=== PATIENT | female | born 1985 | race Caucasian/White ===

== ENCOUNTER → 2023-01-30 | Outpatient (OUT) | payer OTHER, SELFPAY ==
[2023-01-30 13:27] LABS: Basophils Absolute Auto 0.1 10^3/uL (0.0-0.1); Basophils Percent Auto 0.7 % (0.2-2.0); Eosinophils Absolute Auto 0.4 10^3/uL (0.0-0.7); Eosinophils Percent Auto 4.3 % (0.9-7.0); Hemoglobin 15.4 g/dL (12.0-16.0); Immature Granulocytes Abs Auto 0.05 10^3/uL (0.00-0.03); Immature Granulocytes Pct Auto 0.5 % (0.0-0.5); Lymphocytes Absolute Auto 2.3 10^3/uL (1.2-3.8); Mean Corpuscular HGB Conc 31.4 g/dL (29.9-35.2); Mean Corpuscular Hemoglobin 31.4 pg (26.7-34.0); Mean Platelet Volume 9.8 fL (9.5-13.5); Monocytes Absolute Auto 0.7 10^3/uL (0.3-0.8); Monocytes Percent Auto 6.8 % (1.7-12.0); Neutrophils Absolute Auto 6.2 10^3/uL (1.4-6.5); Neutrophils Percent Auto 63.7 % (43.0-75.0); Platelet Count 308 10^3/uL (150-450); Red Cell Distribution Width 14.2 % (11.0-15.0); White Blood Count 9.7 10^3/uL (4.0-11.0)
[2023-01-30 14:19] LABS: Alanine Aminotransferase 27 U/L (14-59); Albumin Globulin Ratio 0.8; Albumin Level 3.3 g/dL (3.4-5.0); Alkaline Phosphatase 106 U/L (46-116); Anion Gap 10.8; Aspartate Amino Transferase 18 U/L (15-37); BUN Creatinine Ratio 8.2; Bilirubin Total 0.3 mg/dL (0.2-1.0); Calcium 9.5 mg/dL (8.5-10.1); Carbon Dioxide 27.4 mmol/L (21.0-32.0); Chloride 107 mmol/L (98-107); Chol HDL Ratio 6.1; Cholesterol 208 mg/dL (<=200); Estimated GFR (African America >60 (>=60); Estimated GFR (Non-African Ame >60 (>=60); Free T3 2.22 pg/mL (2.18-3.98); Globulin 4.3 g/dL; Glucose 92 mg/dL (74-106); HDL Cholesterol 34 mg/dL (40-60); Potassium 4.2 mmol/L (3.5-5.1); Sodium 141 mmol/L (136-145); Thyroid Stimulating Hormone 0.626 uIU/mL (0.358-3.740); Total Protein 7.6 g/dL (6.4-8.2); Triglycerides 210 mg/dL (<=150)
[2023-01-30 14:21] LABS: Estimated Average Glucose 111 mg/dL; Glycohemoglobin A1C 5.5 % (4.5-6.2)
[2023-01-31 11:09] LABS: Insulin 40.3 uIU/mL (2.6-24.9)
== END ==
LOC: LAB 12:14
PROVIDERS: PCP Family Medicine; Visit Provider Family Medicine
DX: D64.9 Anemia, unspecified (principal); R73.09 Other abnormal glucose; E55.9 Vitamin D deficiency, unspecified; L65.9 Nonscarring hair loss, unspecified; G43.909 Migraine, unspecified, not intractable, without status migrainosus; R53.83 Other fatigue
CPT/HCPCS: 36415; 80053; 80061; 82306; 82607; 82746; 83036; 83525; 83540; 83690; 84436; 84443; 84481; 85025

== ENCOUNTER 2023-02-07 14:09 | Outpatient (OUT) | payer OTHER, SELFPAY ==
[2023-02-08 06:09] LABS: HCV Antibody Non Reactive (Non Reactive); HIV Ab/p24 Ag Screen Non Reactive (Non Reactive); Hep B Core Ab, IgM Negative (Negative)
== END 2023-02-07 14:10 ==
PROVIDERS: PCP Family Medicine; Visit Provider Physician Assistant
DX: Z20.2 Contact with and (suspected) exposure to infections with a predominantly sexual mode of transmission (principal)
CPT/HCPCS: 36415; 86705; 86803; 87389

== ENCOUNTER 2023-02-14 06:00 | Outpatient (OUT) | payer OTHER, SELFPAY ==
[2023-02-14 15:46] VITALS: BMI 45.5
== END 2023-02-14 06:01 ==
LOC: MN 03-27 10:43
PROVIDERS: PCP Family Medicine; Visit Provider Family Medicine
DX: R73.03 Prediabetes (principal)
CPT/HCPCS: 97802; S9470

== ENCOUNTER 2023-05-19 00:59 | Emergency (ER) | payer OTHER, SELFPAY ==
[2023-05-19 01:05] VITALS: BP 138/90; PULSE 74; RESP 16; TEMP 36.6; O2SAT 100; BMI 42.5
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
== END 2023-05-19 01:51 | disposition home or self-care (01) ==
PROVIDERS: Emergency Provider Emergency Medicine; PCP Family Medicine
DX: S00.33XA Contusion of nose, initial encounter (principal); S09.8XXA Other specified injuries of head, initial encounter; Y04.2XXA Assault by strike against or bumped into by another person, initial encounter; Z79.84 Long term (current) use of oral hypoglycemic drugs; Z79.899 Other long term (current) drug therapy; F17.210 Nicotine dependence, cigarettes, uncomplicated
CPT/HCPCS: 99282

== ENCOUNTER 2023-09-07 21:13 | Outpatient (REF) | payer OTHER, SELFPAY ==
[2023-09-12 17:07] LABS: Age Gdln ACOG Testing Note (.); HPV Aptima Negative (Negative); IGP, Aptima HPV, rfx 16/18,45 Note (.)
== END 2023-09-07 21:14 | disposition home or self-care (01) ==
LOC: LAB 21:13
PROVIDERS: PCP Family Medicine; Visit Provider Obstetrics & Gynecology
DX: Z01.419 Encounter for gynecological examination (general) (routine) without abnormal findings (principal)
CPT/HCPCS: G0145

== ENCOUNTER 2024-09-10 19:41 | Outpatient (REF) | payer OTHER, SELFPAY ==
--- OUTSIDE RECORDS SUMMARY | 2024-09-10 19:57 | XMS_ITS | CCD ---
Author Organization [facility] Care Team Providers Care Analysis Reporting Developer Name Role Phone OSMICKYWO, EMMIE O Unavailable Unavailable OSINOWO, EMMIE O Unavailable Unavailable RAZ BURRIS Unavailable Unavailable HOY, NUPUR M Unavailable Unavailable JHONATAN PAYANER M Unavailable Unavailable HOY, NUPUR M Unavailable Unavailable HOY, NUPUR M Unavailable Unavailable HOY, NUPUR M Unavailable Unavailable SCHUYLER, CHRISTOPHER M Unavailable Unavailable HOY, NUPUR M Unavailable Unavailable MAGALLANESMARGE WATTS T Unavailable Unavailable HOY, NUPUR M Unavailable Unavailable HOY, NUPUR M Unavailable Unavailable NENO LEWIS Unavailable Unavailable HOY, NUPUR M Unavailable Unavailable LILLIAM DREW Unavailable Unavailable HOY, NUPUR M Unavailable Unavailable HOY, NUPUR M Unavailable Unavailable ANY HOLDER Unavailable Unavailab le HOY, NUPUR M Unavailable Unavailable SUE VALDIVIA Unavailable Unavailable HOY, NUPUR M Unavailable Unavailable HOY, NUPUR M Unavailable Unavailable DEBORAH SOLANO Unavailable Unavailable INDURTI, CONSTANTINO V Unavailable Unavailable INDURTI, CONSTANTINO V Unavailable Unavailable HOY, NUPUR M Unavailable Unavailable AHMED, IRFAN Unavailable Unavailable AHMED, IRFAN Unavailable Unavailable HOY, NUPUR M Unavailable Unavailable NATASHA COIBAN Unavailable Unavailable FABIANO ZIMMERMAN Unavailable Unavailable HOY, NUPUR M Unavailable Unavailable Nupur Mcmahan Primary Care Provider Gabriella Mcmahan Primary Care Provider [phone] MD Nupur Mcmahan Primary Care Provider MD Kaz Valderrama Attending Provider [phone] MERCEDES Tai Emergency Provider [phone] Nupur Mcmahan Primary Care Physician MD Nupur Mcmahan Primary Care Provider [phone] DO Oscar Narayan Emergency Provider MD Nupur Mcmahan Primary Care Provider [phone] DO Oscar Narayan Emergency Provider Maksim [facility] Mary Mena Emergency Provider MD Nupur Mcmahan Primary Care Provider [phone] DO Paolo Beck Emergency Provider Branden Fenton Attending Provider NATHALIAY ., DR ESPITIA Admitting Unavailable HOY ., DR ESPITIA Attending Unavailable HOY ., DR ESPITIA Consulting Unavailable HOY ., DR ESPITIA Primary Care Unavailable ZIEBER, DR ROMINA Ramos Consulting Unavailable HOY ., DR ESPITIA Primary Care Unavailable EBRAHEIM, DR NUNEZ Attending Unavailable EBRAHEIM, DR NUNEZ Admitting Unavailable ZIEBER, DR ROMINA Ramos Consulting Unavailable EBRAHEIM, DR NUNEZ Consulting Unavailable HOY ., DR ESPITIA Primary Care Unavailable CLARA, GABRIEL Attending Unavailable CLARA, GABRIEL Admitting Unavailable HOY ., DR ESPITIA Admitting Unavailable HOY ., DR ESPITIA Attending Unavailable HOY ., DR ESPITIA Consulting Unavailable HOY ., DR ESPITIA Primary Care Unavailable STOUTLAND, DR ROGER [place] Consulting Unavailable HOY ., DR ESPITIA Primary Care Unavailable YUKO, DR JIMMY Amaro Attending Unavailable YUKO, DR JIMMY Amaro Consulting Unavailable YUKO, DR JIMMY Amaro Admitting Unavailable HOY ., DR ESPITIA Primary Care Unavailable MARKER ., DR BOURNE Attending Unavailable MARKER ., DR BOURNE Consulting Unavailable MARKER ., DR BOURNE Admbobbi Unavailable RENÉ HERRON Consulting Unavailable HOY ., DR ESPITIA Primary Care Unavailable HOY ., DR ESPITIA Admitting Unavailable HOY ., DR ESPITIA Attending Unavailable HOY ., DR ESPITIA Consulting Unavailable ZIEBER, DR ROMINA Ramos Consulting Unavailable YUKO, DR JIMMY Amaro Attending Unavailable YUKO, DR JIMMY Amaro Consulting Unavailable YUKO, DR JIMMY Amaro Admitting Unavailable HOY ., DR ESPITIA Primary Care Unavailable Dyana Barraza Unavailable Zeenat Vance Unavailable MD Nupur Mcmahan Primary Care Provider MD Dyana Barraza Attending Provider MERCEDES Bone Emergency Provider SHORTY [place] Emergency Provider DO Ilana Beckrick Emergency Provider MD Nupur Mcmahan Primary Care Provider MD Dyana Barraza Attending Provider MD Dyana Barraza Referring Provider [phone] MD Libertad Kumari Attending Provider MD Rm Valdes Emergency Provider DO Juan Adis Emergency Provider Libertad Kumari Unavailable MD Nupur Mcmahan Primary Care Provider MERCEDES Bone Emergency Provider [phone] SHORTY [place] Emergency Provider DO Paolo Beck Emergency Provider MD Dyana Barraza Attending Provider MD Dyana Barraza Referring Provider MD Libertad Kumari Attending Provider MD Rm Valdes Emergency Provider DO Adis Martinez Emergency Provider MD Emmie Cannon Jr Emergency Provider MD Beatrice Shafer Attending Provider [phone] PCP, No Primary Care Provider MD Nupur Banerjee Primary Care Provider [phone] MD Dyana Barraza Attending Provider [phone] MD Any Truong Emergency Provider MD Nupur Mcmahan Primary Care Provider [phone] MD Shahbaz Cornelius Attending Provider Beatrice Shafer Attending Unavailab le PCP, No Primary Care Unavailable JEAN CARLOS FERRIS Attending Unavailable MD Nupur Mcmahan Primary Care Provider MD Shahbaz Cornelius Attending Provider MD Dyana Barraza Attending Provider DO Anthony Tohmas Emergency Provider Unavai lable [place], [facility] Mary E Emergency Provider [phone] ELATTAR, OSAMA Attending Unavailable ELATTAR, OSAMA Attending Unavailable YUKO, JIMMY A Attending Unavailable YUKO, JIMMY A Attending Unavailable ELATTAR, OSAMA Referring Unavailable YUKO, JIMMY A Referring Unavailable ELATTAR, OSAMA Referring Unavailable YUKO, JIMMY A Referring Unavailable YUKO, JIMMY A Referring Unavailable YUKO, JIMMY A Attending Unavailable ELATTAR, OSAMA Attending Unavailable YUKO, JIMMY A Attending Unavailable MD Nupur Mcmahan Primary Care Provider MD Nupur Mcmahan Primary Care Provider DO Anthony Thomas Emergency Provider [facility]avai lable [facility] MD Shahbaz Cornelius Attending Provider Nupur Mcmahan MD Primary Care Provider MD Nupur Mcmahan Primary Care Provider MD Shahbaz Cornelius Attending Provider MD Nupur Mcmahan Primary Care Provider MD Shahbaz Cornelius Attending Provider [phone] [place] MD Nupur Mcmahan Primary Care Provider MD Shahbaz Cornelius Attending Provider [phone] MERCEDES Bone Emergency Provider Jimmy STOCK Attending Unavailable Jimmy STOCK Attending Unavailable [place], Mary E Admitting Unavailable [place], Mary E Attending Unavailable Hoy, Nupur M Primary Care Unavailable Any Truong Admitting Unavailable Any Truong Attending Unavailable Hoy, Nupur M Primary Care Unavailable Dyana Barraza Attending Unavailable Hoy, Nupur M Primary Care Unavailable Dyana Barraza Admitting Unavailable Dyana Barraza Attending Unavailable Hoy, Nupur M Primary Care Unavailable MadiTamir nietoald L Admitting Unavailable [place], Mary E Admitting Unavailable [place], Mary E Attending Unavailable Hoy, Nupur M Primary Care Unavailable Shahbaz Cornelius Attending Unavailab le Hoy, Nupur M Primary Care Unavailable Shahbaz Cornelius Admitting Unavailab le Hoy, Nupur M Primary Care Unavailable Dante Bone Admitting Unavailable Dante Bone Attending Unavailable Anthony Thomas Admitting Unavailable Anthony Thomas Attending Unavailable Hoy, Nupur M Primary Care Unavailable BEATRICE CABRERA Referring Unavailab le HOY, NUPUR M Primary Care Unavailable DEBORAHBEATRICE DASILVA Referring Unavailab le HOY, NUPUR M Primary Care Unavailable HOY, NUPUR M Primary Care Unavailable HOY, NUPUR M Primary Care Unavailable BEATRICE CABRERA Referring Unavailab le DEBORAHBEATRICE DASILVA Referring Unavailab le HOY, NUPUR M Primary Care Unavailable HOY, NUPUR M Primary Care Unavailable SELF Referring Unavailable BEATRICE CABRERA Attending Unavailab le HOY, NUPUR M Primary Care Unavailable FABIANO PAIGE Referring Unavailable HOY, NUPUR M Primary Care Unavailable HOY, NUPUR M Primary Care Unavailable BEATRICE CABRERA Attending Unavailab le DEBORAHBEATRICE DASILVA Referring Unavailab le HOY, NUPUR M Primary Care Unavailable HOY, NUPUR M Primary Care Unavailable BEATRICE CABRERA Referring Unavailab le DEBORAHBEATRICE DASILVA Attending Unavailab le HOY, NUPUR M Primary Care Unavailable HOY, NUPUR M Referring Unavailable BEATRICE CABRERA Referring Unavailab le DEBORAHBEATRICE DASILVA Attending Unavailab le HOY, NUPUR M Primary Care Unavailable FABIANO PAIGE Attending Unavailable NUPUR MCMAHAN Primary Care Unavailable SELF Referring Unavailable DEBORAHBEATRICE W Referring Unavailab NUPUR Marshall M Primary Care Unavailable DEBORAHBEATRICE W Attending Unavailab NUPUR Marshall M Primary Care Unavailable SELF Referring Unavailable NUPUR MCMAHAN M Primary Care Unavailable SELF Referring Unavailable BEATRICE CABRERA W Attending Unavailab BEATRICE Murphy W Admitting Unavailab le DEBORAHBEATRICE W Referring Unavailab le NUPUR MCMAHAN M Primary Care Unavailable JHONATAN CABRERAER W Referring Unavailab le DEBORAHBEATRICE W Attending Unavailab NUPUR Marshall Primary Care Unavailable NUPUR MCMAHAN M Primary Care Unavailable Nupur Mcmahan MD Primary Care Provider [phone] Unavailable Unavailable Unavailable Allergies Allergy Classification Reported Allergen(s) Allergy Type Date of Onset Reaction(s) Facility Acetaminophen (1 source) Acetaminophen Drug Allergy 1 Unknown Reaction [facility] Latex (1 source) Latex Substance Allergy 1 Rash [facility] Opioid Agonists (1 source) HYDROmorphone Drug Allergy 1 Anaphylaxis [facility] Pollen (1 source) Pollen Substance Allergy 1 Sneezing [facility] (20 sources) Acetaminophen; Translations: [Acetaminophen] Drug Allergy 0 Ammonia measurement (procedure), Other: See Comments, Shortness of breath, Other, Unknown [facility] (20 sources) Adhesive agent; Translations: [ADHESIVE] Propensity to adverse reactions 0 [facility] (20 sources) HYDROmorphone; Translations: [Hydromorphone] Drug Allergy 7 Hypoxia (disorder), Bradycardia (disorder), Hypotensive episode (disorder), Other: See Comments, Anaphylaxis, Dizziness, Hives, Other, Palpitations, Rash, Shortness of breath [facility] (20 sources) Latex; Translations: [latex] Allergy to substance 0 Weal (disorder), [facility] (20 sources) Pollen; Translations: [pollen extracts] Propensity to adverse reactions 0 Sneezing [facility] (6 sources) Adhesive bandage; Translations: [Adhesive Bandage] Drug allergy Weal (disorder) [facility] (8 sources) Acetaminophen; Translations: [Tylenol] Drug Allergy Unknown [facility] (3 sources) Desonide Drug Allergy 3 Hives [facility] (3 sources) HYDROmorphone; Translations: [Dilaudid] Drug Allergy 4 [facility] (1 source) naratriptan Drug Allergy [facility] (3 sources) diludid; Translations: [diludid] Allergy to substance 3 Low heart rate, low O2, low blood pressure [facility] (1 source) Adhesive Tape Drug allergy (disorder) 3 [facility] (1 source) ADHESIVE TAPE-SILICONES; Translations: [ADHESIVE TAPE-SILICONES] Propensity to adverse reactions to drug (disorder) 7 [facility] (1 source) FLUOROURACIL-ADHE SIVE BANDAGE; Translations: [FLUOROURACIL-ADH ESIVE BANDAGE] Propensity to adverse reactions to drug (disorder) 3 [facility] (20 sources) Adhesive Tape; Translations: [ADHESIVE TAPE (ROSINS)] Allergy to substance 7 Rash [facility] (3 sources) Wound Dressing Adhesive Drug Allergy 7 Hives, Rash [facility] Medications Current Medications Medication Drug Class(es) Dates Sig (Normalized) Sig (Original) aspirin 325 mg oral tablet (19 sources) Platelet Aggregation Inhibitor, Nonsteroidal Anti-inflammatory Drug Start: 05-13-2024 End: 06-24-2024 take 1 tablet by mouth once daily aspirin 325 mg tablet Take 1 tablet by mouth once daily. 42 tablet 05/13/2024 Active atomoxetine 80 mg oral capsule (5 sources) Norepinephrine Reuptake Inhibitor Start: 11-05-2021 take 1 capsule by mouth once daily in the morning Strattera 80 mg oral capsule 80 mg = 1 cap(s), Oral, qAM Start Date: 11/05/21 Status: Ordered bethanechol chloride 50 mg oral tablet (20 sources) Cholinergic Muscarinic Agonist Start: 09-07-2022 End: 05-10-2024 take 1 tablet by mouth once daily Urecholine 50 mg oral tablet 50 mg = 1 tab(s), Oral, Daily, Refills(s) 0 Start Date: 05/20/24 Status: Ordered Start: 03-29-2022 take 1 tablet by hortencia once daily Urecholine 25 mg Tab 25 mg = 1 tab(s), Oral, Daily, # 90 tab(s), Refills(s) 3, [facility]acy: [facility] #[id number], 180, cm, 03/29/22 9:49:00 EDT, Height/Length Dosing, 148.8, kg, 03/29/22 9:49:00 EDT, Weight Dosing Start Date: 03/29/22 Status: Ordered Start: 06-22-2021 take 1 tablet by hortencia once daily Urecholine 25 mg Tab 25 mg = 1 tab(s), Oral, Daily, # 30 tab(s), Refills(s) 3, [facility]: [id number] [facility], 180, cm, 06/22/21 9:06:00 EDT, Height/Length Dosing, 145.7, kg, 06/22/21 9:06:00 EDT, Weight Dosing Start Date: 06/22/21 Status: Ordered take 1 tablet by hortencia three times daily 1 hour(s) after mealtime Bethanechol Chloride 25 MG 1 tablet 1 hour before or 2 hours after meals Orally Three times a day Active cyproheptadine hydrochloride 4 mg oral tablet (20 sources) Start: 03-01-2019 take 1 tablet by mouth twice daily cyproheptadine (PERIACTIN) 4 mg tablet Take 4 mg by mouth twice daily. 01/29/2020 Active Diclofenac (20 sources) Nonsteroidal Anti-inflammatory Drug Start: 08-14-2023 diclofenac sodium (Voltaren) Active PO August 14, 2023 12:00am Start: 08-14-2023 diclofenac sod ium (Voltaren) Active TOP August 14, 2023 12:00am Start: 11-05-2021 diclofenac Top 1% gel 2 gm, Topical, TID, Refill(s) 0 Start Date: 11/05/21 Status: Ordered take 1 tablet by hortencia in the morning diclofenac (Voltaren) 25 MG EC tablet Take 25 mg by mouth in the morning and 25 mg before bedtime. Do not crush, chew, or split. . Active take 1 tablet by hortencia th every twelve hours as needed diclofenac, EC, (VOLTAREN) 75 mg EC tablet Take 75 mg by mouth two times a day as needed. Active 0.5 ml dulaglutide 1.5 mg/ml auto-injector (3 sources) GLP-1 Receptor Agonist Start: 12-01-2023 Dulaglutide (Trulicity) 0.75 mg/0.5 mL pen injector Active 0.75 MG SUBCUT every week December 01, 2023 12:00am fenofibrate 145 mg oral tablet (3 sources) Peroxisome Proliferator Receptor alpha Agonist Start: 09-07-2022 fenofibrate 145 mg Tab Refills(s) 0 Start Date: 09/07/22 Status: Ordered 24 hr guanFACINE 4 mg extended release oral tablet (20 sources) Central alpha-2 Adrenergic Agonist Start: 10-24-2022 End: 09-10-2024 take 1 tablet by mouth every twenty-four hours in the morning guanFACINE (Intuniv) 4 mg 24 hr tablet Take 4 mg by mouth in the morning. 10/24/2022 09/10/2024 Discontinued (Other) Start: 05-27-2022 take 1 tablet by hortencia th once daily Guanfacine (Intuniv Er) 4 mg Tablet Extended Release 24 Hr Active 4 MG PO Daily May 27, 2022 12:00am hydrOXYzine hydrochloride 10 mg oral tablet (20 sources) Antihistamine Start: 04-17-2020 take 1-2 tablets by mouth three times daily hydrOXYzine HCl (ATARAX) 10 mg tablet take 1 to 2 tablets by mouth three times a day if needed 04/17/2020 Active Start: 09-04-2017 End: 03-18-2018 take 50 mg by mouth every six hours Hydroxyzine Pamoate Discontinued 50 MG PO Q6H September 04, 2017 1:00am March 18, 2018 2:56pm ketorolac tromethamine 10 mg oral tablet (1 source) Nonsteroidal Anti-inflammatory Drug, Cyclooxygenase Inhibitor Start: 05-13-2024 End: 05-20-2024 take 1 tablet by mouth every six hours as needed keTORolac (TORADOL) 10 mg tablet Take 1 tablet by mouth every 6 hours as needed for pain for up to 7 days. 28 tablet 05/13/2024 05/20/2024 Active Liraglutide (Victoza 2-Kingsley) 0.6 mg/0.1 mL (18 mg/3 mL) pen injector (2 sources) Start: 08-14-2023 Liraglutide (Victoza 2-Kingsley) 0.6 mg/0.1 mL (18 mg/3 mL) pen injector Active 0.6 MG SUBCUT Daily August 14, 2023 12:00am naproxen 500 mg oral tablet (20 sources) Nonsteroidal Anti-inflammatory Drug Start: 08-14-2023 naproxen Active PO August 14, 2023 12:00am Start: 06-13-2017 End: 03-18-2018 take 500 mg by mouth three times daily Naproxen Discontinued 500 MG PO Three times daily June 13, 2017 12:00am March 18, 2018 2:56pm Start: 01-23-2017 End: 10-28-2024 take 1 tablet by mouth twice daily at mealtime naproxen (NAPROSYN) 500 mg tablet Take 1 tablet by mouth two times a day with meals. 60 tablet 2 07/30/2024 10/28/2024 Active take 2 tablets by [facility] every twenty-four hours Naproxen 500 MG 2 tablets Orally daily Active ondansetron 4 mg oral tablet (20 sources) Serotonin-3 Receptor Antagonist Start: 09-23-2023 take 4 mg by mouth every eight hours Ondansetron Hcl Active 4 MG PO Q8H 15 September 23, 2023 1:00am Start: 01-19-2021 End: 06-22-2021 take 4 mg by mouth every eight hours Ondansetron Discontinued 4 MG PO Q8H April 20, 2021 12:00am June 22, 2021 2:02am Start: 05-22-2020 End: 04-20-2021 Ondansetron Discontinued 4 M G PO 2-3 TIMES PER DAY May 22, 2020 12:00am April 20, 2021 12:26pm Start: 09-29-2019 End: 05-22-2020 take 4 mg by mouth every eight hours Ondansetron Discontinued 4 MG PO Q8H September 29, 2019 1:00am May 22, 2020 3:56pm Start: 10-28-2018 End: 12-30-2018 Ondansetron Discontinued 4 M G PO every 6 to 8 hours October 28, 2018 1:00am December 30, 2018 12:04pm Start: 06-13-2017 End: 03-18-2018 take 4 mg by mouth four times daily Ondansetron Discontinued 4 MG PO Four times daily June 13, 2017 12:00am March 18, 2018 2:56pm oxyCODONE hydrochloride 5 mg oral tablet (4 sources) Opioid Agonist Start: 05-15-2024 End: 05-22-2024 take 1 tablet by mouth every six hours as needed for pain oxyCODONE IR (ROXICODONE) 5 mg immediate release tablet Indications: Pain , Displaced fracture of fifth metatarsal bone, left foot, initial encounter for closed fracture Take 1 tablet by mouth every 6 hours as needed for pain for up to 7 days. 28 tablet 05/15/2024 05/22/2024 Active promethazine hydrochloride 25 mg oral tablet (6 sources) Phenothiazine Start: 11-05-2021 End: 05-20-2024 take 1 tablet by mouth every six hours as needed promethazine (PHENERGAN) 25 mg tablet Take 1 tablet by mouth every 6 hours as needed for nausea/vomiting for up to 7 days. 28 tablet 05/13/2024 05/20/2024 Active ziprasidone 20 mg oral capsule (3 sources) Atypical Antipsychotic Start: 09-07-2022 ziprasidone 20 mg Cap Refills(s) 0 Start Date: 09/07/22 Status: Ordered Completed/Discontinued Medications Medication Drug Class(es) Dates Sig (Normalized) Sig (Original) acetaminophen 325 mg / oxyCODONE hydrochloride 5 mg oral tablet (1 source) Opioid Agonist Start: 05-13-2024 End: 05-15-2024 take 1 tablet by mouth every eight hours as needed for pain oxyCODONE-acetamin ophen (PERCOCET) 5-325 mg tablet Indications: Post-op pain Take 1 tablet by mouth every 8 hours as needed for pain for up to 7 days. 21 tablet 05/13/2024 05/15/2024 Discontinued (Side Effects) ARIPiprazole 300 mg injection (20 sources) Atypical Antipsychotic Start: 09-15-2020 End: 01-19-2021 inject 300 mg by intramuscular injection every month Aripiprazole (Amyfkd Maintena) 300 mg suspension,extende d rel recon Discontinued 300 MG IM every month September 15, 2020 1:00am January 19, 2021 6:17pm ascorbic acid 100 mg oral tablet (10 sources) Vitamin C End: 04-30-2024 take 1 tablet by mouth once daily Ascorbic Acid (VITAMIN C) 100 mg tablet Take 100 mg by mouth once daily. 04/30/2024 Discontinued (Course of therapy completed) brexpiprazole 1 mg oral tablet (20 sources) Atypical Antipsychotic Start: 07-13-2018 End: 08-18-2018 take 1 tablet by mouth once daily Brexpiprazole (Rexulti) 1 mg Tablet Discontinued 3 MG PO Daily July 13, 2018 1:00am August 18, 2018 3:00am Start: 03-25-2018 End: 07-13-2018 take 1 tablet by mouth once daily Brexpiprazole (Rexulti) 2 mg tablet Discontinued 3 MG PO Daily June 19, 2018 11:59pm July 13, 2018 11:21am busPIRone hydrochloride 10 mg oral tablet (20 sources) Start: 09-04-2017 End: 03-18-2018 take 10 mg by mouth three times daily Buspirone Discontinued 10 MG PO Three times daily September 04, 2017 1:00am March 18, 2018 2:56pm Calcium Carbonate / vitamin D3 (10 sources) End: 04-30-2024 CALCIUM CARBONATE/VITAMIN D3 (CALCIUM 600 + D,3, ORAL) Take by mouth. 04/30/2024 Discontinued (Course of therapy completed) CALCIUM CARBONAT E/VITAMIN D3 (CALCIUM 600 + D,3, ORAL) Take by mouth. 0 Active cephalexin 500 mg oral capsule (20 sources) Cephalosporin Antibacterial Start: 06-16-2023 End: 07-02-2023 take 500 mg by mouth twice daily Cephalexin Discontinued 500 MG PO Twice daily 10 03June 16, 2023 12:00am July 02, 2023 1:47am Start: 01-19-2021 End: 04-20-2021 take 500 mg by mouth twice daily Cephalexin Discontinued 500 MG PO Twice daily 10 03January 19, 2021 12:00am April 20, 2021 12:26pm chlorproMAZINE hydrochloride 50 mg oral tablet (20 sources) Phenothiazine Start: 09-04-2017 End: 03-18-2018 take 50 mg by mouth once daily at bedtime Chlorpromazine Discontinued 50 MG PO Daily at bedtime September 04, 2017 1:00am March 18, 2018 2:56pm cholecalciferol 1.25 mg oral capsule (10 sources) Vitamin D Start: 10-23-2012 End: 04-30-2024 take 1 capsule by mouth every week cholecalciferol, Vitamin D3, 50,000 unit cap capsule Take 1 capsule by mouth once each week. 4 capsule 3 10/23/2012 04/30/2024 Discontinued (Course of therapy completed) citalopram 20 mg oral tablet (10 sources) Serotonin Reuptake Inhibitor End: 04-30-2024 take 1 tablet by mouth once daily citalopram (CELEXA) 20 mg tablet Take 20 mg by mouth once daily. 04/30/2024 Discontinued (Course of therapy completed) clindamycin 150 mg oral capsule (20 sources) Lincosamide Antibacterial Start: 07-18-2021 End: 05-27-2022 take 450 mg by mouth every eight hours Clindamycin Hcl Discontinued 450 MG PO Q8H 63 July 18, 2021 1:00am May 27, 2022 7:29am cyclobenzaprine hydrochloride 10 mg oral tablet (20 sources) Muscle Relaxant Start: 04-20-2021 End: 06-22-2021 take 10 mg by mouth three times daily Cyclobenzaprine Discontinued 10 MG PO Three times daily April 20, 2021 12:00am June 22, 2021 2:02am Start: 09-06-2018 End: 01-01-2019 take 10 mg by mouth three times daily Cyclobenzaprine Discontinued 10 MG PO Three times daily September 06, 2018 1:00am January 01, 2019 8:27am diazePAM 5 mg oral tablet (20 sources) Benzodiazepine Start: 04-07-2021 End: 04-20-2021 take 1 tablet by mouth once daily Diazepam (Valium) 5 mg tablet Discontinued 5 MG PO Daily 3 April 07, 2021 12:00am April 20, 2021 12:26pm ergocalciferol 1.25 mg oral capsule (20 sources) Provitamin D2 Compound Start: 02-12-2019 End: 04-20-2021 take 55478 [IU] by mouth every week Ergocalciferol (Vitamin D2) Discontinued 23020 UNIT PO every week February 12, 2019 12:00am April 20, 2021 12:26pm Takes on Mondays ibuprofen 800 mg oral tablet (20 sources) Nonsteroidal Anti-inflammatory Drug Start: 09-29-2019 End: 05-22-2020 take 800 mg by mouth three times daily Ibuprofen Discontinued 800 MG PO Three times daily September 29, 2019 1:00am May 22, 2020 3:56pm lactulose 667 mg/ml oral solution (20 sources) Osmotic Laxative Start: 07-13-2018 End: 08-18-2018 take 20 g by mouth at bedtime Lactulose Discontinued 20 GM PO Bedtime 420 July 13, 2018 1:00am August 18, 2018 3:01am 24 hr levomilnacipran 20 mg extended release oral capsule (20 sources) Serotonin and Norepinephrine Reuptake Inhibitor Start: 06-19-2018 End: 07-13-2018 take 1 capsule by mouth once daily Levomilnacipran (Fetzima) 20 mg capsule,extended release 24 hr Discontinued 80 MG PO Daily June 19, 2018 11:59pm July 13, 2018 11:22am Start: 03-25-2018 End: 06-19-2018 take 1 capsule by mouth once daily Levomilnacipran (Fetzima) 20 mg Capsule,Extended Release 24 Hr Discontinued 60 MG PO Daily March 25, 2018 12:00am June 19, 2018 11:59pm Start: 09-04-2017 End: 03-18-2018 take 1 capsule by mouth once daily Levomilnacipran (Fetzima) 120 mg Capsule,Extended Release 24hr Discontinued 120 MG PO Daily September 04, 2017 1:00am March 18, 2018 2:56pm Start: 07-10-2017 End: 03-18-2018 take 2 capsules by mouth once daily Levomilnacipran (Fetzima) 40 mg Capsule,Extended Release 24hr Discontinued 80 MG PO Daily July 10, 2017 1:00am March 18, 2018 2:56pm Start: 06-14-2017 End: 07-10-2017 take 1 capsule by mouth once daily Levomilnacipran (Fetzima) 40 mg Capsule,Extended Release 24 Hr Discontinued 40 MG PO Daily June 14, 2017 12:00am July 10, 2017 12:22pm lidocaine 0.05 mg/mg medicated patch (20 sources) Antiarrhythmic, Amide Local Anesthetic Start: 07-09-2018 End: 01-01-2019 apply 1 dose topically once daily Lidocaine Discontinued 1 PATCH TOPICAL Daily July 09, 2018 1:00am January 01, 2019 8:27am Apply one patch to back daily. 3 ml liraglutide 6 mg/ml pen injector (16 sources) GLP-1 Receptor Agonist Start: 09-22-2023 End: 09-10-2024 Liraglutide (Victoza 3-Kingsley) 0.6 mg/0.1 mL (18 mg/3 mL) pen injector Discontinued 1.8 MG SUBCUT Q24H October 20, 2023 9:42am December 01, 2023 9:07am Start: 07-10-2023 inject 1.8 mg by sub cutaneous injection once daily Victoza 18 MG/3ML 1.8 mg Subcutaneous daily for 30 days Jun, Active Start: 07-10-2023 inject 0.6 mg by sub cutaneous injection once daily, then inject 0.6 mg by subcutaneous injection every week, then inject 1.8 mg by subcutaneous injection once daily Victoza 18 MG/3ML Take 0.6 mg daily and if no side effects go up by 0.6 mg weekly up to a total of 1.8 mg Subcutaneous daily for 30 days Jun, Active lisinopril 10 mg oral tablet (10 sources) Angiotensin Converting Enzyme Inhibitor End: 04-30-2024 take 1 tablet by mouth once daily lisinopril 10 mg tablet Take 10 mg by mouth once daily. 04/30/2024 Discontinued (Course of therapy completed) lithium carbonate 300 mg oral tablet (20 sources) Start: 09-04-2017 End: 03-18-2018 take 300 mg by mouth three times daily [place] Carbonate Discontinued 300 MG PO Three times daily September 04, 2017 1:00am March 18, 2018 2:56pm lurasidone hydrochloride 40 mg oral tablet (20 sources) Atypical Antipsychotic Start: 01-01-2019 End: 02-12-2019 take 1 tablet by mouth once at mealtime Lurasidone (Latuda) 40 mg Tablet Discontinued 40 MG PO 3x/Day with meals 42 January 01, 2019 12:00am February 12, 2019 8:27pm melatonin 5 mg oral tablet (20 sources) Start: 02-12-2019 End: 04-20-2021 take 5 mg by mouth once daily at bedtime Melatonin Discontinued 5 MG PO Daily at bedtime February 12, 2019 12:00am April 20, 2021 12:26pm 24 hr metFORMIN hydrochloride 500 mg extended release oral tablet (20 sources) Biguanide Start: 08-14-2023 take 500 mg by mouth once daily Metformin Active 500 MG PO Daily August 14, 2023 12:00am Start: 02-07-2023 End: 12-01-2023 take 500 mg by mouth once daily at bedtime Metformin Discontinued 500 MG PO Daily at bedtime October 20, 2023 9:42am December 01, 2023 9:09am End: 09-10-2024 take 1 tablet by mouth at mealtime, then take 1 tablet by mouth every twenty-four hours metFORMIN, OSM, (Fortamet) 500 MG 24 hr tablet Take 500 mg by mouth in the evening. Take with meals Do not crush, chew, or split. 09/10/2024 Discontinued (Other) metoprolol tartrate 25 mg oral tablet (20 sources) beta-Adrenergic Fariba Start: 09-04-2017 End: 03-18-2018 take 25 mg by mouth twice daily Metoprolol Tartrate Discontinued 25 MG PO Twice daily 60 September 04, 2017 1:00am March 18, 2018 2:56pm nicotine 2 mg chewing gum (20 sources) Cholinergic Nicotinic Agonist Start: 03-25-2018 End: 06-19-2018 Nicotine (Polacrilex) (Nicorelief) 2 mg Gum Discontinued 2 MG BUCCAL Every 2 hours March 25, 2018 12:00am June 19, 2018 11:59pm Norethindrone (Contraceptive) (20 sources) Start: 07-04-2017 End: 07-05-2017 take 1 tablet by mouth once daily Norethindrone (Contraceptive) Discontinued 1 TAB PO Daily July 04, 2017 9:31pm July 05, 2017 6:35pm Start: 07-04-2017 End: 07-05-2017 take 1 tablet by mouth once daily Norethindrone (Contraceptive) Discontinued 1 TAB PO Daily July 04, 2017 8:31pm July 05, 2017 5:35pm Start: 07-04-2017 End: 07-05-2017 take 1 tablet by mouth once daily Norethindrone (Contraceptive) Discontinued 1 TAB PO Daily July 04, 2017 12:00am July 05, 2017 5:35pm Start: 07-04-2017 End: 07-05-2017 take 1 tablet by mouth once daily Norethindrone (Contraceptive) Discontinued 1 TAB PO Daily July 04, 2017 1:00am July 05, 2017 6:35pm OLANZapine 10 mg oral tablet (20 sources) Atypical Antipsychotic Start: 08-31-2017 End: 09-04-2017 take 2.5 mg by mouth once daily Olanzapine Discontinued 2.5 MG PO Daily August 31, 2017 1:00am September 04, 2017 9:58am Start: 08-31-2017 End: 09-04-2017 take 10 mg by mouth at bedtime Olanzapine Discontinued 10 MG PO Bedtime August 31, 2017 1:00am September 04, 2017 9:58am Start: 07-10-2017 End: 08-31-2017 take 2.5 mg by mouth twice daily Olanzapine Discontinued 2.5 MG PO Twice daily July 10, 2017 1:00am August 31, 2017 1:53pm PNV WITH CA,NO.71/IRON/FA ( VITAMIN 1+1 ORAL) (10 sources) End: 04-30-2024 PNV WITH CA,NO.71/IRON/FA ( VITAMIN 1+1 ORAL) Take by mouth. 04/30/2024 Discontinued (Course of therapy completed) PNV WITH CA,NO.7 1/IRON/FA ( VITAMIN 1+1 ORAL) Take by mouth. 0 Active QUEtiapine 100 mg oral tablet (20 sources) Atypical Antipsychotic Start: 07-13-2018 End: 10-28-2018 take 1 tablet by mouth once daily at bedtime Quetiapine (Seroquel) 100 mg tablet Discontinued 100 MG PO Daily at bedtime August 18, 2018 3:01am October 28, 2018 11:10am topiramate 50 mg oral tablet (20 sources) Start: 06-22-2021 End: 05-27-2022 take 50 mg by mouth once daily Topiramate Discontinued 50 MG PO Daily June 22, 2021 12:00am May 27, 2022 7:29am 24 hr divalproex sodium 500 mg extended release oral tablet (20 sources) Mood Stabilizer, Anti-epileptic Agent Start: 01-01-2019 End: 02-12-2019 take 1500 mg by mouth once daily at bedtime Divalproex Discontinued 1500 MG PO Daily at bedtime 42 January 01, 2019 12:00am February 12, 2019 8:27pm Start: 07-13-2018 End: 10-28-2018 take 1500 mg by mouth once daily Divalproex Discontinued 1500 MG PO Daily July 13, 2018 1:00am October 28, 2018 11:09am Vitamin Q85-Cfqdkmy B1 5.5-1 2.5 mg-mcg/5 mL Liqd (10 sources) End: 04-30-2024 Vitamin C60-Nhbsizn B1 5.5-1 2.5 mg-mcg/5 mL Liqd Take by mouth. 04/30/2024 Discontinued (Course of therapy completed) Vitamin K48-Woik min B1 5.5-12.5 mg-mcg/5 mL Liqd Take by mouth. 0 Active Problems Active Problems Problem Classification Problem Date Documented Date Episodic/Chronic Abdominal pain (20 sources) Unspecified abdominal pain; Translations: [Abdominal pain] Onset: 06-06-2017 09-29-2019 Episodic Allergic reactions (15 sources) Urticaria; Translations: [Urticaria, unspecified] 04-21-2023 Episodic Anxiety disorders (20 sources) Panic disorder; Translations: [Panic disorder [episodic paroxysmal anxiety]] Onset: 11-20-2013 09-19-2017 Chronic Attention-deficit, conduct, and disruptive behavior disorders (5 sources) Attention deficit hyperactivity disorder, predominantly inattentive type 11-05-2021 Chronic Cardiac dysrhythmias (20 sources) Paroxysmal supraventricular tachycardia; Translations: [Paroxysmal supraventricular tachycardia (HCC)] Onset: 06-16-2023 11-05-2021 Chronic Cardiac dysrhythmias (20 sources) Palpitations; Translations: [Tachycardia] Onset: 06-03-2018 09-19-2017 Episodic Chronic obstructive pulmonary disease and bronchiectasis (1 source) Bronchitis, not specified as acute or chronic; Translations: [Bronchitis, not specified as acute or chronic] Onset: 03-15-2018 Episodic Coma; stupor; and brain damage (6 sources) Excessive daytime sleepiness - normal night sleep; Translations: [Somnolence] Episodic Conditions associated with dizziness or vertigo (20 sources) Dizziness; Translations: [Dizziness and giddiness] 09-19-2017 Episodic Diabetes mellitus with complications (4 sources) Disorder due to type 2 diabetes mellitus; Translations: [Type 2 diabetes mellitus with unspecified complications] Chronic Diabetes mellitus without complication (20 sources) Diabetes mellitus; Translations: [Type 2 diabetes mellitus] Onset: 11-20-2013 11-05-2021 Chronic Diabetes mellitus without complication (2 sources) Prediabetes Episodic Digestive congenital anomalies (3 sources) 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; Translations: [Congenital tracheo-esophageal fistula without atresia] Onset: 11-20-2013 01-30-2023 Chronic Disorders of lipid metabolism (20 sources) Mixed hyperlipidemia; Translations: [Mixed hyperlipidemia] Onset: 04-30-2024 Chronic Disorders of teeth and jaw (20 sources) Dental abscess; Translations: [Periapical abscess without sinus] 07-18-2021 Episodic Esophageal disorders (20 sources) Lower esophageal ring; Translations: [Gastroesophageal reflux disease] Onset: 10-23-2012 11-05-2021 Chronic Essential hypertension (20 sources) Hypertensive disorder; Translations: [Essential (primary) hypertension] Onset: 10-23-2012 11-05-2021 Chronic Fracture of lower limb (20 sources) Displaced fracture of fifth metatarsal bone, left foot, subsequent encounter for fracture with nonunion; Translations: [Closed fracture of foot] Onset: 10-09-2023 Episodic Genitourinary symptoms and ill-defined conditions (20 sources) Acute retention of urine ; Translations: [Other retention of urine] Onset: 03-28-2022 04-05-2021 Episodic Headache, including migraine (12 sources) Headache; Translations: [Headache] Onset: 03-15-2018 06-16-2023 Episodic Headache; including migraine (20 sources) Migraine; Translations: [Migraine, unspecified, not intractable, without status migrainosus] Onset: 11-20-2013 04-20-2021 Chronic Headache; including migraine (1 source) Headache; including migraine; Translations: [Headache, unspecified] Onset: 09-24-2023 Impulse control disorders (1 source) Homicidal ideations; Translations: [Homicidal ideations] Onset: 05-07-2018 Episodic Joint disorders and dislocations; trauma-related (9 sources) Unspecified internal derangement of left knee; Translations: [Chondromalacia of left patella] Onset: 05-31-2022 Chronic Mood disorders (20 sources) Bipolar disorder, unspecified; Translations: [Bipolar II disorder] Onset: 09-07-2017 12-30-2018 Chronic Mood disorders (1 source) Mood disorders; Translations: [DEPRESSION UNSPECIFIED] Onset: 2022 Nausea and vomiting (20 sources) Nausea with vomiting, unspecified; Translations: [Nausea and vomiting] Onset: 06-06-2017 05-22-2020 Episodic Nonspecific chest pain (20 sources) Chest pain; Translations: [Atypical chest pain] 05-09-2021 Episodic Nutritional deficiencies (20 sources) Vitamin D deficiency; Translations: [Vitamin D deficiency, unspecified] Onset: 10-23-2012 10-23-2012 Chronic Open wounds of extremities (20 sources) Laceration without foreign body of left thumb without damage to nail, initial encounter; Translations: [Laceration of left thumb] 01-01-2020 Episodic Osteoarthritis (20 sources) Arthritis; Translations: [Osteoarthritis of knee] 04-16-2021 Chronic Other aftercare (1 source) Encounter for other orthopedic aftercare; Translations: [Encounter for other orthopedic aftercare] Onset: 06-04-2024 Episodic Other connective tissue disease (2 sources) Pain in left foot; Translations: [Pain in left foot] 01-11-2024 Episodic Other diseases of bladder and urethra (20 sources) Spasm of bladder; Translations: [Other specified disorders of bladder] 04-07-2021 Chronic Other diseases of bladder and urethra (3 sources) Neurogenic dysfunction of the urinary bladder; Translations: [Neuromuscular dysfunction of bladder, unspecified] Onset: 09-07-2022 Chronic Other diseases of bladder and urethra (3 sources) Paralysis of bladder 09-07-2022 Chronic Other endocrine disorders (6 sources) Polycystic ovaries; Translations: [Polycystic ovarian syndrome] Chronic Other endocrine disorders (4 sources) Polycystic ovarian syndrome Chronic Other injuries and conditions due to external causes (20 sources) Laceration - injury; Translations: [Laceration] 09-16-2020 Episodic Other injuries and conditions due to external causes (2 sources) Ingestion of foreign material; Translations: [Drug ingestion] Episodic Other lower respiratory disease (6 sources) Snoring; Translations: [Snoring] Episodic Other nervous system disorders (20 sources) Postoperative pain ; Translations: [Other acute postprocedural pain] 04-03-2020 Episodic Other nutritional; endocrine; and metabolic disorders (20 sources) Obesity; Translations: [Obesity, unspecified] Onset: 11-20-2013 12-30-2018 Chronic Other nutritional; endocrine; and metabolic disorders (20 sources) Body mass index 30+ - obesity; Translations: [Obesity, unspecified] 09-19-2017 Chronic Other nutritional; endocrine; and metabolic disorders (20 sources) Body mass index 40+ - severely obese; Translations: [Body mass index (BMI) 40.0-44.9, adult] Onset: 05-13-2024 11-09-2021 Chronic Other nutritional; endocrine; and metabolic disorders (11 sources) Hyperammonemia; Translations: [Disorder of urea cycle metabolism, unspecified] 11-05-2021 Chronic Other nutritional; endocrine; and metabolic disorders (1 source) Morbid (severe) obesity due to excess calories; Translations: [MORBID SEVERE OBES D/T EXCESS DONNY] Onset: 2022 Chronic Other nutritional; endocrine; and metabolic disorders (1 source) Body mass index (BMI) 45.0-49.9, adult; Translations: [BODY MASS INDEX BMI 45.0-49.9 ADULT] Onset: 2022 Chronic Other nutritional; endocrine; and metabolic disorders (20 sources) Metabolic syndrome X; Translations: [Metabolic syndrome] Onset: 10-23-2012 10-23-2012 Chronic Other nutritional; endocrine; and metabolic disorders (4 sources) Metabolic syndrome Chronic Other nutritional; endocrine; and metabolic disorders (1 source) Obesity, unspecified Chronic Other nutritional; endocrine; and metabolic disorders (8 sources) Body mass index (BMI) 40.0-44.9, adult; Translations: [Body Mass Index 40.0-44.9, adult] Chronic Other nutritional; endocrine; and metabolic disorders (20 sources) Morbid obesity; Translations: [Morbid (severe) obesity due to excess calories] Onset: 10-23-2012 10-23-2012 Chronic Other nutritional; endocrine; and metabolic disorders (6 sources) Abnormal weight gain; Translations: [Abnormal weight gain] Episodic Other nutritional; endocrine; and metabolic disorders (1 source) Abnormal weight gain Episodic Other skin disorders (1 source) Epidermoid cyst; Translations: [Epidermal cyst] Onset: 11-30-2021 Episodic Other skin disorders (5 sources) Epidermoid cyst of skin 11-09-2021 Episodic Other skin disorders (16 sources) Eruption; Translations: [Rash and other nonspecific skin eruption] 04-14-2023 Episodic Other upper respiratory infections (20 sources) Viral upper respiratory tract infection; Translations: [Acute upper respiratory infection, unspecified] 11-10-2019 Episodic Ovarian cyst (20 sources) Ruptured cyst of ovary; Translations: [Unspecified ovarian cyst, unspecified side] 09-29-2019 Episodic Personality disorders (20 sources) Borderline personality disorder; Translations: [Borderline personality disorder] Onset: 04-30-2024 12-30-2018 Chronic Poisoning by other medications and drugs (20 sources) Adverse reaction to drug; Translations: [Ingestion of foreign material] 12-29-2018 Episodic Residual codes; unclassified (20 sources) Tobacco user; Translations: [Nicotine dependence, unspecified, uncomplicated] 12-30-2018 Chronic Residual codes; unclassified (3 sources) Obstructive sleep apnea syndrome; Translations: [Obstructive sleep apnea (adult) (pediatric)] Chronic Residual codes; unclassified (5 sources) Obstructive sleep apnea (adult) (pediatric); Translations: [Obstructive sleep apnea (adult)(pediatric)] Chronic Residual codes; unclassified (20 sources) Obstructive sleep apnea of adult; Translations: [Obstructive sleep apnea (adult) (pediatric)] Onset: 04-30-2024 10-20-2023 Chronic Residual codes; unclassified (20 sources) Finding related to sleep; Translations: [Sleep apnea, unspecified] Onset: 10-23-2012 10-23-2012 Chronic Residual codes; unclassified (20 sources) Harmful pattern of use of nicotine; Translations: [Tobacco use] 07-09-2018 Episodic Residual codes; unclassified (5 sources) Insomnia 11-05-2021 Episodic Residual codes; unclassified (1 source) Pain; Translations: [Pain, unspecified] 03-28-2024 Episodic Residual codes; unclassified (2 sources) Postoperative state; Translations: [Other specified postprocedural states] 07-11-2024 Episodic Residual codes; unclassified (1 source) Other specified postprocedural states; Translations: [Post-operative state] Onset: 07-11-2024 Episodic Residual codes; unclassified (2 sources) Harmful pattern of use of nicotine; Translations: [Nicotine abuse] Substance-related disorders (20 sources) Smoker; Translations: [Nicotine dependence, cigarettes, uncomplicated] Onset: 2022 04-14-2021 Chronic Comment on above: Added secondary to d ocumentation in Social History. Suicide and intentional self-inflicted injury (20 sources) Suicidal ideations; Translations: [Suicidal behavior] Onset: 11-14-2017 12-30-2018 Episodic Suicide and intentional self-inflicted injury (1 source) Poisoning by unspecified drugs, medicaments and biological substances, intentional self-harm, initial encounter; Translations: [Poisoning by unspecified drugs, medicaments and biological substances, intentional self-harm, initial encounter] Onset: 07-31-2017 Superficial injury; contusion (20 sources) Contusion of hand; Translations: [Contusion of right hand, initial encounter] Onset: 06-02-2022 07-12-2022 Episodic Thyroid disorders (8 sources) Hyperthyroidism; Translations: [Thyrotoxicosis] Onset: 11-20-2013 11-05-2021 Chronic Unclassified (5 sources) Tobacco use; Translations: [Tobacco use] Onset: 03-15-2018 Episodic Unclassified (1 source) Bipolar disorder, unspecified / F31.9(ICD-10) Onset: 11-14-2017 Unclassified (1 source) Other specified depressive episodes; Translations: [Other specified depressive episodes] Onset: 06-11-2017 Unclassified (1 source) Suicide attempt, initial encounter; Translations: [Suicide attempt, initial encounter] Onset: 07-31-2017 Unclassified (1 source) Suicidal / [id number]() Onset: 08-31-2017 Unclassified (5 sources) Asymptomatic microscopic hematuria 06-22-2021 Unclassified (4 sources) Other tear of lateral meniscus, current injury, right knee, initial encounter 08-14-2023 Unclassified (1 source) Deficient knowledge of therapeutic regimen; Translations: [Deficient knowledge of cast home care] 06-04-2024 Unclassified (1 source) Prediabetes; Translations: [Prediabetes] Onset: 08-22-2023 Urinary tract infections (20 sources) Acute cystitis without hematuria; Translations: [Urinary tract infectious disease] Onset: 05-07-2018 01-19-2021 Episodic Past or Other Problems Problem Classification Problem Date Documented Da te Episodic/Chronic Administrative/social admission (20 sources) Patient encounter status; Translations: [Dietary counseling and surveillance] Onset: 10-23-2012 10-23-2012 Episodic Immunizations and screening for infectious disease (1 source) Encounter for screening for respiratory tuberculosis; Translations: [Encounter for screening for respiratory tuberculosis] Onset: 02-09-2018 Episodic Joint disorders and dislocations; trauma-related (9 sources) Other tear of lateral meniscus, current injury, right knee, initial encounter; Translations: [Other tear of lateral meniscus, current injury, right knee, subsequent encounter] Onset: 01-20-2022 Episodic Nonmalignant breast conditions (5 sources) Unspecified lump in the right breast, lower outer quadrant; Translations: [Unspecified lump in the right breast, unspecified quadrant] Onset: 2022 Episodic Other aftercare (1 source) 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; Translations: [OTH SHELTER CURRENT DRUG THERAPY] Onset: 2022 Episodic Other aftercare (4 sources) Encounter for therapeutic drug level monitoring; Translations: [Encounter for therapeutic drug level monitoring] Onset: 08-22-2023 Episodic Other connective tissue disease (5 sources) Pain in left foot; Translations: [PAIN IN LEFT FOOT] Onset: 06-28-2022 Episodic Other female genital disorders (3 sources) History of gynecological disorder; Translations: [Personal history of other diseases of the female genital tract] Onset: 09-07-2023 09-07-2023 Episodic Other gastrointestinal disorders (3 sources) Dysphagia; Translations: [Dysphagia, unspecified] Onset: 11-20-2013 01-30-2023 Episodic Other nervous system disorders (1 source) Other acute postprocedural pain; Translations: [Post-op pain] Onset: 05-13-2024 Episodic Other non-traumatic joint disorders (20 sources) Ankle instability; Translations: [Other instability, unspecified ankle] Onset: 11-26-2009 11-26-2009 Episodic Other non-traumatic joint disorders (5 sources) Pain in right knee; Translations: [Right knee pain] Onset: 03-27-2024 03-27-2024 Episodic Other non-traumatic joint disorders (1 source) Pain in left knee; Translations: [Acute pain of left knee] Onset: 03-29-2024 Episodic Residual codes; unclassified (1 source) Acquired absence of other specified parts of digestive tract; Translations: [ACQ ABSENCE OTH PART DIGESTV TRACT] Onset: 2022 Episodic Residual codes; unclassified (1 source) Acquired absence of both cervix and uterus; Translations: [ACQUIRED ABSENCE BOTH CERVIX AND UTERUS] Onset: 2022 Episodic Skin and subcutaneous tissue infections (1 source) Cellulitis of right upper limb; Translations: [Cellulitis of right upper limb] Onset: 11-03-2017 Episodic Sprains and strains (20 sources) Sprain of lateral collateral ligament of knee; Translations: [Sprain of lateral collateral ligament of right knee, initial encounter] Onset: 11-09-2009 09-13-2020 Episodic Unclassified (1 source) Suicidal; Translations: [Suicidal] Onset: 08-31-2017 Results Test Name Value Interpretation Reference Range Facility [facility] 08-07-2024 CNOV Office Visit (LOORRM ) -- BRITTNEY VERNON ([id number]) 1985 F Date Time Provider Department 08/07/24 3:30 PM BEATRICE CABRERA LOORR During your visit today, we recorded the following information about you: Beatrice Cabrera [facility] 08/07/2024 4:06 PM Signed PRIMARY SERVICE: [facility] SUBJECTIVE: Patient is seen today for a scheduled postop visit 12 weeks status post ORIF of her left foot fifth metatarsal tuberosity fracture without complaints of numbness along the incision and some discomfort with adducting the foot. Medical: PAST MEDICAL HISTORY PAST MEDICAL HISTORY Diagnosis Date Anxiety Migraine Psychiatric disorder bi-polar ALLERGIES: ALLERGIES ALLERGIES Allergen Reactions Latex Hives Acetaminophen Other: See Comments Increases liver enzymes Adhesive Tape (Leona* Rash Dilaudid [H[employer]romorp* Other: See Comments SPO2 drops MEDICATIONS: CURRENT MEDICATIONS Current Outpatient Medications Medication Sig oxyCODONE IR (ROXICODONE) 5 mg immediate release tablet Take 1 tablet by mouth every 6 hours as needed for pain for up to 7 days. aspirin 325 mg tablet Take 1 tablet by mouth once daily. diclofenac, EC, (VOLTAREN) 75 mg EC tablet Take 75 mg by mouth two times a day as needed. cyproheptadine (PERIACTIN) 4 mg tablet Take 4 mg by mouth twice daily. naproxen (NAPROSYN) 500 mg tablet Take 500 mg by mouth twice daily as needed. hydrOXYzine HCl (ATARAX) 10 mg tablet take 1 to 2 tablets by mouth three times a day if needed No current facility-administered medications for this visit. Surgical: PAST SURGICAL HISTORY PAST SURGICAL HISTORY Procedure Laterality Date CHOLECYSTECTOMY HX HYSTERECTOMY HX ORTHOPEDIC SURGERY HX hammertoe repair ORTHOPEDICS SURGERY HX lt ankle x3 OTHER SURGICAL HISTORY (PLEASE SPECIFY) HX c-sec TONSILLECTOMY HX PHYSICAL EXAM: The patient is alert and oriented x 3 and in no apparent acute distress. Patient presents in the cast ambulating nonweightbearing left foot with a clean dry intact BK fiberglass cast and dressings using a knee rollator. Upon removal: NEUROVASCULAR: There is minimal edema and erythema over the surgical site. Patient thinks reduced sensation of the distribution of the sural nerve and intermediate dorsal continuous nerve DERMATOLOGIC: The incision is well.. ORTHO/MUSCULOSKELETAL: As above Radiographs: 3 views of of the left foot reveal satisfactory alignment healing with intact fixation ASSESSMENT: Satisfactory postop progress left foot status post 12 weeks appropriate discharge TREATMENT TODAY: Scheduled postop visit left foot Discussed results of clinical and radiographic examination with the patient in detail along treatment options. I will see the patient back as needed. Patient chose to discontinue the longer Aircast CAM Walker boot and wear her regular shoe at this time. SIGNATURE: Beatrice Cabrera DPM Medical intake sheet from August 07, 2024 , was updated by patient, reviewed, and was made part of the patient's chart. 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 - aspirin 325 mg tablet Take 1 tablet by mouth once daily. - diclofenac, EC, (VOLTAREN) 75 mg EC tablet Take 75 mg by mouth two times a day as needed. - cyproheptadine (PERIACTIN) 4 mg tablet Take 4 mg by mouth twice daily. - naproxen (NAPROSYN) 500 mg tablet Take 500 mg by mouth twice daily as needed. - hydrOXYzine HCl (ATARAX) 10 mg tablet take 1 to 2 tablets by mouth three times a day if needed Problem List As Of Date 08/07/2024 Noted Resolved Sprain of Ankle [S93.409A] 11/09/2009 Ankle Instability [M25.373] 11/26/2009 Sleep disorder breathing [G47.30] 10/23/2012 Hypertension [I10] 10/23/2012 GERD (gastroesophageal reflux disease) [K21.9] 10/23/2012 Dysmetabolic syndrome X [E88.810] 10/23/2012 Vitamin d deficiency [E55.9] 10/23/2012 Obesity, morbid [E66.01] 10/23/2012 Dietary surveillance and counseling [Z71.3] 10/23/2012 Type 2 diabetes mellitus without complication (*11/20/2013 Par (more content not included)... 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 Interval progression of osseous bridging across the fracture line, which remains visible. Hardware is intact. Overlying soft tissue swelling is similar to prior. No new fracture or other significant interval change. IMPRESSION: Healing fifth metatarsal fracture status post ORIF. Electrical Solderer: PSCB Transcribe Date/Time: Aug 08 2024 7:57P Dictated by : YURI WELLS MD This examination was interpreted and the report reviewed and electronically signed by: YURI WELLS MD on Aug 08 2024 7:58PM EST [id number] [facility] CNOVon 07-11-2024 CNOV Office Visit (LOORRM ) -- BRITTNEY VERNON ([id number]) 1985 F Date Time Provider Department 07/11/24 8:45 AM BEATRICE CABRERA During your visit today, we recorded the following information about you: Beatrice Cabrera DPM 07/11/2024 9:16 AM Signed PRIMARY SERVICE: [facility] SUBJECTIVE: Patient is seen today for a scheduled postop visit 8 weeks status post ORIF of her left foot fifth metatarsal tuberosity fracture without complaints. Medical: PAST MEDICAL HISTORY PAST MEDICAL HISTORY Diagnosis Date Anxiety Migraine Psychiatric disorder bi-polar ALLERGIES: ALLERGIES ALLERGIES Allergen Reactions Latex Hives Acetaminophen Other: See Comments Increases liver enzymes Adhesive Tape (Leona* Rash Dilaudid [[employer]* Other: See Comments SPO2 drops MEDICATIONS: CURRENT MEDICATIONS Current Outpatient Medications Medication Sig oxyCODONE IR (ROXICODONE) 5 mg immediate release tablet Take 1 tablet by mouth every 6 hours as needed for pain for up to 7 days. aspirin 325 mg tablet Take 1 tablet by mouth once daily. diclofenac, EC, (VOLTAREN) 75 mg EC tablet Take 75 mg by mouth two times a day as needed. cyproheptadine (PERIACTIN) 4 mg tablet Take 4 mg by mouth twice daily. naproxen (NAPROSYN) 500 mg tablet Take 500 mg by mouth twice daily as needed. hydrOXYzine HCl (ATARAX) 10 mg tablet take 1 to 2 tablets by mouth three times a day if needed No current facility-administered medications for this visit. Surgical: PAST SURGICAL HISTORY PAST SURGICAL HISTORY Procedure Laterality Date CHOLECYSTECTOMY HX HYSTERECTOMY HX ORTHOPEDIC SURGERY HX hammertoe repair ORTHOPEDICS SURGERY HX lt ankle x3 OTHER SURGICAL HISTORY (PLEASE SPECIFY) HX c-sec TONSILLECTOMY HX PHYSICAL EXAM: The patient is alert and oriented x 3 and in no apparent acute distress. Patient presents in the cast ambulating nonweightbearing left foot with a clean dry intact BK fiberglass cast and dressings using a knee rollator. Upon removal: NEUROVASCULAR: There is minimal edema and erythema over the surgical site DERMATOLOGIC: The incision is well. ORTHO/MUSCULOSKELETAL: As above Radiographs: 3 views of of the left foot reveal satisfactory alignment healing with intact fixation ASSESSMENT: Satisfactory postop progress left foot status post 8 weeks appropriate to continue as is TREATMENT TODAY: Scheduled postop visit left foot Discussed results of clinical and radiographic examination with the patient in detail upon removal of the BK fiberglass cast and dressings. I will see the patient back in 3 weeks for reevaluation and tammy-ray. May begin progressive partial weightbearing program in the longer Aircast CAM Walker boot such as 25% for the first 3 to 4 days, 50% for the next 3 to 4 days days until full weightbearing within 2 weeks. She may then full ambulation for week . She may begin showering as of today. 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 - diclofenac, EC, (VOLTAREN) 75 mg EC tablet Take 75 mg by mouth two times a day as needed. - cyproheptadine (PERIACTIN) 4 mg tablet Take 4 mg by mouth twice daily. - naproxen (NAPROSYN) 500 mg tablet Take 500 mg by mouth twice daily as needed. - hydrOXYzine HCl (ATARAX) 10 mg tablet take 1 to 2 tablets by mouth three times a day if needed Problem List As Of Date 07/11/2024 Noted Resolved Sprain of Ankle [S93.409A] 11/09/2009 Ankle Instability [M25.373] 11/26/2009 Sleep disorder breathing [G47.30] 10/23/2012 Hypertension [I10] 10/23/2012 GERD (gastroesophageal reflux disease) [K21.9] 10/23/2012 Dysmetabolic syndrome X [E88.810] 10/23/2012 Vitamin d deficiency [E55.9] 10/23/2012 Obesity, morbid [E66.01] 10/23/2012 Dietary surveillance and counseling [Z71.3] 10/23/2012 Type 2 diabetes mellitus without complication (*11/20/2013 Paroxysmal supraventricular tachycardia (HCC) [*06/16/2023 Obstructive sleep apnea syndrome in adult [G47.*04/30/2024 Mixed hyperlipidemia [E78.2] 04/30/2024 Bipolar disorder (HCC) [F31.9] 04/30/2024 Borderline personality disorder (HCC) [F60.3] (more content not included)... [facility] CNOV Office Visit (LOORRM ) -- BRITTNEY VERNON ([id number]) 1985 F Date Time Provider Department 07/11/24 8:00 AM CAST TECH BREANNA ZAYAS During your visit today, we recorded the following information about you: Дмитрий Kaba, Chriss Tech 07/11/2024 9:11 AM Signed Patient in today for scheduled appointment. Cast removed. Left leg cleansed with Cavilon. Examined by Dr. Cabrera. Fitted patient with a medium Tall Foam Walker for the left leg. Instructions on application, adjustments and care given. Will f/u as scheduled/prn. 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 - diclofenac, EC, (VOLTAREN) 75 mg EC tablet Take 75 mg by mouth two times a day as needed. - cyproheptadine (PERIACTIN) 4 mg tablet Take 4 mg by mouth twice daily. - naproxen (NAPROSYN) 500 mg tablet Take 500 mg by mouth twice daily as needed. - hydrOXYzine HCl (ATARAX) 10 mg tablet take 1 to 2 tablets by mouth three times a day if needed Problem List As Of Date 07/11/2024 Noted Resolved Sprain of Ankle [S93.409A] 11/09/2009 Ankle Instability [M25.373] 11/26/2009 Sleep disorder breathing [G47.30] 10/23/2012 Hypertension [I10] 10/23/2012 GERD (gastroesophageal reflux disease) [K21.9] 10/23/2012 Dysmetabolic syndrome X [E88.810] 10/23/2012 Vitamin d deficiency [E55.9] 10/23/2012 Obesity, morbid [E66.01] 10/23/2012 Dietary surveillance and counseling [Z71.3] 10/23/2012 Type 2 diabetes mellitus without complication (*11/20/2013 Paroxysmal supraventricular tachycardia (HCC) [*06/16/2023 Obstructive sleep apnea syndrome in adult [G47.*04/30/2024 Mixed hyperlipidemia [E78.2] 04/30/2024 Bipolar disorder (HCC) [F31.9] 04/30/2024 Borderline personality disorder (HCC) [F60.3] 04/30/2024 Smoker [F17.200] 04/30/2024 Obesity, Class III, BMI >= 40 [E66.01] 05/13/2024 Encounter Status:Closed by ДМИТРИЙ KABA on 07/11/24 [facility] XR FOOT 3V AP/LAT/OBL LTon 1 09-10-2023 XR FOOT 3V AP/LAT/OBL LT * * *Final Report* * * DATE OF EXAM: Jul 11 2024 9:11AM LZX 5336 - XR FOOT 3V AP/LAT/OBL LT / PROCEDURE REASON: Post-operative state * * * * Physician Interpretation * * * * HISTORY: Post-operative state . LEFT FOOT POST OP TECHNIQUE: XR FOOT 3V AP/LAT/OBL LT COMPARISON: 06/26/2024 RESULT: Continued healing of fifth metatarsal base fracture fixed with plate and screws. Hardware in normal position without evidence of failure or loosening. Lucency at the fracture line is slightly less discrete. No other changes. No other significant abnormality. IMPRESSION: Healing fracture. Electrical Solderer: YUNG Transcribe Date/Time: Jul 11 2024 11:39A Dictated by : ROBERTO BRADSHAW MD This examination was interpreted and the report reviewed and electronically signed by: ROBERTO BRADSHAW MD on Jul 11 2024 12:15PM EST [id number] [facility] XR Foot - left AP and Latera l and obliqueon 07-11-2024 IMPRESSION: Healing fracture. Electrical Solderer: YUNG Transcribe Date/Time: Jul 11 2024 11:39A Dictated by : ROBERTO BRADSHAW MD This examination was interpreted and the report reviewed and electronically signed by: ROBERTO BRADSHAW MD on Jul 11 2024 12:15PM [facility] DIVISION OF RADIOLOGY * * *Final Report* * * DATE OF EXAM: Jul 11 2024 9:11AM LZX 5336 - XR FOOT 3V AP/LAT/OBL LT / PROCEDURE REASON: Post-operative state * * * * Physician Interpretation * * * * HISTORY: Post-operative state . LEFT FOOT POST OP TECHNIQUE: XR FOOT 3V AP/LAT/OBL LT COMPARISON: 06/26/2024 RESULT: Continued healing of fifth metatarsal base fracture fixed with plate and screws. Hardware in normal position without evidence of failure or loosening. Lucency at the fracture line is slightly less discrete. No other changes. No other significant abnormality. DIVISION OF RADIOLOGY Provider, Fifi Stone - 07/11/2024 * * *Final Report* * * DATE OF EXAM: Jul 11 2024 9:11AM LZX 5336 - XR FOOT 3V AP/LAT/OBL LT / PROCEDURE REASON: Post-operative state * * * * Physician Interpretation * * * * HISTORY: Post-operative state . LEFT FOOT POST OP TECHNIQUE: XR FOOT 3V AP/LAT/OBL LT COMPARISON: 06/26/2024 RESULT: Continued healing of fifth metatarsal base fracture fixed with plate and screws. Hardware in normal position without evidence of failure or loosening. Lucency at the fracture line is slightly less discrete. No other changes. No other significant abnormality. IMPRESSION IMPRESSION: Healing fracture. Electrical Solderer: YUNG Transcribe Date/Time: Jul 11 2024 11:39A Dictated by : ROBERTO BRADSHAW MD This examination was interpreted and the report reviewed and electronically signed by: ROBERTO BRADSHAW MD on Jul 11 2024 12:15PM EST [facility] Radiology Study observation (narrative) [facility] XR Foot - left AP and Latera l and obliqueOrdered By: [facility] Provider on 07-11-2024 [facility] CNOVon 06-26-2024 CNOV Office Visit (LOORRM ) -- BRITTNEY VERNON ([id number]) 1985 F Date Time Provider Department 06/26/24 8:30 AM CAST TECH BREANAN CHANA During your visit today, we recorded the following information about you: Дмитрий Kaba Cast Tech 06/26/2024 9:21 AM Signed Patient in today for scheduled appointment. Cast removed. Left leg cleansed with Cavilon. Examined by Dr. Cabrera. Applied A Short Leg Nonweightbearing Cast to the left leg. Instructions on cast care given. Will f/u as scheduled/prn. 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 - diclofenac, EC, (VOLTAREN) 75 mg EC tablet Take 75 mg by mouth two times a day as needed. - cyproheptadine (PERIACTIN) 4 mg tablet Take 4 mg by mouth twice daily. - naproxen (NAPROSYN) 500 mg tablet Take 500 mg by mouth twice daily as needed. - hydrOXYzine HCl (ATARAX) 10 mg tablet take 1 to 2 tablets by mouth three times a day if needed Problem List As Of Date 06/26/2024 Noted Resolved Sprain of Ankle [S93.409A] 11/09/2009 Ankle Instability [M25.373] 11/26/2009 Sleep disorder breathing [G47.30] 10/23/2012 Hypertension [I10] 10/23/2012 GERD (gastroesophageal reflux disease) [K21.9] 10/23/2012 Dysmetabolic syndrome X [E88.810] 10/23/2012 Vitamin d deficiency [E55.9] 10/23/2012 Obesity, morbid [E66.01] 10/23/2012 Dietary surveillance and counseling [Z71.3] 10/23/2012 Type 2 diabetes mellitus without complication (*11/20/2013 Paroxysmal supraventricular tachycardia (HCC) [*06/16/2023 Obstructive sleep apnea syndrome in adult [G47.*04/30/2024 Mixed hyperlipidemia [E78.2] 04/30/2024 Bipolar disorder (HCC) [F31.9] 04/30/2024 Borderline personality disorder (HCC) [F60.3] 04/30/2024 Smoker [F17.200] 04/30/2024 Obesity, Class III, BMI >= 40 [E66.01] 05/13/2024 Encounter Status:Closed by ДМИТРИЙ KABA on 06/26/24 [facility] CNOV Office Visit (LOORRM ) -- BRITTNEY VERNON ([id number]) 1985 F Date Time Provider Department 06/26/24 8:15 AM BEATRICE CABRERA LOORRGabriella During your visit today, we recorded the following information about you: Beatrice Cabrera, DPGabriella 06/26/2024 9:10 AM Signed PRIMARY SERVICE: [facility] SUBJECTIVE: Patient is seen today for a scheduled postop visit 6 weeks status post ORIF of her left foot fifth metatarsal tuberosity fracture without complaints. She does not want another cast and would like to return to work Medical: PAST MEDICAL HISTORY PAST MEDICAL HISTORY Diagnosis Date Anxiety Migraine Psychiatric disorder bi-polar ALLERGIES: ALLERGIES ALLERGIES Allergen Reactions Latex Hives Acetaminophen Other: See Comments Increases liver enzymes Adhesive Tape (Leona* Rash Dilaudid [[employer]* Other: See Comments SPO2 drops MEDICATIONS: CURRENT MEDICATIONS Current Outpatient Medications Medication Sig oxyCODONE IR (ROXICODONE) 5 mg immediate release tablet Take 1 tablet by mouth every 6 hours as needed for pain for up to 7 days. aspirin 325 mg tablet Take 1 tablet by mouth once daily. diclofenac, EC, (VOLTAREN) 75 mg EC tablet Take 75 mg by mouth two times a day as needed. cyproheptadine (PERIACTIN) 4 mg tablet Take 4 mg by mouth twice daily. naproxen (NAPROSYN) 500 mg tablet Take 500 mg by mouth twice daily as needed. hydrOXYzine HCl (ATARAX) 10 mg tablet take 1 to 2 tablets by mouth three times a day if needed No current facility-administered medications for this visit. Surgical: PAST SURGICAL HISTORY PAST SURGICAL HISTORY Procedure Laterality Date CHOLECYSTECTOMY HX HYSTERECTOMY HX ORTHOPEDIC SURGERY HX hammertoe repair ORTHOPEDICS SURGERY HX lt ankle x3 OTHER SURGICAL HISTORY (PLEASE SPECIFY) HX c-sec TONSILLECTOMY HX PHYSICAL EXAM: The patient is alert and oriented x 3 and in no apparent acute distress. Patient presents in the cast ambulating nonweightbearing left foot with a clean dry intact BK fiberglass cast and dressings using a knee rollator. Upon removal: NEUROVASCULAR: There is minimal edema and erythema over the surgical site DERMATOLOGIC: The incision is well. ORTHO/MUSCULOSKELETAL: As above Radiographs: 3 views of of the left foot reveal satisfactory alignment healing with intact fixation ASSESSMENT: Satisfactory postop progress left foot status post 6 weeks appropriate to continue as is TREATMENT TODAY: Second postop visit left foot Discussed results of clinical and radiographic examination with the patient in detail upon removal of the BK fiberglass cast and dressings. Painted incision with Betadine reapplied a bulky dry sterile dressing 4 x 4's Kerlix followed by well-padded BK fiberglass nonweightbearing cast on left lower extremity in neutral position. I will see the patient back in 2 weeks for reevaluation and tammy-ray. Continue strict nonweightbearing until further advised. 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 - diclofenac, EC, (VOLTAREN) 75 mg EC tablet Take 75 mg by mouth two times a day as needed. - cyproheptadine (PERIACTIN) 4 mg tablet Take 4 mg by mouth twice daily. - naproxen (NAPROSYN) 500 mg tablet Take 500 mg by mouth twice daily as needed. - hydrOXYzine HCl (ATARAX) 10 mg tablet take 1 to 2 tablets by mouth three times a day if needed Problem List As Of Date 06/26/2024 Noted Resolved Sprain of Ankle [S93.409A] 11/09/2009 Ankle Instability [M25.373] 11/26/2009 Sleep disorder breathing [G47.30] 10/23/2012 Hypertension [I10] 10/23/2012 GERD (gastroesophageal reflux disease) [K21.9] 10/23/2012 Dysmetabolic syndrome X [E88.810] 10/23/2012 Vitamin d deficiency [E55.9] 10/23/2012 Obesity, morbid [E66.01] 10/23/2012 Dietary surveillance and counseling [Z71.3] 10/23/2012 Type 2 di (more content not included)... 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 Hardware is intact. Minimal interval progression of osseous bridging along the fracture line compared to 06/05/2024. Healing has more definitively progressed compared to more remote prior exams. Fracture lucency remains visible. No other significant interval change. IMPRESSION: Healing fifth metatarsal base fracture status post open reduction internal fixation with intact hardware. Electrical Solderer: YUNG Transcribe Date/Time: Jun 26 2024 9:09A Dictated by : YURI WELLS MD This examination was interpreted and the report reviewed and electronically signed by: YURI WELLS MD on Jun 26 2024 9:11AM EST [id number] [facility] XR Foot - left AP and Latera l and obliqueon 06-26-2024 Radiology Study observation (narrative) [facility] IMPRESSION: Healing fifth metatarsal base fracture status post open reduction internal fixation with intact hardware. 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 Hardware is intact. Minimal interval progression of osseous bridging along the fracture line compared to 06/05/2024. Healing has more definitively progressed compared to more remote prior exams. Fracture lucency remains visible. No other significant interval change. DIVISION OF RADIOLOGY Provider, 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 Hardware is intact. Minimal interval progression of osseous bridging along the fracture line compared to 06/05/2024. Healing has more definitively progressed compared to more remote prior exams. Fracture lucency remains visible. No other significant interval change. IMPRESSION IMPRESSION: Healing fifth metatarsal base fracture status post open reduction internal fixation with intact hardware. Electrical Solderer: YUNG Transcribe Date/Time: Jun 26 2024 9:09A Dictated by : YURI WELLS MD This examination was interpreted and the report reviewed and electronically signed by: YURI WELLS MD on Jun 26 2024 9:11AM [facility] XR Foot - left AP and Latera l and obliqueOrdered By: Ccf Provider on 06-26-2024 [facility] CNOVon 06-05-2024 CNOV Office Visit (LOORRM ) -- BRITTNEY VERNON ([id number]) 1985 F Date Time Provider Department 06/05/24 9:45 AM BEATRICE CABRERA During your visit today, we recorded the following information about you: Beatrice Cabrera DPM 06/05/2024 10:22 AM Signed PRIMARY SERVICE: [facility] Podiatry SUBJECTIVE: Patient is seen today for a scheduled postop visit 3 weeks status post ORIF of her left foot fifth metatarsal tuberosity fracture without complaints. Medical: PAST MEDICAL HISTORY PAST MEDICAL HISTORY Diagnosis Date Anxiety Migraine Psychiatric disorder bi-polar ALLERGIES: ALLERGIES ALLERGIES Allergen Reactions Latex Hives Acetaminophen Other: See Comments Increases liver enzymes Adhesive Tape (Leona* Rash Dilaudid [Hydromorp* Other: See Comments SPO2 drops MEDICATIONS: CURRENT MEDICATIONS Current Outpatient Medications Medication Sig oxyCODONE IR (ROXICODONE) 5 mg immediate release tablet Take 1 tablet by mouth every 6 hours as needed for pain for up to 7 days. aspirin 325 mg tablet Take 1 tablet by mouth once daily. diclofenac, EC, (VOLTAREN) 75 mg EC tablet Take 75 mg by mouth two times a day as needed. cyproheptadine (PERIACTIN) 4 mg tablet Take 4 mg by mouth twice daily. naproxen (NAPROSYN) 500 mg tablet Take 500 mg by mouth twice daily as needed. hydrOXYzine HCl (ATARAX) 10 mg tablet take 1 to 2 tablets by mouth three times a day if needed No current facility-administered medications for this visit. Surgical: PAST SURGICAL HISTORY PAST SURGICAL HISTORY Procedure Laterality Date CHOLECYSTECTOMY HX HYSTERECTOMY HX ORTHOPEDIC SURGERY HX hammertoe repair ORTHOPEDICS SURGERY HX lt ankle x3 OTHER SURGICAL HISTORY (PLEASE SPECIFY) HX c-sec TONSILLECTOMY HX PHYSICAL EXAM: The patient is alert and oriented x 3 and in no apparent acute distress. Patient presents in the cast ambulating nonweightbearing left foot with a clean dry intact BK fiberglass cast and dressings. Upon removal: NEUROVASCULAR: There is slight edema and erythema over the surgical site DERMATOLOGIC: The incision is well coapted with intact sutures with no appreciable signs of active drainage bleeding purulence or cellulitis ORTHO/MUSCULOSKELETAL: As above Radiographs: 3 views of of the left foot reveal satisfactory alignment healing with intact fixation ASSESSMENT: Satisfactory postop progress left foot status post 9 days appropriate to continue as is TREATMENT TODAY: Second postop visit left foot Discussed results of clinical and radiographic examination with the patient in detail upon removal of the BK fiberglass cast and dressings. Painted incision with Betadine reapplied a bulky dry sterile dressing 4 x 4's Kerlix followed by well-padded BK fiberglass nonweightbearing cast on left lower extremity in neutral position. I will see the patient back in 3 weeks for reevaluation and tammy-ray. 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 - diclofenac, EC, (VOLTAREN) 75 mg EC tablet Take 75 mg by mouth two times a day as needed. - cyproheptadine (PERIACTIN) 4 mg tablet Take 4 mg by mouth twice daily. - naproxen (NAPROSYN) 500 mg tablet Take 500 mg by mouth twice daily as needed. - hydrOXYzine HCl (ATARAX) 10 mg tablet take 1 to 2 tablets by mouth three times a day if needed Problem List As Of Date 06/05/2024 Noted Resolved Sprain of Ankle [S93.409A] 11/09/2009 Ankle Instability [M25.373] 11/26/2009 Sleep disorder breathing [G47.30] 10/23/2012 Hypertension [I10] 10/23/2012 GERD (gastroesophageal reflux disease) [K21.9] 10/23/2012 Dysmetabolic syndrome X [E88.810] 10/23/2012 Vitamin d deficiency [E55.9] 10/23/2012 Obesity, morbid [E66.01] 10/23/2012 Dietary surveillance and counseling [Z71.3] 10/23/2012 Type 2 diabetes mellitus without complication (*11/20/2013 Paroxysmal supraventricular tachycardia (HCC) [*06/16/2023 Obstructive sleep apnea syndrome in adult [G47.*04/30/2024 Mixed hyperlipidemia [E78.2] 04/30/2024 Bipolar disorder (HCC) [F31.9] 04/30/2024 Carlota (more content not included)... [facility] (LOORRM ) -- BRITTNEY VERNON ([id number]) 1985 F Date Time Provider Department 06/05/24 9:00 AM CAST TECH BREANNA TOBIASGabriella During your visit today, we recorded the following information about you: Дмитрий Kaba Cast Tech 06/05/2024 10:30 AM Signed Patient in today for scheduled appointment. Patient state her cast got saturated yesterday and when she went to [facility] ER they refused to remove. Cast removed. Left leg cleansed with sea-clens. Examined by Dr. Cabrera. Applied A Short Leg Nonweightbearing Cast to the left leg. Instructions on cast care given. Will f/u as scheduled/prn. 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 - diclofenac, EC, (VOLTAREN) 75 mg EC tablet Take 75 mg by mouth two times a day as needed. - cyproheptadine (PERIACTIN) 4 mg tablet Take 4 mg by mouth twice daily. - naproxen (NAPROSYN) 500 mg tablet Take 500 mg by mouth twice daily as needed. - hydrOXYzine HCl (ATARAX) 10 mg tablet take 1 to 2 tablets by mouth three times a day if needed Problem List As Of Date 06/05/2024 Noted Resolved Sprain of Ankle [S93.409A] 11/09/2009 Ankle Instability [M25.373] 11/26/2009 Sleep disorder breathing [G47.30] 10/23/2012 Hypertension [I10] 10/23/2012 GERD (gastroesophageal reflux disease) [K21.9] 10/23/2012 Dysmetabolic syndrome X [E88.810] 10/23/2012 Vitamin d deficiency [E55.9] 10/23/2012 Obesity, morbid [E66.01] 10/23/2012 Dietary surveillance and counseling [Z71.3] 10/23/2012 Type 2 diabetes mellitus without complication (*11/20/2013 Paroxysmal supraventricular tachycardia (HCC) [*06/16/2023 Obstructive sleep apnea syndrome in adult [G47.*04/30/2024 Mixed hyperlipidemia [E78.2] 04/30/2024 Bipolar disorder (HCC) [F31.9] 04/30/2024 Borderline personality disorder (HCC) [F60.3] 04/30/2024 Smoker [F17.200] 04/30/2024 Obesity, Class III, BMI >= 40 [E66.01] 05/13/2024 Encounter Status:Closed by ДМИТРИЙ KABA on 06/05/24 [facility] XR FOOT 3V AP/LAT/OBL LTon 1 XR FOOT 3V AP/LAT/OBL LT * * *Final Report* * * DATE OF EXAM: Jun 05 2024 10:07AM LZX 5336 - XR FOOT 3V AP/LAT/OBL LT / PROCEDURE REASON: 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 FINDINGS: Healing fifth metatarsal base fracture with intact hardware. Bony alignment is unchanged. No new acute bony abnormality is identified. IMPRESSION: Healing fifth metatarsal base fracture with intact hardware. Electrical Solderer: YUNG Transcribe Date/Time: Jun 05 2024 10:20A Dictated by : LUKE AZAR MD This examination was interpreted and the report reviewed and electronically signed by: LUKE AZAR MD on Jun 05 2024 10:20AM EST [id number] [facility] XR Foot - left AP and Latera l and obliqueon 06-05-2024 IMPRESSION: Healing fifth metatarsal base fracture with intact hardware. 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 FINDINGS: Healing fifth metatarsal base fracture with intact hardware. Bony alignment is unchanged. No new acute bony abnormality is identified. 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 FINDINGS: Healing fifth metatarsal base fracture with intact hardware. Bony alignment is unchanged. No new acute bony abnormality is identified. IMPRESSION IMPRESSION: Healing fifth metatarsal base fracture with intact hardware. Electrical Solderer: PSCB Transcribe Date/Time: Jun 05 2024 10:20A Dictated by : LUKE AZAR MD This examination was interpreted and the report reviewed and electronically signed by: LUKE AZAR MD on Jun 05 2024 10:20AM EST [facility] Radiology Study observation (narrative) [facility] XR Foot - left AP and Latera l and obliqueOrdered By: Ccf Provider on 06-05-2024 [facility] ECG 12 lead ECGon 06-04-2024 ECG 12 lead ECG [place] [address] Electrocardiograph Report Signed Patient: rBittney Vernon MR#: [id number] 1 : 1985 Acct:[id number] Age/Sex: 38 / F ADM Date: 06/04/24 Loc: ER Room: Type: [facility] ER Attending Dr: Ordering Provider: Dante Bone APRN Date of Service: 06/04/2404/20/1454 ECG/ECG 12 lead ECG: Recheck/Abnormal Lab/Rx Copies to: Test Reason : Blood Pressure : */* mmHG Vent. Rate : 116 BPM Atrial Rate : 116 BPM P-R Int : 160 ms QRS Dur : 76 ms QT Int : 302 ms P-R-T Axes : 28 36 -23 degrees QTcB Int : 419 ms Sinus tachycardia q waves inferiorly Confirmed by Anthony Thomas DO ([id number]) on 06/04/2024 5:36:40 PM Referred By: Electronically Signed By: Anthony Thomas DO Transcribed By: MUS Signed By Anthony Thomas DO [id number] [facility] CNOVon 05-22-2024 CNOV Office Visit (LOORRM ) -- BRITTNEY VERNON ([id number]) 1985 F Date Time Provider Department 05/22/24 10:30 AM CAST TECH BREANNA ZAYAS During your visit today, we recorded the following information about you: Дмитрий Kaba Cast Tech 05/22/2024 10:59 AM Signed Patient in today for scheduled appointment. Splint removed. Examined by Dr. Cabrera. Applied A Short Leg Nonweightbearing Cast to the left leg. Instructions on cast care given. Will f/u as scheduled/prn. 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 - aspirin 325 mg tablet Take 1 tablet by mouth once daily. - diclofenac, EC, (VOLTAREN) 75 mg EC tablet Take 75 mg by mouth two times a day as needed. - cyproheptadine (PERIACTIN) 4 mg tablet Take 4 mg by mouth twice daily. - naproxen (NAPROSYN) 500 mg tablet Take 500 mg by mouth twice daily as needed. - hydrOXYzine HCl (ATARAX) 10 mg tablet take 1 to 2 tablets by mouth three times a day if needed Problem List As Of Date 05/22/2024 Noted Resolved Sprain of Ankle [S93.409A] 11/09/2009 Ankle Instability [M25.373] 11/26/2009 Sleep disorder breathing [G47.30] 10/23/2012 Hypertension [I10] 10/23/2012 GERD (gastroesophageal reflux disease) [K21.9] 10/23/2012 Dysmetabolic syndrome X [E88.810] 10/23/2012 Vitamin d deficiency [E55.9] 10/23/2012 Obesity, morbid [E66.01] 10/23/2012 Dietary surveillance and counseling [Z71.3] 10/23/2012 Type 2 diabetes mellitus without complication (*11/20/2013 Paroxysmal supraventricular tachycardia (HCC) [*06/16/2023 Obstructive sleep apnea syndrome in adult [G47.*04/30/2024 Mixed hyperlipidemia [E78.2] 04/30/2024 Bipolar disorder (HCC) [F31.9] 04/30/2024 Borderline personality disorder (HCC) [F60.3] 04/30/2024 Smoker [F17.200] 04/30/2024 Obesity, Class III, BMI >= 40 [E66.01] 05/13/2024 Encounter Status:Closed by ДМИТРИЙ KABA on 05/22/24 [facility] CNOV Office Visit (LOORRM ) -- BRITTNEY VERNON ([id number]) 1985 F Date Time Provider Department 05/22/24 10:15 AM BEATRICE CABRERAORRGabriella During your visit today, we recorded the following information about you: Beatrice Cabrera DPM 05/22/2024 10:44 AM Signed PRIMARY SERVICE: [facility] Podiat[facility] SUBJECTIVE: Patient seen today for for scheduled postop visit 9 days status post ORIF of her left foot fifth metatarsal tuberosity fracture without complaints. Medical: PAST MEDICAL HISTORY Diagnosis Date Anxiety Migraine Psychiatric disorder bi-polar ALLERGIES: ALLERGIES Allergen Reactions Latex Hives Acetaminophen Other: See Comments Increases liver enzymes Adhesive Tape (Leona* Rash Dilaudid [Hydromorp* Other: See Comments SPO2 drops MEDICATIONS: Current Outpatient Medications Medication Sig oxyCODONE IR (ROXICODONE) 5 mg immediate release tablet Take 1 tablet by mouth every 6 hours as needed for pain for up to 7 days. aspirin 325 mg tablet Take 1 tablet by mouth once daily. diclofenac, EC, (VOLTAREN) 75 mg EC tablet Take 75 mg by mouth two times a day as needed. cyproheptadine (PERIACTIN) 4 mg tablet Take 4 mg by mouth twice daily. naproxen (NAPROSYN) 500 mg tablet Take 500 mg by mouth twice daily as needed. hydrOXYzine HCl (ATARAX) 10 mg tablet take 1 to 2 tablets by mouth three times a day if needed No current facility-administered medications for this visit. Surgical: PAST SURGICAL HISTORY Procedure Laterality Date CHOLECYSTECTOMY HX HYSTERECTOMY HX ORTHOPEDIC SURGERY HX hammertoe repair ORTHOPEDICS SURGERY HX lt ankle x3 OTHER SURGICAL HISTORY (PLEASE SPECIFY) HX c-sec TONSILLECTOMY HX PHYSICAL EXAM: The patient is alert and oriented x 3 and in no apparent acute distress. Patient presents in the cast ambulating nonweightbearing left foot with a clean dry intact posterior splint and dressings. Upon removal: NEUROVASCULAR: There is slight edema and erythema over the surgical site DERMATOLOGIC: The incision is well coapted with intact sutures with no appreciable signs of active drainage bleeding purulence or cellulitis ORTHO/MUSCULOSKELETAL: As above ASSESSMENT: Satisfactory postop progress left foot status post 9 days appropriate to continue as is TREATMENT TODAY: First postop visit left foot Discussed results of clinical examination with the patient in detail upon removal of the posterior splint and dressings. Painted incision with Betadine reapplied a bulky dry sterile dressing 4 x 4's Kerlix followed by well-padded BK fiberglass nonweightbearing cast on left lower extremity in neutral position. I will see the patient back in 2 weeks for reevaluation and tammy-ray. 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 - aspirin 325 mg tablet Take 1 tablet by mouth once daily. - diclofenac, EC, (VOLTAREN) 75 mg EC tablet Take 75 mg by mouth two times a day as needed. - cyproheptadine (PERIACTIN) 4 mg tablet Take 4 mg by mouth twice daily. - naproxen (NAPROSYN) 500 mg tablet Take 500 mg by mouth twice daily as needed. - hydrOXYzine HCl (ATARAX) 10 mg tablet take 1 to 2 tablets by mouth three times a day if needed Problem List As Of Date 05/22/2024 Noted Resolved Sprain of Ankle [S93.409A] 11/09/2009 Ankle Instability [M25.373] 11/26/2009 Sleep disorder breathing [G47.30] 10/23/2012 Hypertension [I10] 10/23/2012 GERD (gastroesophageal reflux disease) [K21.9] 10/23/2012 Dysmetabolic syndrome X [E88.810] 10/23/2012 Vitamin d deficiency [E55.9] 10/23/2012 Obesity, morbid [E66.01] 10/23/2012 Dietary surveillance and counseling [Z71.3] 10/23/2012 Type 2 diabetes mellitus without complication (*11/20/2013 Paroxysmal supraventricular tachycardia (HCC) [*06/16/2023 Obstructive sleep apnea syndrome in adult [G47.*04/30/2024 Mixed hyperlipidemia [E78.2] 04/30/2024 Bipolar disorder (HCC) [F31.9] 04/30/2024 Borderline personality disorder (HCC) [F60.3] 04/30/2024 Smoker [F17.200] (more content not included)... 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 No perihardware lucency. Ghost track from between the 2 most distal screws. Fracture margin still identified. Fourth and fifth digit PIP resection arthroplasties. Joint spaces are maintained. IMPRESSION: Interval ORIF of fifth metatarsal base fracture without complication. Electrical Solderer: PSCB Transcribe Date/Time: May 22 2024 1:30P Dictated by : DALE ROSE, DO This examination was interpreted and the report reviewed and electronically signed by: NELSON WAGNER MD on May 22 2024 5:30PM EST [id number] [facility] XR Foot - left AP and Latera l and obliqueon 05-22-2024 IMPRESSION: Interval ORIF of fifth metatarsal base fracture without complication. 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 No perihardware lucency. Ghost track from between the 2 most distal screws. Fracture margin still identified. Fourth and fifth digit PIP resection arthroplasties. Joint spaces are maintained. DIVISION OF RADIOLOGY Provider, 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 No perihardware lucency. Ghost track from between the 2 most distal screws. Fracture margin still identified. Fourth and fifth digit PIP resection arthroplasties. Joint spaces are maintained. IMPRESSION IMPRESSION: Interval ORIF of fifth metatarsal base fracture without complication. Electrical Solderer: YUNG Transcribe Date/Time: May 22 2024 1:30P Dictated by : DALE ROSE DO This examination was interpreted and the report reviewed and electronically signed by: NELSON WAGNER MD on May 22 2024 5:30PM EST [facility] Radiology Study observation (narrative) [facility] XR Foot - left AP and Latera l and obliqueOrdered By: Ccf Provider on 05-22-2024 [facility] Ambulatory Visit Summaryon 0 05-20-2024 Ambulatory Visit Summary Ambulatory Visit Summary BRITTNEY VERNON :1985 Visit Date:05/20/2024 Ambulatory Visit Instructions Your Diagnosis Hypotonic neurogenic bladder Recurrent UTI Your Care Team Attending Physician - Jimmy STOCK MD Primary Care Physician - Nupur Mcmahan MD This Is Your Medications List bethanechol (Urecholine 50 mg oral tablet) Contact prescribing physician if questions or concerns atomoxetine (Strattera 80 mg oral capsule) cyproheptadine (cyproheptadine 4 mg Tab) fenofibrate (fenofibrate 145 mg Tab) naproxen (naproxen 500 mg Tab) promethazine (promethazine 25 mg Tab) ziprasidone (ziprasidone 20 mg Cap) Procedures Performed Excision of cyst (11/17/2021), left ankle arthroscopy with extensive debridement (12/11/2009), screws removed in left ankle (11/2008), left ankle ORIF (2008), Abdominal hysterectomy, Bilateral salpingectomy, c section, Cholecystectomy, Colonoscopy, Hammer toe operation, tonsillectomy, Tubal ligation. Discharge Vitals Heart Rate (Peripheral) 91 Blood Pressure 158/111 Height 71 in Height 180 cm Weight 305.8 lb Weight 139 kg BMI 42.9 What to do next Scheduled Follow-Up Appointments Monday 10:15 AM EDT With: Jimmy STOCK MD [facility] [address] [place] [address]- You Need to Schedule the Following Appointments Follow Up with Jimmy STOCK MD, URL When: Where: [address] [place] [id number]- Medications What How Much When Instructions Unchanged bethanechol (Urecholine 50 mg oral tablet) 1 Tablets By Mouth Every day Unchanged atomoxetine (Strattera 80 mg oral capsule) 1 Capsules By Mouth Once a day (in the morning) Contact prescribing physician if questions or concerns Unchanged cyproheptadine (cyproheptadine 4 mg Tab) By Mouth 2 times a day Contact prescribing physician if questions or concerns Unchanged fenofibrate (fenofibrate 145 mg Tab) Contact prescribing physician if questions or concerns Unchanged naproxen (naproxen 500 mg Tab) By Mouth 2 times a day Contact prescribing physician if questions or concerns Unchanged promethazine (promethazine 25 mg Tab) 1 Tablets By Mouth Every 6 hours as needed for as needed for nausea/vomiting Contact prescribing physician if questions or concerns Unchanged ziprasidone (ziprasidone 20 mg Cap) Contact prescribing physician if questions or concerns Allergies Adhesive Bandage (Hives) Dilaudid (Hypoxia, Bradycardia, Hypotensive episode) HYDROmorphone (Unknown, Hypotensive episode, Bradycardia, Hypoxia, Anaphylaxis) Latex (Hives) Tylenol (Ammonia level) Problems Ongoing - Any problem that you are currently receiving treatment for. ADD (attention deficit disorder) Anxiety Arthritis Asymptomatic microscopic hematuria Bipolar disorder BMI 45.0-49.9, adult Depression Diabetes Epidermal cyst HTN (hypertension) Hyperammonemia Hyperthyroidism Hypotonic neurogenic bladder Incomplete bladder emptying Insomnia Migraines Nocturia Panic attacks Paroxysmal supraventricular tachycardia Recurrent UTI Schatzki's ring Smoker Urinary frequency Urinary retention Urinary urgency Patient Survey You may receive a survey via text or e-mail asking about your office visit. Please share your experience with us by completing your survey. We appreciate your feedback and thank you for choosing us for your care. Education Materials Neurogenic Bladder Neurogenic bladder is a bladder control disorder. It is usually caused by problems with the nerves that control the bladder. The brain sends signals through the spinal cord to the muscles in the bladder that start and stop urine flow. With neurogenic bladder, the nerves and muscles do not work together the way they should. This condition may make the bladder overactive, meaning you have trouble holding urine. In other cases, it may make the bladder underactive. This means that you have trouble passing urine. What are the causes? This condition may be caused by nerve damage or a condition that disrupts the signals from your brain to your bladder. Many things can cause these nerve problems, including: ? A disease that affects the nervous system, such as: ? Alzheimer's disease. ? Cerebral palsy. ? Multiple sclerosis. ? Diabetes. ? Parkinson's disease. ? Damage to your brain or spinal cord. This can come from: ? Trauma. ? Tumors. ? Infection. ? Surgery. ? Alcohol abuse. ? Stroke. ? A congenital disability that affects the spinal cord. What increases the risk? You are more likely to develop this condition if you have nerve damage or a nerve disorder. What are the signs or symptoms? Signs and symptoms of this condition include: ? Leaking or gushing urine (incontinence). ? A sudden, stron (more content not included)... Normal [facility] Urology Office/Clinic Noteon 05-20-2024 Urology Office/Clinic Note Urology Office/Clinic Note Chief Complaint 1 year follow up HPI Staff 1 yr f/u. Previous Dx: hypotonic neurogenic bladder, recurrent UTI. Cysto/UD 05/06/21. *Urecholine 50 mg qd. Pt needs refill. PVR today-28ml Urinary Symptoms Blood in Urine: No Frequency of Urination: No Nocturia: Occasionally Urgency of Urination: Mild Urinary Incontinence: Only when she coughs Weak Urinary Stream: No History of Present Illness Tests reviewed: reviewed UA I have reviewed the previous health record information and history for this patient from Dr. Stock. I have reviewed and verified the staff HPI to be accurate for this encounter. Review of Systems PHQ Score Initial Depression Screen Score: 0 SCORE ROS - Provider Constitutional: denies weight loss, denies hot flashes. Eyes: denies eye problems. Gastrointestinal: denies nausea, denies vomiting. Cardiovascular: denies chest pain or angina. Integumentary: no dryness Musculoskeletal: denies musculoskeletal symptoms. ENMT: denies otolaryngeal symptoms. Respiratory: no shortness of breath. Heme/Lymph: denies easy bleeding tendency, denies easy bruising tendency. Psychiatric: no confusion, no anxiety. Genitourinary: See HPI. Physical Exam Vitals & Measurements HR: 91(Peripheral) BP: 158/111 HT: 71 in HT: 180 cm WT: 139 kg WT: 305.8 lb BMI: 42.9 General Appearance: alert, no distress, well nourished, well developed female. Assessment/Plan Pt accompanied by an adult male today. 1. Hypotonic neurogenic bladder (N31.9: Neuromuscular dysfunction of bladder, unspecified) Taking Urecholine to 50 mg qd. Refill sent to [facility]. Doing well with this med, cont wo dosage changes. Follow up 1 yr no labs or sooner if needed. Pt understands and agrees with plan. 2. Recurrent UTI (N39.0: Urinary tract infection, site not specified) UA today negative for blood and infection. PVR 28 cc (0). Maybe 1 or 2 UTIs since prior OV. Educated pt on herbal supplements for UTI prevention including daily cranberry, probiotic, and d-mannose supplements. -Start supplements for UTI prevention above. Overall the patient's only had 1 urinary tract infection in the past year. She needs a refill on the Urecholine. No dosage changes indicated. This is sent to the pharmacy. We did give her the nonmedicinal preventative options and she will try them. Call for [facility] prior to next visit Follow-up With When Contact Information KIAN RODRIGUEZ, Jimmy Hannah, URL [address] [place] [id number]- Additional Instructions: 1 yr no labs Patient Education Neurogenic Bladder I, Lilia Paris, personally scribed for Dr. Stock on 05/20/2024 11:13:12. . Documentation recorded by the scribe, Lilia Paris, accurately reflects the services(s) I performed and decisions made by me. Authenticated by Dr. Stock on 05/20/2024 11:16:17. Portions of this record may have been created with voice recognition artificial intelligence software, specifically [employer] and or [employer]. Substitutions may have occurred due to the inherent limitations of voice recognition and artificial intelligence software. Problem List/Past Medical History Ongoing ADD (attention deficit disorder) Anxiety Arthritis Asymptomatic microscopic hematuria Bipolar disorder BMI 45.0-49.9, adult Depression Diabetes Epidermal cyst HTN (hypertension) Hyperammonemia Hyperthyroidism Hypotonic neurogenic bladder Incomplete bladder emptying Insomnia Migraines Nocturia Panic attacks Paroxysmal supraventricular tachycardia Recurrent UTI Schatzki's ring Smoker Urinary frequency Urinary retention Urinary urgency Historical No qualifying data Procedure/Surgical History Excision of cyst (11/17/2021), left ankle arthroscopy with extensive debridement (12/11/2009), screws removed in left ankle (11/2008), left ankle ORIF (2008), Abdominal hysterectomy, Bilateral salpingectomy, c section, Cholecystectomy, Colonoscopy, Hammer toe operation, tonsillectomy, Tubal ligation. Medications cyproheptadine 4 mg Tab, Oral, BID fenofibrate 145 mg Tab, Not taking naproxen 500 mg Tab, Oral, BID, Not taking promethazine 25 mg Tab, 25 mg= 1 tab(s), Oral, q6hr, PRN Strattera 80 mg oral capsule, 80 mg= 1 cap(s), Oral, qAM Urecholine 50 mg oral tablet, 50 mg= 1 tab(s), Oral, Daily ziprasidone 20 mg Cap, Not taking Allergies Adhesive Bandage (Hives) Dilaudid (Hypoxia, Bradycardia, Hypotensive episode) HYDROmorphone (Unknown, Hypotensive episode, Bradycardia, Hypoxia, Anaphylaxis) Latex (Hives) Tylenol (Ammonia level) Social History Alcohol - Denies Alcohol Use, 11/09/2021 Substance Abuse - Denies Substance Abuse, 11/09/2021 Tobacco 10 or more cigarettes (1/2 pack or more)/day in last 30 days, Smoker, current status unknown Tobacco Use:. Never Smoke (more content not included)... Normal [facility] Comment on above: Result Comment: Elec tronically Signed By: Jimmy STOCK MD\.br\Date and Time Signed: 05/20/24 11:17 EDT\.br\Electronically Co-Signed By: Lilia Paris\.br\Date and Time Co-Signed: 05/20/24 11:14 EDT [facility] (CHANA) -- BRITTNEY VERNON ([id number]) 1985 F Date Time Provider Department 05/14/24 BEATRICE CABRERA During your visit today, we recorded the following information about you: Beatrice Cabrera DPM 05/15/2024 11:48 AM Signed Called patient's dad Emmie at [phone] to check on postop progress. Received voicemail. Left message that I called. Advised to call if any questions or problems between now and her first scheduled postop visit on May 22, 2024. ZIYAD Dunn Megan, RN 05/14/2024 3:48 PM Signed Patient calling in to office. Verified by name and . Patient had left foot surgery yesterday with Dr. Cabrera. She states that her pain is severe today, even after taking pain medication. Rates pain 10/10. Speaking in clear, complete, and controlled sentences. States remaining non weight bearing with use of walker and bedside commode. She denies fever or current chills. Admits to chills last night, but resolved. Icing and elevating as advised. States pain medication does cause her to feel nauseated - taking antiemetic as prescribed. Asking for further recommendations regarding pain medication - as current plan is not helping pain. Discussed red flag symptoms to monitor for and when to call back to office or seek emergent care. Andreina Marlow 05/15/2024 11:55 AM Addendum Patient is calling stating she sent two [employer] messages this morning at 8:58 and 9:20 am. She is having a lot of pain and the medications that were prescribed are not helping and also causing stomach issues. Katarina Hay CT 05/15/2024 12:48 PM Signed Spoke with patient and advised that Dr. Cabrera would call in a different medication. Allergies As of Date: 05/14/2024 Noted Allergy Reaction LATEX 12/11/2009 4 - Hives ACETAMINOPHEN 04/28/2020 14 - Other: See Comments Comments: Increases liver enzymes ADHESIVE TAPE (ROSINS) 02/28/2007 2 - Rash DILAUDID (HYDROMORPHONE) 04/28/2020 14 - Other: See Comments Comments: SPO2 drops Date Reviewed: 05/13/2024 Reviewed by: Janet Crenshaw, RN - Fully Assessed Reason for Visit: Patient Update [1234] Surgical Followup [104] Prescriptions as of 05/15/2024 - oxyCODONE IR (ROXICODONE) 5 mg immediate release tablet Take 1 tablet by mouth every 6 hours as needed for pain for up to 7 days. - keTORolac (TORADOL) 10 mg tablet Take 1 tablet by mouth every 6 hours as needed for pain for up to 7 days. - promethazine (PHENERGAN) 25 mg tablet Take 1 tablet by mouth every 6 hours as needed for nausea/vomiting for up to 7 days. - aspirin 325 mg tablet Take 1 tablet by mouth once daily. - diclofenac, EC, (VOLTAREN) 75 mg EC tablet Take 75 mg by mouth two times a day as needed. - cyproheptadine (PERIACTIN) 4 mg tablet Take 4 mg by mouth twice daily. - naproxen (NAPROSYN) 500 mg tablet Take 500 mg by mouth twice daily as needed. - hydrOXYzine HCl (ATARAX) 10 mg tablet take 1 to 2 tablets by mouth three times a day if needed Problem List As Of Date 05/14/2024 Noted Resolved Sprain of Ankle [S93.409A] 11/09/2009 Ankle Instability [M25.373] 11/26/2009 Sleep disorder breathing [G47.30] 10/23/2012 Hypertension [I10] 10/23/2012 GERD (gastroesophageal reflux disease) [K21.9] 10/23/2012 Dysmetabolic syndrome X [E88.810] 10/23/2012 Vitamin d deficiency [E55.9] 10/23/2012 Obesity, morbid [E66.01] 10/23/2012 Dietary surveillance and counseling [Z71.3] 10/23/2012 Type 2 diabetes mellitus without complication (*11/20/2013 Paroxysmal supraventricular tachycardia (HCC) [*06/16/2023 Obstructive sleep apnea syndrome in adult [G47.*04/30/2024 Mixed hyperlipidemia [E78.2] 04/30/2024 Bipolar disorder (HCC) [F31.9] 04/30/2024 Borderline personality disorder (HCC) [F60.3] 04/30/2024 Smoker [F17.200] 04/30/2024 Obesity, Class III, BMI >= 40 [E66.01] 05/13/2024 Encounter Status:Closed by BEATRICE CABRERA on 05/15/24 [facility] ANES POSTPROC EVALon 024 ANES POSTPROC EVAL HNO ID: [id number] Author: YVAN FONSECA II, DO Service: Anesthesiology Author Type: Anesthesiologist Type: Anesthesia Postprocedure Evaluation Filed: 05/13/2024 14:35 Note Text: POST ANESTHESIA EVALUATION NOTE : 1985 Procedure Summary Date: 05/13/24 Room / Location: [address] Anesthesia Start: 1014 Anesthesia Stop: 1230 Procedure: ORIF METATARSAL (Left: Foot) Diagnosis: 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 Post Anesthesia Patient Status Patient Evaluation: PACU. PACU/ICU Patient Condition: stable. Neurological Status: aware and responsive. Pulmonary Status: breathing comfortably on room air Airway Control: returned to baseline unsupported. Cardiovascular Status: stable. Pain Management: clinically adequate Postoperative Hydration: acceptable. Intraoperative Events: no significant anesthesia events Post Operative Nausea/Vomiting Status: no significant post operative nausea or vomiting Recommendation: continue current plan of care. Anesthesia Observations No Documentation SIGNATURE: Yvan Fonseca II, DO PATIENT NAME: Brittney eVrnon DATE: May 13, 2024 TIME: 2:35 PM CSN: [id number] [facility] ANES PRE-OPon 05-13-2024 ANES PRE-OP HNO ID: [id number] Author: YVAN FONSECA II, DO Service: Anesthesiology Author Type: Anesthesiologist Type: Anesthesia Preprocedure Evaluation Filed: 05/13/2024 09:40 Note Text: ANESTHESIOLOGY DAY OF SURGERY NOTE : 1985 Procedure Information Date/Time: 05/13/24939 Procedure: ORIF METATARSAL (Left: Foot) Location: [place] [address] / [facility] Surgeons: Beatrice Cabrera DPM Estimated body mass index is 42.74 kg/m? as calculated from the following: Height as of 04/30/24: 180.3 cm (5' 11 ). Weight as of 04/30/24: 139 kg (306 lb 7 oz). Most recent hematocrit and potassium results: Hematocrit 43.3 07/18/2012 Potassium 3.6 07/18/2012 Relevant Problems ANESTHESIA (+) Obstructive sleep apnea syndrome in adult CARDIO (+) Hypertension (+) Paroxysmal supraventricular tachycardia (HCC) ENDO (+) Type 2 diabetes mellitus without complication (HCC) GI (+) GERD (gastroesophageal reflux disease) PULMONARY (+) Obstructive sleep apnea syndrome in adult I - PHYSICAL EVALUATION AIRWAY Patient intubated: No. Tracheostomy tube not present Mallampati: III. TM distance: >3 FB. Neck ROM: limited extension. Mouth opening: adequate. Short neck: yes. Thick neck: yes DENTAL Dental findings: missing tooth/teeth. Additional exam findings: yes. CARDIOVASCULAR Rhythm: regular Rate: normal PULMONARY Breath sounds clear to auscultation. II - ANESTHESIA PLAN ASA Score: 3 Anesthetic Plan: general Airway type: ETT The patient is a current smoker. NPO Status: adequate Beta Fariba Monitoring Plan Monitoring plan: standard ASA. Post Procedure Analgesic Plan Postoperative analgesic plan: parenteral or oral opioids. Informed Consent Anesthetic risks, benefits, alternatives, personnel and consent discussed: yes. Patient / Responsible Libertarian agrees to proceed: yes Patient / Surrogate agrees to blood products: Yes Vitals Value Taken Time BP 135/68 05/13/24 0847 Pulse 78 05/13/24 0847 Resp 16 05/13/24 0847 Temp 36 ?C (96.8 ?F) 05/13/24 0847 SpO2 99 % 05/13/24 0847 Facility-Administered Medications as of 05/13/2024 Medication Dose Route Frequency lidocaine (PF) 10 mg/mL (1 %) 1-2 mg injection (XYLOCAINE) 0.1-0.2 mL INTRADERMAL PRN lactated ringers iv infusion 5-30 mL/hr INTRAVENOUS CONTINUOUS NaCl 0.9% iv flush bag 20 mL INTRAVENOUS PRN ceFAZolin 2 g in dextrose (iso-osmotic) 50 mL (ANCEF,KEFZOL) 2 g INTRAVENOUS Pre-Op Once Outpatient Medications as of 05/13/2024 Medication Sig cyproheptadine (PERIACTIN) 4 mg tablet Take 4 mg by mouth twice daily. naproxen (NAPROSYN) 500 mg tablet Take 500 mg by mouth twice daily as needed. hydrOXYzine HCl (ATARAX) 10 mg tablet take 1 to 2 tablets by mouth three times a day if needed I have interviewed and examined the patient. I have reviewed the medical record and/or the pre-anesthesia evaluation, pertinent labs, and test results. This contains updated information obtained within 48 hours of Surgery/Procedure. SIGNATURE: Yvan Fonseca II, DO PATIENT NAME: Brittney Vernon DATE: May 13, 2024 TIME: 9:38 AM CSN: [id number] [facility] BRIEF OP NOTon 05-13-2024 BRIEF OP NOT HNO ID: [id number] Author: BEATRICE CABRERA DPM Service: Podiatry Author Type: Physician Type: Brief Op Note Filed: 05/13/2024 12:16 Note Text: BRIEF OPERATIVE / PROCEDURE NOTE LOG ID: [id number] SURGERY/PROCEDURE DATE: 05/13/2024 INCISION/PROCEDURE START TIME: 10:39 AM INCISION CLOSE/PROCEDURE END TIME: SURGEON(S)/PROCEDURALIST(S ) AND WINDOWS SERVER ARCHITECT(S): Surgeons and Role: * Beatrice Cabrera DPM - Primary * Adis Wallis DPM - Resident - Assisting No Additional Staff SURGERY/PROCEDURE(S): Repair of painful 5th metatarsal tuberosity fracture non-union left foot ANESTHESIA: General with local 10 CC of 2% Lidocaine plain FINDINGS: Consistent with pre-op clinical and radiographic findings. ESTIMATED BLOOD LOSS: 10 mls SPECIMENS: None COMPLICATIONS: None IMPLANTS: Implant Name Type Inv. Item Serial No. Die Maker Apprentice Lot No. LRB No. 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 BRITTNEY VERNON : 1985 AGE: 38. SEX: F PATIENT TYPE: OP HOSP SVC: OR LOCATION: [place] [address] ATTENDING PHYSICIAN: Beatrice Cabrera DPM CSN NUMBER: [id number] DATE OF SURGERY/PROCEDURE: 05/13/2024 INCISION/PROCEDURE START TIME: 10:39. INCISION CLOSE/PROCEDURE END TIME: 12:15. The procedure was performed in conjunction with the resident who was present in the operating room today under my direct supervision from skin to skin. 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 SURGEON: Beatrice Cabrera DPM WINDOWS SERVER ARCHITECT: Adis Wallis DPM. SURGERY/PROCEDURE: Repair of 5th metatarsal tuberosity fracture nonunion, left foot, CPT 94084. ANESTHESIA: General with LMA with local field block consisting of 10 mL of 2% lidocaine plain. LOCATION: [facility] HEMOSTASIS: Left midcalf tourniquet at 250 mmHg. ESTIMATED BLOOD LOSS: 10 mL. PROPHYLAXIS: 3 g of Ancef IV piggyback preop. COMPLICATIONS: None. CONDITION: Satisfactory. DRAINS: None. SPECIMENS: None. FINDINGS: Consistent with preop clinical and radiographic examinations. CLOSURE: Primary. MATERIALS: One Betzaida hook plate and multiple 2.4 mm locking screws, Betzaida Augment bone graft, 3-0 Vicryl and 4-0 Monocryl sutures. INDICATIONS FOR OPERATION: The patient was last seen in our office on January 12, 2024, with a chief complaint of left foot 5th metatarsal base tuberosity fracture that has not yet healed for a year and a half. She had constant pain and a bump over there. She fell out of a bath tub and injured her left foot on May 27, 2022. She has been frustrated that she has continued pain in the foot with no definitive treatment options. The patient ultimately declined further conservative measures and requested definitive surgical intervention at this time. DESCRIPTION OF PROCEDURE: The patient was brought to the preoperative holding area where an IV line was started by the nursing staff. 3 g of Ancef were infused IV piggyback for prophylaxis. The patient was transported to the operating room and placed on the operating table in a supine position. After general anesthesia with LMA was achieved, a local field block was performed at the base of the fifth metatarsal of the left foot utilizing approximately 10 mL of 2% lidocaine plain. A well-padded pneumatic midcalf tourniquet was applied on the left lower extremity, but not yet inflated. The patient's left foot and lower leg were then prepped with Hibiclens and draped in the usual sterile manner. The patient's left foot and lower leg were elevated and exsanguinated and the left midcalf tourniquet was inflated to 250 mmHg for hemostasis. Attention was directed to the plantar lateral aspect of the 5th metatarsal, where the bony landmarks were marked out for the planned approximately 5 cm longitudinal linear incision over the center of the 5th metatarsal base region. Utilizing a 15 blade, we incised the skin over the 5th metatarsal base centered over the fracture site and carried down to the subcutaneous tissue level. Dissection then proceeded through the subcutaneous tissues down to level of the 5th metatarsal periosteum and peroneus brevis tendon with care to preserve or retract neurovascular bundles. All crossing superficial venous structures encountered were clamped and electrocauterized to preserve hemostasis. We incised the 5th metatarsal periosteum to expose the nonunion site, which was readily reproducible within the operating room. The peroneus brevis tendon was visualized, which was retracted and intact. We found the 5th metatarsal nonunion site and then used the sagittal saw to reciprocal plane the site. We then curetted it out of any fibrous tissue to get a nice [id number] contact. After irrigation, we fenestrated both sides of the nonunion site with a 0.054 K-wire. We then used the [place] Augment bone injectable gel within the fracture site and then placed a hook plate within the fracture site. The plate was positioned and the hooks were then tunneled into the fracture site proximally. We then used BB tack to anchor it distally and checked the overall position and was found to be satisfactory. We used bone reduction forceps at the nonunion site until we had nice overall [id number] contact. We then placed in the distal locking screws and then the proximal locking screws and they held nicely. We had 3 points of fixation proximally and distally. The fracture was fully reduced. We used additional augment around the nonu (more content not included)... [facility] HISTORY PHYSICALon HISTORY PHYSICAL HNO ID: [id number] Author: HAZEL BILLINGSLEY APRN.POSITIVE PRINTER OPERATOR Service: ? Author Type: Nurse Practitioner Type: H&P Filed: 04/30/2024 13:48 Note Text: HISTORY AND PHYSICAL EXAMINATION SERVICE DATE: 04/30/2024 SERVICE TIME: 1:03 PM PRIMARY CARE PHYSICIAN: Nupur Mcmahan MD REASON FOR VISIT: Brittney Vernon is a 38 year old female who is scheduled for Left - ORIF METATARSAL at the request of Dr. Beatrice Cabrera for consultation. My final recommendation will be communicated back to the requesting physician by way of shared medical record or letter. Assessment Smoker Assessment: Current 1/2 ppd smoker Obstructive sleep apnea syndrome in adult Assessment: NON Compliant with CPAP Paroxysmal supraventricular tachycardia (HCC) Assessment: Untreated, states that the medications bottomed out her BP States she is occasionally dizzy Hypertension Assessment: Followed by PCP Last 5 Encounter BP Readings: Date: BP: 04/30/2024 138/84 04/28/2020 155/103 01/24/2013 110/70 10/23/2012 125/84 07/18/2012 125/74 GERD (gastroesophageal reflux disease) Assessment: Well controlled with PPI Bipolar disorder (HCC) Assessment: Not currently medicated Obesity, morbid Assessment: Body mass index is 42.74 kg/m?. Alvarado Activity Status Index: METS: Walk indoors, such as around the house (1.75 METs) Do light work around the house, such as dusting or washing dishes (2.70 METs) Take care of self; that is eating, dressing, bathing, using the toilet (2.75 METs) Climb a flight of stairs or walk up a hill (5.50 METs) DASI Score: 12.7 Patient denies any chest pain or undue shortness of breath with the above physical activity. Clinical Frailty Scale: 3. Well, with treated comorbid disease STOP-Bang Score: BMI greater than 35 kg/m2 Denies snoring loudly Denies feeling tired, fatigued, or sleepy during the daytime Has not been observed to stop breathing or choking/gasping during sleep Denies having high blood pressure Patient 50 years old or younger Does not have a large neck Non-male patient STOP-Bang Score: 1 ANESTHESIA FINDINGS: Intubation History: No history of difficult intubation Significant Anesthesia Considerations: none Airway History: No history of difficult airway I - PHYSICAL EVALUATION AIRWAY Patient intubated: No. Tracheostomy tube not present Mallampati: III. TM distance: >3 FB. Neck ROM: limited extension. Mouth opening: adequate. Short neck: no. Thick neck: yes Scott present: no Lip Bite Test: II Microretrognathia/Micronag thia/Recessed Chin: No DENTAL Dental findings: poor dentition. II - ANESTHESIA PLAN Beta Fariba Monitoring Plan Post Procedure Analgesic Plan Prepared for surgery: This patient is optimally prepared for surgery. CONSULTS: Anesthesia Consult airway exam Airway evaluated per Dr. 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 The patient states the pain is interfering with daily activities and sleep. Conservative measures have been ineffective. Patient has opted to proceed with above reccommended surgery and is here today for preanesthesia consultation. PAST MEDICAL HISTORY No date: Anxiety No date: Migraine No date: Psychiatric disorder Comment: bi-polar PAST SURGICAL HISTORY No date: CHOLECYSTECTOMY HX No date: HYSTERECTOMY HX No date: ORTHOPEDIC SURGERY HX Comment: hammertoe repair No date: ORTHOPEDICS SURGERY HX Comment: lt ankle x3 No date: OTHER SURGICAL HISTORY (PLEASE SPECIFY) HX Comment: c-sec No date: TONSILLECTOMY HX History reviewed. No pertinent family history. SOCIAL HISTORY: Social History Tobacco Use Smoking status: Every Day Current packs/day: 0.50 Average packs/day: 0.5 packs/day for 22.7 years (11.3 ttl pk-yrs) Types: Cigarettes Start date: 2001 Smokeless tobacco: Never Vaping Use Vaping status: Never Used Substance Use Topics Alcohol use: Not Currently Drug use: Never Prior to Admission medications as of 04/30/24 1317 Medication Sig Last Dose Taking diclofenac, EC, (VOLTAREN) 75 mg EC tablet Take 75 mg by mouth two times a day as needed. Yes cyproheptadine (PERIACTIN) 4 mg tablet Take 4 mg by mouth twice daily. Yes naproxen (NAPROSYN) 500 mg tablet Take 500 mg by mouth twice daily as needed. Yes hydrOXYzine HCl (ATARAX) 10 mg tablet take 1 to 2 tablets by mouth three times a day if needed Yes No medication comments found. ALLERGIES Allergen Reactions Latex Hives Acetaminophen Other: See Comments Increase (more content not included)... [facility] CNOVon 03-29-2024 CNOV Office Visit (ORAV[facility] ) -- BRITTNEY VERNON ([id number]) 1985 F Date Time Provider Department 03/29/24 8:10 AM FABIANO PAIGE During your visit today, we recorded the following information about you: Weight Height 137.4 kg 1.803 m Fabiano Paige DO 03/29/2024 8:56 AM Signed [facility] Office Visit Documentation Note [facility] Sports Medicine Orthopaedic and Rheumatologic [place] HISTORY OF PRESENT ILLNESS (HPI) CHIEF COMPLAINT / REASON FOR VISIT SERVICE DATE: March 29, 2024 PCP: MD Brittney Crews Valko is a 38 year old female who presents today for a new evaluation of following complaint: Patient presents with: Left Knee - New Right Knee - New HISTORY OF PRESENT ILLNESS (HPI) PAIN EVALUATION 03/28/2024 1745 03/29/2024 0759 03/29/2024 0801 Pain Level: 10 6 9 10/10 at worst 10/10 at worst Pain Location: Knee-Left Knee-Right Knee-Left anterior and lateral Description: Sharp;Shooting;Sore;Stabbi ng/Not Incision;Stiffness;Tendern ess;Tightness Sharp Sharp Duration Amount of Time: -- 4 2 Duration Units: Months Years Years Frequency: Continuous Continuous Continuous Intervention/Comfort measure: Medication;Massage -- -- surgery 08/01/2020, CSI and gel without releif CSI and gel without relief with the presenting complaint of New of the Left Knee and New of the Right Knee Brief overview: This is a 38-year-old female who is currently not working due to increased pain. Activity level-low Pain tolerance-she has to take both ibuprofen or naproxen and Voltaren for pain relief. She understands the risks but she has been taking anyhow. She has global knee pain with left being worse than the right. She has had physical therapy, viscosupplementation, cortisone injection and nothing is made it worse. Aggravating Factors Does anything make it worse?: walking all activities Brittney reports a current pain level of 9 (10/10 at worst) (Knee-Left). She describes the pain as Sharp. The pain is Continuous, and has lasted for 2 Years. Interventions tried include (CSI and gel without relief). Most recent knee imaging was completed on 03/29/2024 (XR KNEE GENERAL 4V AP BOTH/PA BOTH/LAT/MERC BILATERAL) . Attached is imaging for the order. PREVIOUS TREATMENTS: Treatments so far have included medication (Naproxen, Narcotic medication, and Volateren). REVIEW OF SYSTEMS ROS: Neurologic: Any numbness or tingling? No Endocrine: Any diagnosis of diabetes? No ALLERGIES ALLERGIES Allergen Reactions Latex Hives Acetaminophen Other: See Comments Increases liver enzymes Dilaudid [Hydromorp* Other: See Comments SPO2 drops PAST MEDICAL HISTORY PAST MEDICAL HISTORY No date: Anxiety No date: Migraine No date: Psychiatric disorder Comment: bi-polar PHYSICAL EXAMINATION Body Habitus: well nourished, no acute distress, and endomorphic Psych: normal Sensation: sensation to light touch is grossly normal bilaterally Skin: Color, texture, turgor normal. No rashes or lesions Swelling: no swelling noted Gait: Normal, the patient did not have trouble getting onto the exam table. ORTHO EXAM: Ortho Exam Patient has difficult time getting onto my examination table today. She stands with normal stance. She has moderate bilateral patellofemoral crepitance. No medial joint line pain on either knee. Hip range of motion in seated position is stable IMAGING/LABORATORY IMAGING: Final results and radiologist's interpretation, available in the [facility] health record. Images were reviewed with the patient/family members in the office today. My personal interpretation of the performed imaging is chronic degenerative changes. Last XR Knee - Impression Only XR KNEE GENERAL 4V AP BOTH/PA BOTH/LAT/MERC BILATERAL Exam End: 03/29/2024 7:38 AM (Final result) Impression: IMPRESSION: Minimal left knee degenerative change. Moderate right medial compartment osteoarthritis. ... ASSESSMENT / PLAN CLINICAL IMPRESSION / ASSESSMENT: CLINICAL IMPRESSION / ASSESSMENT: (M17.0) Primary osteoarthritis of both knees (primary encounter diagnosis) (M25.561, M25.562, G89.29) Chronic pain of both knees RECOMMENDATION / PLAN: Summary this is a 38-year-old female whose had chronic knee pain refractory to her surgery on the right knee for removing my cartilage . I have no history of this from another institution. She is here today for third opinion. I advised for her to consider MRIs of both knees and then understanding the following 1. She has been refractory to treatment for any intra-articular injection 2. She has tried physical therapy, but I suspect a continued attempt at weight loss and strength would be the #1 2 and 3 most important things to do 3. We can contemplate an ejections, but they have failed her to this point. Follow up: Encouraged her to follow-up with one of my surgical part (more content not included)... [facility] XR KNEE 4V AP/PA/LAT/MERCH B ILon 03-29-2024 XR KNEE 4V AP/PA/LAT/MERCH DAVID * * *Final Report* * * DATE OF EXAM: Mar 29 2024 7:38AM AFR [id number] - XR KNEE 4V AP/PA/LAT/MERCH DAVID / PROCEDURE REASON: Acute pain of left knee * * * * Physician Interpretation * * * * EXAMINATION: XR KNEE 4V AP/PA/LAT/MERCH DAVID HISTORY: BILATERAL KNEE PAIN HISTORY OF FALL Acute pain of left knee . TECHNIQUE: XR KNEE 4V AP/PA/LAT/MERCH DAVID Laterality: BILATERAL Number of different views (projections): 4 EACH M: XB_1 COMPARISON: 04/28/2020 RESULT: Moderate narrowing in the right medial compartment with mild genu varus deformity. Mild degenerative changes elsewhere in the right knee. No right knee joint effusion. Left knee joint spaces are maintained. There are tiny marginal osteophytes. No left knee joint effusion. No acute fracture or dislocation. There are no bony erosions. IMPRESSION: Minimal left knee degenerative change. Moderate right medial compartment osteoarthritis. Electrical Solderer: YUNG Transcribe Date/Time: Mar 29 2024 8:00A Dictated by : ANY ANNE MD This examination was interpreted and the report reviewed and electronically signed by: ANY ANNE MD on Mar 29 2024 8:00AM EST [id number] [facility] XR Knee - bilateral 4 Viewso n 03-29-2024 IMPRESSION: Minimal left knee degenerative change. Moderate right medial compartment osteoarthritis. Electrical Solderer: YUNG Transcribe Date/Time: Mar 29 2024 8:00A Dictated by : ANY ANNE MD This examination was interpreted and the report reviewed and electronically signed by: ANY ANNE MD on Mar 29 2024 8:00AM EST DIVISION OF RADIOLOGY * * *Final Report* * * DATE OF EXAM: Mar 29 2024 7:38AM AFR [id number] - XR KNEE 4V AP/PA/LAT/MERCH DAVID / PROCEDURE REASON: Acute pain of left knee * * * * Physician Interpretation * * * * EXAMINATION: XR KNEE 4V AP/PA/LAT/MERCH DAVID HISTORY: BILATERAL KNEE PAIN HISTORY OF FALL Acute pain of left knee . TECHNIQUE: XR KNEE 4V AP/PA/LAT/MERCH DAVID Laterality: BILATERAL Number of different views (projections): 4 EACH M: XB_1 COMPARISON: 04/28/2020 RESULT: Moderate narrowing in the right medial compartment with mild genu varus deformity. Mild degenerative changes elsewhere in the right knee. No right knee joint effusion. Left knee joint spaces are maintained. There are tiny marginal osteophytes. No left knee joint effusion. No acute fracture or dislocation. There are no bony erosions. DIVISION OF RADIOLOGY Provider, Fifi Stone - 03/29/2024 * * *Final Report* * * DATE OF EXAM: Mar 29 2024 7:38AM AFR [id number] - XR KNEE 4V AP/PA/LAT/MERCH DAVID / PROCEDURE REASON: Acute pain of left knee * * * * Physician Interpretation * * * * EXAMINATION: XR KNEE 4V AP/PA/LAT/MERCH DAVID HISTORY: BILATERAL KNEE PAIN HISTORY OF FALL Acute pain of left knee . TECHNIQUE: XR KNEE 4V AP/PA/LAT/MERCH DAVID Laterality: BILATERAL Number of different views (projections): 4 EACH M: XB_1 COMPARISON: 04/28/2020 RESULT: Moderate narrowing in the right medial compartment with mild genu varus deformity. Mild degenerative changes elsewhere in the right knee. No right knee joint effusion. Left knee joint spaces are maintained. There are tiny marginal osteophytes. No left knee joint effusion. No acute fracture or dislocation. There are no bony erosions. IMPRESSION IMPRESSION: Minimal left knee degenerative change. Moderate right medial compartment osteoarthritis. Electrical Solderer: PSCB Transcribe Date/Time: Mar 29 2024 8:00A Dictated by : ANY ANNE MD This examination was interpreted and the report reviewed and electronically signed by: ANY ANNE MD on Mar 29 2024 8:00AM EST [facility] Radiology Study observation (narrative) [facility] XR Knee - bilateral 4 ViewsO rdered By: [facility] Provider on 03-29-2024 [facility] XR knee RT 4V*on 03-27-2024 XR knee RT 4V* [facility] [address] [place] [address] [place] [address] XRay Report Signed Patient: Brittney Vernon MR#: [id number] 1 : 1985 Acct:[id number] Age/Sex: 38 / F ADM Date: 03/27/24 Loc: ER Room: Type: [facility] ER Attending Dr: Copies to: SHADY Anderson Ordering Provider: SHADY Anderson Date of Service: 03/27/24 XR/XR knee RT 4V*: Extremity Injury, Lower 4 views RIGHT knee plain film COMPARISON: None HISTORY: Anterior and lateral RIGHT knee pain ACUTE FINDINGS: No acute findings DEGENERATIVE CHANGE: Marginal spurring. Mild joint space narrowing. SOFT TISSUE FINDINGS: Unremarkable JOINT EFFUSION: None POSTOP CHANGES: None BONE MINERALIZATION: Adequate XR/XR knee RT 4V* IMPRESSION: Degenerative change. No joint effusion. Impression dictated by: Tommy Pastor M.D.03/27/2024 5:31 PM Dictation Location: [place] [address] Transcribed By: [facility] 03/27/241730 Dictated By: Tommy Pastor DO 03/27/241729 Signed By: 03/27/241730 [facility] 02-19-2024 [facility] Telephone ([facility]) -- BRITTNEY VERNON ([id number]) 1985 F Date Time Provider Department 02/19/24 BEATRICE CABRERA During your visit today, we recorded the following information about you: Dennis Cruz 02/19/2024 2:19 PM Signed VOID- completed in ERROR Allergies As of Date: 02/19/2024 Noted Allergy Reaction LATEX 12/11/2009 4 - Hives ACETAMINOPHEN 04/28/2020 14 - Other: See Comments Comments: Increases liver enzymes DILAUDID (HYDROMORPHONE) 04/28/2020 14 - Other: See Comments Comments: SPO2 drops Date Reviewed: 01/12/2024 Reviewed by: Natali Pyle OCCA - Fully Assessed Reason for Visit: [place] Paperwork [[id number]] Prescriptions as of 02/19/2024 - cyproheptadine (PERIACTIN) 4 mg tablet Take 4 mg by mouth twice daily. - naproxen (NAPROSYN) 500 mg tablet Take 500 mg by mouth twice daily as needed. - hydrOXYzine HCl (ATARAX) 10 mg tablet take 1 to 2 tablets by mouth three times a day if needed - PNV WITH CA,NO.71/IRON/FA ( VITAMIN 1+1 ORAL) Take by mouth. - CALCIUM CARBONATE/VITAMIN D3 (CALCIUM 600 + D,3, ORAL) Take by mouth. - Ascorbic Acid (VITAMIN C) 100 mg tablet Take 100 mg by mouth once daily. - Vitamin W79-Lnczfff B1 5.5-12.5 mg-mcg/5 mL Liqd Take by mouth. - citalopram (CELEXA) 20 mg tablet Take 20 mg by mouth once daily. - cholecalciferol, Vitamin D3, 50,000 unit cap capsule Take 1 capsule by mouth once each week. - lisinopril 10 mg tablet Take 10 mg by mouth once daily. Problem List As Of Date 02/19/2024 Noted Resolved Sprain of Ankle [S93.409A] 11/09/2009 Ankle Instability [M25.373] 11/26/2009 Sleep disorder breathing [G47.30] 10/23/2012 Hypertension [I10] 10/23/2012 GERD (gastroesophageal reflux disease) [K21.9] 10/23/2012 Dysmetabolic syndrome X [E88.810] 10/23/2012 Vitamin d deficiency [E55.9] 10/23/2012 Obesity, morbid [E66.01] 10/23/2012 Dietary surveillance and counseling [Z71.3] 10/23/2012 Encounter Status:Closed by DENNIS CRUZ on 02/19/24 [facility] 02-08-2024 [facility] Telephone ([facility]) -- BRITTNEY VERNON ([id number]) 1985 F Date Time Provider Department 02/08/24 BEATRICE CABRERAGabriella During your visit today, we recorded the following information about you: Zeenat Menendez 02/08/2024 12:[address] Cabrera / Katarina, A call from Kelin was wrongly placed in my voicemail, so I am passing it along to you. This patient is scheduled for surgery with you on 05/13/24. Please call Gillian with [employer] at [phone]. She is trying to not only get this surgery authorized, but all of this patient's podiatry care. She has received two C-9 forms, one for the surgery and another for a bone growth stimulator, and she is trying to make sure that nothing gets denied, but needs to speak with you to ask a few questions in order for that not to happen. Katarina Hay, CT 02/09/2024 2:04 PM Signed Spoke with Gillian from [employer] regarding the claims and codes. Advised that since Dr. Cabrera is not in the office until Monday there isn't much I can do. She is suggesting that we take back the request for surgery and request bone stim first which she believes would be denied due to surgery request. Or the other way around. Will get back to her on February 12. Katarina Hay, CT 02/14/2024 2:16 PM Signed Spoke again with Gillian on 02/13/24 going to void bone stim for now. Allergies As of Date: 02/08/2024 Noted Allergy Reaction LATEX 12/11/2009 4 - Hives ACETAMINOPHEN 04/28/2020 14 - Other: See Comments Comments: Increases liver enzymes DILAUDID (HYDROMORPHONE) 04/28/2020 14 - Other: See Comments Comments: SPO2 drops Date Reviewed: 01/12/2024 Reviewed by: Natali Pyle OCCA - Fully Assessed Reason for Visit: Surgical Followup [104] Prescriptions as of 02/14/2024 - cyproheptadine (PERIACTIN) 4 mg tablet Take 4 mg by mouth twice daily. - naproxen (NAPROSYN) 500 mg tablet Take 500 mg by mouth twice daily as needed. - hydrOXYzine HCl (ATARAX) 10 mg tablet take 1 to 2 tablets by mouth three times a day if needed - PNV WITH CA,NO.71/IRON/FA ( VITAMIN 1+1 ORAL) Take by mouth. - CALCIUM CARBONATE/VITAMIN D3 (CALCIUM 600 + D,3, ORAL) Take by mouth. - Ascorbic Acid (VITAMIN C) 100 mg tablet Take 100 mg by mouth once daily. - Vitamin T71-Utmmtfo B1 5.5-12.5 mg-mcg/5 mL Liqd Take by mouth. - citalopram (CELEXA) 20 mg tablet Take 20 mg by mouth once daily. - cholecalciferol, Vitamin D3, 50,000 unit cap capsule Take 1 capsule by mouth once each week. - lisinopril 10 mg tablet Take 10 mg by mouth once daily. Problem List As Of Date 02/08/2024 Noted Resolved Sprain of Ankle [S93.409A] 11/09/2009 Ankle Instability [M25.373] 11/26/2009 Sleep disorder breathing [G47.30] 10/23/2012 Hypertension [I10] 10/23/2012 GERD (gastroesophageal reflux disease) [K21.9] 10/23/2012 Dysmetabolic syndrome X [E88.810] 10/23/2012 Vitamin d deficiency [E55.9] 10/23/2012 Obesity, morbid [E66.01] 10/23/2012 Dietary surveillance and counseling [Z71.3] 10/23/2012 Encounter Status:Closed by ZEENAT MENENDEZ on 02/08/24 [facility] 01-17-2024 [facility] Telephone ([facility]) -- BRITTNEY VERNON ([id number]) 1985 F Date Time Provider Department 01/17/24 BEATRICE CABRERA During your visit today, we recorded the following information about you: Zeenat Menendez 01/17/2024 2:25 PM Signed Left voice message asking patient to call back to schedule surgery for her left foot with Dr. Cabrera. I provided my direct number in surgery scheduling [phone]. Zeenat Menendez 01/18/2024 3:50 PM Signed Spoke to patient who notified me tthat surgery for her left foot is through [employer]. She elected to schedule in April, so is set for 05/13/24 pending [facility] authorization. I will send an email to [facility] Dept with this surgery date and ask that they assist Dr. Cabrera in obtaining authorization. Allergies As of Date: 01/17/2024 Noted Allergy Reaction LATEX 12/11/2009 4 - Hives ACETAMINOPHEN 04/28/2020 14 - Other: See Comments Comments: Increases liver enzymes DILAUDID (HYDROMORPHONE) 04/28/2020 14 - Other: See Comments Comments: SPO2 drops Date Reviewed: 01/12/2024 Reviewed by: Natali Pyle OCCA - Fully Assessed Reason for Visit: Surgical Followup [104] Prescriptions as of 01/18/2024 - cyproheptadine (PERIACTIN) 4 mg tablet Take 4 mg by mouth twice daily. - naproxen (NAPROSYN) 500 mg tablet Take 500 mg by mouth twice daily as needed. - hydrOXYzine HCl (ATARAX) 10 mg tablet take 1 to 2 tablets by mouth three times a day if needed - PNV WITH CA,NO.71/IRON/FA ( VITAMIN 1+1 ORAL) Take by mouth. - CALCIUM CARBONATE/VITAMIN D3 (CALCIUM 600 + D,3, ORAL) Take by mouth. - Ascorbic Acid (VITAMIN C) 100 mg tablet Take 100 mg by mouth once daily. - Vitamin A81-Aehbcvc B1 5.5-12.5 mg-mcg/5 mL Liqd Take by mouth. - citalopram (CELEXA) 20 mg tablet Take 20 mg by mouth once daily. - cholecalciferol, Vitamin D3, 50,000 unit cap capsule Take 1 capsule by mouth once each week. - lisinopril 10 mg tablet Take 10 mg by mouth once daily. Problem List As Of Date 01/17/2024 Noted Resolved Sprain of Ankle [S93.409A] 11/09/2009 Ankle Instability [M25.373] 11/26/2009 Sleep disorder breathing [G47.30] 10/23/2012 Hypertension [I10] 10/23/2012 GERD (gastroesophageal reflux disease) [K21.9] 10/23/2012 Dysmetabolic syndrome X [E88.810] 10/23/2012 Vitamin d deficiency [E55.9] 10/23/2012 Obesity, morbid [E66.01] 10/23/2012 Dietary surveillance and counseling [Z71.3] 10/23/2012 Encounter Status:Closed by ZEENAT MENENDEZ on 01/17/24 [facility] XR Foot - left AP and Latera l and obliqueon 01-17-2024 IMPRESSION: Redemonstrated fifth metatarsal base fracture with unchanged alignment. Electrical Solderer: PSCB Transcribe Date/Time: Jan 17 2024 10:41A Dictated by : LUKE HAN MD This examination was interpreted and the report reviewed and electronically signed by: LUKE HAN MD on Jan 17 2024 10:47AM [facility] DIVISION OF RADIOLOGY * * *Final Report* * * DATE OF EXAM: Jan 12 2024 2:12PM SVX [id number] - XR FOOT 3V AP/LAT/OBL LT / PROCEDURE REASON: Pain in left foot * * * * Physician Interpretation * * * * EXAMINATION / TECHNIQUE: XR FOOT 3V AP/LAT/OBL LT HISTORY: left foot pain, fracture follow up Pain in left foot COMPARISON: 10/12/2022 RESULT: Fifth metatarsal base fracture again seen with unchanged alignment and interval bony resorption along the fracture margins. No definite bony bridging identified. No new acute osseous abnormality. Nonspecific widening of the fourth and fifth toe PIP joints, possibly postoperative in etiology. Joint spaces are otherwise maintained. No osseous erosions. Dorsal calcaneal enthesophytes. DIVISION OF RADIOLOGY Provider, [facility] - 01/17/2024 * * *Final Report* * * DATE OF EXAM: Jan 12 2024 2:12PM SVX [id number] - XR FOOT 3V AP/LAT/OBL LT / PROCEDURE REASON: Pain in left foot * * * * Physician Interpretation * * * * EXAMINATION / TECHNIQUE: XR FOOT 3V AP/LAT/OBL LT HISTORY: left foot pain, fracture follow up Pain in left foot COMPARISON: 10/12/2022 RESULT: Fifth metatarsal base fracture again seen with unchanged alignment and interval bony resorption along the fracture margins. No definite bony bridging identified. No new acute osseous abnormality. Nonspecific widening of the fourth and fifth toe PIP joints, possibly postoperative in etiology. Joint spaces are otherwise maintained. No osseous erosions. Dorsal calcaneal enthesophytes. IMPRESSION IMPRESSION: Redemonstrated fifth metatarsal base fracture with unchanged alignment. Electrical Solderer: YUNG Transcribe Date/Time: Jan 17 2024 10:41A Dictated by : LUKE HAN MD This examination was interpreted and the report reviewed and electronically signed by: LUKE HAN MD on Jan 17 2024 10:47AM EST [facility] XR Foot - left AP and Latera l and obliqueOrdered By: Ccf Provider on 01-17-2024 [facility] CNOVon 01-12-2024 CNOV Office Visit (SHEF ) -- VELMANJUBRITTNEY L ([id number]) 1985 F Date Time Provider Department 01/12/24 2:15 PM [facility] During your visit today, we recorded the following information about you: Beatrice Cabrera DPM 01/12/2024 3:03 PM Signed [facility] Department of Orthopedics [facility] Orthopedic Surgery Name: Brittney Vernon Date of Service: January 12, 2024 CC/HPI: This 38 year old very pleasant female patient presents to the clinic today with a chief complaint of a left foot metatarsal base fracture tuberosity type that has not healed for a year and a half. She has constant pain and a bump over there. She had right knee surgery and fell in the bathtub and injured her left foot on May 27, 2022. She is seen today since she is frustrated since she is able to walk without pain since the fracture occurred and she has seen other doctors but nothing definitive was really ever done. She is seen today to discuss the problem and treatment options along with her plan of care. She states she has pain with every step over fifth metatarsal base region of her left foot. PAST MEDICAL HISTORY Diagnosis Date Anxiety Migraine Psychiatric disorder bi-polar Current Outpatient Medications Medication Sig cyproheptadine (PERIACTIN) 4 mg tablet Take 4 mg by mouth twice daily. naproxen (NAPROSYN) 500 mg tablet Take 500 mg by mouth twice daily as needed. hydrOXYzine HCl (ATARAX) 10 mg tablet take 1 to 2 tablets by mouth three times a day if needed PNV WITH CA,NO.71/IRON/FA ( VITAMIN 1+1 ORAL) Take by mouth. CALCIUM CARBONATE/VITAMIN D3 (CALCIUM 600 + D,3, ORAL) Take by mouth. Ascorbic Acid (VITAMIN C) 100 mg tablet Take 100 mg by mouth once daily. Vitamin D74-Zhjsxzz B1 5.5-12.5 mg-mcg/5 mL Liqd Take by mouth. citalopram (CELEXA) 20 mg tablet Take 20 mg by mouth once daily. cholecalciferol, Vitamin D3, 50,000 unit cap capsule Take 1 capsule by mouth once each week. lisinopril 10 mg tablet Take 10 mg by mouth once daily. No current facility-administered medications for this visit. ALLERGIES Allergen Reactions Latex Hives Acetaminophen Other: See Comments Increases liver enzymes Dilaudid [Hydromorp* Other: See Comments SPO2 drops PAST SURGICAL HISTORY Procedure Laterality Date CHOLECYSTECTOMY HX HYSTERECTOMY HX ORTHOPEDIC SURGERY HX hammertoe repair ORTHOPEDICS SURGERY HX lt ankle x3 OTHER SURGICAL HISTORY (PLEASE SPECIFY) HX c-sec TONSILLECTOMY HX No family history on file. Social History Tobacco Use Smoking status: Every Day Packs/day: .5 Types: Cigarettes Smokeless tobacco: Never Vaping Use Vaping Use: Never used Substance Use Topics Alcohol use: Not Currently Drug use: Never Physical Exam: Patient approximate 5 foot 11 and 297 pounds The patient is alert and oriented x 3 in no apparent acute distress. Vascular: Pedal pulses are palpable DP and PT left. CFT is less than 3 seconds digits 1-5 left. Skin temperature is warm to cool from anterior knees to toes left. Minimal varicosities left. Normal pedal hair growth left. There is no edema or erythema over the fifth metatarsal base region of the left foot this time Neuro: Light touch is intact to all quadrants of foot and ankle with no apparent sensory deficits left. Derm: Unremarkable as related chief complaint left Ortho: Muscle strength is +5/5 for all pedal groups left. Ankle joint, subtalar joint, 1st MPJ and lesser MPJ ROM's are full and without pain or crepitus left. 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 Radiographs 3 views left foot Discussed results of clinical and radiographic examination with the patient in detail along with treatment options. Recommend nonunion repair. Would have to break apart the fracture and the nonunion curette the devitalized tissue and utilize a hook plate with possible bone grafting along with an KAILEY bone growth stimulator. Advised can perform at the [facility] under general anesthesia in a lateral position. Nonweightbearing for indeterminate amount of time pending clinical radiographic findings along with an KAILEY bone growth stimulator. I will contact Lulú regarding thi. The patient wished to proceed. We will complete scheduling. All questions were answered. No (more content not included)... Normal [facility] XR FOOT 3V AP/LAT/OBL LTon 0 01-12-2024 XR FOOT 3V AP/LAT/OBL LT * * *Final Report* * * DATE OF EXAM: Jan 12 2024 2:12PM SVX [id number] - XR FOOT 3V AP/LAT/OBL LT / PROCEDURE REASON: Pain in left foot * * * * Physician Interpretation * * * * EXAMINATION / TECHNIQUE: XR FOOT 3V AP/LAT/OBL LT HISTORY: left foot pain, fracture follow up Pain in left foot COMPARISON: 10/12/2022 RESULT: Fifth metatarsal base fracture again seen with unchanged alignment and interval bony resorption along the fracture margins. No definite bony bridging identified. No new acute osseous abnormality. Nonspecific widening of the fourth and fifth toe PIP joints, possibly postoperative in etiology. Joint spaces are otherwise maintained. No osseous erosions. Dorsal calcaneal enthesophytes. IMPRESSION: Redemonstrated fifth metatarsal base fracture with unchanged alignment. Electrical Solderer: YUNG Transcribe Date/Time: Jan 17 2024 10:41A Dictated by : LUKE HAN MD This examination was interpreted and the report reviewed and electronically signed by: LUKE HAN MD on Jan 17 2024 10:47AM EST [id number] Normal [facility]gson XR Foot - left AP and Latera l and obliqueon 01-12-2024 Radiology Study observation (narrative) [facility] HbA1c HPLC (Bld) [Mass fract ion]on 12-01-2023 HbA1c (Bld) [Mass fraction] 5.3 % [facility] 36on 10-18-2023 36 Patient called offic e to let us know that she is not seeing Dr. Ro anymore. She is going to [facility] instead and informed her Hl7 Developer. She just wanted to let us know [facility] 36 LVM with patient phylicia t the C-9 was approved and she could call and schedule [facility] Follow-Upon 10-09-2023 Follow-Up [id number] Brittney Vernon 1985 F Date Provider Department Center 10/09/2023 Farzana-RICHA COLLIER MP ORTHO MPORTHO Family History Problem Relation Age of Onset Broken bones Father Cancer Father Osteoporosis Paternal Grandmother Rheumatologic disease Paternal Grandmother Diabetes Sister Family Status - Relation Status Age at Mother Alive Father Alive Paternal Grandmother Sister Level of Service:60804 [facility] OFFICE/OUTPATIENT ESTABLISHED LOW MDM 20 MIN (GC) Reason for Visit and Comments: Follow-up [806514] - [facility] Vitamin B12 ser/plasOrdered By: Dyana Barraza on 08-22-2023 Cobalamin (Vitamin B12) [Mass/Vol] 700 pg/mL Normal 180-914 [facility] Comment on above: Order Comment: Reaso n for Exam Prediabetes;Medication monitoring encounter Result Comment: PERF ORMED BY: [address] [place] [address] PATHOLOGIST ROCK ROOM WORKER ELMER KEATING M.D. Performed By: #### B 12 #### [address] [place] [address] [facility] KNEESTBIon 08-18-2023 KNEESI [facility] Orthopedics/[facility] ent Care [address] [place] [id number] XRay Report Signed Patient Name: Brittney Vernon Medical [address] rd #: [id number] Date of : 1985 Account #:[id number] Age/Sex: 37 / F Location: [facility] Attending physician: Beatrice Shafer MD Ordering Provider: Beatrice Shafer MD Date of Service: 08/14/23 Procedure(s): XR knee BI 1-2V; XR knee standing BI Standing x-rays were obtained today of both knees. No lytic or blastic lesions are identified. Left knee x-rays look relatively benign. Right side demonstrates varus posture and narrowing of the medial side articular cartilage space. This is not [id number]-[id number]. Small para-articular osteophytes are noted on the medial aspect of the knee joint. Dictated By: Beatrice Shafer MD Signed By: 08/29/23 1044 DD/ 1249 TD/TT: 08/25/23 0944 Electrical Solderer: Exam/Order Verified? Y Exam Explained to Patient/Family? Y Was Patient Shielded? N Is Patient ? N Consent Form Completed? Hx Last Menstrual Period: HYSTERECTOMY Does Patient have a Diabetic Device? Diabetic Device Type: Was the Diabetic Device Removed? If NO: was Removal Consent form completed? Patient was informed of radiation exposure prior to scan? Y Verified by Technologist:[id number] Comment: [id number] cc: Beatrice Shafer MD PCP,No Normal [facility] A.QUINNVISon 08-14-2023 A.SOLEDAD [facility] [address] [place] [id number] Office Visit Report Signed Patient Name: Brittney Vernon 7 Date of : 1985 Age/Sex: 37 / F Date of Service: Location: [facility] Orthopedics Attending physician: Beatrice Shafer MD HPI [facility] 2nd Op, Bilat knee pain DOI 04/28/20 HPI Details Brittney Vernon is a 37 year old F who is here today as a second opinion regarding bilateral knee pain. She relates that the pain in both knees is attributable to a work-related injury sustained 04/28/2020. She also has a left foot injury that is related as well and my understanding is a foot injury may get discussed at another time. She has been treated elsewhere. She is here today at the recommendation of her licensed psychologist director to gather a second opinion. Right knee pain began first but she is clear today that the left knee is more painful than right. Patient herself is very articulate and able to provide the history as it relates to her knee pain. I also had an opportunity to review other documents and operative report and review imaging studies that she provided today via disc. 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 She relates that she was working in a correction near [place]. On her day of injury she was transferring the patient out of her recliner. There was some unsteadiness associated with this transfer. Neither she or her client fell but she adjusted her posterior during this maneuver and she said her knee went 1 way and her body went another. She was then evaluated at a facility in [place] which she says is one of the [facility] and satellite facilities. She was temporarily put off work and placed in knee immobilizer. She was then evaluated at a hospital in [facility] which is close to her home. MRI was pursued. She was diagnosed with a torn lateral meniscus. She was then referred to [facility] for further evaluation and treatment. She was evaluated by Dr. Jett. She underwent arthroscopy of the right knee on 07/31/2020. Preoperative diagnosis was lateral meniscal tear. The menisci were noted to be intact at the time of the arthroscopy. 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 Synovial debridement and chondroplasty of the lateral tibial plateau and medial femoral condyle was accomplished. She relates that she returned to work roughly 3 weeks following her arthroscopy. Her knee treated her reasonably well for a couple of months. She then developed increased symptoms. She was referre d for a course of physical therapy. She had a corticosteroid injection in October 2021. That injection did not yield any relief. She has tried naproxen and oral Voltaren as well as Voltaren gel. She has found that the oral Voltaren gives her the best relief. She has been evaluated with further imaging studies. She states that the right knee continues to be painful and have persistent popping sensation. She denies any new injury to the right knee. Left knee pain began in April 2022. She identifies May 27, 2022 as a date of injury. She was getting ready for work and her right knee gave out on her when she was in her shower. She fell and hurt her left knee and left foot. She was diagnosed with lateral collateral ligament injury on the left knee as well as left knee chondromalacia and contusion and bone marrow edema. She has had no surgery on the left knee. She has participated in physical therapy. She has had 2 different injections into the left knee. My understanding is 1 injection was a standard corticosteroid injection and the second was Zilretta. Neither injection gave her any substantial benefit. She had very brief relief after each injection. Left knee continues to be more painful than the right. Climbing stairs is particularly symptomatic. She has a clicking sensation in any amount of prolonged standing and walking also puts her. She also shares that she was diagnosed with a metatarsal fracture at the time that she slipped in her tub in April 2022. That has been evaluated and treated elsewhere. She shares that that is not healing but we did not focus on her foot injury today. She did present wearing normal shoes. My understanding is that her left foot and left knee injuries were linked to her original work- related right injury as a flow-through injury under [facility]. Past medical history is reviewed. She is obese. Her weight today is approximately 303 pounds. She is in the process of pursuing medically directed weight loss. She takes metformin and Victoza. Thus far she has been able to lose approximately 33 pounds. She states that when she last saw her treating physicians at [facility] additional physical therapy was suggested as they did not know what else to do . Exam Ortho Exam Narrative Exam Narrative: Her gait is observed w (more content not included)... Normal [facility] Activated partial thrombopla stin time (aPTT) in platelet poor plasma by coagulation aOrdered By: Emmie Cannon on 07-02-2023 aPTT Coag (PPP) [Time] 31.6 s 25.1-36.5 [facility] Comment on above: A hematocrit value g reater than 55% may lead to inaccurate results in coagulation testing. Patients having hematocrit values >55% require a special collection tube for coagulation studies. Please contact the laboratory at [phone] for redraw instructions. Basophils Auto (Bld) [#/Vol] Ordered By: Emmie Cannon on 07-02-2023 Basophils (Bld) [#/Vol] 0.2 10*3/uL 0.0-0.2 [facility] Basophils/100 WBC Auto (Bld) Ordered By: Emmie Cannon on 07-02-2023 Basophils/100 WBC (Bld) 1.5 % . [facility] Calcium [Mass/volume] in Ser um or PlasmaOrdered By: Emmie Cannon on 07-02-2023 Calcium [Mass/Vol] 9.2 mg/dL 8.6-10.3 [facility] Carbon dioxide, total [Moles /volume] in Serum or PlasmaOrdered By: Emmie Cannon on 07-02-2023 CO2 [Moles/Vol] 26.9 mmol/L 21.0-31.0 [facility] Chloride [Moles/volume] in S low or PlasmaOrdered By: Emmie Cannon on 07-02-2023 Chloride [Moles/Vol] 106 mmol/L 98-107 [facility] Creatine kinase [Enzymatic a ctivity/volume] in Serum or PlasmaOrdered By: Emmie Cannon on 07-02-2023 CK [Catalytic activity/Vol] 36 U/L 30-223 [facility] Creatinine [Mass/volume] in Serum or PlasmaOrdered By: Emmie Cannon on 07-02-2023 Creatinine [Mass/Vol] 0.84 mg/dL 0.60-1.20 [facility] Eosinophils Auto (Bld) [#/Vo l]Ordered By: Emmie Cannon on 07-02-2023 Eosinophils (Bld) [#/Vol] 0.2 10*3/uL 0.0-0.45 [facility] Eosinophils/100 WBC Auto (Bl d)Ordered By: Emmie Cannon on 07-02-2023 Eosinophils/100 WBC (Bld) 1.4 % . [facility] Erythrocyte distribution wid th Auto (RBC) [Ratio]Ordered By: Emmie Cannon on 07-02-2023 Erythrocyte distribution width (RBC) [Ratio] 15.0 % 11.9-15.3 [facility] Glucose [Mass/volume] in Ser um or PlasmaOrdered By: Emmie Cannon on 07-02-2023 Glucose [Mass/Vol] 84 mg/dL 70-100 [facility] Comment on above: ADA recommended refe rence rangeRandom Glucose Reference Range is dependent on time and content of last meal. Glucose of more than 200 mg/dL in a nonstressed, ambulatory subject supports the diagnosis of Diabetes Mellitus. Hematocrit Auto (Bld) [Volum e fraction]Ordered By: Emmie Cannon on 07-02-2023 Hematocrit (Bld) [Volume fraction] 44.9 % 34.0-46.4 [facility] Hemoglobin [Mass/volume] in BloodOrdered By: Emmie Cannon on 07-02-2023 Hemoglobin (Bld) [Mass/Vol] 14.8 g/dL 11.8-15.4 [facility] INR in Platelet poor plasma by Coagulation assayOrdered By: Emmie Cannon on 07-02-2023 INR Coag (PPP) [Relative time] 0.9 {INR} [facility] Comment on above: INR Therapeutic Rang e A) Pre- and Peroperative OAT started two weeks before surgery. NOT HIP SURGERY: 1.5 - 2.5 HIP SURGERY: 2 - 3B) Primary and secondary prevention of venous THROMBOSIS: 2 - 3C) Active venous thrombosis, pulmonary embolismand prevention of recurrent venous thrombosis: 2 - 3D) Prevention of arterial thromboembolismincluding patients with mechanical heart valves: 3 - 4.5 Leukocytes [#/volume] correc nick for nucleated erythrocytes in Blood by Automated counOrdered By: Emmie Cannon on 07-02-2023 WBC corrected for nucl RBC Auto (Bld) [#/Vol] 15.9 10*3/uL 3.8-11.6 [facility] Lymphocytes Auto (Bld) [#/Vo l]Ordered By: Emmie Cannon on 07-02-2023 Lymphocytes (Bld) [#/Vol] 3.7 10*3/uL 1.00-4.8 [facility] Lymphocytes/100 WBC Auto (Bl d)Ordered By: Emmie Cannon on 07-02-2023 Lymphocytes/100 WBC (Bld) 23.0 % . [facility] MCH Auto (RBC) [Entitic mass ]Ordered By: Emmie Cannon on 07-02-2023 MCH (RBC) [Entitic mass] 32.2 pg 24.7-34.3 [facility] MCHC Auto (RBC) [Mass/Vol]Or dered By: Emmie Cannon on 07-02-2023 MCHC (RBC) [Mass/Vol] 33.0 g/dL 32.0-35.0 [facility] MCV Auto (RBC) [Entitic vol] Ordered By: Emmie Cannon on 07-02-2023 MCV (RBC) [Entitic vol] 97.5 fL 80-100 [facility] Monocyte distribution width [Entitic volume] in Blood by AutomatedOrdered By: Emmie Cannon on 07-02-2023 Monocyte distribution width Auto (Bld) [Entitic vol] 23.33 % 0.00-20.00 [facility] Comment on above: For adults in ED, MD W > 20.0 may be associated with a higher risk of sepsis during the first 12 hrs of hospital admission Monocytes Auto (Bld) [#/Vol] Ordered By: Emmie Cannon on 07-02-2023 Monocytes (Bld) [#/Vol] 0.9 10*3/uL 0.0-0.8 [facility] Monocytes/100 WBC Auto (Bld) Ordered By: Emmie Cannon on 07-02-2023 Monocytes/100 WBC (Bld) 5.4 % . [facility] Natriuretic peptide B [Mass/ Vol]Ordered By: Emmie Cannon on 07-02-2023 Natriuretic peptide B (Bld) [Mass/Vol] 12.0 pg/mL 5-100 [facility] Neutrophils Auto (Bld) [#/Vo l]Ordered By: Emmie Cannon on 07-02-2023 Neutrophils (Bld) [#/Vol] 10.9 10*3/uL 1.8-7.7 [facility] Neutrophils/100 WBC Auto (Bl d)Ordered By: Emmie Cannon on 07-02-2023 Neutrophils/100 WBC (Bld) 68.7 % . [facility] No Panel InformationOrdered By: Emmie Cannon on 07-02-2023 Estimated GFR (CKD-EPI) > 60.0 mL/Min [facility] Creatinine Clearance (Chem 140.29 [facility] Nucleated erythrocytes [Pres ence] in Blood by Automated countOrdered By: Emmie Canonn on 07-02-2023 Nucleated RBC Auto Ql (Bld) 0.0 /100{WBC} 0-0.5 [facility] Platelet mean volume Auto (B ld) [Entitic vol]Ordered By: Emmie Cannon on 07-02-2023 Platelet mean volume (Bld) [Entitic vol] 7.4 fL 6.3-10.7 [facility] Platelets Auto (Bld) [#/Vol] Ordered By: Emmie Cannon on 07-02-2023 Platelets (Bld) [#/Vol] 336 10*3/uL 150-450 [facility] Potassium [Moles/volume] in Serum or PlasmaOrdered By: Emmie Cannon on 07-02-2023 Potassium [Moles/Vol] 4.2 mmol/L 3.5-5.1 [facility] Prothrombin time (PT)Ordered By: Emmie Cannon on 07-02-2023 PT Coag (PPP) [Time] 10.5 s 9.0-12.9 [facility] Comment on above: A hematocrit value g reater than 55% may lead to inaccurate results in coagulation testing. Patients having hematocrit values >55% require a special collection tube for coagulation studies. Please contact the laboratory at [phone] for redraw instructions. RBC Auto (Bld) [#/Vol]Ordere d By: Emmie Cannon on 07-02-2023 RBC (Bld) [#/Vol] 4.61 10*6/uL 3.60-5.00 [facility] Serum or plasma anion gap de terminationOrdered By: Emmie Cannon on 07-02-2023 Anion gap [Moles/Vol] 8.3 mmol/L 6.0-15.0 [facility] Sodium [Moles/volume] in Ser um or PlasmaOrdered By: Emmie Cannon on 07-02-2023 Sodium [Moles/Vol] 137 mmol/L 136-145 [facility] Troponin I.cardiac [Mass/vol ume] in Serum or Plasma by Detection limit <= 0.01 ng/Ordered By: Emmie Cannon on 07-02-2023 Troponin I.cardiac DL <= 0.01 ng/mL [Mass/Vol] 3.1 pg/mL 0.0-15.0 [facility] Urea nitrogen [Mass/volume] in Serum or PlasmaOrdered By: Emmie Cannon on 07-02-2023 Urea nitrogen [Mass/Vol] 13 mg/dL 7 [facility] WBC Auto (Bld) [#/Vol]Ordere d By: Emmie Cannon on 07-02-2023 WBC (Bld) [#/Vol] 15.9 10*3/uL 3.8-11.6 [facility] Office Visiton 06-23-2023 Follow-up visit [id number] Brittney Vernon L 1985 F Date Provider Department Center 06/23/2023 499-JIMMY HUNTLEY MP ORTHO MPORTHO Family History Problem Relation Age of Onset Broken bones Father Cancer Father Osteoporosis Paternal Grandmother Rheumatologic disease Paternal Grandmother Diabetes Sister Family Status - Relation Status Age at Mother Alive Father Alive Paternal Grandmother Sister Level of Service:06320 [place] OFFICE/OUTPATIENT ESTABLISHED LOW MDM 20-29 MIN Reason for Visit and Comments: Pain [136] Normal [facility] Follow-Upon 06-19-2023 Follow-Up [id number] Brittney Vernon L 1985 Date Provider Department Center 06/19/2023 264-RICHA COLLIER MP ORTHO MPORTHO Family History Problem Relation Age of Onset Broken bones Father Cancer Father Osteoporosis Paternal Grandmother Rheumatologic disease Paternal Grandmother Diabetes Sister Family Status - Relation Status Age at Mother Alive Father Alive Paternal Grandmother Sister Level of Service:65825 [place] OFFICE/OUTPATIENT ESTABLISHED LOW MDM 20-29 MIN Reason for Visit and Comments: Follow-up [845411] - CT results Normal [facility] Activated partial thrombopla stin time (aPTT) in platelet poor plasma by coagulation aOrdered By: Adis Martinez on 06-16-2023 aPTT Coag (PPP) [Time] 32.1 s 25.1-36.5 [facility] Comment on above: A hematocrit value g reater than 55% may lead to inaccurate results in coagulation testing. Patients having hematocrit values >55% require a special collection tube for coagulation studies. Please contact the laboratory at [phone] for redraw instructions. Automated erythrocytes count in urine sediment (number/area)Ordered By: Adis Martinez on 06-16-2023 RBC Auto (Urine sed) [#/Area] 0-1 [HPF] 0-4 [facility] Automated leukocytes count i n urine sediment (number/area)Ordered By: Adis Martienz on 06-16-2023 WBC Auto (Urine sed) [#/Area] 10-19 [HPF] 0-4 [facility] Automated urine hyaline cast s count (number/volume)Ordered By: Adis Martinez on 06-16-2023 Hyaline casts Auto (U) [#/Vol] None seen [LPF] 0-1 [facility] Automated urine sediment donny cium oxalate crystal count by microscopy (number/high powOrdered By: Adis Martinez on 06-16-2023 Calcium oxalate crystals LM.HPF (Urine sed) [#/Area] 2+ [HPF] [facility] Basophils Auto (Bld) [#/Vol] Ordered By: Adis Martinez on 06-16-2023 Basophils (Bld) [#/Vol] 0.1 10*3/uL 0.0-0.2 [facility] Basophils/100 WBC Auto (Bld) Ordered By: Adis Martinez on 06-16-2023 Basophils/100 WBC (Bld) 1.1 % . [facility] Bilirubin Test strip Ql (U)O rdered By: Adis Martinez on 06-16-2023 Bilirubin Ql (U) 2+ Negative [facility] Calcium [Mass/volume] in Ser um or PlasmaOrdered By: Adis Martinez on 06-16-2023 Calcium [Mass/Vol] 9.6 mg/dL 8.6-10.3 [facility] Carbon dioxide, total [Moles /volume] in Serum or PlasmaOrdered By: Adis Martinez on 06-16-2023 CO2 [Moles/Vol] 27.0 mmol/L 21.0-31.0 [facility] Casts typing in urine sedime nt by light microscopyOrdered By: Adis Martinez on 06-16-2023 Casts LM Nom (Urine sed) None seen [LPF] None Seen [facility] Chloride [Moles/volume] in S low or PlasmaOrdered By: Adis Martinez on 06-16-2023 Chloride [Moles/Vol] 108 mmol/L 98-107 [facility] Color Auto (U)Ordered By: Anjum Martinez on 06-16-2023 Color (U) Dark yellow Yellow [facility] Creatine kinase [Enzymatic a ctivity/volume] in Serum or PlasmaOrdered By: Adis Martinez on 06-16-2023 CK [Catalytic activity/Vol] 53 U/L 30-223 [facility] Creatinine [Mass/volume] in Serum or PlasmaOrdered By: Adis Martinez on 06-16-2023 Creatinine [Mass/Vol] 0.91 mg/dL 0.60-1.20 [facility] Eosinophils Auto (Bld) [#/Vo l]Ordered By: Adis Martinez on 06-16-2023 Eosinophils (Bld) [#/Vol] 0.3 10*3/uL 0.0-0.45 [facility] Eosinophils/100 WBC Auto (Bl d)Ordered By: dAis Martinez on 06-16-2023 Eosinophils/100 WBC (Bld) 2.7 % . [facility] Erythrocyte distribution wid th Auto (RBC) [Ratio]Ordered By: Adis Martinez on 06-16-2023 Erythrocyte distribution width (RBC) [Ratio] 15.1 % 11.9-15.3 [facility] Glucose [Mass/volume] in Ser um or PlasmaOrdered By: Adis Martinez on 06-16-2023 Glucose [Mass/Vol] 96 mg/dL 70-100 [facility] Comment on above: ADA recommended refe rence rangeRandom Glucose Reference Range is dependent on time and content of last meal. Glucose of more than 200 mg/dL in a nonstressed, ambulatory subject supports the diagnosis of Diabetes Mellitus. HCG ( test) IA.rapi d Ql (U)Ordered By: Adis Martinez on 06-16-2023 HCG ( test) Ql (U) Negative [facility] Hematocrit Auto (Bld) [Volum e fraction]Ordered By: Adis Martinez on 06-16-2023 Hematocrit (Bld) [Volume fraction] 46.9 % 34.0-46.4 [facility] Hemoglobin [Mass/volume] in BloodOrdered By: Adis Martinez on 06-16-2023 Hemoglobin (Bld) [Mass/Vol] 15.8 g/dL 11.8-15.4 [facility] INR in Platelet poor plasma by Coagulation assayOrdered By: Adis Martinez on 06-16-2023 INR Coag (PPP) [Relative time] 0.9 {INR} [facility] Comment on above: INR Therapeutic Rang e A) Pre- and Peroperative OAT started two weeks before surgery. NOT HIP SURGERY: 1.5 - 2.5 HIP SURGERY: 2 - 3B) Primary and secondary prevention of venous THROMBOSIS: 2 - 3C) Active venous thrombosis, pulmonary embolismand prevention of recurrent venous thrombosis: 2 - 3D) Prevention of arterial thromboembolismincluding patients with mechanical heart valves: 3 - 4.5 Ketones Auto test strip (U) [Mass/Vol]Ordered By: Adis Martinez on 06-16-2023 Ketones (U) [Mass/Vol] 1+ Negative [facility] Leukocytes [#/volume] correc nick for nucleated erythrocytes in Blood by Automated counOrdered By: Adis Martinez on 06-16-2023 WBC corrected for nucl RBC Auto (Bld) [#/Vol] 12.0 10*3/uL 3.8-11.6 [facility] Lymphocytes Auto (Bld) [#/Vo l]Ordered By: Adis Martinez on 06-16-2023 Lymphocytes (Bld) [#/Vol] 3.0 10*3/uL 1.00-4.8 [facility] Lymphocytes/100 WBC Auto (Bl d)Ordered By: Adis Martinez on 06-16-2023 Lymphocytes/100 WBC (Bld) 25.1 % . [facility] MCH Auto (RBC) [Entitic mass ]Ordered By: Adis Martinez on 06-16-2023 MCH (RBC) [Entitic mass] 32.6 pg 24.7-34.3 [facility] MCHC Auto (RBC) [Mass/Vol]Or dered By: Adis Martinez on 06-16-2023 MCHC (RBC) [Mass/Vol] 33.7 g/dL 32.0-35.0 [facility] MCV Auto (RBC) [Entitic vol] Ordered By: Adis Martinez on 06-16-2023 MCV (RBC) [Entitic vol] 96.9 fL 80-100 [facility] Monocyte distribution width [Entitic volume] in Blood by AutomatedOrdered By: Adis Martinez on 06-16-2023 Monocyte distribution width Auto (Bld) [Entitic vol] 19.31 % 0.00-20.00 [facility] Monocytes Auto (Bld) [#/Vol] Ordered By: Adis Martinez on 06-16-2023 Monocytes (Bld) [#/Vol] 1.0 10*3/uL 0.0-0.8 [facility] Monocytes/100 WBC Auto (Bld) Ordered By: Adis Martinez on 06-16-2023 Monocytes/100 WBC (Bld) 8.7 % . [facility] Natriuretic peptide B [Mass/ Vol]Ordered By: Adis Martinez on 06-16-2023 Natriuretic peptide B (Bld) [Mass/Vol] 13.0 pg/mL 5-100 [facility] Neutrophils Auto (Bld) [#/Vo l]Ordered By: Adis Martinez on 06-16-2023 Neutrophils (Bld) [#/Vol] 7.5 10*3/uL 1.8-7.7 [facility] Neutrophils/100 WBC Auto (Bl d)Ordered By: Adis Martinez on 06-16-2023 Neutrophils/100 WBC (Bld) 62.4 % . [facility] Nitrite Test strip Ql (U)Ord ered By: Adis Martinez on 06-16-2023 Nitrite Ql (U) Positive Negative [facility] No Panel InformationOrdered By: Adis Martinez on 06-16-2023 Estimated GFR (CKD-EPI) > 60.0 mL/Min [facility] Creatinine Clearance (Chem 128.14 [facility] Nucleated erythrocytes [Pres ence] in Blood by Automated countOrdered By: Adis Martinez on 06-16-2023 Nucleated RBC Auto Ql (Bld) 0.2 /100{WBC} 0-0.5 [facility] Platelet mean volume Auto (B ld) [Entitic vol]Ordered By: Adis Martinez on 06-16-2023 Platelet mean volume (Bld) [Entitic vol] 8.0 fL 6.3-10.7 [facility] Platelets Auto (Bld) [#/Vol] Ordered By: Adis Martinez on 06-16-2023 Platelets (Bld) [#/Vol] 263 10*3/uL 150-450 [facility] Potassium [Moles/volume] in Serum or PlasmaOrdered By: Adis Martinez on 06-16-2023 Potassium [Moles/Vol] 3.6 mmol/L 3.5-5.1 [facility] Protein Auto test strip (U) [Mass/Vol]Ordered By: Adis Martinez on 06-16-2023 Protein (U) [Mass/Vol] 30 mg/dL Negative [facility] Prothrombin time (PT)Ordered By: Adis Martinez on 06-16-2023 PT Coag (PPP) [Time] 11.3 s 9.0-12.9 [facility] Comment on above: A hematocrit value g reater than 55% may lead to inaccurate results in coagulation testing. Patients having hematocrit values >55% require a special collection tube for coagulation studies. Please contact the laboratory at [phone] for redraw instructions. RBC Auto (Bld) [#/Vol]Ordere d By: Adis Martinez on 06-16-2023 RBC (Bld) [#/Vol] 4.84 10*6/uL 3.60-5.00 [facility] Serum or plasma anion gap de terminationOrdered By: Adis Martinez on 06-16-2023 Anion gap [Moles/Vol] 10.6 mmol/L 6.0-15.0 [facility] Sodium [Moles/volume] in Ser um or PlasmaOrdered By: Adis Martinez on 06-16-2023 Sodium [Moles/Vol] 142 mmol/L 136-145 [facility] Specific gravity Auto test s trip (U) [Rel density]Ordered By: Adis Martinez on 06-16-2023 Specific gravity (U) [Rel density] 1.028 1.001-1.03 0 [facility] Squamous epithelial cells de tection in urine sediment by light microscopyOrdered By: Adis Martinez on 06-16-2023 Epithelial cells.squamous LM Ql (Urine sed) 10-19 [HPF] 0-2 [facility] Troponin I.cardiac [Mass/vol ume] in Serum or Plasma by Detection limit <= 0.01 ng/Ordered By: Adis Martinez on 06-16-2023 Troponin I.cardiac DL <= 0.01 ng/mL [Mass/Vol] 3.0 pg/mL 0.0-15.0 [facility] Urea nitrogen [Mass/volume] in Serum or PlasmaOrdered By: Adis Martinez on 06-16-2023 Urea nitrogen [Mass/Vol] 15 mg/dL 7-25 [facility] Urine bacteria detection by automated methodOrdered By: Adis Martinez on 06-16-2023 Bacteria Auto Ql (U) 1+ None Seen [facility] Urine clarity by refractomet ry automatedOrdered By: Adis Martinez on 06-16-2023 Clarity Refractometry automated (U) Turbid Clear [facility] Urine culture routineOrdered By: Adis Martinez on 06-16-2023 Bacteria identified Cx Nom (U) Klebsiella pneumoniae [facility] Bacteria identified Cx Nom (U) Klebsiella pneumoniae [facility] Urine glucose measurement by automated test strip (mass/volume)Ordered By: Adis Martinez on 06-16-2023 Glucose Auto test strip (U) [Mass/Vol] Normal mg/dL Normal [facility] Urine hemoglobin detection b y automated test stripOrdered By: Adis Martinez on 06-16-2023 Hemoglobin Auto test strip Ql (U) Trace Negative [facility] Urine leukocyte esterase det ection by automated test stripOrdered By: Adis Martinez on 06-16-2023 Leukocyte esterase Auto test strip Ql (U) 2+ Negative [facility] Urine sediment crystal ident ification by light microscopyOrdered By: Adis Martinez on 06-16-2023 Crystals LM Nom (Urine sed) None seen [HPF] [facility] Urobilinogen Auto test strip (U) [Mass/Vol]Ordered By: Adis Martinez on 06-16-2023 Urobilinogen (U) [Mass/Vol] Normal mg/dL Normal [facility] WBC Auto (Bld) [#/Vol]Ordere d By: Adis Martinez on 06-16-2023 WBC (Bld) [#/Vol] 12.0 10*3/uL 3.8-11.6 [facility] pH Auto test strip (U)Ordere d By: Adis Martinez on 06-16-2023 pH (U) 5.5 [pH] 5.0-9.0 [facility] CT FOOT LEFT WO IV CONTRASTo n 05-24-2023 CT FOOT LEFT WO IV CONTRAST CT FOOT LEFT WO IV CONTRAST 05/24/2023 4:54 PM CLINICAL INDICATIONS: Pain. Fracture. Delayed healing. Tobacco use TECHNIQUE: Multidetector CT axial slices were obtained without IV contrast. Multiplanar reformats, MIP, volume rendered 3-D images were generated on a separate workstation and reviewed to further define anatomy and possible pathology. All CT scans at this facility use dose modulation, iterative reconstruction, and/or weight based dosing when appropriate to reduce radiation dose to as low as reasonably achievable COMPARISON: 03/30/2023 FINDINGS: Fracture involving the proximal fifth metatarsal is appreciated. There is no bridging callus noted. There are fracture lines appear to be corticated both involving the smaller proximal fragment in the larger distal fragment. This suggests nonunion. Continued follow-up with orthopedics is advised. Sequela of remote trauma involving the capsule and ligament is complex of the talonavicular joint is noted dorsally. Degenerative changes along the tibial plafond and in the tibiotalar articulation are noted. No new tibial fracture is seen. Lucency from prior hardware removal in the distal tibia and fibula is appreciated. Insertion of the Achilles is intact. Small enthesophyte is noted. Subtalar joint appears maintained and normal. Incidental bone island is appreciated in the navicular. 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 Normal [facility] 29on 04-10-2023 29 Addended by: NANY MORILLO on: 04/17/2023 02:13 PM Modules accepted: Orders Normal [facility] 29 Addended by: DYANA HICKEY on: 04/10/2023 02:44 PM Modules accepted: Orders Normal [facility] Follow-Upon 04-10-2023 Follow-Up [id number] Brittney Vernon 1985 F Date Provider Department Center 04/10/2023 Farzana-RICHA COLLIER MP ORTHO MPORTHO Family History Problem Relation Age of Onset Broken bones Father Cancer Father Osteoporosis Paternal Grandmother Rheumatologic disease Paternal Grandmother Diabetes Sister Family Status - Relation Status Age at Mother Alive Father Alive Paternal Grandmother Sister Level of Service:25144 [facility] OFFICE/OUTPATIENT ESTABLISHED LOW MDM 20-29 MIN (GC) Reason for Visit and Comments: Pain [136] New Patient [632] Normal [facility] Follow-Up [id number] Brittney Vernon 1985 Date Provider Department Center 04/10/2023 JIMMY ALONZO MP ORTHO MPORTHO Family History Problem Relation Age of Onset Broken bones Father Cancer Father Osteoporosis Paternal Grandmother Rheumatologic disease Paternal Grandmother Diabetes Sister Family Status - Relation Status Age at Mother Alive Father Alive Paternal Grandmother Sister Level of Service:56578 [place] OFFICE/OUTPT VISIT,PROCEDURE ONLY Reason for Visit and Comments: Pain [136] - Zillretta Normal [facility] Erroneous Encounteron 2022 Erroneous Encounter [id number] Brittney Vernon 1985 Provider Department Center 03/30/2023 JIMMY ALONZO MP MPORTHO Family History Problem Relation Age of Onset Broken bones Father Cancer Father Osteoporosis Paternal Grandmother Rheumatologic disease Paternal Grandmother Diabetes Sister Family Status - Relation Status Age at Mother Alive Father Alive Paternal Grandmother Sister Level of Service:71365 [place] OFFICE/OUTPT VISIT,PROCEDURE ONLY Reason for Visit and Comments: Pain [136] Error (VOID this visit) [77] Normal [facility] Office Visiton 01-03-2023 Follow-up visit [id number] Brittney Vernon 1985 Date Provider Department Center 01/03/2023 JIMMY ALONZO MP ORTHO MPORTHO Family History Family history unknown: Yes Family Status - Relation Status Age at Mother Alive Father Alive Level of Service:09227 [place] OFFICE/OUTPATIENT ESTABLISHED LOW MDM 20-29 MIN Reason for Visit and Comments: Pain [136] - MRI results Pain [136] - MRI results Normal [facility] MR KNEE LEFT WO CONTRASTon 0 11-14-2022 MR KNEE LEFT WO CONTRAST MRI LEFT KNEE WITHOUT CONTRAST COMPARISON: MRI left knee 05/31/2022, left knee radiographs 06/02/2022 HISTORY: Contusion of left knee and lower leg, initial encounter. Fall, left knee pain and popping . TECHNIQUE: Multisequence, multiplanar MRI of the left knee performed without contrast. FINDINGS: Cruciate and collateral ligaments, the extensor, and the popliteus, are intact. Mild heterogeneous signal of the proximal fibular collateral ligament without a discrete tear. Heterogeneous consistent with tendinosis of the distal semimembranosus tendon without a discrete tear. No discrete medial or lateral meniscal tear identified. Mild heterogeneous signal of the posterior horn of the medial meniscus. Small joint effusion. 3 mm loose body in the medial gutter. No Paniagua's cyst. Patellofemoral osteoarthritis with articular cartilage thinning and irregularity inferiorly eccentric toward the medial aspect of the patella with subchondral cystic change of the patella. There is articular cortical thinning irregularity of the anterior aspect of the medial femoral condyle at the junction of the condyle and femoral trochlea. No discrete articular cartilage defect or thinning of the lateral compartment hyaline cartilage. Normal patellofemoral alignment. Medial and lateral patellofemoral ligaments are intact. No fracture or bone marrow edema. IMPRESSION: 1. Patellofemoral and medial compartment osteoarthritis as described. 2. Small joint effusion. Small loose body in the medial gutter. 3. Heterogeneous signal without a discrete tear of the proximal fibular collateral ligament, compatible with prior injury. The ligaments of the knee are intact. 4. No discrete meniscal tear identified. Electronically signed: Mj Valenzuela. Normal [facility] Office Visiton 11-14-2022 Follow-up visit [id number] Brittney Vernon 1985 F Date Provider Department Center 11/14/2022 JIMMY ALONZO MP ORTHO MPORTHO Family History Family history unknown: Yes Family Status - Relation Status Age at Mother Alive Father Alive Level of Service:88131 [place] OFFICE/OUTPATIENT ESTABLISHED LOW MDM 20-29 MIN Reason for Visit and Comments: Pain [136] Pain [136] Normal [facility] VITAMIN D 25 OHon 10-21-2022 VIT D 25-OH 27.2 ng/mL Normal [facility] Comment on above: Performed By: #### V ITAD #### [facility] [address] [place] [address] Dr. Kacey Osei VIT D RANGES SEE BELOW Normal [facility] Comment on above: Result Comment: <20 ng/mL Vit D deficient 20 - <30 ng/mL Vit D insufficient 30 - 100 ng/mL Vit D sufficient >100 ng/mL Potential Toxicity Performed By: #### V ITAD #### [facility] [address] [address] [address] Kacey Osei MG MAMM DIAGNOSTIC 3D DAVID CA Don 09-23-2022 MG MAMM DIAGNOSTIC 3D DAVID CAD Patient: BRITTNEY VERNON Exam Date: 09/23/2022 : 1985 Gender:F Ordering : DR NUPUR MCMAHAN . Admission #: [id number] Family : Order #: [id number] CLICK HERE TO VIEW EXAM RADIOLOGY REPORT PROCEDURE: MAMMOGRAM DIAGNOSTIC 3D BILATERAL CAD, 09/23/2022, 08:05 ULTRASOUND BREAST RIGHT LIMITED, 09/23/2022, 08:44 COMPARISON: MG MAMM DAVID DIAG W CAD, 09/20/2019. US BREAST DAVID LIMITED, 09/20/2019. INDICATIONS: Lump in right breast Calculator Name NCI Breast Cancer Risk Assessment Tool 5 Year Breast Cancer Risk Not Reported. Lifetime Breast Cancer Risk Not Reported. Personal Breast Cancer No Personal Ovarian Cancer No Treatments None Family Cancers None LOCATION: [facility] BREAST COMPOSITION: Scattered areas fibroglandular density. FINDINGS: DIAGNOSTIC CATEGORY 2--BENIGN FINDING: RIGHT BREAST: Partially circumscribed 2.0 cm mass within lower-outer quadrant. Ultrasound evaluation demonstrates a smoothly marginated hypoechoic slightly heterogeneous mass at the 6 o'clock position, 4.7 cm from the nipple, 1.7 x 1.4 x 0.7 cm. 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 LEFT BREAST: No significant suspicious finding. Scattered benign-appearing lymph nodes are present. No significant change has occurred. RECOMMENDATIONS: CLINICAL EVALUATION. PLEASE NOTE: A NORMAL MAMMOGRAM DOES NOT EXCLUDE THE POSSIBILITY OF BREAST CANCER. A CLINICALLY SUSPICIOUS PALPABLE LUMP SHOULD BE BIOPSIED. Dictated by: Romina Lowe M.D. on 09/23/2022 at 09:01 Approved by: Romina Lowe M.D. on 09/23/2022 at 09:03 Normal [facility] US BREAST RIGHT LIMITEDon US BREAST RIGHT LIMITED Patient: BRITTNEY VERNON Exam Date: 09/23/2022 : 1985 Gender:F Ordering : DR NUPUR MCMAHAN . Admission #: [id number] Family : Order #: [id number] CLICK HERE TO VIEW EXAM RADIOLOGY REPORT PROCEDURE: MAMMOGRAM DIAGNOSTIC 3D BILATERAL CAD, 09/23/2022, 08:05 ULTRASOUND BREAST RIGHT LIMITED, 09/23/2022, 08:44 COMPARISON: MG MAMM DAVID DIAG W CAD, 09/20/2019. US BREAST DAVID LIMITED, 09/20/2019. INDICATIONS: Lump in right breast Calculator Name NCI Breast Cancer Risk Assessment Tool 5 Year Breast Cancer Risk Not Reported. Lifetime Breast Cancer Risk Not Reported. Personal Breast Cancer No Personal Ovarian Cancer No Treatments None Family Cancers None LOCATION: [facility] BREAST COMPOSITION: Scattered areas fibroglandular density. FINDINGS: DIAGNOSTIC CATEGORY 2--BENIGN FINDING: RIGHT BREAST: Partially circumscribed 2.0 cm mass within lower-outer quadrant. Ultrasound evaluation demonstrates a smoothly marginated hypoechoic slightly heterogeneous mass at the 6 o'clock position, 4.7 cm from the nipple, 1.7 x 1.4 x 0.7 cm. 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 LEFT BREAST: No significant suspicious finding. Scattered benign-appearing lymph nodes are present. No significant change has occurred. RECOMMENDATIONS: CLINICAL EVALUATION. PLEASE NOTE: A NORMAL MAMMOGRAM DOES NOT EXCLUDE THE POSSIBILITY OF BREAST CANCER. A CLINICALLY SUSPICIOUS PALPABLE LUMP SHOULD BE BIOPSIED. Dictated by: Romina Lowe M.D. on 09/23/2022 at 09:01 Approved by: Romina Lowe M.D. on 09/23/2022 at 09:03 Normal [facility] CBC AUTO DIFFon 09-07-2022 BASO # 0.1 103/ul Normal 0.0-0.1 [facility] Comment on above: Performed By: #### C BC #### [facility] [address] [address] [address] Kacey Osei Basophils/100 WBC (Bld) 0.7 % Normal 0.2-2.0 [facility] Comment on above: Performed By: #### C BC #### [facility] [address] [place] [address] Dr. Kacey Osei EO # 0.6 103/ul Normal 0.0-0.7 [facility] Comment on above: Performed By: #### C BC #### [facility] [address] [place] [address] Dr. Kacey Osei Eosinophils/100 WBC (Bld) 5.0 % Normal 0.9-7.0 [facility] Comment on above: Performed By: #### C BC #### [facility] [address] [place] [address] Dr. Kacey Osei Erythrocyte distribution width (RBC) [Ratio] 14.7 % Normal 11.0-15.0 [facility] Comment on above: Performed By: #### C BC #### [facility] [address] [place] [address] Dr. Kacey Osei Hematocrit (Bld) [Volume fraction] 45.1 % Normal 36.0-48.0 [facility] Comment on above: Performed By: #### C BC #### [facility] [address] [place] [address] Dr. Kacey Osei Hemoglobin (Bld) [Mass/Vol] 14.7 g/dL Normal 12.0-16.0 [facility] Comment on above: Performed By: #### C BC #### [facility] [address] [place] [address] Dr. Kacey Osei IG # 0.09 10e3/ul Critically high 0.00-0.03 [facility] Comment on above: Performed By: #### C BC #### [facility] [address] [place] [address] Dr. Kacye Osei IG % 0.7 % Critically high 0.0-0.5 [facility] Comment on above: Performed By: #### C BC #### [facility] [address] [place] [address] Dr. Kacey Osei LYMPH # 2.5 103/ul Normal 1.2-3.8 [facility] Comment on above: Performed By: #### C BC #### [facility] [address] [place] [address] Dr. Kacey Osei Lymphocytes/100 WBC (Bld) 20.3 % Critically low 20.5-60.0 [facility] Comment on above: Performed By: #### C BC #### [facility] [address] [place] [address] Dr. Kacey Osei MANUAL DIFF REQ NO Normal [facility] Comment on above: Performed By: #### C BC #### [facility] [address] [place] [address] Dr. Kacey Osei MCH (RBC) [Entitic mass] 31.5 pg Normal 26.7-34.0 [facility] Comment on above: Performed By: #### C BC #### [facility] [address] [place] [address] Dr. Kacey Osei MCHC (RBC) [Mass/Vol] 32.6 g/dL Normal 29.9-35.2 [facility] Comment on above: Performed By: #### C BC #### [facility] [address] [place] [address] Dr. Kacey Osei MCV (RBC) [Entitic vol] 96.8 fL Normal 81.0-99.0 [facility] Comment on above: Performed By: #### C BC #### [facility] [address] [place] [address] Dr. Kacey Osei MONO # 0.9 103/ul Critically high 0.3-0.8 [facility] Comment on above: Performed By: #### C BC #### [facility] [address] [place] [address] Dr. Kacey Osei Monocytes/100 WBC (Bld) 7.1 % Normal 1.7-12.0 [facility] Comment on above: Performed By: #### C BC #### [facility] Laboratory [address] [place] [address] Dr. Kacey Osei NEUT # 8.2 103/ul Critically high 1.4-6.5 [facility] Comment on above: Performed By: #### C BC #### [facility] [address] [place], [place] [id number] Dr. Kacey Osei Neutrophils/100 WBC (Bld) 66.2 % Normal 43.0-75.0 [facility] Comment on above: Performed By: #### C BC #### [facility] [address] [place] [address] Dr. Kacey Osei Platelet mean volume (Bld) [Entitic vol] 9.0 fL Critically low 9.5-13.5 [facility] Comment on above: Performed By: #### C BC #### [facility] [address] [place] [address] Dr. Kacey Osei PLT 333 103/ul Normal 150-450 [facility] Comment on above: Performed By: #### C BC #### [facility] [address] [place] [address] Dr. Kacey Osei RBC 4.66 106/ul Normal 4.20-5.40 [facility] Comment on above: Performed By: #### C BC #### [facility] [address] [place] [address] Dr. Kacey Osei WBC 12.4 103/ul Critically high 4.0-11.0 [facility] Comment on above: Performed By: #### C BC #### [facility] [address] [place] [address] ABD/PELV W CONon 09-07-[address] ABD/PELV W CON EXAM: CT SCAN OF THE ABDOMEN AND PELVIS WITH IV CONTRAST DATE OF EXAM: 09/06/2022 10:27 PM EST HISTORY: 36-year-old female with abdominal pain, nausea vomiting and lower abdominal pain. COMPARISON: 11/28/2020. TECHNIQUE: CT examination of the abdomen and pelvis was performed following the intravenous administration of IV contrast. CT dose lowering techniques were used, to include: automated exposure control, adjustment for patient size, and/or use of iterative reconstruction. Contrast: For the amount and type of contrast, please see notes. FINDINGS: Lines and Tubes: None Lower Chest: Right breast mass measures 23 mm incompletely imaged Free Air: None. Liver: Minimal fatty infiltration Gallbladder: Removed Common Bile Duct: Normal Pancreas: Normal Spleen: Normal Adrenal Glands: Right: Normal Left: Normal Kidneys: Right Kidney: Normal. Right Ureter: Normal. Left Kidney: Normal. Left Ureter: Normal. GI Tract: Stomach: Normal Small Bowel: Normal Appendix: Normal on axial image 108 Large Bowel: Normal Mesentery/Peritoneum: Normal Vasculature: Aorta: Normal. IVC: Normal. Cathy Vein: Normal. Retroperitoneum: Normal Abdominal/Pelvic Wall: Normal Bladder: Decompressed Reproductive: Normal Musculoskeletal: Normal Free Fluid: None. IMPRESSION: 1. Right breast mass incompletely imaged. Outpatient mammogram with ultrasound is recommended for further evaluation. 2. Normal appendix. 3. Minimal hepatic steatosis. Please correlate with patient's LFTs. 4. Cholecystectomy. Electronically authenticated by: RENÉ HERRON Date: 2022-09-07 00:09 Normal [facility] ER URINE PROFILEon 3 Bilirubin Ql (U) SMALL Abnormal NEGATIVE [facility] Comment on above: Performed By: #### V ITAD #### [facility] [address] [place] [address] Dr. Kacey Osei Clarity (U) CLEAR Normal CLEAR [facility] Comment on above: Performed By: #### V ITAD #### [facility] [address] [address] [address] Kacey Osei Color (U) DK. YELLOW Normal YELLOW [facility] Comment on above: Performed By: #### V ITAD #### [facility] [address] [place] [address] Dr. Kacey Osei ERULORENA A micrscopic examina tion will be performed if indicated. Normal [facility] Comment on above: Performed By: #### V ITAD #### [facility] [address] [address] [address] Kacey Osei Glucose Ql (U) Negative Normal NEGATIVE [facility] Comment on above: Performed By: #### V ITAD #### [facility] [address] [address] [address] Kacey Osei Hemoglobin Ql (U) Negative Normal NEGATIVE [facility] Comment on above: Performed By: #### V ITAD #### [facility] [address] [address] [address] Kacey Osei Ketones Ql (U) TRACE Abnormal NEGATIVE [facility] Comment on above: Performed By: #### V ITAD #### [facility] [address] [place] [address] Dr. Kacey Osei LEUKOCYTES Negative Normal NEGATIVE [facility] Comment on above: Performed By: #### V ITAD #### [facility] [address] [place] [address] Dr. Kacey Osei Nitrite Ql (U) Negative Normal NEGATIVE [facility] Comment on above: Performed By: #### V ITAD #### [facility] [address] [place] [address] Dr. Kacey Osei pH (U) 5.0 [pH] Normal 5-9 [facility] Comment on above: Performed By: #### V ITAD #### [facility] [address] [place] [address] Dr. Kacey Osei SPEC GRAVITY >=1.030 Abnormal 1.005-<=1. 025 [facility] Comment on above: Performed By: #### V ITAD #### [facility] [address] [place] [address] Dr. Kacey Osei UA PROTEIN Negative Normal NEGATIVE/ TRACE [facility] Comment on above: Performed By: #### V ITAD #### [facility] [address] [place] [address] Dr. Kacey Osei UR MICRO IND NOT INDICATED Normal [facility] Comment on above: Performed By: #### V ITAD #### [facility] [address] [place] [address] Dr. Kacey Osei Urobilinogen Qn (U) 1.0 {Anil'U}/dL Normal 0.2 - 1. 0 [facility] Comment on above: Performed By: #### V ITAD #### [facility] [address] [place] [address] Dr. Kacey Osei LACTATE/LACTIC ACIDon 2022 Lactate [Moles/Vol] 0.8 mmol/L Normal 0.4-1.9 [facility] Comment on above: Performed By: #### L ACT #### [facility] [address] [address] [address] Kacey Osei LIPASEon 09-07-2022 Lipase [Catalytic activity/Vol] 98.0 U/L Normal 73.0-393.0 [facility] Comment on above: Performed By: #### V ITAD #### [facility] [address] [place] [address] Dr. Kacey Osei PROF 14(COMP METB)on 023 Albumin [Mass/Vol] 3.5 g/dL Normal 3.4-5.0 [facility] Comment on above: Performed By: #### V ITAD #### [facility] [address] [place] [address] Dr. Kacey Osei Albumin/Globulin [Mass ratio] 0.9 {ratio} Normal [facility] Comment on above: Performed By: #### V ITAD #### [facility] [address] [place] [address] Dr. Kacey Osei ALP [Catalytic activity/Vol] 90 U/L Normal 46-116 [facility] Comment on above: Performed By: #### V ITAD #### [facility] [address] [place] [address] Dr. Kacey Osei ALT [Catalytic activity/Vol] 27 U/L Normal 14-59 [facility] Comment on above: Performed By: #### V ITAD #### [facility] [address] [place] [address] Dr. Kacey Osei Anion gap [Moles/Vol] 10.2 mmol/L Normal [facility] Comment on above: Performed By: #### V ITAD #### [facility] [address] [place] [address] Dr. Kacey Osei AST [Catalytic activity/Vol] 13 U/L Critically low 15-37 [facility] Comment on above: Performed By: #### V ITAD #### [facility] [address] [place] [address] Dr. Kacey Osei Bilirubin [Mass/Vol] 0.3 mg/dL Normal 0.2-1.0 [facility] Comment on above: Performed By: #### V ITAD #### [facility] [address] [address] [address] Kacey Osei Calcium [Mass/Vol] 9.1 mg/dL Normal 8.5-10.1 [facility] Comment on above: Performed By: #### V ITAD #### [facility] [address] [address] [address] Kacey Osei Chloride [Moles/Vol] 104 mmol/L Normal 98-107 [facility] Comment on above: Performed By: #### V ITAD #### [facility] [address] [address] [address] Kacey Osei CO2 [Moles/Vol] 28.1 mmol/L Normal 21.0-32.0 [facility] Comment on above: Performed By: #### V ITAD #### [facility] [address] [place] [address] Dr. Kacey Osei Creatinine [Mass/Vol] 1.15 mg/dL Critically high 0.55-1.02 [facility] Comment on above: Performed By: #### V ITAD #### [facility] [address] [address] [address] Kacey Osei EGFR-AF GRENADIAN >60 Normal >=60 [facility] Comment on above: Performed By: #### V ITAD #### [facility] [address] [place] [address] Dr. Kacey Osei EGFR-NON AF GRENADIAN 53 mL/min/1.73m2 Critically low >=60 [facility] Comment on above: Performed By: #### V ITAD #### [facility] [address] [address] [address] Kacey Osei Globulin (S) [Mass/Vol] 3.9 g/dL Normal [facility] Comment on above: Performed By: #### V ITAD #### [facility] [address] [address] [address] Kacey Osei Glucose [Mass/Vol] 99 mg/dL Normal 74-106 [facility] Comment on above: Performed By: #### V ITAD #### [facility] [address] [address] [address] Kacey Osei Potassium [Moles/Vol] 4.3 mmol/L Normal 3.5-5.1 [facility] Comment on above: Performed By: #### V ITAD #### [facility] [address] [place] [address] Dr. Kacey Osei Protein [Mass/Vol] 7.4 g/dL Normal 6.4-8.2 [facility] Comment on above: Performed By: #### V ITAD #### [facility] [address] [place] [address] Dr. Kacey Osei Sodium [Moles/Vol] 138 mmol/L Normal 136-145 [facility] Comment on above: Performed By: #### V ITAD #### [facility] [address] [place] [address] Dr. Kacey Osei Urea nitrogen [Mass/Vol] 15.0 mg/dL Normal 7.0-18.0 [facility] Comment on above: Performed By: #### V ITAD #### [facility] [address] [place] [address] Dr. Kacey Osei Urea nitrogen/Creatinine [Mass ratio] 13.0 mg/mg Normal [facility] Comment on above: Performed By: #### V ITAD #### [facility] [address] [place] [address] Dr. Kacey Osei VITAMIN D 25 OHon 06-28-2022 VIT D 25-OH 16.7 ng/mL Normal [facility] Comment on above: Performed By: #### V ITAD #### [facility] [address] [place] [address] Dr. Kacey Osei VIT D RANGES SEE BELOW Normal [facility] Comment on above: Result Comment: <20 ng/mL Vit D deficient 20 - <30 ng/mL Vit D insufficient 30 - 100 ng/mL Vit D sufficient >100 ng/mL Potential Toxicity Performed By: #### V ITAD #### [facility] [address] [place] [address] Dr. Kacey Osei MRI KNEE LT WO CONon 022 MRI KNEE LT WO CON EXAMINATION: MRI KNE E LT WO CON HISTORY: Derangement of knee COMPARISON: No relevant comparison available. TECHNIQUE: A complete multi-planar MRI was performed. FINDINGS: MEDIAL COMPARTMENT MEDIAL MENISCUS: Increased signal in the posterior horn consistent with myxoid degeneration, but no elizabeth tear. CARTILAGE: No visible defect. BONES: No marrow pathology, fracture, or significant arthropathy. MCL AND MEDIAL CAPSULE: Normal medial collateral ligament and medial capsule. LATERAL COMPARTMENT LATERAL MENISCUS: No visible tear or significant degeneration. CARTILAGE: No visible defect. BONES: 2.0 x 0.8 x 2.8 cm area of bone edema identified in the lateral aspect of the lateral femoral condyle sagittal image 4 coronal image 50 LCL/POSTEROLAT COMPLEX: Grade I sprain of the lateral collateral ligament. ANTERIOR COMPARTMENT PATELLA: No marrow pathology, fracture, or significant arthropathy. 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 EFFUSION: Moderate joint effusion. ACL: Normal appearing ligament. PCL: Normal appearing ligament. MENISCOFEMORAL: Normal meniscofemoral ligaments. OTHER: Negative. 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 FINDINGS: MEDIAL COMPARTMENT MEDIAL MENISCUS: No visible tear or significant degeneration. CARTILAGE: No visible defect. BONES: Small periarticular degenerative osteophytes along the outer margin of femoral condyle. MCL AND MEDIAL CAPSULE: Normal medial collateral ligament and medial capsule. LATERAL COMPARTMENT LATERAL MENISCUS: Small radial tear involving body of the meniscus. CARTILAGE: No visible defect. BONES: Subchondral cysts within tibial plateau posterior to the intercondylar spines near the posterior cruciate ligament attachment, unchanged. Small degenerative osteophytes along the outer articular margin of femoral condyle. LCL/POSTEROLAT COMPLEX: Normal lateral collateral ligament, fascicles, lateral capsule and ligaments. ANTERIOR COMPARTMENT PATELLA: No marrow pathology, fracture, or significant arthropathy. CARTILAGE: No visible defect. TENDONS: Normal. EFFUSION: None. No synovitis or loose bodies. ACL: Normal appearing ligament. PCL: Normal appearing ligament. MENISCOFEMORAL: Normal meniscofemoral ligaments. OTHER: Negative. IMPRESSION: 1. Small radial tear involving body lateral meniscus. 2. Mild degenerative changes consisting of periarticular osteophytes and small subchondral cysts within posterior tibial plateau. Electronically authenticated by: ROMINA LOWE Date: 2022-01-20 09:22 Normal [facility] COVID-19 SOFIAOrdered By: Matthew Valderrama on 09-16-2021 SARS-CoV+SARS-CoV-2 (COVID-19) Ag IA.rapid Ql (Resp) Negative Negative [facility] Comment on above: This is a duplicate Toña SARS Antigen (TANESHA) result to be used for statistical tracking purpose only. No Panel InformationOrdered By: Kaz Valderrama on 09-16-2021 SARS Antigen (LFIA) [facility] KNEE RIGHT 3 [facility] 1 KNEE RIGHT 3 [facility] Department of Radiology [address] [place] [id number] Patient Name: BRITTNEY VERNON : 1985 Sex: F Age: Race: White Pt. Location: Patient Status: D Ordered Date: 06/10/2021 1:40:00 PM Completed Date: 06/10/2021 01:48 PM Requesting Provider: JIMMY HUNTLEY Attending Provider: Report Copy To: Signs & Symptoms: S83.281A Oth tear of lat mensc, current injury, right knee, init I10 History: [place] Comments: Views (X-RAY, KNEE): AP, Lateral, [place] , Weight Bearing?: Y Exam: KNEE RIGHT 3 [facility] KNEE RIGHT 3 VWS 06/10/2021 1:48 PM CLINICAL INDICATIONS: S83.281A Oth tear of lat mensc, current injury, right knee, init I10 TECHNOLOGIST COMMENTS: ortho gollow up pain rt knee under knee cap history of surgery last year QUESTION FOR THE RADIOLOGIST: Views (X-RAY, KNEE): AP, Lateral, [place] , Weight Bearing?: Y PROTOCOL: AP,Lateral and Tangential views were obtained. COMPARISON: None FINDINGS: No acute fractures or dislocations. Mild narrowing of medial compartment. There is small amount of vacuum phenomenon within the lateral meniscus. Mild lateral subluxation of the tibia on the femur. Small ossified formation of the lateral articular surface and the superior articular surface of the patella. Trace knee effusion. IMPRESSION: * There is narrowing of the medial compartment and lateral subluxation of the tibia on the femur. * Trace knee joint effusion. Approved by:Marilee Sanders 10:22 AM. I, Luke Schuler,have reviewed the image(s) and agree with the findings in this report. Electronically signed: Luke Schuler. Transcribed by: [email or web address], User Resident: MARILEE ROSSI Electronically Signed by: LUKE SCHULER @ 06/11/2021 12:16 PM I personally read this/these film(s) with this resident Normal [facility] Comment on above: Order Comment: Views (X-RAY, KNEE): AP, Lateral, [place] , Weight Bearing?: Y Albumin [Mass/volume] in Ser um or Plasmaon 01-19-2021 Albumin [Mass/Vol] 3.1 g/dL 3.2-5.5 [facility] Automated erythrocytes count in urine sediment (number/area)on 01-19-2021 RBC Auto (Urine sed) [#/Area] 1-2 [HPF] [facility] Automated leukocytes count i n urine sediment (number/area)on 01-19-2021 WBC Auto (Urine sed) [#/Area] 20-49 [HPF] [facility] Automated urine hyaline cast s count (number/volume)on 01-19-2021 Hyaline casts Auto (U) [#/Vol] 0-1 [LPF] [facility] Basophils Auto (Bld) [#/Vol] on 01-19-2021 Basophils (Bld) [#/Vol] 0.1 10*3/uL 0.0-0.2 [facility] Basophils/100 WBC Auto (Bld) on 01-19-2021 Basophils/100 WBC (Bld) 1.0 % [facility] Bilirubin Test strip Ql (U)o n 01-19-2021 Bilirubin Ql (U) Negative Negative [facility] Blood hemoglobin measurement (mass/volume)on 01-19-2021 Hemoglobin (Bld) [Mass/Vol] 13.7 g/dL 11.8-15.4 [facility] Blood leukocytes automated c ount (number/volume)on 01-19-2021 WBC (Bld) [#/Vol] 8.9 10*3/uL 4.5-11.0 [facility] Casts typing in urine sedime nt by light microscopyon 01-19-2021 Casts LM Nom (Urine sed) None seen [LPF] None Seen [facility] Color Auto (U)on 01-19-2021 Color (U) Yellow Yellow [facility] Creatinine and Glomerular fi ltration rate.predicted panel (S/P/Bld)on 01-19-2021 Creatinine [Mass/Vol] 0.90 mg/dL 0.44-1.03 [facility] Eosinophils Auto (Bld) [#/Vo l]on 01-19-2021 Eosinophils (Bld) [#/Vol] 0.5 10*3/uL 0.0-0.45 [facility] Eosinophils/100 WBC Auto (Bl d)on 01-19-2021 Eosinophils/100 WBC (Bld) 5.1 % [facility] Erythrocyte distribution wid th Auto (RBC) [Ratio]on 01-19-2021 Erythrocyte distribution width (RBC) [Ratio] 14.6 % 11.9-15.3 [facility] Estimated glomerular filtrat ion rate (GFR) non- Americanon 01-19-2021 GFR/1.73 sq M.predicted among non-blacks MDRD (S/P/Bld) [Vol rate/Area] > 60 mL/Min [facility] Globulin Calc (S) [Mass/Vol] on 01-19-2021 Globulin (S) [Mass/Vol] 3.1 g/dL [facility] Hematocrit Auto (Bld) [Volum e fraction]on 01-19-2021 Hematocrit (Bld) [Volume fraction] 41.2 % 34.0-46.4 [facility] Ketones Auto test strip (U) [Mass/Vol]on 01-19-2021 Ketones (U) [Mass/Vol] Negative Negative Fi [facility] - Hematology and Cell countson 01-19-2021 Nucleated RBC/100 WBC (Bld) [Ratio] 0.2 % 0-0.5 [facility] Lymphocytes Auto (Bld) [#/Vo l]on 01-19-2021 Lymphocytes (Bld) [#/Vol] 2.4 10*3/uL 1.00-4.8 [facility] Lymphocytes/100 WBC Auto (Bl d)on 01-19-2021 Lymphocytes/100 WBC (Bld) 27.4 % [facility] MCH Auto (RBC) [Entitic mass ]on 01-19-2021 MCH (RBC) [Entitic mass] 31.3 pg 24.7-34.3 [facility] MCHC Auto (RBC) [Mass/Vol]on 01-19-2021 MCHC (RBC) [Mass/Vol] 33.3 g/dL 32.0-35.0 [facility] MCV Auto (RBC) [Entitic vol] on 01-19-2021 MCV (RBC) [Entitic vol] 93.8 fL 80-100 [facility] Monocytes Auto (Bld) [#/Vol] on 01-19-2021 Monocytes (Bld) [#/Vol] 0.7 10*3/uL 0.0-0.8 [facility] Monocytes/100 WBC Auto (Bld) on 01-19-2021 Monocytes/100 WBC (Bld) 7.8 % [facility] Neutrophils Auto (Bld) [#/Vo l]on 01-19-2021 Neutrophils (Bld) [#/Vol] 5.2 10*3/uL 1.8-7.7 [facility] Neutrophils/100 WBC Auto (Bl d)on 01-19-2021 Neutrophils/100 WBC (Bld) 58.7 % [facility] Nitrite Test strip Ql (U)on 01-19-2021 Nitrite Ql (U) Negative Negative [facility] No Panel Informationon 01-19 Estimated GFR () > 60 mL/Min [facility] Comment on above: GFR estimated refere nce range: According to KDOQI guidelines, <60 ml/min/1.73m2 is sufficient to diagnose a patient with chronic kidney disease. Pharmacy Creatinine Clearance (Chem 138.92 [facility] Platelet mean volume Auto (B ld) [Entitic vol]on 01-19-2021 Platelet mean volume (Bld) [Entitic vol] 7.5 fL 6.3-10.7 [facility] Platelets Auto (Bld) [#/Vol] on 01-19-2021 Platelets (Bld) [#/Vol] 252 10*3/uL 150-450 [facility] Protein Auto test strip (U) [Mass/Vol]on 01-19-2021 Protein (U) [Mass/Vol] Negative [facility] Protein [Mass/volume] in Ser um or Plasmaon 01-19-2021 Protein [Mass/Vol] 6.2 g/dL 6.1-7.9 [facility] RBC Auto (Bld) [#/Vol]on RBC (Bld) [#/Vol] 4.39 10*6/uL 3.60-5.00 [facility] Serum or plasma alanine belcher otransferase measurement without P-5'-P (enzymatic activion 01-19-2021 ALT No additional P-5'-P [Catalytic activity/Vol] 17 U/L 10-60 [facility] Serum or plasma albumin/glob ulin mass ratioon 01-19-2021 Albumin/Globulin [Mass ratio] 1.0 {ratio} [facility] Serum or plasma alkaline gonzalo sphatase measurement (enzymatic activity/volume)on 01-19-2021 ALP [Catalytic activity/Vol] 84 U/L 32-92 [facility] Serum or plasma aspartate am inotransferase measurement (enzymatic activity/volume)on 01-19-2021 AST [Catalytic activity/Vol] 20 U/L 10-42 [facility] Serum or plasma calcium roverto urement (mass/volume)on 01-19-2021 Calcium [Mass/Vol] 8.8 mg/dL 8.2-10.2 [facility] Serum or plasma chloride isac surement (moles/volume)on 01-19-2021 Chloride [Moles/Vol] 109 mmol/L 95-114 [facility] Serum or plasma glucose roverto urement (mass/volume)on 01-19-2021 Glucose [Mass/Vol] 104 mg/dL 70-100 [facility] Comment on above: ADA recommended refe rence rangeRandom Glucose Reference Range is dependent on time and content of last meal. Glucose of more than 200 mg/dL in a nonstressed, ambulatory subject supports the diagnosis of Diabetes Mellitus. Serum or plasma potassium me asurement (moles/volume)on 01-19-2021 Potassium [Moles/Vol] 3.9 mmol/L 3.5-5.1 [facility] Serum or plasma sodium measu rement (moles/volume)on 01-19-2021 Sodium [Moles/Vol] 139 mmol/L 136-146 [facility] Serum or plasma total biliru bin measurement (mass/volume)on 01-19-2021 Bilirubin [Mass/Vol] 0.4 mg/dL 0.3-1.2 [facility] Serum or plasma total carbon dioxide measurement (moles/volume)on 01-19-2021 CO2 [Moles/Vol] 21.0 mmol/L 22.0-30.0 [facility] Serum or plasma urea nitroge n measurement (mass/volume)on 01-19-2021 Urea nitrogen [Mass/Vol] 9 mg/dL 9- [facility] Specific gravity Auto test s trip (U) [Rel density]on 01-19-2021 Specific gravity (U) [Rel density] 1.019 1.001-1.03 0 [facility] Squamous epithelial cells de tection in urine sediment by light microscopyon 01-19-2021 Epithelial cells.squamous LM Ql (Urine sed) 10-19 [HPF] [facility] Urine bacteria detection by automated methodon 01-19-2021 Bacteria Auto Ql (U) 2+ None Seen [facility] Urine clarity by refractomet ry automatedon 01-19-2021 Clarity Refractometry automated (U) Cloudy Clear [facility] Urine glucose measurement by automated test strip (mass/volume)on 01-19-2021 Glucose Auto test strip (U) [Mass/Vol] Normal mg/dL Normal [facility] Urine hemoglobin detection b y automated test stripon 01-19-2021 Hemoglobin Auto test strip Ql (U) Negative Negative [facility] Urine leukocyte esterase det ection by automated test stripon 01-19-2021 Leukocyte esterase Auto test strip Ql (U) 1+ Negative [facility] Urobilinogen Auto test strip (U) [Mass/Vol]on 01-19-2021 Urobilinogen (U) [Mass/Vol] Normal mg/dL Normal [facility] pH Auto test strip (U)on pH (U) 5.5 [pH] 5.0-9.0 [facility] ED NOTEon 04-29-2020 ED NOTE HNO ID: [id number] Author: Oren MelgozaRn) OSCAR Hamilton Service: ? Author Type: Registered Nurse Type: ED Notes Filed: 04/29/2020 12:05 AM Note Text: Discharge understood. Patient has orhto number for appoint. Pain management reviewed. Knee immobilizer put on. Crutches education done. Walked out of ED steadily with crutches. [facility] PROGRESSon 04-29-2020 PROGRESS HNO ID: [id number] Author: Joce (Rt) Glo Service: ? Author Type: Senior Clinical Consultant Type: Progress Notes Filed: 04/28/2020 10:41 PM Note Text: Radiology Service Progress Note PATIENT NAME: Brittney Vernon DATE OF SERVICE: April 28, 2020 TIME: 10:40 PM PATIENT IDENTITY VERIFICATION COMPLETED USING TWO (2) IDENTIFIERS: Name and Date of confirmed by patient verbally and Name and Date of confirmed by identification band. FALL SCREENING: Has the patient had 2 falls in the last year or 1 fall with injury or currently using an Ambulatory Assistive Device (Walker, Cane, Wheelchair, Crutches, etc.)? No PATIENT GENDER DATA: Female. status: : No status: NO. PATIENT RELEVANT IMPLANT DATA REVIEWED: Not Applicable RADIOLOGY DEPARTMENT: General X-ray: Exam(s) Completed: Lower Extremity X-Ray(s): Knee, AP / LAT Right: OBLIQUES PERIPHERAL IV DATA: Not applicable SIGNED BY: Joce Cody RT April 28, 2020 10:40 PM [facility] XR KNEE 4V AP/LAT/OBLS RTon 04-29-2020 XR KNEE 4V AP/LAT/OBLS RT * * *Final Report* * * DATE OF EXAM: Apr 28 2020 10:40PM VHX 5205 - XR KNEE 4V AP/LAT/OBLS RT / PROCEDURE REASON: Joint pain, knee * * * * Physician Interpretation * * * * RIGHT KNEE 4 VIEWS, 04/28/2020 HISTORY: Joint pain, knee COMPARISON: None TECHNIQUE: AP, lateral, and both oblique views were obtained. RESULTS: The bones appear intact and normally aligned. There are no underlying bone lesions. No joint space narrowing is seen. There is mild spur formation at the medial joint compartment. There is no appreciable joint effusion. There are no periarticular calcifications. IMPRESSION: 1. Mild degenerative changes. 2. No acute findings. Electrical Solderer: PSCEdmund Transcribe Date/Time: Apr 28 2020 10:43P Dictated by : KATHI TILLEY MD This examination was interpreted and the report reviewed and electronically signed by: KATHI TILLEY MD on Apr 28 2020 10:45PM EST [id number] [facility] ED NOTEon 04-28-2020 ED NOTE HNO ID: [id number] Author: Hardik (Medic) Matthewmentanjum Service: ? Author Type: Language Interpreter and Senior Clinical Consultant Type: ED Notes Filed: 04/28/2020 9:45 PM Note Text: PT c/o rt knee pain that started this evening after she injured it while moving a pt. [facility] ED PROV NOTEon 04-28-2020 ED PROV NOTE HNO ID: [id number] Author: Tam Garcia (Pa) Service: Emergency Medicine Author Type: Physician Bone Drier Type: ED Provider Notes Filed: 04/29/2020 12:52 AM Note Text: ED Provider Note Patient Name: Brittney Vernon SERVICE DATE: 04/28/20 History Patient presents with: Knee Pain: rt knee, injured at work tonight HPI A 34 yo female with a PMH of migraine, anxiety, and HTN presents to the ED with right knee injury. 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 States this she has been able to ambulate since the injury. States that she is primarily having pain just behind her patella. Describes the pain as sharp. Worse whenever she walks. Rates as an 8/10 severity. Denies any numbness of her leg. She has not had any fevers or chills. She did not hit her head or lose consciousness. Denies any other acute complaints. PAST MEDICAL HISTORY Diagnosis Date - Anxiety - Migraine - Psychiatric disorder bi-polar PAST SURGICAL HISTORY Procedure Laterality Date - CHOLECYSTECTOMY HX - HYSTERECTOMY HX - ORTHOPEDIC SURGERY HX hammertoe repair - ORTHOPEDICS SURGERY HX lt ankle x3 - OTHER SURGICAL HISTORY (PLEASE SPECIFY) HX c-sec - TONSILLECTOMY HX No family history on file. Social History Tobacco Use - Smoking status: Current Every Day Smoker Packs/day: 0.50 Types: Cigarettes - Smokeless tobacco: Never Used Substance and Sexual Activity - Alcohol use: Not Currently - Drug use: Never - Sexual activity: Not on file ALLERGIES Allergen Reactions - Latex Hives - Acetaminophen Other: See Comments Increases liver enzymes - Dilaudid [[employer]* Other: See Comments SPO2 drops Review of Systems Constitutional: Negative for chills and fever. Gastrointestinal: Negative for nausea and vomiting. Musculoskeletal: Positive for arthralgias (Right knee pain.). Neurological: Negative for numbness. All other systems reviewed and are negative. Physical Exam BP 154/102 Pulse 104 Temp (Src) 98.4 (Oral) Resp 16 Ht 5' 11 (1.80m) Wt 297 lb (134.7kg) SpO2 98% BMI 41.44 kg/(m2). O2 Therapy: Room Air Physical Exam Vitals signs and nursing note reviewed. Constitutional: General: She is not in acute distress. Appearance: Normal appearance. She is well-developed. She is not ill-appearing or diaphoretic. Comments: Well-appearing female resting comfortably and in no severe distress. HENT: Head: Normocephalic and atraumatic. Eyes: Pupils: Pupils are equal, round, and reactive to light. Neck: Musculoskeletal: Normal range of motion. Cardiovascular: Rate and Rhythm: Normal rate and regular rhythm. Pulses: Normal pulses. Posterior tibial pulses are 2+ on the right side and 2+ on the left side. Heart sounds: Normal heart sounds. Pulmonary: Effort: Pulmonary effort is normal. No respiratory distress. Breath sounds: Normal breath sounds. No stridor. No wheezing, rhonchi or rales. Abdominal: General: Bowel sounds are normal. Musculoskeletal: Normal range of motion. Comments: TTP appreciated over the right knee primarily over the medial joint line and over the patella. Pain with Iveth's test over medial meniscus. Full flexion/extension of bilateral knees. Patient is able to perform straight leg raise with no difficulty of the right knee and extensor mechanism is intact. No erythema or warmth appreciated over the area. No TTP appreciated over the right ankle with preserved PF/DF. No TTP over R hip with preserved ROM. Skin: General: Skin is warm and dry. Capillary Refill: Capillary refill takes less than 2 seconds. Neurological: General: No focal deficit present. Mental Status: She is alert. Comments: 5/5 hip extension, knee extension/fracture, dorsiflexion, plantarflexion strength bilaterally. Normal gross motor and sensory function to light touch over bilateral lower extremities. Able to wiggle toes with no difficulty. Psychiatric: Mood and Affect: Mood normal. Diagnostic Testing ED Labs Ordered and Reviewed - No data to display XR KNEE INJURY 4V AP/LAT/OBLS RT Final Result IMPRESSION: 1. Mild degenerative changes. 2. No acute findings. Electrical Solderer: PSCB Transcribe Date/Time: Apr 28 2020 10:43P Dictated by : KATHI TILLEY MD This examination was interpreted and the report reviewed and electronically signed by: KATHI TILLEY MD on Apr 28 2020 10:45PM EST Procedures ED Course / Clinical Impression Clinical Impressions as of Apr 29 003 Injury of right knee, initial encounter Acute pain of right knee Medications ibuprofen 600 mg tab(s) (MOTRIN) (600 mg ORAL Given 9/2/20 0000) MDM / Disposition / Plan MDM Brittney L Valko is a 34 yo female with a PMH of migraine, anxiety, and HTN who presented to the ED with R knee pain. She is afebrile, HD stable, and in no severe distress. Given ibuprofen for pain. RLE is NVA intact. Right knee x-ray demonstrated no acute osseous M O'Daisy's but did demonstrate mild degenerative changes. Low suspicion for quadriceps or patellar tendon rupture given normal straight leg raise. Patient did not demonstrate any signs of a septic joint and given clear mechanism of injury I have low suspicion for this etiology at this time. There is concern for possible meniscal or ligamental injury especially given mechanism of injury and positive Iveth's test. Thus, patient is placed in a knee immobilizer and was given crutches. Counseled about supportive care and RICE therapy. Advised follow up with orthopedics in the next 2-3 days and was given strict return precautions as I discussed signs and symptoms that warrant return to the ED. She voiced understanding and was in agreement with the above plan. Answered all patient questions and there were no apparent barriers to communication present. The patient was DISCHARGED: Counseled patient regarding radiology results AND suspected diagnosis AND need for follow-up. Discharged home with verbal and written instructions. They were instructed to return as needed for persistent or worsening symptoms or any new concerns. Condition at time of disposition: stable SIGNATURE: SHORTY Burks (Pa) 04/29/20 0052 [facility] ED Provider Noteon 8 HIM IP Note OR Corrective Therapy Aide Teacher [facility] Cult,Urineon 05-09-2018 Cult,Urine Specimen Description .URINESpecial Requests CATHCulture ESCHERICHIA COLI >319776 CFU/MLReport Status FINAL 05/09/2018SUSCEPTIBILITYOr ganism ESCHERICHIA COLIMethod MICAmikacin NOT REPORTEDAmpicillin >=32 RESISTANTAmpicillin/Sulbac retana NOT REPORTEDAztreonam <=1 SUSCEPTIBLECefazolin <=4 SUSCEPTIBLE Cefazolin sensitivity results can be used to predict the effectiveness of oral cephalosporins (eg. Cephalexin) in uncomplicated Urinary Tract Infections due to E. coli, K. pneumoniae, and P. mirabilis Cefepime NOT REPORTEDCeftriaxone <=1 SUSCEPTIBLECiprofloxacin >=4 RESISTANTErtapenem NOT REPORTEDESBL NEGATIVEGentamicin <=1 SUSCEPTIBLEMeropenem NOT REPORTEDNitrofurantoin <=16 SUSCEPTIBLETigecycline NOT REPORTEDTobramycin <=1 SUSCEPTIBLETrimethoprim/Healy lfa >=320 RESISTANTPiperacillin/Tazo bactam <=4 SUSCEPTIBLE Normal [facility] Comment on above: Performed By: #### P T, LIP, CDP, HCG, CP ####[address] , [place] [id number] Hemoglobin A1Con 05-09-2018 Glucose mass conc 103 mg/dL Normal [facility] Comment on above: Result Comment: The ADA and AACC recommend providing the estimated average glucose result to permit better patient understanding of their HBA1c result. Performed By: #### C DP, TSHX, HCG, LIPR, CP ####[facility] [place] [address] #### FT3, T4 ####[address] [address] Hemoglobin A1c/Hemoglobin.total mass fraction (Bld) 5.2 % Normal 4.0-6.0 [facility] Comment on above: Performed By: #### C DP, TSHX, HCG, LIPR, CP ####[facility] [place] [address] #### FT3, T4 ####[address] [address] Lipid Profileon 05-09-2018 Cholesterol in HDL mass conc 32 mg/dL Low >40 [facility] Comment on above: Result Comment: HDL Guidelines: <40 Undesirable 40-59 Borderline >59 Desirable Performed By: #### C DP, TSHX, HCG, LIPR, CP ####[facility] [place] [address] #### FT3, T4 ####[address] [address] Cholesterol in LDL mass conc 110 mg/dL Normal 0-130 [facility] Comment on above: Result Comment: LDL Guidelines: <100 Desirable 100-129 Near to/above Desirable 130-159 Borderline >159 UndesirableDirect (measured) LDL and calculated LDL are not interchangeable tests. Performed By: #### C DP, TSHX, HCG, LIPR, CP ####[facility] [place] [address] #### FT3, T4 ####[address] [address] Cholesterol mass conc 174 mg/dL Normal <200 [facility] Comment on above: Result Comment: Chol esterol Guidelines: <200 Desirable 200-240 Borderline >240 Undesirable Performed By: #### C DP, TSHX, HCG, LIPR, CP ####[address] [address] #### FT3, T4 ####[address] [address] Cholesterol.total/Chol esterol in HDL mass ratio 5.4 {ratio} High <5 [facility] Comment on above: Performed By: #### C DP, TSHX, HCG, LIPR, CP ####[address] [address] #### FT3, T4 ####[address] [address] Triglyceride mass conc 158 mg/dL High <150 [facility] Comment on above: Result Comment: Trig lyceride Guidelines: <150 Desirable 150- 199 Borderline 200-499 High >499 Very high Based on AHA Guidelines for fasting triglyceride, May 2012. Performed By: #### C DP, TSHX, HCG, LIPR, CP ####[facility] [place] [address] #### FT3, T4 ####[address] [address] Cholesterol in VLDL mass conc NOT REPORTED Normal 09-26 [facility] Comment on above: Performed By: #### C DP, TSHX, HCG, LIPR, CP ####[facility] [place] [address] #### FT3, T4 ####[address] [address] Thyroid Stim. Horm.on 2017 Thyrotropin Qn 0.94 m[IU]/L Normal 0.30-5.00 [facility] Comment on above: Performed By: #### C DP, TSHX, HCG, LIPR, CP ####[facility] [place] [address] #### FT3, T4 ####[address] [address] Thyroxine, Freeon 05-09-2018 Thyroxine, Free 1.02 ng/dL Normal 0.93-1.70 [facility] Comment on above: Performed By: #### F T4, LIPR, TSH ####[facility] [place] [address] #### GLYHGB ####[address] [address] Acetaminophenon 05-08-2018 Acetaminophen mass conc <5 Low 06-26 [facility] Comment on above: Performed By: #### U RC ####[address] [phone] [place] [address] Basic Metabolic Profon 05-08 (cont.) Normal [facility] Comment on above: Result Comment: Aver age GFR for 30-39 years old: 107 mL/min/1.73sq mChronic Kidney Disease: <60 mL/min/1.73sq mKidney failure: <15 mL/min/1.73sq meGFR calculated using average adult body mass. Additional eGFR calculator available at:http://www.[employer]/multiple_crcl_2012.htm Performed By: #### U RC ####[address] [place] [phone] [place] [address] [place] [address] Anion gap 3 molar conc 14 mmol/L Normal 9-17 [facility] Comment on above: Performed By: #### U RC ####[address] [phone] [place] [address] [place] [address] BUN/CRE Ratio 11 Normal 9-20 [facility] Comment on above: Performed By: #### U RC ####[address] [place] [phone] [place] [address] [place] [address] Calcium mass conc 9.0 mg/dL Normal 8.6-10.4 [facility] Comment on above: Performed By: #### U RC ####[address] [place] [phone] [place] [address] [place] [address] Chloride molar conc 105 mmol/L Normal 98-107 [facility] Comment on above: Performed By: #### U RC ####[address] [place] [phone] [place] [address] [place] [address] CO2 molar conc 21 mmol/L Normal 20-31 [facility] Comment on above: Performed By: #### U RC ####[address] [place] [phone] [place] [address] , [place] [address] Creatinine mass conc 0.84 mg/dL Normal 0.50-0.90 [facility] Comment on above: Performed By: #### U RC ####[address] [place] [phone] [place] [address] , [place] [address] GFR, Amer >60 Normal >60 [facility] Comment on above: Performed By: #### U RC ####[address] [place] [phone] [place] [address] , [place] [address] GFR,non Amer >60 Normal >60 [facility] Comment on above: Performed By: #### U RC ####[address] [phone] [place] [address] , [place] [address] Glucose mass conc 96 mg/dL Normal 70-99 [facility] Comment on above: Performed By: #### U RC ####[address] [place] [phone] [place] [address] , [place] [address] Potassium molar conc 4.0 mmol/L Normal 3.7-5.3 [facility] Comment on above: Performed By: #### U RC ####[facility] [address] [place] [phone] [place] [address] , [place] [address] Sodium molar conc 140 mmol/L Normal 135-144 [facility] Comment on above: Performed By: #### U RC ####[address] [phone] [place] [address] [place] [address] Staging: Normal [facility] Comment on above: Result Comment: Stag e 1: Some kidney damage normal GFRStage 2: Mild kidney damage GFR 60-89Stage 3: Moderate kidney damage GFR 30-59Stage 4: Severe kidney damage GFR 15-29Stage 5: Severe kidney damage GFR <15ESRD - chronic treatment by dialysis or transplant Performed By: #### U RC ####[address] [phone] [place] [address] [place] [address] Urea nitrogen mass conc 9 mg/dL Normal 6-20 [facility] Comment on above: Performed By: #### U RC ####[address] [phone] [place] [address] [place] [id number] CBCon 05-08-2018 Erythrocyte distribution width Auto Ratio (RBC) 13.8 % Normal 11.8-14.4 [facility] Comment on above: Performed By: #### U RC ####[address] [phone] [place] [address] [place] [address] Hematocrit Auto Volume Fraction (Bld) 43.4 % Normal 36.3-47.1 [facility] Comment on above: Performed By: #### U RC ####[address] [phone] [place] [address] [place] [address] Hemoglobin mass conc (Bld) 14.1 g/dL Normal 11.9-15.1 [facility] Comment on above: Performed By: #### U RC ####[address] [phone] [place] [address] , [place] [address] MCH Auto Entitic mass (RBC) 32.4 pg Normal 25.2-33.5 [facility] Comment on above: Performed By: #### U RC ####[address] [phone] [place] [address] , [place] [address] MCHC Auto mass conc (RBC) 32.5 g/dL Normal 28.4-34.8 [facility] Comment on above: Performed By: #### U RC ####[address] [phone] [place] [address] [place] [id number] MCV Auto Entitic volume (RBC) 99.8 fL Normal 82.6-102.9 [facility] Comment on above: Performed By: #### U RC ####[address] [phone] [place] [address] , [place] [address] NRBC Automated 0.0 per 100 WBC Normal 0.0 [facility] Comment on above: Performed By: #### U RC ####[address] [phone] [place] [address] , [place] [address] Platelet mean volume Auto Entitic volume (Bld) 9.7 fL Normal 8.1-13.5 [facility] Comment on above: Performed By: #### U RC ####[address] [phone] [place] [address] , [place] [address] Platelets Auto #/vol (Bld) 261 10*3/uL Normal 138-453 [facility] Comment on above: Performed By: #### U RC ####[address] [phone] [place] [address] , [place] [address] RBC Auto #/vol (Bld) 4.35 10*6/uL Normal 3.95-5.11 [facility] Comment on above: Performed By: #### U RC ####[address] [phone] [place] [address] [place] [address] WBC Auto #/vol (Bld) 11.1 10*3/uL Normal 3.5-11.3 [facility] Comment on above: Performed By: #### U RC ####[address] [phone] [place] [address] [place] [id number] Drug Scr, Abuse, Uron 2017 Amphetamine(s),Ur Negative Normal NEG [facility] Comment on above: Performed By: #### U RC ####[address] [phone] [place] [address] [place] [address] Barbiturate(s),Ur Negative Normal NEG [facility] Comment on above: Performed By: #### U RC ####[address] [phone] [place] [address] [place] [address] Base excess Calculated molar conc (Bld) Negative Normal NEG [facility] Comment on above: Performed By: #### U RC ####[address] [phone] [place] [address] , [place] [address] Benzodiazepine(s) Negative Normal NEG [facility] Comment on above: Performed By: #### U RC ####[address] [place] [phone] [place] [address] , [place] [address] Buprenorphrine, Ur Negative Normal NEG [facility] Comment on above: Performed By: #### U RC ####[address] [phone] [place] [address] , [place] [address] Cannabinoid(s),Ur Negative Normal NEG [facility] Comment on above: Performed By: #### U RC ####[address] [phone] [place] [address] , [place] [address] Methadone Ql (U) Negative Normal [facility] Comment on above: Performed By: #### U RC ####[address] [phone] [place] [address] , [place] [address] Methamphetamine, Ur Negative Normal [facility] Comment on above: Performed By: #### U RC ####[address] [phone] [place] [address] , [place] [address] Opiate(s), Ur Negative Normal NEG [facility] Comment on above: Performed By: #### U RC ####[address] [place] [phone] [place] [address] , [place] [address] Oxycodone, Urine Negative Normal [facility] Comment on above: Performed By: #### U RC ####[address] [phone] [place] [address] Phencyclidine, Ur Negative Normal NEG [facility] Comment on above: Performed By: #### U RC ####[facility] [address] [place] [address](419)[facility] [place] [address] Propoxyphene,Urine Negative Normal NEG [facility] Comment on above: Performed By: #### U RC ####[facility] [address] [place] [phone] [place] [address] , [place] [address] Tricyclic antidepressants Screen Ql (U) Negative Normal NEG [facility] Comment on above: Result Comment: Drug screen results are to be used for medical purposes only. All positive results are unconfirmed. Testing for employment or legal uses should be sent to a reference laboratory for confirmation. Performed By: #### U RC ####[facility] [address] [place] [phone] [place] [address] , [place] [address] Interpretive Info NOT REPORTED Normal [facility] Comment on above: Performed By: #### U RC ####[facility] [address] [place] [phone] [place] [address] , [place] [address] MDMA, Urine NOT REPORTED Normal NEG [facility] Comment on above: Performed By: #### U RC ####[facility] [address] [place] [address](419)[facility] [place] [address] Ethanol Alcoholon 05-08-2018 Ethanol mass conc mg/dL Normal <10 [facility] Comment on above: Performed By: #### U RC ####[address] [place] [address](419)[address] [place] [address] [place] [address] Ethanol percent <0.010 Normal [facility] Comment on above: Performed By: #### U RC ####[address] [place] [address](419)[address] [place] [address] [place] [address] HCG, ,Urineon 05-08 HCG.beta subunit ( test) Ql (U) Negative Normal NEG [facility] Comment on above: Result Comment: Spec imens with hCG levels near the threshold of the test (25 mIU/mL) may give a negative or indeterminate result. In such cases, another test should be performed with a new specimen in 48-72 hours. If early is suspected clinically in this setting, correlation with quantitative serum b-hCG level is suggested.3LM has confirmed the use of plasma for this test. This has not been cleared or approved by the U.S. Food and Drug Administration. The FDA has determined that such clearance is not necessary. Performed By: #### U RC ####[address] [phone])[address] [place] [address] [place] [address] Salicylateon 05-08-2018 Salicylate <1 Low 3-10 [facility] Comment on above: Performed By: #### U RC ####[address] [address](419)[facility] [place] [address] UA w/Reflex Cultureon 2017 Acetoacetic Acid,Ur Negative Normal NEG [facility] Comment on above: Performed By: #### U RC ####[address] [phone])[address] [place] [address] [place] [address] Bilirubin, SemiQt,Ur Negative Normal NEG [facility] Comment on above: Performed By: #### U RC ####[address] [phone])[address] [place] [address] [place] [address] Color YELLOW Normal YEL [facility] Comment on above: Performed By: #### U RC ####[address] [address](419)[address] [place] [address] , [place] [address] Glucose,Semi-qnt,Ur Negative Normal NEG [facility] Comment on above: Performed By: #### U RC ####[address] [phone])[address] [place] [address] [place] [address] Hemoglobin, Ur TRACE Abnormal NEG [facility] Comment on above: Performed By: #### U RC ####[address] [address](419)[address] [place] [address] [place] [address] Leuckocyte Esterase Negative Normal [facility] Comment on above: Performed By: #### U RC ####[address] [address](419)[address] [place] [address] , [place] [address] Nitrite,Ur Positive Abnormal [facility] Comment on above: Performed By: #### U RC ####[address] [address](419)[address] [place] [address] [place] [address] PH,Ur 6.0 Normal 5.0-9.0 [facility] Comment on above: Performed By: #### U RC ####[address] [place] [address](419)[facility] [place] [address] Protein, Semi-qnt,Ur Negative Normal NEG [facility] Comment on above: Performed By: #### U RC ####[address] [address](419)[address] [place] [address] , [place] [address] Spec. [place],Ur >1.030 High 1.010-1.02 0 [facility] Comment on above: Performed By: #### U RC ####[address] [phone])[address] [place] [address] [place] [address] Turbidity CLEAR Normal CLEAR [facility] Comment on above: Performed By: #### U RC ####[address] [address](419)[facility] [place] [address] Urobilinogen,Ur Normal Normal NORM [facility] Comment on above: Performed By: #### U RC ####[address] [address](419)[facility]-[address] [place] [address] Comment NOT REPORTED Normal [facility] Comment on above: Performed By: #### U RC ####[address] [phone])[address] [place] [address] , [place] [address] Urinalysis,Microon 8 ----- Normal [facility] Comment on above: Performed By: #### U RC ####[address] [phone])[address] [place] [address] , [place] [address] Bacteria 3+ Abnormal NONE [facility] Comment on above: Performed By: #### U RC ####[address] [address](419)[address] [place] [address] , [place] [address] Epithelial cells 0 TO 2 Normal 0-25 [facility] Comment on above: Performed By: #### U RC ####[address] [address](419)[address] [place] [address] , [place] [address] Mucus Strands TRACE Abnormal NONE [facility] Comment on above: Performed By: #### U RC ####[address] [phone])[address] [place] [address] , [place] [address] RBC Test strip #/vol (U) 0 TO 2 Normal 0-2 [facility] Comment on above: Performed By: #### U RC ####[address] [phone])[address] [place] [address] , [place] [address] Urine WBC's 5 TO 10 Normal 0-5 [facility] Comment on above: Performed By: #### U RC ####[address] [place] [address]([phone] [place] [address] , [place] [address] Amorphous Sediment NOT REPORTED Normal [facility] Comment on above: Performed By: #### U RC ####[address] [address](419)[address] [place] [address] , [place] [address] Casts NOT REPORTED Normal [facility] Comment on above: Performed By: #### U RC ####[facility] [place] [phone] [place] [address] Crystals NOT REPORTED Normal NONE [facility] Comment on above: Performed By: #### U RC ####[facility] [place] [phone] [place] [address] Epithelial, Renal NOT REPORTED Normal 0 [facility] Comment on above: Performed By: #### U RC ####[address] [place] [phone] [place] [address] Other Observations NOT REPORTED Normal NREQ [facility] Comment on above: Performed By: #### U RC ####[address] [place] [phone] [place] [address] Trichomonas NOT REPORTED Normal NONE [facility] Comment on above: Performed By: #### U RC ####[facility] [place] [phone] [place] [address] Yeast NOT REPORTED Normal NONE [facility] Comment on above: Performed By: #### U RC ####[address] [place] [address](419)[facility] [place] [address] ED Provider Noteon 8 HIM IP Note OR Corrective Therapy Aide Teacher Normal [facility] DISCHARGE SUMMARYon 04-05-20 [address] DISCHARGE SUMMARY [address] [address] DISCHARGE SUMMARYPATIENT NAME: BRITTNEY VERNON : 1985[facility] REC NO: [id number] ROOM: 0111ACCOUNT NO: [id number] ADMIT DATE: 04/02/2018PROVIDER: Constantino Lam DISCH DATE:HISTORY OF PRESENTING ILLNESS AND REASON FOR CURRENT ADMISSION: Thepatient is a 32-year-old female feeling depressed and sad, hopeless anduseless having suicidal thoughts, tried to swallow different pills to killherself as she had an argument with her mother. She feels that her motherdid not support her and she feels that she had no place to live and shewanted to . With this, she is admitted to [facility].PAST PSYCHIATRIC HISTORY: History of bipolar disorder.MEDICAL AND SURGICAL HISTORY: She has obesity, history of supraventriculartachycardi a, chronic back pain.ALLERGIES: She is allergic to LATEX and ADHESIVE TAPE.COURSE DURING THE HOSPITAL STAY: After getting admitted, she was startedback on Fetzima 80 mg daily, Rexulti was increased to 3 mg p.o. daily. With this she is stabilized and she is being discharged home.MENTAL STATUS EXAMINATION: At the time of discharge, the patient iscooperative. She has adequate psychomotor activity. She has adequaterapport. Her speech is within normal limits. Her mood subjectively okay,objectively appears to be euthymic. She has appropriate affect. Thoughtprocess within normal limits. Thought contents are within normal limits. She denies any hallucinations or delusions. She denies any suicidal orhomicidal thoughts or plans. She is of average intelligence. She isoriented to time, place and person. Her memory to recent, remote andimmediate events are within normal limits. She has adequate attention andconcentration. Her insight and judgment are fair. Her abstraction isfair.DIAGNOSIS: Bipolar disorder, current episode depressed.TREATMENT AND PLAN: Admit her. Start her on medications. Stabilize her.ESTIMATED LENGTH OF STAY: 10 days.CONSTANTINO BARTLETTID: 04/05/2018 20:40:27 [id number]_TJob#: [id number] Doc#: [id number]: Normal [facility] CBC with Diffon 04-03-2018 Abs. Basophil 0.00 k/uL Normal 0.0-0.2 [facility] Comment on above: Performed By: #### C DP, TSHX, HCG, LIPR, CP ####[address] [address] #### FT3, T4 ####[address] [address] Abs.Neutrophil (Seg) 5.50 k/uL Normal 1.3-9.1 [facility] Comment on above: Performed By: #### C DP, TSHX, HCG, LIPR, CP ####[address] [address] #### FT3, T4 ####[address] [address] Basophils/100 WBC Auto (Bld) 0 % Normal 0-2 [facility] Comment on above: Performed By: #### C DP, TSHX, HCG, LIPR, CP ####[address] [address] #### FT3, T4 ####[address] [address] Eosinophils Auto #/vol (Bld) 0.30 10*3/uL Normal 0.0-0.4 [facility] Comment on above: Performed By: #### C DP, TSHX, HCG, LIPR, CP ####[address] [address] #### FT3, T4 ####[address] [address] Eosinophils/100 WBC Auto (Bld) 4 % Normal 0-4 [facility] Comment on above: Performed By: #### C DP, TSHX, HCG, LIPR, CP ####[address] [place] [address] #### FT3, T4 ####[address] [address] Erythrocyte distribution width Auto Ratio (RBC) 15.0 % High 11.5-14.9 [facility] Comment on above: Performed By: #### C DP, TSHX, HCG, LIPR, CP ####[address] [address] #### FT3, T4 ####[address] [address] Hematocrit Auto Volume Fraction (Bld) 38.5 % Normal 36-46 [facility] Comment on above: Performed By: #### C DP, TSHX, HCG, LIPR, CP ####[address] [address] #### FT3, T4 ####[address] [address] Hemoglobin mass conc (Bld) 13.2 g/dL Normal 12.0-16.0 [facility] Comment on above: Performed By: #### C DP, TSHX, HCG, LIPR, CP ####[address] [address] #### FT3, T4 ####[address] [address] Lymphocytes Auto #/vol (Bld) 2.40 10*3/uL Normal 1.0-4.8 [facility] Comment on above: Performed By: #### C DP, TSHX, HCG, LIPR, CP ####[address] [address] #### FT3, T4 ####[address] [place] [address] Lymphocytes/100 WBC Auto (Bld) 28 % Normal 24-44 [facility] Comment on above: Performed By: #### C DP, TSHX, HCG, LIPR, CP ####[address] [address] #### FT3, T4 ####[address] [address] MCH Auto Entitic mass (RBC) 33.2 pg Normal 26-34 [facility] Comment on above: Performed By: #### C DP, TSHX, HCG, LIPR, CP ####[address] [address] #### FT3, T4 ####[address] [address] MCHC Auto mass conc (RBC) 34.2 g/dL Normal 31-37 [facility] Comment on above: Performed By: #### C DP, TSHX, HCG, LIPR, CP ####[address] [address] #### FT3, T4 ####[address] [address] MCV Auto Entitic volume (RBC) 97.0 fL Normal 80-100 [facility] Comment on above: Performed By: #### C DP, TSHX, HCG, LIPR, CP ####[address] [address] #### FT3, T4 ####[address] [address] Monocytes Auto #/vol (Bld) 0.60 10*3/uL Normal 0.1-1.3 [facility] Comment on above: Performed By: #### C DP, TSHX, HCG, LIPR, CP ####[address] [address] #### FT3, T4 ####[address] [address] Monocytes/100 WBC Auto (Bld) 6 % Normal 1-7 [facility] Comment on above: Performed By: #### C DP, TSHX, HCG, LIPR, CP ####[address] [address] #### FT3, T4 ####[address] [address] Neutrophil (Seg) 62 % Normal 36-66 [facility] Comment on above: Performed By: #### C DP, TSHX, HCG, LIPR, CP ####[address] [address] #### FT3, T4 ####[address] [address] Platelet mean volume Auto Entitic volume (Bld) 8.0 fL Normal 6.0-12.0 [facility] Comment on above: Performed By: #### C DP, TSHX, HCG, LIPR, CP ####[address] [address] #### FT3, T4 ####[address] [address] Platelets Auto #/vol (Bld) 248 10*3/uL Normal 150-450 [facility] Comment on above: Performed By: #### C DP, TSHX, HCG, LIPR, CP ####[address] [address] #### FT3, T4 ####[address] [address] RBC Auto #/vol (Bld) 3.97 10*6/uL Low 4.0-5.2 Me [facility] Comment on above: Performed By: #### C DP, TSHX, HCG, LIPR, CP ####[address] [address] #### FT3, T4 ####[address] [address] WBC Auto #/vol (Bld) 8.8 10*3/uL Normal 3.5-11.0 [facility] Comment on above: Performed By: #### C DP, TSHX, HCG, LIPR, CP ####[address] [address] #### FT3, T4 ####[address] [address] Abs.Imm.Granulocyte NOT REPORTED Normal 0.00-0.30 [facility] Comment on above: Performed By: #### C DP, TSHX, HCG, LIPR, CP ####[address] [address] #### FT3, T4 ####[address] [address] Auto Diff Performed NOT REPORTED Normal [facility] Comment on above: Performed By: #### C DP, TSHX, HCG, LIPR, CP ####[address] [address] #### FT3, T4 ####[address] [address] Immature granulocytes #/vol (Bld) NOT REPORTED Normal 0 [facility] Comment on above: Performed By: #### C DP, TSHX, HCG, LIPR, CP ####[address] [address] #### FT3, T4 ####[address] [address] NRBC Automated NOT REPORTED Normal [facility] Comment on above: Performed By: #### C DP, TSHX, HCG, LIPR, CP ####[address] [address] #### FT3, T4 ####[address] [address] Platelets Auto #/vol (Bld) NOT REPORTED Normal [facility] Comment on above: Performed By: #### C DP, TSHX, HCG, LIPR, CP ####[address] [place] [address] #### FT3, T4 ####[address] [address] RBC morphology finding Nom (Bld) NOT REPORTED Normal [facility] Comment on above: Performed By: #### C DP, TSHX, HCG, LIPR, CP ####[address] [place] [address] #### FT3, T4 ####[address] [address] WBC Morphology NOT REPORTED Normal [facility] Comment on above: Performed By: #### C DP, TSHX, HCG, LIPR, CP ####[address] [place] [address] #### FT3, T4 ####[address] [address] Comp Metabolic Profon 2017 (cont.) Normal [facility] Comment on above: Result Comment: Aver age GFR for 30-39 years old: 107 mL/min/1.73sq mChronic Kidney Disease: <60 mL/min/1.73sq mKidney failure: <15 mL/min/1.73sq meGFR calculated using average adult body mass. Additional eGFR calculator available at:http://www.[employer]/multiple_crcl_2012.htm Performed By: #### C DP, TSHX, HCG, LIPR, CP ####[address] [address] #### FT3, T4 ####[address] [address] Albumin mass conc 3.6 g/dL Normal 3.5-5.[address] [facility] Comment on above: Performed By: #### C DP, TSHX, HCG, LIPR, CP ####[address] [address] #### FT3, T4 ####[address] [address] Alkaline Phos 71 U/L Normal 35-104 [facility] Comment on above: Performed By: #### C DP, TSHX, HCG, LIPR, CP ####[address] [address] #### FT3, T4 ####[address] [address] ALT enzyme act/vol 16 U/L Normal 5-33 [facility] Comment on above: Performed By: #### C DP, TSHX, HCG, LIPR, CP ####[address] [address] #### FT3, T4 ####[address] [address] Anion gap 3 molar conc 12 mmol/L Normal 9-17 [facility] Comment on above: Performed By: #### C DP, TSHX, HCG, LIPR, CP ####[address] [address] #### FT3, T4 ####[address] [address] AST enzyme act/vol 15 U/L Normal <32 [facility] Comment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 0-2 [facility] Comment on above: Performed By: #### L ACTIC ####[address] [place] [address] Urine WBC's 2 TO 5 Normal 0-5 [facility] Comment on above: Performed By: #### L ACTIC ####[address] [place] [address] Casts NOT REPORTED Normal [facility] Comment on above: Performed By: #### L ACTIC ####[address] [place] [address] Crystals NOT REPORTED Normal NONE [facility] Comment on above: Performed By: #### L ACTIC ####[address] [place] [address] Epithelial, Renal NOT REPORTED Normal 0 [facility] Comment on above: Performed By: #### L ACTIC ####[address] [place] [address] Mucus Strands NOT REPORTED Normal NONE [facility] Comment on above: Performed By: #### L ACTIC ####[address] [place] [address] Other Observations NOT REPORTED Normal NREQ [facility] Comment on above: Performed By: #### L ACTIC ####[address] [place] [address] Trichomonas NOT REPORTED Normal NONE [facility] Comment on above: Performed By: #### L ACTIC ####[address] [place] [address] Yeast NOT REPORTED Normal NONE [facility] Comment on above: Performed By: #### L ACTIC ####[address] [place] [address] ED Provider Noteon 8 HIM IP Note OR Corrective Therapy Aide Teacher Normal [facility] Lithiumon 09-07-2017 [place] molar conc 0.7 mmol/L Normal 0.6-1.2 [facility] Comment on above: Performed By: #### L ACTIC ####[address] [place] [address] Date last dose, [id number] Normal [facility] Comment on above: Performed By: #### L ACTIC ####[address] [place] [address] Dose amount, 300 Normal [facility] Comment on above: Performed By: #### L ACTIC ####[address] [place] [address] Time last dose, 2100 Normal [facility] Comment on above: Result Comment: Perf ormed at [address] [place] [address] Performed By: #### L ACTIC ####[address] [place] [address] Acetaminophenon 08-31-2017 Acetaminophen mass conc <10 Low 10-30 [facility] Comment on above: Result Comment: Perf ormed at [address] [place] [address] Performed By: #### P T, LIP, CDP, HCG, CP ####[address] , [facility]83 CBC with Diffon 08-31-2017 Abs. Basophil 0.10 k/uL Normal 0.0-0.2 [facility] Comment on above: Result Comment: Perf ormed at [address] [place] [address] Performed By: #### P T, LIP, CDP, HCG, CP ####[address] [place] [address] Abs.Neutrophil (Seg) 7.80 k/uL High 1.8-7.7 [facility] Comment on above: Performed By: #### P T, LIP, CDP, HCG, CP ####[address] [place] [address] Basophils/100 WBC Auto (Bld) 1 % Normal 0-2 [facility] Comment on above: Performed By: #### P T, LIP, CDP, HCG, CP ####[address] [place] [address] Eosinophils Auto #/vol (Bld) 2.00 10*3/uL High 0.0-0.4 [facility] Comment on above: Performed By: #### P T, LIP, CDP, HCG, CP ####[address] , [place] [address] Eosinophils/100 WBC Auto (Bld) 15 % High 0-8 [facility] Comment on above: Performed By: #### P T, LIP, CDP, HCG, CP ####[address] [place] [address] Erythrocyte distribution width Auto Ratio (RBC) 14.0 % Normal 12.1-15.2 [facility] Comment on above: Performed By: #### P T, LIP, CDP, HCG, CP ####[address] [place] [address] Hematocrit Auto Volume Fraction (Bld) 40.1 % Normal 36-46 [facility] Comment on above: Performed By: #### P T, LIP, CDP, HCG, CP ####[address] [place] [address] Hemoglobin mass conc (Bld) 13.2 g/dL Normal 12.0-16.0 [facility] Comment on above: Performed By: #### P T, LIP, CDP, HCG, CP ####[address] [place] [address] Lymphocytes Auto #/vol (Bld) 3.10 10*3/uL Normal 1.0-4.8 [facility] Comment on above: Performed By: #### P T, LIP, CDP, HCG, CP ####[address] [place] [id number] Lymphocytes/100 WBC Auto (Bld) 23 % Low 24-44 [facility] Comment on above: Performed By: #### P T, LIP, CDP, HCG, CP ####[address] [place] [address] MCH Auto Entitic mass (RBC) 30.9 pg Normal 26-34 [facility] Comment on above: Performed By: #### P T, LIP, CDP, HCG, CP ####[address] , [place] [address] MCHC Auto mass conc (RBC) 32.8 g/dL Normal 31-37 [facility] Comment on above: Performed By: #### P T, LIP, CDP, HCG, CP ####[address] , [place] [address] MCV Auto Entitic volume (RBC) 94.2 fL Normal 80-100 [facility] Comment on above: Performed By: #### P T, LIP, CDP, HCG, CP ####[address] [place] [address] Monocytes Auto #/vol (Bld) 0.70 10*3/uL Normal 0.0-1.0 [facility] Comment on above: Performed By: #### P T, LIP, CDP, HCG, CP ####[address] , [place] [address] Monocytes/100 WBC Auto (Bld) 5 % Normal 0-12 [facility] Comment on above: Performed By: #### P T, LIP, CDP, HCG, CP ####[address] [place] [address] Neutrophil (Seg) 56 % Normal 36-66 [facility] Comment on above: Performed By: #### P T, LIP, CDP, HCG, CP ####[address] [place] [address] Platelet mean volume Auto Entitic volume (Bld) 7.5 fL Normal 6.0-12.0 [facility] Comment on above: Performed By: #### P T, LIP, CDP, HCG, CP ####[address] [place] [address] Platelets Auto #/vol (Bld) 305 10*3/uL Normal 140-450 [facility] Comment on above: Performed By: #### P T, LIP, CDP, HCG, CP ####[address] , [place] [address] RBC Auto #/vol (Bld) 4.26 10*6/uL Normal 4.0-5.2 [facility] Comment on above: Performed By: #### P T, LIP, CDP, HCG, CP ####[address] [place] [address] WBC Auto #/vol (Bld) 13.8 10*3/uL High 3.5-11.0 [facility] Comment on above: Performed By: #### P T, LIP, CDP, HCG, CP ####[address] [place] [address] Abs.Imm.Granulocyte NOT REPORTED Normal 0.00-0.30 [facility] Comment on above: Performed By: #### P T, LIP, CDP, HCG, CP ####[address] [place] [address] Auto Diff Performed NOT REPORTED Normal [facility] Comment on above: Performed By: #### P T, LIP, CDP, HCG, CP ####[address] , [place] [address] Immature granulocytes #/vol (Bld) NOT REPORTED Normal 0 [facility] Comment on above: Performed By: #### P T, LIP, CDP, HCG, CP ####[address] [place] [address] Platelets Auto #/vol (Bld) NOT REPORTED Normal [facility] Comment on above: Performed By: #### P T, LIP, CDP, HCG, CP ####[address] [place] [address] RBC morphology finding Nom (Bld) NOT REPORTED Normal [facility] Comment on above: Performed By: #### P T, LIP, CDP, HCG, CP ####[address] , [facility]83 WBC Morphology NOT REPORTED Normal [facility] Comment on above: Performed By: #### P T, LIP, CDP, HCG, CP ####[address] , [facility]83 Comp Metabolic Profon 2017 (cont.) Normal [facility] Comment on above: Result Comment: Aver age GFR for 30-39 years old: 107 mL/min/1.73sq mChronic Kidney Disease: <60 mL/min/1.73sq mKidney failure: <15 mL/min/1.73sq meGFR calculated using average adult body mass. Additional eGFR calculator available at:http://www.[employer]/multiple_crcl_2012.htm Performed By: #### P T, LIP, CDP, HCG, CP ####[address] , [place] [address] Albumin mass conc 3.4 g/dL Low 3.5-5.2 [facility] Comment on above: Performed By: #### P T, LIP, CDP, HCG, CP ####[address] [place] [address] Albumin/Globulin mass ratio 1.0 {ratio} Normal 1.0-2.5 [facility] Comment on above: Performed By: #### P T, LIP, CDP, HCG, CP ####[address] [place] [id number] Alkaline Phos 119 U/L High 35-104 [facility] Comment on above: Performed By: #### P T, LIP, CDP, HCG, CP ####[address] [place] [address] ALT enzyme act/vol 11 U/L Normal 5-33 [facility] Comment on above: Performed By: #### P T, LIP, CDP, HCG, CP ####[address] [place] [address] Anion gap 3 molar conc 12 mmol/L Normal 9-17 [facility] Comment on above: Performed By: #### P T, LIP, CDP, HCG, CP ####[address] [place] [address] AST enzyme act/vol 12 U/L Normal <32 [facility] Comment on above: Performed By: #### P T, LIP, CDP, HCG, CP ####[address] [place] [address] Bilirubin Ql (U) 0.20 mg/dL Low 0.3-1.2 [facility] Comment on above: Performed By: #### P T, LIP, CDP, HCG, CP ####[address] [place] [address] BUN/CRE Ratio 15 Normal 9-20 [facility] Comment on above: Performed By: #### P T, LIP, CDP, HCG, CP ####[address] [place] [address] Calcium mass conc 8.9 mg/dL Normal 8.6-10.4 [facility] Comment on above: Performed By: #### P T, LIP, CDP, HCG, CP ####[address] [place] [address] Chloride molar conc 104 mmol/L Normal 98-107 [facility] Comment on above: Performed By: #### P T, LIP, CDP, HCG, CP ####[address] [place] [address] CO2 molar conc 25 mmol/L Normal 20-31 [facility] Comment on above: Performed By: #### P T, LIP, CDP, HCG, CP ####[address] , [place] [address] Creatinine mass conc 0.68 mg/dL Normal 0.50-0.90 [facility] Comment on above: Performed By: #### P T, LIP, CDP, HCG, CP ####[address] , [facility]83 GFR, Amer >60 Normal >60 [facility] Comment on above: Performed By: #### P T, LIP, CDP, HCG, CP ####[address] [place] [address] GFR,non Amer >60 Normal >60 [facility] Comment on above: Performed By: #### P T, LIP, CDP, HCG, CP ####[address] [place] [address] Glucose mass conc 127 mg/dL High 70-99 [facility] Comment on above: Performed By: #### P T, LIP, CDP, HCG, CP ####[address] [place] [address] Potassium molar conc 3.9 mmol/L Normal 3.7-5.3 [facility] Comment on above: Performed By: #### P T, LIP, CDP, HCG, CP ####[address] [place] [address] Protein mass conc 6.8 g/dL Normal 6.4-8.3 [facility] Comment on above: Performed By: #### P T, LIP, CDP, HCG, CP ####[address] [place] [address] Sodium molar conc 141 mmol/L Normal 135-144 [facility] Comment on above: Performed By: #### P T, LIP, CDP, HCG, CP ####[address] [place] [address] Staging: Normal [facility] Comment on above: Result Comment: Stag e 1: Some kidney damage normal GFRStage 2: Mild kidney damage GFR 60-89Stage 3: Moderate kidney damage GFR 30-59Stage 4: Severe kidney damage GFR 15-29Stage 5: Severe kidney damage GFR <15ESRD - chronic treatment by dialysis or transplantPerformed at [address] [place] [address] Performed By: #### P T, LIP, CDP, HCG, CP ####[address] , [facility]83 Urea nitrogen mass conc 10 mg/dL Normal 6-20 [facility] Comment on above: Performed By: #### P T, LIP, CDP, HCG, CP ####[address] , [facility]83 Drug Scr, Abuse, Uron 2017 Amphetamine(s),Ur Negative Normal NEG [facility] Comment on above: Performed By: #### P T, LIP, CDP, HCG, CP ####[address] , [facility]83 Barbiturate(s),Ur Negative Normal NEG [facility] Comment on above: Performed By: #### P T, LIP, CDP, HCG, CP ####[address] , [place] [address] Base excess Calculated molar conc (Bld) Negative Normal [facility] Comment on above: Performed By: #### P T, LIP, CDP, HCG, CP ####[address] , [facility]83 Benzodiazepine(s) Negative Normal NEG [facility] Comment on above: Performed By: #### P T, LIP, CDP, HCG, CP ####[address] , [facility]83 Buprenorphrine, Ur Negative Normal NEG [facility] Comment on above: Result Comment: Perf ormed at [address] [place] [address] Performed By: #### P T, LIP, CDP, HCG, CP ####[address] [place] [address] Cannabinoid(s),Ur Negative Normal NEG [facility] Comment on above: Performed By: #### P T, LIP, CDP, HCG, CP ####[address] [place] [address] Methadone Ql (U) Negative Normal NEG [facility] Comment on above: Performed By: #### P T, LIP, CDP, HCG, CP ####[address] [place] [address] Methamphetamine, Ur Negative Normal NEG [facility] Comment on above: Performed By: #### P T, LIP, CDP, HCG, CP ####[address] [place] [address] Opiate(s), Ur Negative Normal [facility] Comment on above: Performed By: #### P T, LIP, CDP, HCG, CP ####[address] [place] [address] Oxycodone, Urine Negative Normal NEG [facility] Comment on above: Performed By: #### P T, LIP, CDP, HCG, CP ####[address] [place] [address] Phencyclidine, Ur Negative Normal [facility] Comment on above: Performed By: #### P T, LIP, CDP, HCG, CP ####[address] [place] [address] Propoxyphene,Urine Negative Normal NEG [facility] Comment on above: Performed By: #### P T, LIP, CDP, HCG, CP ####[address] [place], [place] [id number] Tricyclic antidepressants Screen Ql (U) Negative Normal NEG [facility] Comment on above: Result Comment: Drug screen results are to be used for medical purposes only. All positive results are unconfirmed. Testing for employment or legal uses should be sent to a reference laboratory for confirmation. Performed By: #### P T, LIP, CDP, HCG, CP ####[address] [place] [address] Interpretive Info NOT REPORTED Normal [facility] Comment on above: Performed By: #### P T, LIP, CDP, HCG, CP ####[address] [place] [address] MDMA, Urine NOT REPORTED Normal NEG [facility] Comment on above: Performed By: #### P T, LIP, CDP, HCG, CP ####[address] [place], [place] [id number] ED Noteon 08-31-2017 HIM IP Note OR Corrective Therapy Aide Teacher Normal [facility] HIM IP Note OR Corrective Therapy Aide Teacher Normal [facility] HIM IP Note OR Corrective Therapy Aide Teacher Normal [facility] HIM IP Note OR Corrective Therapy Aide Teacher Normal [facility] HIM IP Note OR Corrective Therapy Aide Teacher Normal [facility] HIM IP Note OR Corrective Therapy Aide Teacher Normal [facility] ED Provider Noteon 8 HIM IP Note OR Corrective Therapy Aide Teacher Normal [facility] Ethanol Alcoholon 08-31-2017 Ethanol mass conc mg/dL Normal <10 [facility] Comment on above: Performed By: #### P T, LIP, CDP, HCG, CP ####[address] [place], [place] [address] Ethanol percent <0.010 Normal [facility] Comment on above: Result Comment: Perf ormed at [address] [place] [id number] [phone] Performed By: #### P T, LIP, CDP, HCG, CP ####[address] [place] [address] HCG Screen, Bloodon 08-31-19 18 HCG Qn Negative Normal NEG [facility] Comment on above: Result Comment: Perf ormed at [address] [place] [address] Performed By: #### P T, LIP, CDP, HCG, CP ####[address] , [facility]83 Progress Noteon 08-31-2017 HIM IP Note OR Corrective Therapy Aide Teacher Normal [facility] HIM IP Note OR Corrective Therapy Aide Teacher Normal [facility] Salicylateon 08-31-2017 Salicylate <1 Low 3-10 [facility] Comment on above: Result Comment: Perf ormed at [address] [place] [address] Performed By: #### P T, LIP, CDP, HCG, CP ####[address] , [place] [address] UA w/Reflex Cultureon 2017 Acetoacetic Acid,Ur Negative Normal NEG [facility] Comment on above: Performed By: #### P T, LIP, CDP, HCG, CP ####[address] [place] [address] Bilirubin, SemiQt,Ur Negative Normal NEG [facility] Comment on above: Performed By: #### P T, LIP, CDP, HCG, CP ####[address] [place] [address] Color YELLOW Normal YEL [facility] Comment on above: Performed By: #### P T, LIP, CDP, HCG, CP ####[address] [place] [address] Glucose,Semi-qnt,Ur Negative Normal NEG [facility] Comment on above: Performed By: #### P T, LIP, CDP, HCG, CP ####[address] [place] [address] Hemoglobin, Ur Negative Normal NEG [facility] Comment on above: Performed By: #### P T, LIP, CDP, HCG, CP ####[address] [place] [address] Leuckocyte Esterase Negative Normal NEG [facility] Comment on above: Result Comment: Perf ormed at [address] [place] [address] Performed By: #### P T, LIP, CDP, HCG, CP ####[address] , [place] [address] Nitrite,Ur Negative Normal NEG [facility] Comment on above: Performed By: #### P T, LIP, CDP, HCG, CP ####[address] , [place] [address] PH,Ur 6.0 Normal 5.0-9.0 [facility] Comment on above: Performed By: #### P T, LIP, CDP, HCG, CP ####[address] , [place] [address] Protein, Semi-qnt,Ur Negative Normal NEG [facility] Comment on above: Performed By: #### P T, LIP, CDP, HCG, CP ####[address] [place] [address] Spec. [place],Ur 1.025 High 1.010-1.02 0 [facility] Comment on above: Performed By: #### P T, LIP, CDP, HCG, CP ####[address] [place] [address] Turbidity CLOUDY Abnormal CLEAR [facility] Comment on above: Performed By: #### P T, LIP, CDP, HCG, CP ####[address] , [facility]83 Urobilinogen,Ur Normal Normal NORM [facility] Comment on above: Performed By: #### P T, LIP, CDP, HCG, CP ####[address] [place] [address] Comment NOT REPORTED Normal [facility] Comment on above: Performed By: #### P T, LIP, CDP, HCG, CP ####[address] [place] [address] Urinalysis,Microon 8 ----- Normal [facility] Comment on above: Performed By: #### P T, LIP, CDP, HCG, CP ####[address] [place] [address] Amorphous Sediment 1+ Abnormal [facility] Comment on above: Result Comment: Perf ormed at [address] [place] [address] Performed By: #### P T, LIP, CDP, HCG, CP ####[address] [place] [address] Bacteria 1+ Abnormal [facility] Comment on above: Performed By: #### P T, LIP, CDP, HCG, CP ####[address] [place] [address] Crystals 5 TO 10 Abnormal [facility] Comment on above: Result Comment: CALC IUM OXALATE Performed By: #### P T, LIP, CDP, HCG, CP ####[address] [place] [address] Epithelial cells 20 TO 50 Normal 0-25 [facility] Comment on above: Performed By: #### P T, LIP, CDP, HCG, CP ####[address] [place] [address] Mucus Strands TRACE Abnormal [facility] Comment on above: Performed By: #### P T, LIP, CDP, HCG, CP ####[address] , [facility]83 RBC Test strip #/vol (U) None Normal 0-2 [facility] Comment on above: Performed By: #### P T, LIP, CDP, HCG, CP ####[address] [place] [address] Urine WBC's 0 TO 2 Normal 0-5 [facility] Comment on above: Performed By: #### P T, LIP, CDP, HCG, CP ####[address] [place] [id number] Casts NOT REPORTED Normal [facility] Comment on above: Performed By: #### P T, LIP, CDP, HCG, CP ####[address] , [facility]83 Epithelial, Renal NOT REPORTED Normal 0 [facility] Comment on above: Performed By: #### P T, LIP, CDP, HCG, CP ####[address] , [facility]83 Other Observations NOT REPORTED Normal NREQ [facility] Comment on above: Performed By: #### P T, LIP, CDP, HCG, CP ####[address] [place] [address] Trichomonas NOT REPORTED Normal NONE [facility] Comment on above: Performed By: #### P T, LIP, CDP, HCG, CP ####[address] , [facility]83 Yeast NOT REPORTED Normal NONE [facility] Comment on above: Performed By: #### P T, LIP, CDP, HCG, CP ####[address] [place] [address] Drug Scr, Abuse, Uron 2016 Amphetamine(s),Ur Negative Normal NEG [facility] Comment on above: Performed By: #### P T, LIP, CDP, HCG, CP ####[address] [place] [address] Barbiturate(s),Ur Negative Normal [facility] Comment on above: Performed By: #### P T, LIP, CDP, HCG, CP ####[address] [place] [address] Base excess Calculated molar conc (Bld) Negative Normal [facility] Comment on above: Performed By: #### P T, LIP, CDP, HCG, CP ####[address] [place] [address] Benzodiazepine(s) Negative [facility] Comment on above: Performed By: #### P T, LIP, CDP, HCG, CP ####[address] [place] [address] Buprenorphrine, Ur Negative Normal [facility] Comment on above: Result Comment: Perf ormed at [address] [place] [address] Performed By: #### P T, LIP, CDP, HCG, CP ####[address] [place] [address] Cannabinoid(s),Ur Negative Normal [facility] Comment on above: Performed By: #### P T, LIP, CDP, HCG, CP ####[address] [place] [address] Methadone Ql (U) Negative [facility] Comment on above: Performed By: #### P T, LIP, CDP, HCG, CP ####[address] [place] [address] Methamphetamine, Ur Negative [facility] Comment on above: Performed By: #### P T, LIP, CDP, HCG, CP ####[address] [place] [address] Opiate(s), Ur Negative Normal [facility] Comment on above: Performed By: #### P T, LIP, CDP, HCG, CP ####[address] [place] [address] Oxycodone, Urine Negative Normal NEG [facility] Comment on above: Performed By: #### P T, LIP, CDP, HCG, CP ####[address] [place] [address] Phencyclidine, Ur Negative Normal NEG [facility] Comment on above: Performed By: #### P T, LIP, CDP, HCG, CP ####[address] [place] [address] Propoxyphene,Urine Negative Normal NEG [facility] Comment on above: Performed By: #### P T, LIP, CDP, HCG, CP ####[address] [place] [id number] Tricyclic antidepressants Screen Ql (U) Negative Normal NEG [facility] Comment on above: Result Comment: Drug screen results are to be used for medical purposes only. All positive results are unconfirmed. Testing for employment or legal uses should be sent to a reference laboratory for confirmation. Performed By: #### P T, LIP, CDP, HCG, CP ####[address] [place] [address] Acetaminophenon 07-31-2017 Acetaminophen mass conc <10 Low 10-30 [facility] Comment on above: Result Comment: Perf ormed at [address] [place] [address] Performed By: #### P T, LIP, CDP, HCG, CP ####[address] , [place] [id number] CBC with Diffon 07-31-2017 Abs. Basophil 0.00 k/uL Normal 0.0-0.2 [facility] Comment on above: Result Comment: Perf ormed at [address] [place] [address] Performed By: #### P T, LIP, CDP, HCG, CP ####[address] , [place] [address] Abs.Neutrophil (Seg) 6.30 k/uL Normal 1.8-7.7 [facility] Comment on above: Performed By: #### P T, LIP, CDP, HCG, CP ####[address] , [place] [address] Basophils/100 WBC Auto (Bld) 0 % Normal 0-2 [facility] Comment on above: Performed By: #### P T, LIP, CDP, HCG, CP ####[address] , [place] [address] Eosinophils Auto #/vol (Bld) 1.10 10*3/uL High 0.0-0.4 [facility] Comment on above: Performed By: #### P T, LIP, CDP, HCG, CP ####[address] , [place] [address] Eosinophils/100 WBC Auto (Bld) 9 % High 1-4 [facility] Comment on above: Performed By: #### P T, LIP, CDP, HCG, CP ####[address] , [place] [address] Erythrocyte distribution width Auto Ratio (RBC) 13.1 % Normal 12.1-15.2 [facility] Comment on above: Performed By: #### P T, LIP, CDP, HCG, CP ####[address] , [place] [address] Hematocrit Auto Volume Fraction (Bld) 46.2 % High 36-46 [facility] Comment on above: Performed By: #### P T, LIP, CDP, HCG, CP ####[address] , [place] [address] Hemoglobin mass conc (Bld) 15.3 g/dL Normal 12.0-16.0 [facility] Comment on above: Performed By: #### P T, LIP, CDP, HCG, CP ####[address] , [place] [address] Lymphocytes Auto #/vol (Bld) 4.20 10*3/uL Normal 1.0-4.8 [facility] Comment on above: Performed By: #### P T, LIP, CDP, HCG, CP ####[address] , [place] [address] Lymphocytes/100 WBC Auto (Bld) 34 % Normal 24-44 [facility] Comment on above: Performed By: #### P T, LIP, CDP, HCG, CP ####[address] , [place] [id number] MCH Auto Entitic mass (RBC) 31.2 pg Normal 26-34 [facility] Comment on above: Performed By: #### P T, LIP, CDP, HCG, CP ####[address] , [place] [address] MCHC Auto mass conc (RBC) 33.0 g/dL Normal 31-37 [facility] Comment on above: Performed By: #### P T, LIP, CDP, HCG, CP ####[address] , [place] [address] MCV Auto Entitic volume (RBC) 94.5 fL Normal 80-100 [facility] Comment on above: Performed By: #### P T, LIP, CDP, HCG, CP ####[address] , [place] [address] Monocytes Auto #/vol (Bld) 0.80 10*3/uL Normal 0.2-0.8 [facility] Comment on above: Performed By: #### P T, LIP, CDP, HCG, CP ####[address] [place] [address] Monocytes/100 WBC Auto (Bld) 6 % Normal 1-7 [facility] Comment on above: Performed By: #### P T, LIP, CDP, HCG, CP ####[address] , [place] [address] Neutrophil (Seg) 51 % Normal 36-66 [facility] Comment on above: Performed By: #### P T, LIP, CDP, HCG, CP ####[address] [place] [address] Platelet mean volume Auto Entitic volume (Bld) 8.3 fL Normal 6.0-12.0 [facility] Comment on above: Performed By: #### P T, LIP, CDP, HCG, CP ####[address] [place] [address] Platelets Auto #/vol (Bld) 357 10*3/uL Normal 140-450 [facility] Comment on above: Performed By: #### P T, LIP, CDP, HCG, CP ####[address] , [place] [address] RBC Auto #/vol (Bld) 4.89 10*6/uL Normal 4.0-5.2 [facility] Comment on above: Performed By: #### P T, LIP, CDP, HCG, CP ####[address] , [place] [address] WBC Auto #/vol (Bld) 12.4 10*3/uL High 3.5-11.0 [facility] Comment on above: Performed By: #### P T, LIP, CDP, HCG, CP ####[address] [place] [address] Abs.Imm.Granulocyte NOT REPORTED Normal 0.00-0.30 [facility] Comment on above: Performed By: #### P T, LIP, CDP, HCG, CP ####[address] [place] [address] Auto Diff Performed NOT REPORTED Normal [facility] Comment on above: Performed By: #### P T, LIP, CDP, HCG, CP ####[address] [place] [address] Immature granulocytes #/vol (Bld) NOT REPORTED Normal 0 [facility] Comment on above: Performed By: #### P T, LIP, CDP, HCG, CP ####[address] [place] [address] Platelets Auto #/vol (Bld) NOT REPORTED Normal [facility] Comment on above: Performed By: #### P T, LIP, CDP, HCG, CP ####[address] [place] [address] RBC morphology finding Nom (Bld) NOT REPORTED Normal [facility] Comment on above: Performed By: #### P T, LIP, CDP, HCG, CP ####[address] [place] [address] WBC Morphology NOT REPORTED Normal [facility] Comment on above: Performed By: #### P T, LIP, CDP, HCG, CP ####[address] [place] [address] Comp Metabolic Profon 2016 Bilirubin Ql (U) <0.10 Low 0.3-1.2 [facility] Comment on above: Performed By: #### P T, LIP, CDP, HCG, CP ####[address] [place] [address] (cont.) Normal [facility] Comment on above: Result Comment: Aver age GFR for 30-39 years old: 107 mL/min/1.73sq mChronic Kidney Disease: <60 mL/min/1.73sq mKidney failure: <15 mL/min/1.73sq meGFR calculated using average adult body mass. Additional eGFR calculator available at:http://www.[employer].Dailysingle/multiple_crcl_2012.htm Performed By: #### P T, LIP, CDP, HCG, CP ####[address] [place] [address] Albumin mass conc 4.0 g/dL Normal 3.5-5.2 [facility] Comment on above: Performed By: #### P T, LIP, CDP, HCG, CP ####[address] [place] [address] Albumin/Globulin mass ratio 1.0 {ratio} Normal 1.0-2.5 [facility] Comment on above: Performed By: #### P T, LIP, CDP, HCG, CP ####[address] [place] [address] Alkaline Phos 121 U/L High 35-104 [facility] Comment on above: Performed By: #### P T, LIP, CDP, HCG, CP ####[address] [place] [address] ALT enzyme act/vol 18 U/L Normal 5-33 [facility] Comment on above: Performed By: #### P T, LIP, CDP, HCG, CP ####[address] [place] [address] Anion gap 3 molar conc 13 mmol/L Normal 9-17 [facility] Comment on above: Performed By: #### P T, LIP, CDP, HCG, CP ####[address] [place] [address] AST enzyme act/vol 18 U/L Normal <32 [facility] Comment on above: Performed By: #### P T, LIP, CDP, HCG, CP ####[address] [place] [address] BUN/CRE Ratio 16 Normal 9-20 [facility] Comment on above: Performed By: #### P T, LIP, CDP, HCG, CP ####[address] , [place] [address] Calcium mass conc 9.2 mg/dL Normal 8.6-10.4 [facility] Comment on above: Performed By: #### P T, LIP, CDP, HCG, CP ####[address] , [facility]83 Chloride molar conc 99 mmol/L Normal 98-107 [facility] Comment on above: Performed By: #### P T, LIP, CDP, HCG, CP ####[address] [place] [address] CO2 molar conc 27 mmol/L Normal 20-31 [facility] Comment on above: Performed By: #### P T, LIP, CDP, HCG, CP ####[address] , [place] [address] Creatinine mass conc 0.80 mg/dL Normal 0.50-0.90 [facility] Comment on above: Performed By: #### P T, LIP, CDP, HCG, CP ####[address] , [place] [address] GFR, Amer >60 Normal >60 [facility] Comment on above: Performed By: #### P T, LIP, CDP, HCG, CP ####[address] , [place] [address] GFR,non Amer >60 Normal >60 [facility] Comment on above: Performed By: #### P T, LIP, CDP, HCG, CP ####[address] [place] [id number] Glucose mass conc 139 mg/dL High 70-99 [facility] Comment on above: Performed By: #### P T, LIP, CDP, HCG, CP ####[address] [place] [id number] Potassium molar conc 3.6 mmol/L Low 3.7-5.3 [facility] Comment on above: Performed By: #### P T, LIP, CDP, HCG, CP ####[address] [place] [address] Protein mass conc 7.9 g/dL Normal 6.4-8.3 [facility] Comment on above: Performed By: #### P T, LIP, CDP, HCG, CP ####[address] [place] [address] Sodium molar conc 139 mmol/L Normal 135-144 [facility] Comment on above: Performed By: #### P T, LIP, CDP, HCG, CP ####[address] [place] [address] Staging: Normal [facility] Comment on above: Result Comment: Stag e 1: Some kidney damage normal GFRStage 2: Mild kidney damage GFR 60-89Stage 3: Moderate kidney damage GFR 30-59Stage 4: Severe kidney damage GFR 15-29Stage 5: Severe kidney damage GFR <15ESRD - chronic treatment by dialysis or transplantPerformed at [address] [place] [address] Performed By: #### P T, LIP, CDP, HCG, CP ####[address] [place] [address] Urea nitrogen mass conc 13 mg/dL Normal 6-20 [facility] Comment on above: Performed By: #### P T, LIP, CDP, HCG, CP ####[address] [place] [address] Drug Scr, Abuse, Uron 2016 Interpretive Info NOT REPORTED Normal [facility] Comment on above: Performed By: #### P T, LIP, CDP, HCG, CP ####[address] [place] [address] MDMA, Urine NOT REPORTED Normal NEG [facility] Comment on above: Performed By: #### P T, LIP, CDP, HCG, CP ####[address] [place] [address] Ethanol Alcoholon 07-31-2017 Ethanol mass conc mg/dL Normal <10 [facility] Comment on above: Performed By: #### P T, LIP, CDP, HCG, CP ####[address] [place] [address] Ethanol percent <0.010 Normal [facility] Comment on above: Result Comment: Perf ormed at [address] [place] [address] Performed By: #### P T, LIP, CDP, HCG, CP ####[address] [place] [address] HCG, ,Urineon 07-31 HCG.beta subunit ( test) Ql (U) Negative Normal NEG [facility] Comment on above: Result Comment: Perf ormed at [address] [place] [address] Performed By: #### P T, LIP, CDP, HCG, CP ####[address] [place] [address] Lipaseon 07-31-2017 Lipase enzyme act/vol 39 U/L Normal 13-60 [facility] Comment on above: Result Comment: Perf ormed at [address] [place] [address] Performed By: #### P T, LIP, CDP, HCG, CP ####[address] [place] [address] Salicylateon 07-31-2017 Salicylate <1 Low 3-10 [facility] Comment on above: Result Comment: Perf ormed at [address] [place] [address] Performed By: #### P T, LIP, CDP, HCG, CP ####[address] [place] [address] Urinalysis, Routineon 2016 Acetaminophen mass conc Negative Normal NEG [facility] Comment on above: Performed By: #### P T, LIP, CDP, HCG, CP ####[address] [place] [address] Bilirubin, SemiQt,Ur Negative Normal [facility] Comment on above: Performed By: #### P T, LIP, CDP, HCG, CP ####[address] [place] [address] Color YELLOW Normal L [facility] Comment on above: Performed By: #### P T, LIP, CDP, HCG, CP ####[address] [place] [address] Glucose,Semi-qnt,Ur Negative Normal [facility] Comment on above: Performed By: #### P T, LIP, CDP, HCG, CP ####[address] [place] [address] Hemoglobin, Ur Negative [facility] Comment on above: Performed By: #### P T, LIP, CDP, HCG, CP ####[address] [place] [address] Leuckocyte Esterase Negative Normal [facility] Comment on above: Result Comment: Perf ormed at [address] [place] [address] Performed By: #### P T, LIP, CDP, HCG, CP ####[address] [place] [address] Nitrite,Ur Negative Normal [facility] Comment on above: Performed By: #### P T, LIP, CDP, HCG, CP ####[address] [place] [address] PH,Ur 6.0 Normal 5.0-9.0 [facility] Comment on above: Performed By: #### P T, LIP, CDP, HCG, CP ####[address] [place] [address] Protein mass conc Negative Normal NEG [facility] Comment on above: Performed By: #### P T, LIP, CDP, HCG, CP ####[address] , [facility]83 Spec. [place],Ur <1.005 Low 1.010-1.02 0 [facility] Comment on above: Performed By: #### P T, LIP, CDP, HCG, CP ####[address] , [place] [address] Turbidity CLEAR Normal CLEAR [facility] Comment on above: Performed By: #### P T, LIP, CDP, HCG, CP ####[address] , [place] [address] Urobilinogen,Ur Normal Normal NORM [facility] Comment on above: Performed By: #### P T, LIP, CDP, HCG, CP ####[address] , [place] [address] Comment NOT REPORTED Normal [facility] Comment on above: Performed By: #### P T, LIP, CDP, HCG, CP ####[address] [place] [address] CBC with Diffon 06-11-2017 Abs. Basophil 0.00 k/uL Normal 0.0-0.2 [facility] Comment on above: Performed By: #### P T, LIP, CDP, HCG, CP ####[address] [place] [address] Abs.Neutrophil (Seg) 11.25 k/uL High 1.8-7.7 [facility] Comment on above: Performed By: #### P T, LIP, CDP, HCG, CP ####[address] , [place] [address] Basophils/100 WBC Auto (Bld) 0 % Normal [facility] Comment on above: Performed By: #### P T, LIP, CDP, HCG, CP ####[address] , [place] [address] Eosinophils Auto #/vol (Bld) 0.30 10*3/uL Normal 0.0-0.4 [facility] Comment on above: Performed By: #### P T, LIP, CDP, HCG, CP ####[address] , [place] [address] Eosinophils/100 WBC Auto (Bld) 2 % Normal [facility] Comment on above: Performed By: #### P T, LIP, CDP, HCG, CP ####[address] , [place] [address] Lymphocytes Auto #/vol (Bld) 3.19 10*3/uL Normal 1.0-4.8 [facility] Comment on above: Performed By: #### P T, LIP, CDP, HCG, CP ####[address] , [place] [address] Lymphocytes/100 WBC Auto (Bld) 21 % Normal [facility] Comment on above: Performed By: #### P T, LIP, CDP, HCG, CP ####[address] , [place] [address] Monocytes Auto #/vol (Bld) 0.46 10*3/uL Normal 0.0-1.0 [facility] Comment on above: Performed By: #### P T, LIP, CDP, HCG, CP ####[address] [place] [address] Monocytes/100 WBC Auto (Bld) 3 % Normal [facility] Comment on above: Performed By: #### P T, LIP, CDP, HCG, CP ####[address] [place] [address] Morphology Interp Grady (Bld) Platelet scan shows Normal Platelets Normal [facility] Comment on above: Result Comment: Perf ormed at [address] [place] [address] Performed By: #### P T, LIP, CDP, HCG, CP ####[address] , [facility]83 Neutrophil (Seg) 74 % Normal [facility] Comment on above: Performed By: #### P T, LIP, CDP, HCG, CP ####[address] [place] [address] Erythrocyte distribution width Auto Ratio (RBC) 14.6 % Normal 12.1-15.2 [facility] Comment on above: Performed By: #### P T, LIP, CDP, HCG, CP ####[address] [place] [address] Hematocrit Auto Volume Fraction (Bld) 43.3 % Normal 36-46 [facility] Comment on above: Performed By: #### P T, LIP, CDP, HCG, CP ####[address] [place] [address] Hemoglobin mass conc (Bld) 14.3 g/dL Normal 12.0-16.0 [facility] Comment on above: Performed By: #### P T, LIP, CDP, HCG, CP ####[address] [place] [address] MCH Auto Entitic mass (RBC) 31.2 pg Normal 26-34 [facility] Comment on above: Performed By: #### P T, LIP, CDP, HCG, CP ####[address] , [facility]83 MCHC Auto mass conc (RBC) 32.9 g/dL Normal 31-37 [facility] Comment on above: Performed By: #### P T, LIP, CDP, HCG, CP ####[address] [place] [address] MCV Auto Entitic volume (RBC) 94.6 fL Normal 80-100 [facility] Comment on above: Performed By: #### P T, LIP, CDP, HCG, CP ####[address] [place] [address] Platelet mean volume Auto Entitic volume (Bld) 7.9 fL Normal 6.0-12.0 [facility] Comment on above: Performed By: #### P T, LIP, CDP, HCG, CP ####[address] [place] [address] Platelets Auto #/vol (Bld) 291 10*3/uL Normal 140-450 [facility] Comment on above: Performed By: #### P T, LIP, CDP, HCG, CP ####[address] , [place] [address] RBC Auto #/vol (Bld) 4.57 10*6/uL Normal 4.0-5.2 [facility] Comment on above: Performed By: #### P T, LIP, CDP, HCG, CP ####[address] [place] [address] WBC Auto #/vol (Bld) 15.2 10*3/uL High 3.5-11.0 [facility] Comment on above: Performed By: #### P T, LIP, CDP, HCG, CP ####[address] [place] [address] Auto Diff Performed NOT REPORTED Normal [facility] Comment on above: Performed By: #### P T, LIP, CDP, HCG, CP ####[address] [place] [address] Platelets Auto #/vol (Bld) NOT REPORTED Normal [facility] Comment on above: Performed By: #### P T, LIP, CDP, HCG, CP ####[address] [place] [id number] RBC morphology finding Nom (Bld) NOT REPORTED Normal [facility] Comment on above: Performed By: #### P T, LIP, CDP, HCG, CP ####[address] [place] [address] WBC Morphology NOT REPORTED Normal [facility] Comment on above: Performed By: #### P T, LIP, CDP, HCG, CP ####[address] [place] [address] Comp Metabolic Profon 2016 (cont.) Normal [facility] Comment on above: Result Comment: Aver age GFR for 30-39 years old: 107 mL/min/1.73sq mChronic Kidney Disease: <60 mL/min/1.73sq mKidney failure: <15 mL/min/1.73sq meGFR calculated using average adult body mass. Additional eGFR calculator available at:http://www.[employer]ingle/multiple_crcl_2012.htm Performed By: #### P T, LIP, CDP, HCG, CP ####[address] [place] [address] Albumin mass conc 4.2 g/dL Normal 3.5-5.2 [facility] Comment on above: Performed By: #### P T, LIP, CDP, HCG, CP ####[address] [place] [address] Albumin/Globulin mass ratio 1.3 {ratio} Normal 1.0-2.5 [facility] Comment on above: Performed By: #### P T, LIP, CDP, HCG, CP ####[address] [place] [address] Alkaline Phos 96 U/L Normal 35-104 [facility] Comment on above: Performed By: #### P T, LIP, CDP, HCG, CP ####[address] [place] [address] ALT enzyme act/vol 11 U/L Normal 5-33 [facility] Comment on above: Performed By: #### P T, LIP, CDP, HCG, CP ####[address] [place] [address] Anion gap 3 molar conc 11 mmol/L Normal 9-17 [facility] Comment on above: Performed By: #### P T, LIP, CDP, HCG, CP ####[address] [place] [address] AST enzyme act/vol 15 U/L Normal <32 [facility] Comment on above: Performed By: #### P T, LIP, CDP, HCG, CP ####[address] [place] [address] Bilirubin Ql (U) 0.29 mg/dL Low 0.3-1.2 [facility] Comment on above: Performed By: #### P T, LIP, CDP, HCG, CP ####[address] [place] [address] BUN/CRE Ratio 16 Normal 9-20 [facility] Comment on above: Performed By: #### P T, LIP, CDP, HCG, CP ####[address] [place] [address] Calcium mass conc 9.5 mg/dL Normal 8.6-10.4 [facility] Comment on above: Performed By: #### P T, LIP, CDP, HCG, CP ####[address] [place] [address] Chloride molar conc 108 mmol/L High 98-107 [facility] Comment on above: Performed By: #### P T, LIP, CDP, HCG, CP ####[address] [place] [address] CO2 molar conc 24 mmol/L Normal 20-31 [facility] Comment on above: Performed By: #### P T, LIP, CDP, HCG, CP ####[address] [place] [address] Creatinine mass conc 0.80 mg/dL Normal 0.50-0.90 [facility] Comment on above: Performed By: #### P T, LIP, CDP, HCG, CP ####[address] [place] [address] GFR, Amer >60 Normal >60 [facility] Comment on above: Performed By: #### P T, LIP, CDP, HCG, CP ####[address] , [place] [address] GFR,non Amer >60 Normal >60 [facility] Comment on above: Performed By: #### P T, LIP, CDP, HCG, CP ####[address] [place] [address] Glucose mass conc 94 mg/dL Normal 70-99 [facility] Comment on above: Performed By: #### P T, LIP, CDP, HCG, CP ####[address] [place] [address] Potassium molar conc 3.8 mmol/L Normal 3.7-5.3 [facility] Comment on above: Performed By: #### P T, LIP, CDP, HCG, CP ####[address] [place] [address] Protein mass conc 7.4 g/dL Normal 6.4-8.3 [facility] Comment on above: Performed By: #### P T, LIP, CDP, HCG, CP ####[address] [place] [address] Sodium molar conc 143 mmol/L Normal 135-144 [facility] Comment on above: Performed By: #### P T, LIP, CDP, HCG, CP ####[address] [place] [address] Staging: Normal [facility] Comment on above: Result Comment: Stag e 1: Some kidney damage normal GFRStage 2: Mild kidney damage GFR 60-89Stage 3: Moderate kidney damage GFR 30-59Stage 4: Severe kidney damage GFR 15-29Stage 5: Severe kidney damage GFR <15ESRD - chronic treatment by dialysis or transplantPerformed at [address] [place] [address] Performed By: #### P T, LIP, CDP, HCG, CP ####[address] [place] [address] Urea nitrogen mass conc 13 mg/dL Normal 6-20 [facility] Comment on above: Performed By: #### P T, LIP, CDP, HCG, CP ####[address] [place] [address] Drug Scr, Abuse, Uron 2016 Amphetamine(s),Ur Negative Normal NEG [facility] Comment on above: Performed By: #### P T, LIP, CDP, HCG, CP ####[address] [place] [address] Barbiturate(s),Ur Negative Normal NEG [facility] Comment on above: Performed By: #### P T, LIP, CDP, HCG, CP ####[address] [place] [address] Base excess Calculated molar conc (Bld) Negative Normal NEG [facility] Comment on above: Performed By: #### P T, LIP, CDP, HCG, CP ####[address] [place] [address] Benzodiazepine(s) Negative Normal NEG [facility] Comment on above: Performed By: #### P T, LIP, CDP, HCG, CP ####[address] [place] [address] Buprenorphrine, Ur Negative Normal NEG [facility] Comment on above: Result Comment: Perf ormed at [address] [place] [address] Performed By: #### P T, LIP, CDP, HCG, CP ####[address] , [facility]83 Cannabinoid(s),Ur Positive Abnormal NEG [facility] Comment on above: Performed By: #### P T, LIP, CDP, HCG, CP ####[address] , [facility]83 Methadone Ql (U) Negative Normal NEG [facility] Comment on above: Performed By: #### P T, LIP, CDP, HCG, CP ####[address] [place] [address] Methamphetamine, Ur Negative Normal [facility] Comment on above: Performed By: #### P T, LIP, CDP, HCG, CP ####[address] [place] [address] Opiate(s), Ur Negative Normal NEG [facility] Comment on above: Performed By: #### P T, LIP, CDP, HCG, CP ####[address] [place] [address] Oxycodone, Urine Negative Normal NEG [facility] Comment on above: Performed By: #### P T, LIP, CDP, HCG, CP ####[address] [place] [address] Phencyclidine, Ur Negative Normal NEG [facility] Comment on above: Performed By: #### P T, LIP, CDP, HCG, CP ####[address] [place] [address] Propoxyphene,Urine Negative Normal NEG [facility] Comment on above: Performed By: #### P T, LIP, CDP, HCG, CP ####[address] [place] [address] Tricyclic antidepressants Screen Ql (U) Negative Normal NEG [facility] Comment on above: Result Comment: Drug screen results are to be used for medical purposes only. All positive results are unconfirmed. Testing for employment or legal uses should be sent to a reference laboratory for confirmation. Performed By: #### P T, LIP, CDP, HCG, CP ####[address] [place] [id number] Interpretive Info NOT REPORTED Normal [facility] Comment on above: Performed By: #### P T, LIP, CDP, HCG, CP ####[address] [place] [id number] MDMA, Urine NOT REPORTED Normal NEG [facility] Comment on above: Performed By: #### P T, LIP, CDP, HCG, CP ####[address] [place] [address] ED Noteon 06-11-2017 HIM IP Note OR Corrective Therapy Aide Teacher Normal [facility] HIM IP Note OR Corrective Therapy Aide Teacher Normal [facility] HIM IP Note OR Corrective Therapy Aide Teacher Normal [facility] HIM IP Note OR Corrective Therapy Aide Teacher Normal [facility] HIM IP Note OR Corrective Therapy Aide Teacher Normal [facility] HIM IP Note OR Corrective Therapy Aide Teacher Normal [facility] HIM IP Note OR Corrective Therapy Aide Teacher Normal [facility] ED Provider Noteon 7 HIM IP Note OR Corrective Therapy Aide Teacher Normal [facility] HCG, ,Urineon 06-11 HCG.beta subunit ( test) Ql (U) Negative Normal NEG [facility] Comment on above: Result Comment: Perf ormed at [address] [place], [place] [id number] [phone] Performed By: #### P T, LIP, CDP, HCG, CP ####[address] [place] [address] Thyroid Stim. Horm.on 2016 Thyrotropin Qn 1.07 m[IU]/L Normal 0.30-5.00 [facility] Comment on above: Result Comment: Perf ormed at [address] [place] [address] Performed By: #### P T, LIP, CDP, HCG, CP ####[address] [place] [address] Tox Scr, Bld, EDon 7 Toxic Tricyclic Sc,Bl Negative Normal NEG [facility] Comment on above: Result Comment: Perf ormed at [address] [id number] [phone] Performed By: #### P T, LIP, CDP, HCG, CP ####[address] [place] [address] Acetaminophen mass conc <10 Low 10-30 [facility] Comment on above: Result Comment: Perf ormed at [address] [place] [address] Performed By: #### P T, LIP, CDP, HCG, CP ####[address] [place] [address] Salicylate <1 Low 3-10 [facility] Comment on above: Result Comment: Perf ormed at [address] [place] [address] Performed By: #### P T, LIP, CDP, HCG, CP ####[address] [place] [address] Ethanol mass conc mg/dL Normal <10 [facility] Comment on above: Result Comment: Perf ormed at [address] [place] [address] Performed By: #### P T, LIP, CDP, HCG, CP ####[address] [place] [address] Ethanol percent <0.010 Normal [facility] Comment on above: Result Comment: Perf ormed at [address] [place] [address] Performed By: #### P T, LIP, CDP, HCG, CP ####[address] [place] [address] Urinalysis, Routineon 2016 Acetaminophen mass conc Negative Normal NEG [facility] Comment on above: Performed By: #### P T, LIP, CDP, HCG, CP ####[address] [place] [address] Bilirubin, SemiQt,Ur Negative Normal NEG [facility] Comment on above: Performed By: #### P T, LIP, CDP, HCG, CP ####[address] [place] [address] Color YELLOW Normal YEL [facility] Comment on above: Performed By: #### P T, LIP, CDP, HCG, CP ####[address] [place] [address] Glucose,Semi-qnt,Ur Negative Normal NEG [facility] Comment on above: Performed By: #### P T, LIP, CDP, HCG, CP ####[address] [place] [address] Hemoglobin, Ur Negative Normal NEG [facility] Comment on above: Performed By: #### P T, LIP, CDP, HCG, CP ####[address] [place] [address] Leuckocyte Esterase Negative Normal [facility] Comment on above: Result Comment: Perf ormed at [address] [place] [address] Performed By: #### P T, LIP, CDP, HCG, CP ####[address] [place] [address] Nitrite,Ur Negative Normal NEG [facility] Comment on above: Performed By: #### P T, LIP, CDP, HCG, CP ####[address] , [place] [address] PH,Ur 6.0 Normal 5.0-9.0 [facility] Comment on above: Performed By: #### P T, LIP, CDP, HCG, CP ####[address] [place] [address] Protein mass conc Negative Normal NEG [facility] Comment on above: Performed By: #### P T, LIP, CDP, HCG, CP ####[address] [place] [address] Spec. [place],Ur 1.025 High 1.010-1.02 0 [facility] Comment on above: Performed By: #### P T, LIP, CDP, HCG, CP ####[address] [place] [address] Turbidity CLEAR Normal CLEAR [facility] Comment on above: Performed By: #### P T, LIP, CDP, HCG, CP ####[address] , [place] [address] Urobilinogen,Ur Normal Normal NORM [facility] Comment on above: Performed By: #### P T, LIP, CDP, HCG, CP ####[address] [place] [address] Comment NOT REPORTED Normal [facility] Comment on above: Performed By: #### P T, LIP, CDP, HCG, CP ####[address] [place] [address] XR CHEST PORTABLEon 10-15-20 17 XR CHEST PORTABLE FINAL REPORTPROCEDUR E: XR CHEST PORTABLETECHNIQUE: A portable AP chest radiograph was obtained at 06/11/2017 17:52 (EST) . CPT [id number]: cough COMPARISON: Chest x-ray dated January 18, 2017FINDINGS: Heart: Normal.Mediastinum/Vessels : Normal.Lungs/Pleural space: Normal.Bony thorax: No acute osseous abnormality.Life support devices: None.IMPRESSION: Impression: No acute cardiopulmonary abnormality. Interpreted by:ELIS Torresigned by:Ronaldo Jalloh MD06/11/17Final result Normal [facility] Cult,Urineon 06-07-2017 Cult,Urine Specimen Description .URINE Performed at [address] [place], [place] [id number] [phone] Special Requests CCU Performed at [address] [place], [place] [id number] [phone] Culture NO SIGNIFICANT GROWTH Performed at [address] [address] Report Status FINAL 06/07/2017 Normal [facility] Comment on above: Performed By: #### U RC ####[address] [phone] [place] [phone] CBC with Diffon 06-06-2017 Abs. Basophil 0.10 k/uL Normal 0.0-0.2 [facility] Comment on above: Result Comment: Perf ormed at [address] [place] [id number] [phone] Performed By: #### P T, LIP, CDP, HCG, CP ####[address] [place], [place] [id number](142 Abs.Neutrophil (Seg) 7.00 k/uL Normal 1.8-7.7 [facility] Comment on above: Performed By: #### P T, LIP, CDP, HCG, CP ####[address] [address] Basophils/100 WBC Auto (Bld) 0 % Normal [facility] Comment on above: Performed By: #### P T, LIP, CDP, HCG, CP ####[address] , [place] [address] Eosinophils Auto #/vol (Bld) 0.60 10*3/uL High 0.0-0.4 [facility] Comment on above: Performed By: #### P T, LIP, CDP, HCG, CP ####[address] , [place] [address] Eosinophils/100 WBC Auto (Bld) 5 % Normal [facility] Comment on above: Performed By: #### P T, LIP, CDP, HCG, CP ####[address] , [place] [address] Erythrocyte distribution width Auto Ratio (RBC) 14.4 % Normal 12.1-15.2 [facility] Comment on above: Performed By: #### P T, LIP, CDP, HCG, CP ####[address] , [place] [address] Hematocrit Auto Volume Fraction (Bld) 39.9 % Normal 36-46 [facility] Comment on above: Performed By: #### P T, LIP, CDP, HCG, CP ####[address] , [place] [address] Hemoglobin mass conc (Bld) 13.2 g/dL Normal 12.0-16.0 [facility] Comment on above: Performed By: #### P T, LIP, CDP, HCG, CP ####[address] [place] [address] Lymphocytes Auto #/vol (Bld) 3.40 10*3/uL Normal 1.0-4.8 [facility] Comment on above: Performed By: #### P T, LIP, CDP, HCG, CP ####[address] , [place] [address] Lymphocytes/100 WBC Auto (Bld) 29 % Normal [facility] Comment on above: Performed By: #### P T, LIP, CDP, HCG, CP ####[address] , [place] [address] MCH Auto Entitic mass (RBC) 31.5 pg Normal 26-34 [facility] Comment on above: Performed By: #### P T, LIP, CDP, HCG, CP ####[address] , [place] [address] MCHC Auto mass conc (RBC) 33.1 g/dL Normal 31-37 [facility] Comment on above: Performed By: #### P T, LIP, CDP, HCG, CP ####[address] , [place] [address] MCV Auto Entitic volume (RBC) 95.4 fL Normal 80-100 [facility] Comment on above: Performed By: #### P T, LIP, CDP, HCG, CP ####[address] , [place] [address] Monocytes Auto #/vol (Bld) 0.70 10*3/uL Normal 0.0-1.0 [facility] Comment on above: Performed By: #### P T, LIP, CDP, HCG, CP ####[address] , [place] [address] Monocytes/100 WBC Auto (Bld) 6 % Normal [facility] Comment on above: Performed By: #### P T, LIP, CDP, HCG, CP ####[address] , [place] [address] Neutrophil (Seg) 60 % Normal [facility] Comment on above: Performed By: #### P T, LIP, CDP, HCG, CP ####[address] [place] [address] Platelet mean volume Auto Entitic volume (Bld) 8.2 fL Normal 6.0-12.0 [facility] Comment on above: Performed By: #### P T, LIP, CDP, HCG, CP ####[address] , [facility]83 Platelets Auto #/vol (Bld) 227 10*3/uL Normal 140-450 [facility] Comment on above: Performed By: #### P T, LIP, CDP, HCG, CP ####[address] , [place] [address] RBC Auto #/vol (Bld) 4.18 10*6/uL Normal 4.0-5.2 [facility] Comment on above: Performed By: #### P T, LIP, CDP, HCG, CP ####[address] , [place] [address] WBC Auto #/vol (Bld) 11.8 10*3/uL High 3.5-11.0 [facility] Comment on above: Performed By: #### P T, LIP, CDP, HCG, CP ####[address] , [place] [address] Auto Diff Performed NOT REPORTED Normal [facility] Comment on above: Performed By: #### P T, LIP, CDP, HCG, CP ####[address] , [place] [address] Platelets Auto #/vol (Bld) NOT REPORTED Normal [facility] Comment on above: Performed By: #### P T, LIP, CDP, HCG, CP ####[address] [place] [address] RBC morphology finding Nom (Bld) NOT REPORTED Normal [facility] Comment on above: Performed By: #### P T, LIP, CDP, HCG, CP ####[address] [place] [address] WBC Morphology NOT REPORTED Normal [facility] Comment on above: Performed By: #### P T, LIP, CDP, HCG, CP ####[address] [place] [address] Comp Metabolic Profon 2016 (cont.) Normal [facility] Comment on above: Result Comment: Aver age GFR for 30-39 years old: 107 mL/min/1.73sq mChronic Kidney Disease: <60 mL/min/1.73sq mKidney failure: <15 mL/min/1.73sq meGFR calculated using average adult body mass. Additional eGFR calculator available at:http://www.[employer]/multiple_crcl_2011.htm Performed By: #### P T, LIP, CDP, HCG, CP ####[address] , [facility]83 Albumin mass conc 3.5 g/dL Normal 3.5-5.2 [facility] Comment on above: Performed By: #### P T, LIP, CDP, HCG, CP ####[address] [place] [address] Albumin/Globulin mass ratio 1.1 {ratio} Normal 1.0-2.5 [facility] Comment on above: Performed By: #### P T, LIP, CDP, HCG, CP ####[address] [place] [id number] Alkaline Phos 90 U/L Normal 35-104 [facility] Comment on above: Performed By: #### P T, LIP, CDP, HCG, CP ####[address] [place] [id number] ALT enzyme act/vol 9 U/L Normal 5-33 [facility] Comment on above: Performed By: #### P T, LIP, CDP, HCG, CP ####[address] [place] [id number] Anion gap 3 molar conc 12 mmol/L Normal 9-17 [facility] Comment on above: Performed By: #### P T, LIP, CDP, HCG, CP ####[address] [place] [address] AST enzyme act/vol 11 U/L Normal <32 [facility] Comment on above: Performed By: #### P T, LIP, CDP, HCG, CP ####[address] , [facility]83 Bilirubin Ql (U) 0.16 mg/dL Low 0.3-1.2 [facility] Comment on above: Performed By: #### P T, LIP, CDP, HCG, CP ####[address] [place] [address] BUN/CRE Ratio 21 High 9-20 [facility] Comment on above: Performed By: #### P T, LIP, CDP, HCG, CP ####[address] [place] [address] Calcium mass conc 8.9 mg/dL Normal 8.6-10.4 [facility] Comment on above: Performed By: #### P T, LIP, CDP, HCG, CP ####[address] [place] [address] Chloride molar conc 104 mmol/L Normal 98-107 [facility] Comment on above: Performed By: #### P T, LIP, CDP, HCG, CP ####[address] [place] [address] CO2 molar conc 24 mmol/L Normal 20-31 [facility] Comment on above: Performed By: #### P T, LIP, CDP, HCG, CP ####[address] [place] [address] Creatinine mass conc 0.87 mg/dL Normal 0.50-0.90 [facility] Comment on above: Performed By: #### P T, LIP, CDP, HCG, CP ####[address] [place] [address] GFR, Amer >60 Normal >60 [facility] Comment on above: Performed By: #### P T, LIP, CDP, HCG, CP ####[address] [place] [address] GFR,non Amer >60 Normal >60 [facility] Comment on above: Performed By: #### P T, LIP, CDP, HCG, CP ####[address] [place] [address] Glucose mass conc 109 mg/dL High 70-99 [facility] Comment on above: Performed By: #### P T, LIP, CDP, HCG, CP ####[address] [place] [address] Potassium molar conc 3.6 mmol/L Low 3.7-5.3 [facility] Comment on above: Performed By: #### P T, LIP, CDP, HCG, CP ####[address] [place] [address] Protein mass conc 6.6 g/dL Normal 6.4-8.3 [facility] Comment on above: Performed By: #### P T, LIP, CDP, HCG, CP ####[address] [place] [address] Sodium molar conc 140 mmol/L Normal 135-144 [facility] Comment on above: Performed By: #### P T, LIP, CDP, HCG, CP ####[address] [place] [address] Staging: Normal [facility] Comment on above: Result Comment: Stag e 1: Some kidney damage normal GFRStage 2: Mild kidney damage GFR 60-89Stage 3: Moderate kidney damage GFR 30-59Stage 4: Severe kidney damage GFR 15-29Stage 5: Severe kidney damage GFR <15ESRD - chronic treatment by dialysis or transplantPerformed at [address] 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 [address] Performed By: #### P T, LIP, CDP, HCG, CP ####[address] [place] [address] Lactic Acidon 06-06-2017 Lactate molar conc 1.1 mmol/L Normal 0.5-2.2 [facility] Comment on above: Result Comment: Perf ormed at [address] [place] [address] Performed By: #### L ACTIC ####[address] [place] [address] Lactic Acid,Whole Bl NOT REPORTED Normal 0.7-2.1 [facility] Comment on above: Performed By: #### L ACTIC ####[address] [place] [address] Lipaseon 06-06-2017 Lipase enzyme act/vol 48 U/L Normal 13-60 [facility] Comment on above: Result Comment: Perf ormed at [address] [place] [address] Performed By: #### P T, LIP, CDP, HCG, CP ####[address] [place] [address] PTon 2017 INR Coag RelTime (PPP) 0.9 {INR} Normal 0.9-1.2 [facility] Comment on above: Result Comment: Perf ormed at [address] [place] [address] Performed By: #### P T, LIP, CDP, HCG, CP ####[address] , [facility]83 Prothrombin time (PT) Coag time (PPP) 9.6 s Low 9.7-12.2 [facility] Comment on above: Performed By: #### P T, LIP, CDP, HCG, CP ####[address] , [facility]83 UA w/Reflex Cultureon 2016 Acetoacetic Acid,Ur TRACE Abnormal NEG [facility] Comment on above: Performed By: #### U AXBALAICAO ####[address] [place] [address] Bilirubin, SemiQt,Ur Negative Normal NEG [facility] Comment on above: Performed By: #### U AX UMICAO ####[address] , [facility]83 Color YELLOW Normal YEL [facility] Comment on above: Performed By: #### U AX UMICAO ####[address] , [facility]83 Glucose,Semi-qnt,Ur Negative Normal NEG [facility] Comment on above: Performed By: #### U AX, UMICAO ####[address] , [facility]83 Hemoglobin, Ur Negative Normal NEG [facility] Comment on above: Performed By: #### U AX, UMICAO ####[address] [place] [address] Leuckocyte Esterase Negative Normal NEG [facility] Comment on above: Result Comment: Perf ormed at [address] [place] [address] Performed By: #### U CECELIA UMICAO ####[address] [place] [address] Nitrite,Ur Negative Normal NEG [facility] Comment on above: Performed By: #### U AX UMICAO ####[address] [place] [address] PH,Ur 6.0 Normal 5.0-9.0 [facility] Comment on above: Performed By: #### U BALA RAIICAO ####[address] [place] [address] Protein, Semi-qnt,Ur Negative Normal NEG [facility] Comment on above: Performed By: #### U CECELIA UMICAO ####[address] [place] [address] Spec. [place],Ur >1.030 High 1.010-1.02 0 [facility] Comment on above: Performed By: #### U AX UMICAO ####[address] [place] [address] Turbidity CLEAR Normal CLEAR [facility] Comment on above: Performed By: #### U AX UMICAO ####[address] [place] [address] Urobilinogen,Ur Normal Normal NORM [facility] Comment on above: Performed By: #### U AX UMICAO ####[address] [place] [address] Comment NOT REPORTED Normal [facility] Comment on above: Performed By: #### U AX, UMICAO ####[address] [place] [address] Urinalysis,Microon 7 ----- Normal [facility] Comment on above: Performed By: #### U AX UMICAO ####[address] [place] [address] Bacteria 3+ Abnormal NONE [facility] Comment on above: Result Comment: Perf ormed at [address] [place] [address] Performed By: #### U APOLINAR RAIO ####[address] [place] [address] Epithelial cells 10 TO 20 Normal 0-25 [facility] Comment on above: Performed By: #### U AX UMICAO ####[address] [place] [address] RBC Test strip #/vol (U) None Normal 0-2 [facility] Comment on above: Performed By: #### U AX UMICAO ####[address] [place] [address] Urine WBC's 0 TO 2 Normal 0-5 [facility] Comment on above: Performed By: #### U AX UMICAO ####[address] [place] [address] Amorphous Sediment NOT REPORTED Normal NONE [facility] Comment on above: Performed By: #### U AX UMICAO ####[address] [place] [address] Casts NOT REPORTED Normal [facility] Comment on above: Performed By: #### U AX UMICAO ####[address] [place] [address] Crystals NOT REPORTED Normal NONE [facility] Comment on above: Performed By: #### U AX, UMICAO ####[address] [place] [address] Epithelial, Renal NOT REPORTED Normal 0 [facility] Comment on above: Performed By: #### U AX, UMICAO ####[address] [place] [address] Mucus Strands NOT REPORTED Normal NONE [facility] Comment on above: Performed By: #### U AX, UMICAO ####[address] [place] [address] Other Observations NOT REPORTED Normal NREQ [facility] Comment on above: Performed By: #### U AX, UMICAO ####[address] [place] [address] Trichomonas NOT REPORTED Normal NONE [facility] Comment on above: Performed By: #### U AX, UMICAO ####[address] [place] [address] Yeast NOT REPORTED Normal NONE [facility] Comment on above: Performed By: #### U AX, UMICAO ####[address] [place] [address] Vital Signs Date Time Vital Sign Value Performing Clinician Facility 09-10-2024 08:42-0500 Body mass index (BMI) [Ratio] 41.28 kg/m2 W[facility] Work Phone: [facility] 09-10-2024 08:42-0500 Body weight 134.26 kg [facility] Work Phone: [facility] 09-10-2024 08:42-0500 Diastolic blood pressure 90 mm[Hg] [facility] Work Phone: [facility] 09-10-2024 08:42-0500 Systolic blood pressure 130 mm[Hg] Jean Carlos Barrington DO Work Phone: [facility] 06-04-2024 15:02-0400 Heart rate 109 /min MD Nupur Mcmahan Work Phone: [facility] 06-04-2024 15:02-0400 SaO2% (BldA) [Mass fraction] 96 % MD Nupur Mcmahan Work Phone: [facility] 06-04-2024 14:35-0400 Body height 180.34 cm MD Nupur Mcmahan Work Phone: [facility] 06-04-2024 14:35-0400 Body temperature 98.5 [degF] MD Nupur Mcmahan Work Phone: [facility] 06-04-2024 14:35-0400 Body weight 135 kg MD Nupur Mcmahan Work Phone: [facility] 06-04-2024 14:35-0400 Diastolic blood pressure 101 mm[Hg] MD Nupur Mcmahan Work Phone: [facility] 06-04-2024 14:35-0400 Respiratory rate 18 /min MD Nupur Mcmahan Work Phone: [facility] 06-04-2024 14:35-0400 Systolic blood pressure 153 mm[Hg] MD Nupur Mcmahan Work Phone: [facility] 05-20-2024 10:51-0400 Diastolic blood pressure 111 mm[Hg] Jimmy STOCK [facility] 05-20-2024 10:51-0400 Mean blood pressure 127 mm[Hg] Jimmy STOCK [facility] 05-20-2024 10:51-0400 Systolic blood pressure 158 mm[Hg] Jimmy STOCK [facility] 05-20-2024 10:45-0400 Blood Pressure Location Jimmy STOCK [facility] 05-20-2024 10:45-0400 Diastolic blood pressure 100 mm[Hg] Jimmy STOCK [facility] 05-20-2024 10:45-0400 Heart rate 91 /min Jimmy STOCK [facility] 05-20-2024 10:45-0400 Systolic blood pressure 166 mm[Hg] Jimmy STOCK [facility] 04-30-2024 13:04-0400 Body height 180.3 cm Pacc 2 Work Phone: [facility] 04-30-2024 13:04-0400 Body mass index (BMI) [Ratio] 42.74 kg/m2 Pacc 2 Work Phone: [facility] 04-30-2024 13:04-0400 Body temperature 98.8 [degF] Pacc 2 Work Phone: [facility] 04-30-2024 13:04-0400 Body weight 139 kg Pacc 2 Work Phone: [facility] Comment on above: actual weight 04-30-2024 13:04-0400 Diastolic blood pressure 84 mm[Hg] Pacc 2 Work Phone: [facility] 04-30-2024 13:04-0400 Heart rate 79 /min Pacc 2 Work Phone: [facility] 04-30-2024 13:04-0400 Respiratory rate 16 /min Pacc 2 Work Phone: [facility] 04-30-2024 13:04-0400 SaO2% (BldA) [Mass fraction] 100 % Pacc 2 Work Phone: [facility] 04-30-2024 13:04-0400 Systolic blood pressure 138 mm[Hg] Pacc 2 Work Phone: [facility] 03-29-2024 08:02-0400 Body height 180.3 cm Fabiano Bazanin DO Work Phone: [facility] 03-29-2024 08:02-0400 Body mass index (BMI) [Ratio] 42.26 kg/m2 Fabiano Genin DO Work Phone: [facility] 03-29-2024 08:02-0400 Body weight 137.44 kg Fabiano Genin DO Work Phone: [facility] 03-27-2024 16:20-0400 Diastolic blood pressure 110 mm[Hg] MD Nupur Mcmahan Work Phone: [facility] 03-27-2024 16:20-0400 Systolic blood pressure 170 mm[Hg] MD Nupur Mcmahan Work Phone: [facility] 03-27-2024 16:16-0400 Body height 180.34 cm MD Nupur Mcmahan Work Phone: [facility] 03-27-2024 16:16-0400 Body temperature 98.7 [degF] MD Nupur Mcmahan Work Phone: [facility] 03-27-2024 16:16-0400 Body weight 139.6 kg MD Nupur Mcmahan Work Phone: [facility] 03-27-2024 16:16-0400 Heart rate 84 /min MD Nupur Mcmahan Work Phone: [facility] 03-27-2024 16:16-0400 Respiratory rate 16 /min MD Nupur Mcmahan Work Phone: [facility] 03-27-2024 16:16-0400 SaO2% (BldA) [Mass fraction] 98 % MD Nupur Mcmahan Work Phone: [facility] 12-01-2023 08:29-0400 Body height 177.8 cm MD Nupur Mcmahan Work Phone: [facility] 12-01-2023 08:29-0400 Body mass index (BMI) [Ratio] 43.5 kg/m2 MD Nupur Mcmahan Work Phone: [facility] 12-01-2023 08:29-0400 Body weight 137.66 kg MD Nupur Mcmahan Work Phone: [facility] 12-01-2023 08:29-0400 Diastolic blood pressure 103 mm[Hg] MD Nupur Mcmahan Work Phone: [facility] 12-01-2023 08:29-0400 Heart rate 94 /min MD Nupur Mcmahan Work Phone: [facility] 12-01-2023 08:29-0400 Respiratory rate 18 /min MD Nupur Mcmahan Work Phone: [facility] 12-01-2023 08:29-0400 SaO2% (BldA) [Mass fraction] 99 % MD Nupur Mcmahan Work Phone: [facility] 12-01-2023 08:29-0400 Systolic blood pressure 135 mm[Hg] MD Nupur Mcmahan Work Phone: [facility] 10-20-2023 08:06-0500 Body height 177.8 cm MD Nupur Mcmahan Work Phone: [facility] 10-20-2023 08:06-0500 Body mass index (BMI) [Ratio] 43 kg/m2 MD Nupur Mcmahan Work Phone: [facility] 10-20-2023 08:06-0500 Body weight 136.07 kg MD Nupur Mcmahan Work Phone: [facility] 10-20-2023 08:06-0500 Diastolic blood pressure 86 mm[Hg] MD Nupur Mcmahan Work Phone: [facility] 10-20-2023 08:06-0500 Heart rate 92 /min MD Nupur Mcmahan Work Phone: [facility] 10-20-2023 08:06-0500 Respiratory rate 18 /min MD Nupur Mcmahan Work Phone: [facility] 10-20-2023 08:06-0500 SaO2% (BldA) [Mass fraction] 97 % MD Nupur Mcmahan Work Phone: [facility] 10-20-2023 08:06-0500 Systolic blood pressure 115 mm[Hg] MD Nupur Mcmahan Work Phone: [facility] 09-24-2023 13:35-0500 Body height 177.8 cm MD Nupur Mcmahan Work Phone: [facility] 09-24-2023 13:35-0500 Body temperature 97.9 [degF] MD Nupur Mcmahan Work Phone: [facility] 09-24-2023 13:35-0500 Body weight 135 kg MD Nupur Mcmahan Work Phone: [facility] 09-24-2023 13:35-0500 Diastolic blood pressure 114 mm[Hg] MD Nupur Mcmahan Work Phone: [facility] 09-24-2023 13:35-0500 Heart rate 118 /min MD Nupur Mcmahan Work Phone: [facility] 09-24-2023 13:35-0500 Respiratory rate 15 /min MD Nupur Mcmahan Work Phone: [facility] 09-24-2023 13:35-0500 SaO2% (BldA) [Mass fraction] 97 % MD Nupur Mcmahan Work Phone: [facility] 09-24-2023 13:35-0500 Systolic blood pressure 185 mm[Hg] MD Nupur Mcmahan Work Phone: [facility] 09-22-2023 23:48-0500 Diastolic blood pressure 77 mm[Hg] MD Nupur Mcmahan Work Phone: [facility] 09-22-2023 23:48-0500 Heart rate 78 /min MD Nupur Mcmahan Work Phone: [facility] 09-22-2023 23:48-0500 Respiratory rate 20 /min MD Nupur Mcmahan Work Phone: [facility] 09-22-2023 23:48-0500 SaO2% (BldA) [Mass fraction] 98 % MD Nupur Mcmahan Work Phone: [facility] 09-22-2023 23:48-0500 Systolic blood pressure 114 mm[Hg] MD Nupur Mcmahan Work Phone: [facility] 09-22-2023 22:17-0500 Body height 177.8 cm MD Nupur Mcmahan Work Phone: [facility] 09-22-2023 22:17-0500 Body temperature 98.4 [degF] MD Nupur Mcmahan Work Phone: [facility] 09-22-2023 22:17-0500 Body weight 136.45 kg MD Nupur Mcmahan Work Phone: [facility] 08-29-2023 07:45-0500 Body height 180.34 cm Dyana Barraza Other [facility] 08-29-2023 07:45-0500 Body mass index (BMI) [Ratio] 42.12 kg/m2 Dyana Barraza Other [facility] [employer] Other 08-29-2023 07:45-0500 Body weight 136.99 kg Dyana Barraza Other [employer] [facility] [employer] Other 08-29-2023 07:45-0500 Body weight 136.98 kg MD Nupur Mcmahan Work Phone: [facility] 08-29-2023 07:45-0500 Diastolic blood pressure 82 mm[Hg] Dyana Barraza Other [facility] 08-29-2023 07:45-0500 Respiratory rate 18 /min Dyana Barraza Other [employer] [facility] [employer] Other 08-29-2023 07:45-0500 SaO2% (BldA) [Mass fraction] 98 % Dyana Barraza Other [facility] [employer] Other 08-29-2023 07:45-0500 Systolic blood pressure 104 mm[Hg] Dyana Barraza Other [facility] 08-21-2023 18:30-0500 Diastolic blood pressure 88 mm[Hg] MD Nupur Mcmahan Work Phone: [facility] 08-21-2023 18:30-0500 Heart rate 88 /min MD Nupur Mcmahan Work Phone: [facility] 08-21-2023 18:30-0500 Respiratory rate 16 /min MD Nupur Mcmahan Work Phone: [facility] 08-21-2023 18:30-0500 SaO2% (BldA) [Mass fraction] 97 % MD Nupur Mcmahan Work Phone: [facility] 08-21-2023 18:30-0500 Systolic blood pressure 132 mm[Hg] MD Nupur Mcmahan Work Phone: [facility] 08-21-2023 17:22-0500 Body height 177.8 cm MD Nupur Mcmahan Work Phone: [facility] 08-21-2023 17:22-0500 Body temperature 98.4 [degF] MD Nupur Mcmahan Work Phone: [facility] 08-21-2023 17:22-0500 Body weight 136.6 kg MD Nupur Mcmahan Work Phone: [facility] 08-14-2023 11:00-0500 Body height 180.34 cm No PCP [facility] 08-14-2023 11:00-0500 Body mass index (BMI) [Ratio] 42.3 kg/m2 No PCP [facility] 08-14-2023 11:00-0500 Body weight 137.43 kg No PCP [facility] 07-10-2023 07:45-0500 Body height 180.34 cm Dyana Barraza Other [employer] Other 07-10-2023 07:45-0500 Body mass index (BMI) [Ratio] 42.26 kg/m2 Dyana Maloneydiff Other [employer] Other 07-10-2023 07:45-0500 Body weight 137.44 kg Dyana Maloneydiff Other [employer] Other 07-10-2023 07:45-0500 Diastolic blood pressure 76 mm[Hg] Dyana Maloneydiff Other [employer] Other 07-10-2023 07:45-0500 Respiratory rate 18 /min Dyana Maloneydiff Other [employer] Other 07-10-2023 07:45-0500 SaO2% (BldA) [Mass fraction] 97 % Dyana Maloneydiff Other [employer] Other 07-10-2023 07:45-0500 Systolic blood pressure 109 mm[Hg] Dyana Maloneydiff Other [employer] Other 07-02-2023 02:02-0500 Diastolic blood pressure 69 mm[Hg] MD Nupur Mcmahan Work Phone: [facility] 07-02-2023 02:02-0500 Heart rate 85 /min MD Nupur Mcmahan Work Phone: [facility] 07-02-2023 02:02-0500 Respiratory rate 16 /min MD Nupur Mcmahan Work Phone: [facility] 07-02-2023 02:02-0500 SaO2% (BldA) [Mass fraction] 95 % MD Nupur Mcmahan Work Phone: [facility] 07-02-2023 02:02-0500 Systolic blood pressure 110 mm[Hg] MD Nupur Mcmahan Work Phone: [facility] 07-02-2023 01:42-0400 Body height 180.34 cm MD Nupur Mcmahan Work Phone: [facility] 07-02-2023 01:42-0400 Body temperature 97 [degF] MD Nupur Mcmahan Work Phone: [facility] 07-02-2023 01:42-0400 Body weight 136.07 kg MD Nupur Mcmahan Work Phone: [facility] 06-19-2023 15:30-0400 Body height 180.34 cm Libertad Kumari Other [employer] Other 06-19-2023 15:30-0400 Body mass index (BMI) [Ratio] 41.56 kg/m2 Libertad Kumari Other [employer] Other 06-19-2023 15:30-0400 Body weight 135.17 kg Libertad Kumari Other [employer] Other 06-19-2023 15:30-0400 Diastolic blood pressure 102 mm[Hg] Libertad Kumari Other [employer] Other 06-19-2023 15:30-0400 SaO2% (BldA) [Mass fraction] 96 % Libertad Kumari Other [employer] Other 06-19-2023 15:30-0400 Systolic blood pressure 152 mm[Hg] Libertad Kumari Other [employer] Other 06-16-2023 19:00-0400 Diastolic blood pressure 88 mm[Hg] MD Nupur Mcmahan Work Phone: [facility] 06-16-2023 19:00-0400 Heart rate 83 /min MD Nupur Mcmahan Work Phone: [facility] 06-16-2023 19:00-0400 Respiratory rate 16 /min MD Nupur Mcmahan Work Phone: [facility] 06-16-2023 19:00-0400 SaO2% (BldA) [Mass fraction] 99 % MD Nupur Mcmahan Work Phone: [facility] 06-16-2023 19:00-0400 Systolic blood pressure 119 mm[Hg] MD Nupur Mcmahan Work Phone: [facility] 06-16-2023 16:10-0400 Body height 177.8 cm MD Nupur Mcmahan Work Phone: [facility] 06-16-2023 16:10-0400 Body temperature 98.7 [degF] MD Nupur Mcmahan Work Phone: [facility] 06-16-2023 16:10-0400 Body weight 137 kg MD Nupur Mcmahan Work Phone: [facility] 06-16-2023 09:51-0400 Body height 180.34 cm MD Nupur Mcmahan Work Phone: [facility] 06-16-2023 09:51-0400 Body temperature 97.7 [degF] MD Nupur Mcmahan Work Phone: [facility] 06-16-2023 09:51-0400 Body weight 136.07 kg MD Nupur Mcmahan Work Phone: [facility] 06-16-2023 09:51-0400 Diastolic blood pressure 95 mm[Hg] MD Nupur Mcmahan Work Phone: [facility] 06-16-2023 09:51-0400 Heart rate 114 /min MD Nupur Mcmahan Work Phone: [facility] 06-16-2023 09:51-0400 Respiratory rate 20 /min MD uNpur Mcmhaan Work Phone: [facility] 06-16-2023 09:51-0400 SaO2% (BldA) [Mass fraction] 98 % MD Nupur Mcmahan Work Phone: [facility] 06-16-2023 09:51-0400 Systolic blood pressure 155 mm[Hg] MD Nupur Mcmahan Work Phone: [facility] 05-29-2023 07:45-0400 Body height 180.34 cm Dyana Barraza Other [employer] Other 05-29-2023 07:45-0400 Body mass index (BMI) [Ratio] 42.2 kg/m2 Dyana Barraza Other [employer] Other 05-29-2023 07:45-0400 Body weight 137.26 kg Dyana Barraza Other [employer] Other 05-29-2023 07:45-0400 Diastolic blood pressure 76 mm[Hg] Dyana Barraza Other [employer] Other 05-29-2023 07:45-0400 Respiratory rate 18 /min Dyana Barraza Other [employer] Other 05-29-2023 07:45-0400 SaO2% (BldA) [Mass fraction] 99 % Dyana Barraza Other [employer] Other 05-29-2023 07:45-0400 Systolic blood pressure 113 mm[Hg] Dyana Barraza Other [employer] Other 05-17-2023 23:19-0400 Body height 180.34 cm MD Nupur Mcmahan Work Phone: [facility] 05-17-2023 23:19-0400 Body temperature 97.5 [degF] MD Nupur Mcmahan Work Phone: [facility] 05-17-2023 23:19-0400 Body weight 138.34 kg MD Nupur Mcmahan Work Phone: [facility] 05-17-2023 23:19-0400 Diastolic blood pressure 82 mm[Hg] MD Nupur Mcmahan Work Phone: [facility] 05-17-2023 23:19-0400 Heart rate 88 /min MD Nupur Mcmahan Work Phone: [facility] 05-17-2023 23:19-0400 Respiratory rate 20 /min MD Nupur Mcmahan Work Phone: [facility] 05-17-2023 23:19-0400 SaO2% (BldA) [Mass fraction] 99 % MD Nupur Mcmahan Work Phone: [facility] 05-17-2023 23:19-0400 Systolic blood pressure 136 mm[Hg] MD Nupur Mcmahan Work Phone: [facility] 05-16-2023 13:33-0400 Blood Pressure Location Jimmy STOCK [facility] 05-16-2023 13:33-0400 Diastolic blood pressure 79 mm[Hg] Jimmyjaqueline STOCK [facility] 05-16-2023 13:33-0400 Heart rate 79 /min Jimmyjaqueline STOCK [facility] 05-16-2023 13:33-0400 Systolic blood pressure 122 mm[Hg] Jimmyjaqueline STOCK [facility] 04-21-2023 21:06-0400 Body height 180.34 cm MD Nupur Mcmahan Work Phone: [facility] 04-21-2023 21:06-0400 Body temperature 98.1 [degF] MD Nupur Mcmahan Work Phone: [facility] 04-21-2023 21:06-0400 Body weight 141.65 kg MD Nupur Mcmahan Work Phone: [facility] 04-21-2023 21:06-0400 Diastolic blood pressure 108 mm[Hg] MD Nupur Mcmahan Work Phone: [facility] 04-21-2023 21:06-0400 Heart rate 91 /min MD Nupur Mcmahan Work Phone: [facility] 04-21-2023 21:06-0400 Respiratory rate 17 /min MD Nupur Mcmahan Work Phone: [facility] 04-21-2023 21:06-0400 SaO2% (BldA) [Mass fraction] 99 % MD Nupur Mcmahan Work Phone: [facility] 04-21-2023 21:06-0400 Systolic blood pressure 151 mm[Hg] MD Nupur Mcmahan Work Phone: [facility] 04-14-2023 10:07-0400 Body height 180.34 cm MD Nupur Mcmahan Work Phone: [facility] 04-14-2023 10:07-0400 Body temperature 97.8 [degF] MD Nupur Mcmahan Work Phone: [facility] 04-14-2023 10:07-0400 Body weight 142.5 kg MD Nupur Mcmahan Work Phone: [facility] 04-14-2023 10:07-0400 Diastolic blood pressure 73 mm[Hg] MD Nupur Mcmahan Work Phone: [facility] 04-14-2023 10:07-0400 Heart rate 90 /min MD Nupur Mcmahan Work Phone: [facility] 04-14-2023 10:07-0400 Respiratory rate 16 /min MD Nupur Mcmahan Work Phone: [facility] 04-14-2023 10:07-0400 SaO2% (BldA) [Mass fraction] 100 % MD Nupur Mcmahan Work Phone: [facility] 04-14-2023 10:07-0400 Systolic blood pressure 137 mm[Hg] MD Nupur Mcmahan Work Phone: [facility] 02-07-2023 08:30-0400 Body height 180.34 cm Dyana Barraza Other [employer] Other 02-07-2023 08:30-0400 Body mass index (BMI) [Ratio] 45.63 kg/m2 Dyana Barraza Other [employer] Other 02-07-2023 08:30-0400 Body weight 148.42 kg Dyana Barraza Other [employer] Other 02-07-2023 08:30-0400 Diastolic blood pressure 74 mm[Hg] Dyana Barraza Other [employer] Other 02-07-2023 08:30-0400 Respiratory rate 18 /min Dyana Barraza Other [employer] Other 02-07-2023 08:30-0400 SaO2% (BldA) [Mass fraction] 97 % Dyana Barraza Other [employer] Other 02-07-2023 08:30-0400 Systolic blood pressure 103 mm[Hg] Dyana Barraza Other [employer] Other 09-06-2022 21:07-0500 Body height 177.8 cm MD Nupur Mcmahan Work Phone: [facility] 09-06-2022 21:07-0500 Body weight 148.25 kg MD Nupur Mcmahan Work Phone: [facility] 09-06-2022 21:06-0500 Body temperature 98.1 [degF] MD Nupur Mcmahan Work Phone: [facility] 09-06-2022 21:06-0500 Diastolic blood pressure 91 mm[Hg] MD Nupur Mcmahan Work Phone: [facility] 09-06-2022 21:06-0500 Heart rate 92 /min MD Nupur Mcmahan Work Phone: [facility] 09-06-2022 21:06-0500 Respiratory rate 18 /min MD Nupur Mcmahan Work Phone: [facility] 09-06-2022 21:06-0500 SaO2% (BldA) [Mass fraction] 99 % MD Nupur cMmahan Work Phone: [facility] 09-06-2022 21:06-0500 Systolic blood pressure 172 mm[Hg] MD Nupur Mcmahan Work Phone: [facility] 07-12-2022 18:31-0500 Heart rate 113 /min MD Nupur Mcmahan Work Phone: [facility] 07-12-2022 18:31-0500 Respiratory rate 18 /min MD Nupur Mcmahan Work Phone: [facility] 07-12-2022 18:31-0500 SaO2% (BldA) [Mass fraction] 96 % MD Nupur Mcmahan Work Phone: [facility] 07-12-2022 17:29-0500 Body height 177.8 cm MD Nupur Mcmahan Work Phone: [facility] 07-12-2022 17:29-0500 Body temperature 98.1 [degF] MD Nupur Mcmahan Work Phone: [facility] 07-12-2022 17:29-0500 Body weight 146.4 kg MD Nupur Mcmahan Work Phone: [facility] 07-12-2022 17:29-0500 Diastolic blood pressure 109 mm[Hg] MD Nupur Mcmahan Work Phone: [facility] 07-12-2022 17:29-0500 Systolic blood pressure 173 mm[Hg] MD Nupur Mcmahan Work Phone: [facility] 05-27-2022 07:25-0400 Body height 177.8 cm MD Nupur Mcmahan Work Phone: [facility] 05-27-2022 07:25-0400 Body temperature 97.7 [degF] MD Nupur Mcmahan Work Phone: [facility] 05-27-2022 07:25-0400 Body weight 149.7 kg MD Nupur Mcmahan Work Phone: [facility] 05-27-2022 07:25-0400 Diastolic blood pressure 86 mm[Hg] MD Nupur Mcmahan Work Phone: [facility] 05-27-2022 07:25-0400 Heart rate 81 /min MD Nupur Mcmahan Work Phone: [facility] 05-27-2022 07:25-0400 Respiratory rate 18 /min MD Nupur Mcmahan Work Phone: [facility] 05-27-2022 07:25-0400 SaO2% (BldA) [Mass fraction] 98 % MD Nupur Mcmahan Work Phone: [facility] 05-27-2022 07:25-0400 Systolic blood pressure 140 mm[Hg] MD Nupur Mcmahan Work Phone: [facility] 03-29-2022 09:28-0400 Blood Pressure Location Jimmy STOCK [facility] 03-29-2022 09:28-0400 Diastolic blood pressure 70 mm[Hg] Jimmy STOCK [facility] 03-29-2022 09:28-0400 Heart rate 100 /min Jimmy STOCK [facility] 03-29-2022 09:28-0400 Respiratory rate 16 /min Jimmy STOCK [facility] 03-29-2022 09:28-0400 Systolic blood pressure 129 mm[Hg] Jimmy STOCK [facility] 11-30-2021 13:28-0400 Body temperature 97.7 [degF] Any NOGUEIRA [facility] 11-19-2021 19:35-0400 Body temperature 97.9 [degF] MD Nupur Mcmahan Work Phone: [facility] 11-19-2021 19:35-0400 Diastolic blood pressure 104 mm[Hg] MD Nupur Mcmahan Work Phone: [facility] 11-19-2021 19:35-0400 Heart rate 113 /min MD Nupur Mcmahan Work Phone: [facility] 11-19-2021 19:35-0400 Respiratory rate 18 /min MD Nupur Mcmahan Work Phone: [facility] 11-19-2021 19:35-0400 SaO2% (BldA) [Mass fraction] 99 % MD Nupur Mcmahan Work Phone: [facility] 11-19-2021 19:35-0400 Systolic blood pressure 150 mm[Hg] MD Nupur Mcmahan Work Phone: [facility] 11-19-2021 19:33-0400 Body height 177.8 cm MD Nupur Mcmahan Work Phone: [facility] 11-19-2021 19:33-0400 Body mass index (BMI) [Ratio] 47.7 kg/m2 Nupur Hoy Work Phone: [facility] 11-19-2021 19:33-0400 Body weight 151 kg MD Nupur Hoy Work Phone: [facility] 01-19-2021 19:54-0400 Diastolic blood pressure 74 mm[Hg] M Nupur Hoy Work Phone: [facility] 01-19-2021 19:54-0400 Heart rate 89 /min M Nupur Hoy Work Phone: [facility] 01-19-2021 19:54-0400 Respiratory rate 18 /min M Nupur Hoy Work Phone: [facility] 01-19-2021 19:54-0400 SaO2% (BldA) [Mass fraction] 97 % M Nupur Hoy Work Phone: [facility] 01-19-2021 19:54-0400 Systolic blood pressure 114 mm[Hg] M Nupur Hoy Work Phone: [facility] 01-19-2021 18:15-0400 Body height 180.34 cm M Nupur Hoy Work Phone: [facility] 01-19-2021 18:15-0400 Body mass index (BMI) [Ratio] 44.9 kg/m2 M Nupur Hoy Work Phone: [facility] 01-19-2021 18:15-0400 Body temperature 98 [degF] M Nupur Hoy Work Phone: [facility] 01-19-2021 18:15-0400 Body weight 145.95 kg M Nupur Hoy Work Phone: [facility] 09-15-2020 23:43-0500 BMI (Body Mass Index) 41.8 kg/m2 Nupur Hoy [facility] 09-15-2020 23:43-0500 Body Temperature 98.2 [degF] Nupur Hoy [facility] 09-15-2020 23:43-0500 Body weight 136 kg Nupur Hoy [facility] 09-15-2020 23:43-0500 BP Diastolic 96 mm[Hg] Nupur Hoy [facility] 09-15-2020 23:43-0500 BP Systolic 139 mm[Hg] Nupur Hoy [facility] 09-15-2020 23:43-0500 Height 180.34 cm Nupur Hoy [facility] 09-15-2020 23:43-0500 Pulse (Heart Rate) 95 /min Nupur Hoy [facility] 09-15-2020 23:43-0500 Pulse Oximetry 100 % Nupur Hoy [facility] 09-15-2020 23:43-0500 Respiratory Rate 16 /min Nupur Hoy [facility] 09-13-2020 18:25-0500 BMI (Body Mass Index) 42 kg/m2 [facility] 09-13-2020 18:25-0500 Body Temperature 97.2 [degF] [facility] 09-13-2020 18:25-0500 Body weight 136.8 kg Nupur Hoy [facility] 09-13-2020 18:25-0500 BP Diastolic 95 mm[Hg] Nupur Hoy [facility] 09-13-2020 18:25-0500 BP Systolic 148 mm[Hg] Nupur Hoy [facility] 09-13-2020 18:25-0500 Height 180.34 cm Nupur Hoy [facility] 09-13-2020 18:25-0500 Pulse (Heart Rate) 120 /min Nupur Hoy [facility] 09-13-2020 18:25-0500 Pulse Oximetry 98 % [facility]up[facility] 09-13-2020 18:25-0500 Respiratory Rate 18 /min [facility] Encounters Encounter Date Encounter Type Care Provider Facility Start: 05-19-2025 ambulatory Jimmy STOCK [facility] Start: 09-10-2024 End: 09-10-2024 Bamboo flowsheet Jean Carlos Barrington DO Work Phone: [facility] Start: 09-10-2024 End: 09-10-2024 [employer] flowsheet Jean Carlos Barrington DO Work Phone: [facility] Start: 09-10-2024 End: 09-10-2024 Patient encounter procedure Jean Carlos Barrington DO Work Phone: [facility] Work Phone: Start: 09-10-2024 End: 09-10-2024 Periodic preventive med est patient 18-39 yrs Jean Carlos Barrington DO Work Phone: [facility] Comment on above: Well woman exam with routine gynecological exam Start: 08-07-2024 End: 08-07-2024 ambulatory Shahbaz Cornelius Facility:[facility] Comment on above: Radiology XR Start: 08-07-2024 End: 08-07-2024 Patient encounter procedure Edita Oswald RT(R) Radiology Comment on above: 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, subsequent encounter (Primary Dx) Start: 07-30-2024 End: 07-30-2024 Patient Msg Beatrice Cabrera DPM Work Phone: Orthopaedics Comment on above: Naprosyn refill Start: 07-11-2024 End: 07-11-2024 Subsequent hospital visit by physician Jeni Bond 1 Work Phone: Radiology Comment on above: Post-operative state [Z98.890] Start: 07-11-2024 End: 07-11-2024 ambulatory Dariusz Hamzah RT(R) Radiology Comment on above: Radiology XR Start: 07-11-2024 End: 07-11-2024 Patient encounter procedure Dariusz Hamzah RT(R) Radiology Comment on above: 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, subsequent encounter (Primary Dx) 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, subsequent encounter (Primary Dx); Delayed union of metatarsal fracture, left Start: 07-10-2024 End: 07-30-2024 Orders Only Beatrice Cabrera DPM Work Phone: Orthopaedics Comment on above: Post-operative state (Primary Dx) Start: 06-26-2024 End: 06-26-2024 Subsequent hospital visit by physician Jeni Bond 1 Work Phone: Radiology Comment on above: 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, subsequent encounter [[id number]] Start: 06-26-2024 End: 06-26-2024 ambulatory Aleah Wilson RT(R) Radiology Comment on above: Radiology XR Start: 06-26-2024 End: 06-26-2024 Patient encounter procedure Aleah Wilson RT(R) Radiology Comment on above: 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, subsequent encounter (Primary Dx) Start: 06-05-2024 End: 06-05-2024 Patient encounter procedure Cast Tech Breanna Work Phone: Orthopaedics Comment on above: 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, subsequent encounter (Primary Dx) Start: 06-05-2024 End: 06-05-2024 ambulatory BEATRICE CABRERA Facility:[facility] Start: 06-05-2024 End: 06-05-2024 Subsequent hospital visit by physician Jeni Bond 1 Work Phone: Radiology Comment on above: 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, subsequent encounter [K94.668K] Start: 06-04-2024 End: 06-04-2024 Emergency department patient visit MD Nupur Mcmahan Work Phone: [facility] Work Phone: Start: 05-29-2024 Registered Recurring MD Fidel Mcmahan Work Phone: [facility] Start: 05-22-2024 End: 05-22-2024 Patient encounter procedure Beatrice Cabrera DPM Work Phone: Orthopaedics Comment on above: 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, subsequent encounter (Primary Dx) Start: 05-22-2024 End: 05-22-2024 ambulatory Edita Oswald RT(R) Radiology Comment on above: Radiology XR Start: 05-22-2024 End: 05-22-2024 Subsequent hospital visit by physician Jeni Bond 1 Work Phone: Radiology Comment on above: 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, subsequent encounter [O02.532I] Start: 05-20-2024 End: 05-20-2024 ambulatory Jimmy STOCK Facility:[facility] Start: 05-20-2024 End: 05-20-2024 Patient encounter procedure Jimmy STOCK [facility] Start: 05-14-2024 End: 05-15-2024 Telephone encounter Beatrice Cabrera DPM Work Phone: Orthopaedics Comment on above: Patient Update; Surg ical Followup Start: 05-13-2024 End: 05-13-2024 ambulatory BEATRICE CABRERA Facility:[facility] Start: 04-30-2024 End: 04-30-2024 PAT [facility] [employer] Work Phone: Pre Anesthesia Comment on above: Pre-op evaluation (P rimary Dx); Smoker; Obstructive sleep apnea syndrome in adult; Paroxysmal supraventricular tachycardia (HCC); Primary hypertension; Gastroesophageal reflux disease, unspecified whether esophagitis present; Bipolar affective disorder, remission status unspecified (HCC); Obesity, morbid (HCC) Start: 04-30-2024 End: 04-30-2024 Preprocedural examination done [facility] Work Phone: [facility] Work Phone: Start: 03-29-2024 End: 03-29-2024 Office outpatient new 45 minutes Fabiano Paige DO Work Phone: Orthopaedics Comment on above: Primary osteoarthrit is of both knees (Primary Dx); Chronic pain of both knees Start: 03-29-2024 End: 03-29-2024 ambulatory FABIANO PAIGE Facility:[facility] Start: 03-29-2024 End: 03-29-2024 Subsequent hospital visit by physician [facility]r [facility] Work Phone: Radiology Comment on above: Acute pain of left ruthie davidson [M25.562] Start: 03-28-2024 End: 05-15-2024 Orders Only Fabiano Paige DO Work Phone: [facility] [place] Comment on above: Pain (Primary Dx); Displaced fracture of fifth metatarsal bone, left foot, initial encounter for closed fracture Start: 03-27-2024 End: 03-27-2024 Emergency department patient visit MD Nupur Mcmahan Work Phone: [facility] Work Phone: Start: 03-19-2024 Registered Recurring MD Fidel Mcmahan Work Phone: [facility] [employer] Start: 02-19-2024 Telephone encounter Jose Cabrera DPM Work Phone: Orthopaedics Comment on above: FMLA Paperwork Start: 02-08-2024 Telephone encounter Jose Cabrera DPM Work Phone: Orthopaedics Comment on above: Surgical Followup Start: 01-24-2024 Registered Recurring MD Fidel Mcmahan Work Phone: [facility] [employer] Start: 01-18-2024 ambulatory Beatrice Cabrera DPM Work Phone: Orthopaedics Start: 01-18-2024 Patient encounter procedure Beatrice Cabrera DPM Work Phone: Orthopaedics Start: 01-17-2024 Telephone encounter Jose Cabrera DPM Work Phone: Orthopaedics Comment on above: Surgical Followup Start: 01-12-2024 End: 01-12-2024 ambulatory Elisha Friedman RT(R) Radiology Comment on above: Radiology XR Start: 01-12-2024 End: 01-12-2024 Patient encounter procedure Beatrice Cabrera DPM Work Phone: Orthopaedics Comment on above: Pain in left foot (P rimary Dx); 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, subsequent encounter; Delayed union of metatarsal fracture, left Start: 01-12-2024 End: 01-12-2024 Subsequent hospital visit by physician Jeni [facility] Work Phone: Radiology Comment on above: Pain in left foot [M [id number]] Start: 12-01-2023 End: 12-01-2023 ambulatory MD Nupur Mcmahan Work Phone: [facility] Work Phone: Start: 12-01-2023 End: 12-01-2023 Patient encounter procedure MD Nupur Mcmahan Work Phone: [facility] Work Phone: Start: 10-20-2023 End: 10-20-2023 ambulatory MD Nupur Mcmahan Work Phone: [facility] Work Phone: Start: 10-20-2023 End: 10-20-2023 Patient encounter procedure MD Nupur Mcmahan Work Phone: [facility] Work Phone: Start: 10-09-2023 End: 10-10-2023 ambulatory [facility] Start: 09-25-2023 Registered Recurring MD Fidel Mcmahan Work Phone: [facility] Start: 09-24-2023 End: 09-24-2023 Emergency department patient visit MD Nupur Mcmahan Work Phone: [facility] Work Phone: Start: 09-22-2023 End: 09-23-2023 Emergency department patient visit MD Nupur Mcmahan Work Phone: [facility] Work Phone: Start: 09-07-2023 Patient encounter procedure Jean Carlos Ferris DO Work Phone: [facility] Start: 09-07-2023 End: 09-07-2023 ambulatory JEAN CARLOS DAVISO Not Available Start: 08-29-2023 Follow-up encounter Dyana Barraza [facility] Start: 08-29-2023 End: 08-29-2023 ambulatory Dyana Barraza [facility] [employer] Other Start: 08-29-2023 Registered Recurring MD Fidel Mcmahan Work Phone: [facility] Work Phone: Start: 08-29-2023 End: 08-29-2023 Patient encounter procedure MD Nupur Mcmahan Work Phone: [facility] Work Phone: Start: 08-22-2023 End: 08-22-2023 Patient encounter procedure MD Nupur Mcmahan Work Phone: [facility] [place] Work Phone: Start: 08-22-2023 End: 08-22-2023 ambulatory MD Nupur Mcmahan Work Phone: [facility] Work Phone: Start: 08-21-2023 End: 08-21-2023 Emergency department patient visit MD Nupur Mcmahan Work Phone: [facility] Work Phone: Start: 08-14-2023 End: 08-14-2023 ambulatory Beatrice Shafer Facility[facility] Start: 08-14-2023 End: 08-14-2023 ambulatory No PCP [facility] Work Phone: Start: 08-14-2023 End: 08-14-2023 Patient encounter procedure No PCP [facility] Work Phone: Start: 07-18-2023 Registered Recurring MD Fidel Mcmahan Work Phone: [facility] Start: 07-10-2023 Registered Recurring MD Fidel Mcmahan Work Phone: [facility] Work Phone: Start: 07-10-2023 End: 07-10-2023 ambulatory Dyana Barraza Other [facility] [employer] Other Start: 07-10-2023 Follow-up encounter Dyana byrnes [facility] Start: 07-10-2023 End: 07-10-2023 Patient encounter procedure MD Nupur Mcmahan Work Phone: [facility] Work Phone: Start: 07-02-2023 End: 07-02-2023 Emergency department patient visit MD Nupur Mcmahan Work Phone: [facility] Work Phone: Start: 06-23-2023 ambulatory JIMMY HUNTLEY [facility] Start: 06-19-2023 End: 06-19-2023 Patient encounter procedure MD Nupur Mcmahan Work Phone: [facility] Work Phone: Start: 06-19-2023 End: 06-19-2023 ambulatory MD Nupur Mcmahan Work Phone: [facility] Work Phone: Start: 06-19-2023 Office outpatient ne w 30 minutes Libertad Kumari [facility] Start: 06-19-2023 End: 06-19-2023 ambulatory RICHA [facility] Start: 06-16-2023 End: 06-16-2023 Emergency department patient visit MD Nupur Mcmahan Work Phone: [facility] Work Phone: Start: 06-16-2023 End: 06-16-2023 Emergency department patient visit MD Nupur Mcmahan Work Phone: [facility] Work Phone: Start: 06-12-2023 End: 06-12-2023 ambulatory MD Nupur Mcmahan Work Phone: [facility] Work Phone: Start: 06-12-2023 End: 06-12-2023 Patient encounter procedure MD Nupur Mcmahan Work Phone: [facility] Work Phone: Start: 05-29-2023 Registered Recurring MD Fidel Mcmahan Work Phone: [facility] Work Phone: Start: 05-29-2023 End: 05-29-2023 ambulatory Dyana Barraza Other [facility] [employer] Other Start: 05-29-2023 Follow-up encounter Dyana byrnes [facility] Start: 05-25-2023 Registered Recurring MD Fidel Mcmahan Work Phone: [facility] Start: 05-24-2023 End: 05-25-2023 ambulatory [facility] Start: 05-17-2023 End: 05-18-2023 Emergency department patient visit MD Nupur Mcmahan Work Phone: [facility] Work Phone: Start: 05-16-2023 End: 05-16-2023 Patient encounter procedure Jimmy STOCK [facility] Start: 04-21-2023 End: 04-21-2023 Emergency department patient visit MD Nupur Mcmahan Work Phone: [facility] Work Phone: Start: 04-14-2023 End: 04-14-2023 Emergency department patient visit MD Nupur Mcmahan Work Phone: [facility] Work Phone: Start: 04-10-2023 ambulatory [facility] Start: 04-04-2023 End: 04-04-2023 ambulatory Zeenat Abundiot Other [employer] Other Start: 04-04-2023 IBT FOR OBESITY GROU P 2-10 30M Zeenat Fitt [facility] Start: 04-04-2023 Registered Recurring MD Fidel Mcmahan Work Phone: [facility] Work Phone: Start: 03-30-2023 End: 03-31-2023 ambulatory JIMMY Amaro [facility] Start: 02-07-2023 End: 02-07-2023 ambulatory Dyana Barraza Other [employer] [facility] [employer] Other Start: 02-07-2023 Nutrition therapy Dyana Barraza [facility] Start: 01-03-2023 ambulatory JIMMY Amaro [facility] Start: 12-20-2022 End: 12-21-2022 ambulatory JIMMY Amaro [facility] Start: 11-14-2022 End: 11-15-2022 ambulatory GRAPEVIEW Prem [facility] Start: 10-21-2022 End: 10-22-[address] NUPUR MCMAHAN . Facility:[facility] Start: 09-23-2022 End: 09-24-[address] NUPUR MCMAHAN . Facility:[facility] Start: 09-16-2022 End: 09-16-2022 ambulatory MD Nupur Mcmahan Work Phone: [facility] Work Phone: Start: 09-16-2022 End: 09-16-2022 Discharged Recurring MD Nupur Mcmahan Work Phone: [facility]Physical Therapy [place] Start: 09-07-2022 End: 09-07-2022 Patient encounter procedure Jimmy STOCK [facility] Start: 09-06-2022 End: 09-07-[address] NUPUR MCMAHAN . Facility:[facility] Start: 09-06-2022 End: 09-06-2022 Emergency department patient visit MD Nupur Mcmahan Work Phone: [facility] Work Phone: Start: 07-26-[address] NUPUR MCMAHAN . Facili ty:[facility] Start: 07-12-2022 End: 07-12-2022 Emergency department patient visit MD Nupur Mcmahan Work Phone: [facility] Start: 06-28-2022 End: 06-29-[address] JIMMY HUNTLEY Facility:[facility] Start: 06-22-2022 End: 06-23-[address] NUPUR MCMAHAN . Facility:[facility] Start: 05-31-2022 End: 06-01-[address] NUPUR MCMAHAN . Facility:[facility] Start: 05-27-2022 End: 05-27-2022 Emergency department patient visit MD Nupur Mcmahan Work Phone: [facility] Start: 03-29-2022 End: 03-29-2022 Patient encounter procedure Jimmy STOCK [facility] Start: 01-20-2022 End: 01-21-[address] NUPUR MCMAHAN . Facility:[facility] Start: 11-30-2021 End: 11-30-2021 Patient encounter procedure Any NOGUEIRA General Surgery Nill/Jeronimo Crowder Start: 11-19-2021 End: 11-19-2021 Emergency department patient visit MD Nupur Mcmahan Work Phone: [facility] Start: 09-16-2021 End: 09-16-2021 Patient encounter procedure MD Nupur Mcmahan Work Phone: [facility] COVID Testing Start: 01-19-2021 End: 01-19-2021 Emergency department patient visit Gabriella Mcmahan Work Phone: -Emergency Room Start: 09-15-2020 End: 09-16-2020 Emergency department patient visit Nupur Mcmahan -Emergency Room Start: 09-13-2020 End: 09-13-2020 Emergency department patient visit Nupur Mcmahan -Emergency Room Start: 06-03-2018 End: 06-03-2018 Emergency department patient visit [place] Gabriella [facility] Start: 05-08-2018 End: 05-10-2018 Evaluation and management of inpatient LORAINE MESAUC [facility] Start: 05-07-2018 End: 05-08-2018 Emergency department patient visit [place] Gabriella [facility] Start: 04-02-2018 End: 04-06-2018 Evaluation and management [facility] Start: 03-15-2018 End: 03-15-2018 Emergency department patient visit [facility] Start: 02-09-2018 End: 02-09-2018 Patient encounter procedure NATASHA COBIAN Facility:[facility] Start: 11-14-2017 End: 11-17-2017 Evaluation and management of inpatient EMMIE Fry [facility] Start: 11-14-2017 End: 11-14-2017 Emergency department patient visit [facility] Start: 11-03-2017 End: 11-04-2017 Emergency department patient visit [facility] Start: 09-07-2017 End: 2017 Patient encounter NUPUR M Kd [facility] Start: 08-31-2017 End: 08-31-2017 Emergency department patient visit [facility] Start: 07-31-2017 End: 08-01-2017 Emergency department patient visit [facility] Start: 06-11-2017 End: 06-11-2017 Emergency department patient visit [facility] Start: 06-06-2017 End: 06-06-2017 Emergency department patient visit BEATRICE SCHUYLER [facility] Procedures Date Procedure Procedure Detail Performing Clinician Start: 07-11-2024 Radex foot complete minimum 3 views Wilbertalfredanjum Cabrera DPM Work Phone: Start: 06-26-2024 Radex foot complete minimum 3 views Beatrice Del Cabrera DPM Work Phone: Start: 06-05-2024 Radex foot complete minimum 3 views Jhonatananjum Mathis Deborah DPM Work Phone: Start: 05-22-2024 Radex foot complete minimum 3 views Beatrice Cabrera DPM Work Phone: Start: 03-29-2024 Radiologic exam knee complete 4/more views Arnoldo King DO Work Phone: Start: 03-27-2024 X-ray of right knee MD Nupur Mcmahan Work Phone: Start: 01-12-2024 Radex foot complete minimum 3 views Beatrice Del Deborah DPM Work Phone: Start: 08-14-2023 Radiologic examinati on of knee, anteroposterior and lateral views No PCP Start: 08-14-2023 X-ray of both knees No PCP Start: 07-02-2023 Plain chest X-ray MD Cooper Work Phone: Start: 06-19-2023 Follow-up visit Follow-up OSAMA E LATTAR Start: 06-16-2023 CT of head without contrast MD Nupur Mcmahan Work Phone: Start: 06-16-2023 Urine culture MD Fidel Mcmahan Work Phone: Start: 05-17-2023 CT of facial bones w ithout contrast MD Nupur Mcmahan Work Phone: Start: 05-17-2023 CT of head without contrast MD Nupur Mcmahan Work Phone: Start: 07-12-2022 Plain X-ray of right hand MD Nupur Mcmahan Work Phone: Start: 07-12-2022 Plain X-ray of right wrist MD Nupur Mcmahan Work Phone: Start: 05-27-2022 Radiologic examinati on of knee MD Nupur Mcmahan Work Phone: Start: 05-27-2022 X-ray of left foot MD Tolu Mcmahan Work Phone: Start: 11-17-2021 Excision of cyst Judy NOGUEIRA Comment on above: back Start: 09-16-2021 SARS Antigen (LFIA) MD Nupur Mcmahan Work Phone: Start: 01-19-2021 CT abdomen pelvis wo con Gabriella Nupur Mcmahan Work Phone: Start: 09-13-2020 X-ray of right knee Radha ediwn Mcmahan Start: 06-03-2018 EKG 12-LEAD JOSE PAYAN Start: 05-10-2018 DISCHARGE PATIENT SREEK ANTH INDURTI Start: 05-09-2018 Assay of free thyroxine CONSTANTINO INDURTI Start: 05-09-2018 Assay of thyroid stimulating hormone tsh CONSTANTINO INDURTI Start: 05-09-2018 Hemoglobin glycosylated a1c CONSTANTINO INDURTI Start: 05-09-2018 Lipid panel CONSTANTINO INDURTI Start: 05-08-2018 IP CONSULT TO SOCIAL WORK CONSTANTINO INDURTI Start: 05-08-2018 DIET GENERAL CONSTANTINO INDURTI Start: 05-08-2018 FULL CODE CONSTANTINO INDURTI Start: 05-08-2018 IP CONSULT TO HOSPITALIST CONSTANTINO INDURTI Start: 05-08-2018 MONITOR CONSTANTINO INDURTI Start: 05-08-2018 PATIENT STATUS (DIRECT) CONSTANTINO INDURTI Start: 05-08-2018 SUICIDE PRECAUTIONS SRE EKANTH INDURTI Start: 05-08-2018 TOBACCO CESSATION EDUCATION CONSTANTINO INDURTI Start: 05-08-2018 VITAL SIGNS CONSTANTINO INDURTI Start: 05-08-2018 Culture bacterial quanttative colony count urine BEATRICE PAYAN Start: 05-08-2018 Microscopic urinalysis BEATRICE PAYAN Start: 05-08-2018 URINE DRUG SCREEN TASHA TIM PAYAN Start: 05-08-2018 Urine test visual color cmprsn meths BEATRICE PAYAN Start: 05-08-2018 URINE RT REFLEX TO CULTURE BEATRICE PAYAN Start: 05-08-2018 ACETAMINOPHEN LEVEL CHR ISTOPHER SCHUYLER Start: 05-08-2018 Basic metabolic pane l calcium total BEATRICE PAYAN Start: 05-08-2018 Blood count complete automated BEATRICE PAYAN Start: 05-08-2018 ETHANOL JOSE PAYAN Start: 05-08-2018 SALICYLATE LEVEL WILBERT PAYAN Start: 05-07-2018 SUICIDE PRECAUTIONS BHAVIN PAYAN Start: 04-05-2018 DISCHARGE PATIENT SREEK ANTH INDURTI Start: 04-03-2018 Blood count complete auto&auto difrntl wbc CONSTANTINO INDURTI Start: 04-03-2018 Comprehensive metabo lic panel CONSTANTINO INDURTI Start: 04-03-2018 Gonadotropin chorion ic qualitative CONSTANTINO INDURTI Start: 04-03-2018 Lipid panel CONSTANTINO INDURTI Start: 04-03-2018 T3, FREE CONSTANTINO INDURTI Start: 04-03-2018 T4 CONSTANTINO INDURTI Start: 04-03-2018 TSH WITH REFLEX SREEKAN TH INDURTI Start: 04-03-2018 DIET GENERAL CONSTANTINO INDURTI Start: 04-03-2018 EKG 12-LEAD CONSTANTINO INDURTI Start: 04-02-2018 URINE DRUG SCREEN SREEK ANTH INDURTI Start: 04-02-2018 URINE RT REFLEX TO CULTURE CONSTANTINO INDURTI Start: 04-02-2018 FULL CODE CONSTANTINO INDURTI Start: 04-02-2018 IP CONSULT TO HISTOR Y AND PHYSICAL CONSTANTINO INDURTI Start: 04-02-2018 PATIENT STATUS (DIRECT) CONSTANTINO INDURTI Start: 04-02-2018 VITAL SIGNS CNOSTANTINO INDURTI Start: 03-15-2018 Radiologic exam ches t 2 views BEATRICE PAYAN Start: 11-17-2017 DISCHARGE PATIENT MANSOOR CANCHOLAWO Start: 11-14-2017 SUICIDE PRECAUTIONS THO DARIO OSINOWO Start: 11-14-2017 TOBACCO CESSATION EDUCATION EMMIE SALAS Start: 11-14-2017 UNRESTRICTED VISITAT ION STATUS EMMIE SALAS Start: 11-14-2017 DIET GENERAL EMMIE OSMagdalena NOWO Start: 11-14-2017 FULL CODE EMMIE GAMBOA NOWLisandra Start: 11-14-2017 MONITOR EMMIE GAMBOA NOWO Start: 11-14-2017 NURSING COMMUNICATION T HOMAHector SALAS Start: 11-14-2017 VITAL SIGNS EMMIE GAMBOA NOWO Start: 11-14-2017 PATIENT STATUS (DIRECT) EMMIE CANCHOLAWO Start: 11-14-2017 CBC WITH AUTO DIFFERENTIAL BEATRICE SCHUYLER Start: 11-14-2017 COMPREHENSIVE METABO LIC PANEL BEATRICE SCHUYLER Start: 11-14-2017 ETHANOL JOSE Ramos SCHUYLER Start: 11-14-2017 LITHIUM LEVEL JHONATAN PRADO SCHUYLER Start: 11-14-2017 TSH WITHOUT REFLEX CHRMagdalena PAYAN Start: 11-14-2017 Microscopic urinalysis WILBERTSRAVANI SCHUYLER Start: 11-14-2017 , URINE WILBERT LASSITER SCHUYLER Start: 11-14-2017 UA W/REFLEX CULTURE CHR ISTOPHER PAYAN Start: 11-14-2017 URINE DRUG SCREEN TASHA DUMONT SCHUYLER Start: 11-14-2017 EKG 12-LEAD JOSE PAYAN Start: 11-14-2017 SUICIDE PRECAUTIONS CHR ISTOPHER PAYAN Start: 09-07-2017 LITHIUM LEVEL JHONATAN PRADO SCHUYLER Start: 08-31-2017 VITAL SIGNS JOSE PAYAN Start: 08-31-2017 ACETAMINOPHEN LEVEL BHAVIN ISTOPHER PAYAN Start: 08-31-2017 CBC WITH AUTO DIFFERENTIAL WILBERTSRAVANI SCHUYLER Start: 08-31-2017 COMPREHENSIVE METABO LIC PANEL WILBERTSRAVANI SCHUYLER Start: 08-31-2017 ETHANOL JOSE Rachel PAYAN Start: 08-31-2017 HCG, SERUM, QUALITATIVE WILBERTSRAVANI SCHUYLER Start: 08-31-2017 SALICYLATE LEVEL WILBERT LASSITER SCHUYLER Start: 08-31-2017 EKG 12-LEAD JOSE PAYAN Start: 08-31-2017 Microscopic urinalysis WILBERTSRAVANI SCHUYLER Start: 08-31-2017 UA W/REFLEX CULTURE BHAVIN ISTOPHER PAYAN Start: 08-31-2017 URINE DRUG SCREEN TASHA DUMONT SCHUYLER Start: 08-31-2017 SUICIDE PRECAUTIONS CHR ISTOPHER PAYAN Start: 07-31-2017 TELEMETRY MONITORING CH RISTIM PAYAN Start: 07-31-2017 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 CECILIA HAIDER PAYAN Start: 07-31-2017 Continuous pulse oximetry WILBERTSRAVANI SCHUYLER Start: 07-31-2017 , URINE WILBERT LASSITER SCHUYLER Start: 07-31-2017 Urinalysis JOSE PAYAN Start: 07-31-2017 URINE DRUG SCREEN TASHA DUMONT SCHUYLER Start: 07-31-2017 SUICIDE PRECAUTIONS CHR ISTOPHER PAYAN Start: 07-31-2017 EKG 12-LEAD JOSE PAYAN Start: 07-31-2017 ACETAMINOPHEN LEVEL CHR MICKEY PAYAN Start: 07-31-2017 CBC WITH AUTO DIFFERENTIAL BEATRICE PAYAN Start: 07-31-2017 COMPREHENSIVE METABO LIC PANEL BEATRICE PAYAN Start: 07-31-2017 ETHANOL JOSE PAYAN Start: 07-31-2017 LIPASE JOSE PAYAN Start: 07-31-2017 SALICYLATE LEVEL WILBERT PAYAN Start: 06-11-2017 Chest x-ray 1 view frontal BEATRICE PAYAN Start: 06-11-2017 EKG 12-LEAD JOSE Ramos SCHUYLER Start: 06-11-2017 CBC WITH AUTO DIFFERENTIAL BEATRICE PAYAN Start: 06-11-2017 COMPREHENSIVE METABO LIC PANEL BEATRICE PAYAN Start: 06-11-2017 TOX SCR, BLD, ED WILBERT PAYAN Start: 06-11-2017 TSH WITHOUT REFLEX CHRI SHREYAS PAYAN Start: 06-11-2017 , URINE WILBERT PAYAN Start: 06-11-2017 Urinalysis JOSE PAYAN Start: 06-11-2017 URINE DRUG SCREEN TASHA PAYAN Start: 06-11-2017 SUICIDE PRECAUTIONS CHR MICKEY PAYAN Start: 06-06-2017 Microscopic urinalysis BEATRICE PAYAN Start: 06-06-2017 UA W/REFLEX CULTURE BHAVIN PAYAN Start: 06-06-2017 URINE CULTURE JHONATAN PAYAN Start: 06-06-2017 CBC WITH AUTO DIFFERENTIAL BEATRICE PAYAN Start: 06-06-2017 COMPREHENSIVE METABO LIC PANEL BEATRICE PAYAN Start: 06-06-2017 HCG, SERUM, QUALITATIVE BEATRICE PAYAN Start: 06-06-2017 LACTIC ACID, PLASMA BHAVIN PAYAN Start: 06-06-2017 LIPASE JOSE Ramos SCHUYLER Start: 06-06-2017 PROTIME-INR JOSE Ramos SCHUYLER Start: 12-11-2009 left ankle arthrosco py with extensive debridement Any NOGUEIRA Start: 11-26-2008 screws removed in le ft ankle Any NOGUEIRA Start: 08-28-2008 left ankle ORIF Any NOGUEIRA Abdominal hysterectomy Michael bonnie NOGUEIRA Bilateral complete salpingectomy Any NOGUEIRA section Any NIL L Cholecystectomy Any ESPINOZAL Colonoscopy Any NILL Hammer toe operation Any NOGUEIRA Ligation of fallopian tube Gabriella NOGUEIRA Tonsillectomy Any NOGUEIRA Plan of Treatment Date Care Activity Detail Author Start: 12-31-2029 Urine microalbumin profile DTaP,Tdap,Td Vaccine (2 - Td or Tdap) [facility] Start: 09-10-2024 End: 09-10-2024 Patient encounter procedure 09/10/2024 8:30 AM EST Office Visit [facility] [address] [place] [address] Jean Carlos Ferris DO [address] [place] [address] Arrived [facility] Comment on above: Arrived Start: 08-07-2024 End: 08-07-2024 Patient encounter procedure 08/07/2024 3:30 PM EST Office Visit Orthopaedics [address] [place] [address] Beatrice Cabrera, DPM [address] [place] [address] 3 week follow up left foot Orthopaedics Comment on above: 3 week follow up lef t foot Start: 07-11-2024 End: 07-11-2024 Patient encounter procedure Orthopaedics Comment on above: cast change / post o p 2 week follow up lef t foot/ post op Start: 06-26-2024 End: 06-26-2024 Patient encounter procedure Orthopaedics Comment on above: Postop Left foot Start: 06-05-2024 End: 06-05-2024 Patient encounter procedure Orthopaedics Comment on above: remove splint Post op left foot, S X 05/13/24 Start: 05-22-2024 End: 05-22-2024 Patient encounter procedure 05/22/2024 10:15 AM EDT Office Visit Orthopaedics [address] [place] [address] Beatrice Cabrera, DPM [address] [place] [address] Post op left foot, SX 05/13/24 Orthopaedics Comment on above: Post op left foot, S X 05/13/24 Start: 05-21-2024 End: 06-05-2025 XR Foot - left AP and Lateral and oblique XR FOOT GENERAL 3V AP/LAT/OBL LEFT Radiology Routine 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, subsequent encounter Expected: 05/21/2024, Expires: 06/05/2025 [facility] Work Phone: Comment on above: Expected: 05/21/2024 , Expires: 06/05/2025 Start: 05-13-2024 End: 05-13-2024 Admission to same day surgery center 05/13/2024 10:15 AM EDT - 05/13/2024 12:30 PM EDT Surgery Ambulatory Surgery [address] [place] [address] Beatrice Cabrera, DPM [address] [place] [address] ORIF METATARSAL Ambulatory Surgery Comment on above: ORIF METATARSAL Start: 05-13-2024 End: 05-13-2024 Open treatment metatarsal fracture each ORIF METATARSAL 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, subsequent encounter Delayed union of metatarsal fracture, left 05/13/2024 10:15 AM EDT [facility] Start: 05-13-2024 Subsequent hospital visit by physician 05/13/2024 10:15 AM EDT Hospital Encounter Ambulatory Surgery [address] [place] [address] Beatrice Cabrera, DPM [address] [place] [address] 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, subsequent encounter [S92.902K] Ambulatory Surgery Comment on above: 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, subsequent encounter [S92.902K] Start: 05-13-2024 End: 05-13-2024 Admission to same day surgery center 05/13/2024 7:30 AM EDT - 05/13/2024 9:45 AM EDT Surgery Ambulatory Surgery [address] [place] [address] Beatrice Cabrera, DPM [address] [place] [address] ORIF METATARSAL Ambulatory Surgery Comment on above: ORIF METATARSAL Start: 05-13-2024 End: 05-13-2024 Open treatment metatarsal fracture each ORIF METATARSAL 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, subsequent encounter Delayed union of metatarsal fracture, left 05/13/2024 7:30 AM EDT [facility] Start: 05-13-2024 Subsequent hospital visit by physician 05/13/2024 7:30 AM EDT Hospital Encounter Ambulatory Surgery [address] [place] [address] [place], DPM [address] [place] [address] 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, subsequent encounter [S92.902K] Ambulatory Surgery Comment on above: 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, subsequent encounter [S92.902K] Start: 04-30-2024 End: 04-30-2024 Anesthesia consultation 04/30/2024 1:00 PM EDT PAT Pre Anesthesia [address] [place] [address] 2, Pacc [place] [address] [place] [address] PACC left foot, SX 05/13/24 Pre Anesthesia Comment on above: PAC left foot, SX Start: 04-28-2024 Covid-19 Vaccine ( season) Covid-19 Vaccine ( season) [facility] Start: 04-28-2024 Covid-19 Vaccine ( season) Covid-19 Vaccine ( season) [facility] Start: 04-28-2024 Influenza vaccination [facility] Start: 02-12-2024 End: 02-12-2024 Patient encounter procedure Orthopaedics Comment on above: right and left knee pain BWC knee pain Start: 08-28-2023 Behavioral Health Screening Behavioral Health Screening [facility] Start: 07-02-2023 Plain chest X-ray XR chest 2V* [facility] Start: 07-02-2023 XR Chest 2 Views [facility] Start: 06-16-2023 Bacteria identified in Urine by Culture [facility] Start: 05-17-2023 CT Facial bones WO contrast [facility] Start: 05-17-2023 CT of facial bones without contrast CT facial bones wo con [facility] Start: 05-17-2023 CT of head without contrast CT head/brain wo con [facility] Start: 05-17-2023 CT Unspecified body region WO contrast [facility] Start: 04-28-2023 Covid-19 Vaccine ( season) Covid-19 Vaccine () [facility] Start: 01-02-2023 Hemoglobin A1c measurement HbA1C [facility] Start: 01-19-2021 Bacteria identified in Urine by Culture Urine Culture [facility] Start: 05-09-2019 Hepatitis B surface antibody level LDL Cholesterol [facility] Start: 2015 Screening for malign ant neoplasm of cervix [facility] Start: 2006 Screening for malign ant neoplasm of cervix [facility] Start: 2004 Hepatitis B Vaccine (1 of 3 - 19+ 3-dose series) Hepatitis B Vaccine (1 of 3 - 19+ 3-dose series) [facility] Start: 2003 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 Annual PCP Team Chronic Disease Visit [facility] Start: 2003 Anxiety Screening Anxiety Screening [facility] Start: 2003 BP Controlled (<130/80) BP Controlle d (<130/80) [facility] Start: 2003 Depression Screening Depression Scre ening [facility] Start: 2003 Hepatitis C screening Hepatitis C Sc reecoleman [facility] Start: 2003 HIV screening HIV Screening [facility] Start: 1995 Diabetic foot examination Diabetic Foot Exam [facility] Start: 1995 Glaucoma screening Dilated Retinal E xam [facility] Start: 1995 Hepatitis B screening Urine Albumin:Creatinine Ratio [facility] Start: 1991 Pneumococcal vaccination Pneumococcal Vaccine (1 of 2 - PCV) [facility] Cytology Cervical or vaginal smear or scraping study Pap Smear Pathology and Cytology Routine Well woman exam with routine gynecological exam Ordered: 09/10/2024 [facility] [employer] Work Phone: Comment on above: Ordered: 09/10/2024 Human papilloma viru s DNA [Presence] in Unspecified specimen by Probe with amplification HPV DNA probe, amplified Microbiology Routine Well woman exam with routine gynecological exam Ordered: 09/10/2024 [facility] [employer] Comment on above: Ordered: 09/10/2024 End: 04-28-2025 MR Knee - left WO contrast MRI KNEE WO IVCON LEFT Radiology Routine Chronic pain of both knees 1 Occurrences starting 03/29/2024 until 04/28/2025 [facility] Work Phone: Comment on above: 1 Occurrences starti ng 03/29/2024 until 04/28/2025 End: 04-28-2025 MR Knee - right WO contrast MRI KNEE WO IVCON RIGHT Radiology Routine Chronic pain of both knees 1 Occurrences starting 03/29/2024 until 04/28/2025 [facility] Comment on above: 1 Occurrences starti ng 03/29/2024 until 04/28/[address] [facility] Patient referral [facility] End: 02-09-2025 XR Foot - left AP and Lateral and oblique XR FOOT GENERAL 3V AP/LAT/OBL LEFT Radiology Routine Pain in left foot 1 Occurrences starting 01/11/2024 until 02/09/2025 [facility] Work Phone: Comment on above: 1 Occurrences starti ng 01/11/2024 until 02/09/2025 XR Foot - left AP an d Lateral and oblique XR FOOT GENERAL 3V AP/LAT/OBL LEFT Radiology Routine Pain in left foot 01/12/2024 2:12 PM EDT [facility] XR Foot - left AP an d Lateral and oblique XR FOOT GENERAL 3V AP/LAT/OBL LEFT Radiology Routine 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, subsequent encounter 05/22/2024 10:45 AM EDT [facility] End: 07-12-2025 XR Foot - left AP and Lateral and oblique XR FOOT GENERAL 3V AP/LAT/OBL LEFT Radiology Routine 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, subsequent encounter 1 Occurrences starting 06/26/2024 until 07/12/2025 [facility] Work Phone: Comment on above: 1 Occurrences starti ng 06/26/2024 until 07/12/2025 End: 09-04-2025 XR Foot - left AP and Lateral and oblique XR FOOT GENERAL 3V AP/LAT/OBL LEFT Radiology Routine 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, subsequent encounter 1 Occurrences starting 08/07/2024 until 09/04/2025 [facility] Work Phone: Comment on above: 1 Occurrences starti ng 08/07/2024 until 09/04/2025 XR Foot - left AP an d Lateral and oblique XR FOOT GENERAL 3V AP/LAT/OBL LEFT Radiology Routine 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, subsequent encounter 08/07/2024 3:32 PM EST [facility] End: 04-27-2025 XR Knee - bilateral 4 Views XR KNEE GENERAL 4V AP BOTH/PA BOTH/LAT/MERC BILATERAL Radiology Routine Pain 1 Occurrences starting 03/28/2024 until 04/27/2025 [facility] Work Phone: Comment on above: 1 Occurrences starti ng 03/28/2024 until 04/27/2025 Immunizations Immunization Date Immunization Notes Care Provider Geeta méndez 12-20-2021 SARS-CoV-2 (COVID-19 ) Ad26 vaccine, recombinant Jimmy STOCK [facility] Comment on above: Result Comment: 2022: TPVALL 05-06-2021 SARS-CoV-2 (COVID-19 ) Ad26 vaccine, recombinant Any NOGUEIRA [facility] 01-01-2020 tetanus toxoid, reduced diphtheria toxoid, and acellular pertussis vaccine, adsorbed [facility] NEGATED: Highlighted row has not occurred!11-09-2021 influenza virus vaccine, unspecified formulation Any [facility] Payers Date Payer Category Payer Medicaid UHC MEDICAID UHC [employer]ITY [employer] MEDICA[place] [id number] 2024-Present [phone] [address] [place] [address] Medicaid [id number] 2024 Unknown [id number] 2023 Private Health Insurance [employer] MEDICAID [id number] 2022 Private Health Insurance [id number] 2022 Self-pay [id number] 2020 Worker's Compensation [id number] 2017 Medicaid ACUTE 08-28-2016 Unknown [id number] 1985 Unknown [id number] 2.16.840.1.488492.3.579. 2.593 1985 Unknown [id number] 2.16.840.1.929579.3.579. 2.593 1985 Unknown [id number] 2.16.840.1.567952.3.579. 2.593 1985 Unknown [id number] 2.16.840.1.133360.3.579. 2.593 1985 Unknown [id number] 2.16.840.1.524255.3.579. 2.593 1985 Unknown [id number] 2.16.840.1.625386.3.579. 2.593 1985 Unknown [id number] 2.16.840.1.773092.3.579. 2.593 1985 Unknown [id number] 2.16.840.1.132384.3.579. 2.593 1985 Unknown [id number] 2.16.840.1.538697.3.579. 2.1186 1985 Unknown [id number] 2.16.840.1.953502.3.579. 2.1259 1985 Unknown [id number] 2.16.840.1.889364.3.579. 2.727 1985 Unknown [id number] 2.16.840.1.967884.3.579. 2.727 08-28-1959 Private Health Insurance [facility] [id number] 08-28-1959 Unknown 08-28-1959 Unknown [id number] Unknown [id number] 2.16.840.1.743340.3.579. 2.754 Unknown [id number] 2.16.840.1.866751.3.579. 2.531 Unknown [id number] 2.16.840.1.780224.3.579. 2.531 Unknown [id number] 2.16.840.1.949257.3.579. 2.531 Unknown [id number] 2.16.840.1.485660.3.579. 2.531 Unknown [id number] 2.16.840.1.591957.3.579. 2.531 Unknown [id number] 2.16.840.1.506145.3.579. 2.531 Unknown [id number] 2.16.840.1.920270.3.579. 2.531 Unknown [id number] 2.16.840.1.564800.3.579. 2.531 Worker's Compensation Compmanagmnt [facility] s-O [id number] Social History Date Type Detail Facility Start: 09-16-2020 End: 06-04-2024 Tobacco smoking status NHIS Smoker (finding) [facility] Start: 1985 Sex Assigned At Female [facility] Start: 11-17-2021 End: 05-20-2024 Tobacco smoking status Heavy tobacco smoker (finding) [facility] Tobacco smoking status Never [facility] Start: 04-28-2020 End: 09-07-2023 Sex Assigned At Female [facility] Start: 06-16-2023 Tobacco smoking status NHIS Never smoked tobacco (finding) [facility] Start: 05-29-2023 End: 08-14-2023 Tobacco smoking status NHIS Smokes tobacco daily (finding) [facility] Start: 08-14-[address] [facility] Start: 08-28-2001 History of tobacco use Cigarette Smoker [facility] Start: 04-28-2020 End: 09-07-2023 Cigarettes smoked current (pack per day) - Reported 0.5 [facility] Start: 04-28-2020 End: 04-30-2024 Tobacco use and exposure Smokeless tobacco non-user [facility] Start: 04-28-2020 End: 04-30-2024 Alcohol intake Ex-drinker (finding) [facility] Start: 1985 Sex Assigned At Not on file [facility] Start: 09-07-2023 End: 09-10-2024 Alcoholic beverage intake Lifetime non-drinker (finding) [facility] Start: 05-29-2023 Alcohol Comment caffeine: 2-3 cups per day [facility] NEGATED: Highlighted row [facility] Medical Equipment Procedure Code Equipment Code Equipment Origin al Text Equipment Identifier Dates Pen [place] 32G X 4 MM Start: 07-10-2023 Pen Needle, Diab etic (Droplet Pen Needle) 32 gauge x 5/32 needle Start: 08-14-2023 Pen Needle, Diab etic (Droplet Pen Needle) 32 gauge x 5/32 needle Start: 08-14-2023 Graft Bn Augment Inj 1.5cc - [id number] Start: 05-13-2024 Plate Ortholoc 3 di Serafina 42x6.5x1.3mm Bone 3 Hole Hook 2 Sharp Jennifer 5th - [id number] Start: 05-13-2024 Screw Lock 2.4x1 2mm - [id number] Start: 05-13-2024 Ortholoc 3di Scr ew Lesly Ti 2.4x14mm [id number] Start: 05-13-2024 Ortholoc 3di Scr ew Lesly Ti 2.4x10mm [id number] Start: 05-13-2024 Goals Date Patient Goal Desired Activity /State Functional Status Date Assessment Result Facility 05-20-2024 Functional Status N/A [facility] 05-16-2023 Functional Status N/A [facility] 09-07-2022 Functional Status N/A [facility] 03-29-2022 Functional Status N/A [facility] Clinical Notes 03-29-2022 to 09-10-2024 Shanell Brown LPN - 09/10/2024 8:30 AM Beatrice Ramirez, ZIYAD - 08/07/2024 3:47 PM Edita Ramos, RT(R) - 08/07/2024 3:31 PM Дмитрий Tomas Cast Tech - 07/11/2024 9:09 AM EST Note Date & Type Note Facility 09-10-2024 History of Present illness Narrative Reason for Appointment: Patient ID: Brittney Vernon is a 39 y.o. female who presents for Well Women Visit Patient presents today for Annual Exam. MEDICATIONS Current Outpatient Medications Medication Instructions bethanechol (Urecholine) 50 MG tablet 1 tablet, Oral, Daily cyproheptadine (PERIACTIN) 4 mg, Oral, 3 times daily diclofenac (VOLTAREN) 25 mg, Oral, 2 times daily, Do not crush, chew, or split. naproxen (NAPROSYN) 500 mg, Oral, 2 times daily with meals ALLERGIES Allergies Allergen Reactions Acetaminophen Shortness of breath, Other and Unknown Other Reaction(s): Ammonia level, Not available, Other, Other: See Comments Other reaction(s): Other: See Comments Increases liver enzymes Increases liver enzymes Increases liver enzymes Increases liver enzymes Hydromorphone Anaphylaxis, Dizziness, Hives, Other, Palpitations, Rash and Shortness of breath Other Reaction(s): Bradycardia, Hypotensive episode, Hypoxia Low O2 and HR Other reaction(s): Other (See Comments), Other: See Comments Low O2 and HR SPO2 drops SPO2 drops Other Reaction(s): Bradycardia, Hypotensive episode, Hypoxia, Not available, Other: See Comments, Unknown Other reaction(s): Other (See Comments), Other: See Comments Low O2 and HR SPO2 drops Other reaction(s): Bradycardia, Hypotensive episode, Hypoxia, Not available, Other, Unknown Other Reaction(s): Bradycardia, Hypotensive episode, Hypoxia Low O2 and HR Other reaction(s): Other (See Comments), Other: See Comments Low O2 and HR SPO2 drops SPO2 drops Latex Hives Other Reaction(s): Unknown Wound Dressing Adhesive Hives and Rash Other Reaction(s): Unknown Other Reaction(s): Hives PROBLEMS Active Ambulatory Problems Diagnosis Date Noted Anxiety state (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) 11/20/2013 Migraine ([facility]) 11/20/2013 Obesity 11/20/2013 Thyrotoxicosis ([facility]) 11/20/2013 Type 2 diabetes mellitus without complication ([facility]) 11/20/2013 Well woman exam with routine gynecological exam 09/07/2023 History of ovarian cyst 09/07/2023 Resolved Ambulatory Problems Diagnosis Date Noted No Resolved Ambulatory Problems Past Medical History: Diagnosis Date Depression (CMS/HCC) Diabetes (CMS/HCC) Peptic ulcer disease HISTORY PAST MEDICAL HISTORY SOCIAL HISTORY Past Medical History: Diagnosis Date Depression ([facility]/HCC) Diabetes ([facility]) Peptic ulcer disease Social History Tobacco Use Smoking status: Every Day Current packs/day: 1.00 Types: Cigarettes Smokeless tobacco: Not on file Substance Use Topics Alcohol use: Never Comment: caffeine: 2-3 cups per day Drug use: Not on file FAMILY HISTORY Family History Problem Relation Name Age of Onset Hypertension Mother Hypertension Father Arthritis Father Diabetes Sister Diabetes Daughter SURGICAL HISTORY Past Surgical History: Procedure Laterality Date ANKLE FRACTURE SURGERY Left DAP ANKLE SURGERY Left Screw removal- DAP SECTION, CLASSIC CHOLECYSTECTOMY HYSTERECTOMY 10/2018 NASAL SEPTUM SURGERY Deviated septum TONSILLECTOMY REVIEW OF SYSTEMS Review of Systems: Review of Systems Constitutional: Negative. HENT: Negative. Eyes: Negative. Respiratory: Negative. Cardiovascular: Negative. Gastrointestinal: Negative. Genitourinary: Negative. Musculoskeletal: Negative. Skin: Negative. Neurological: Negative. All other systems reviewed and are negative. Hematological: Negative. Endocrine: Negative. Allergic/Immunologic: Negative. OBJECTIVE Objective: Physical Exam Constitutional: Appearance: Normal appearance. She is well-developed. Genitourinary: Vulva normal. Vaginal cuff intact. Cervix is absent. Uterus is absent. Cardiovascular: Rate and Rhythm: Normal rate and regular rhythm. Pulmonary: Effort: Pulmonary effort is normal. Breath sounds: Normal breath sounds. Abdominal: General: Bowel sounds are normal. There is no distension. Palpations: Abdomen is soft. Tenderness: There is no abdominal tenderness. There is no guarding or rebound. Musculoskeletal: General: No swelling. Normal range of motion. Right lower leg: No edema. Left lower leg: No edema. Neurological: Mental Status: She is alert and oriented to person, place, and time. Skin: General: Skin is warm and dry. Psychiatric: Mood and Affect: Mood normal. Behavior: Behavior normal. Vitals and nursing note reviewed. Exam conducted with a bed teacher present. Vitals: Estimated body mass index is 41.28 kg/m as calculated from the following: Height as of 23: 5' 11 . Weight as of this encounter: 296 lb. BP: 130/90 No LMP recorded. ASSESSMENT & PLAN ICD-10-CM 1. Well woman exam with routine gynecological exam Z01.419 Pap Smear HPV DNA probe, amplified Annual Exam: Patient presents today for an annual exam. Patient states she is doing well and has no complaints. Pap was obtained without difficulty. Orders Placed This Encounter Procedures HPV DNA probe, amplified Follow Up: Patient is to return in one year for annual unless needed otherwise. Documented by Shanell Brown LPN on behalf of: Jean Carlos Ferris DO documented in this encounter [facility] 08-07-2024 Note HNO ID: [id number] Author: BEATRICE CABRERA DPM Service: ? Author Type: Physician Type: Progress Notes Filed: 08/07/2024 16:06 Note Text: PRIMARY SERVICE: [facility] Podiatry SUBJECTIVE: Patient is seen today for a scheduled postop visit 12 weeks status post ORIF of her left foot fifth metatarsal tuberosity fracture without complaints of numbness along the incision and some discomfort with adducting the foot. Medical: PAST MEDICAL HISTORY PAST MEDICAL HISTORY Diagnosis Date Anxiety Migraine Psychiatric disorder bi-polar ALLERGIES: ALLERGIES ALLERGIES Allergen Reactions Latex Hives Acetaminophen Other: See Comments Increases liver enzymes Adhesive Tape (Leona* Rash Dilaudid [[employer]* Other: See Comments SPO2 drops MEDICATIONS: CURRENT MEDICATIONS Current Outpatient Medications Medication Sig oxyCODONE IR (ROXICODONE) 5 mg immediate release tablet Take 1 tablet by mouth every 6 hours as needed for pain for up to 7 days. aspirin 325 mg tablet Take 1 tablet by mouth once daily. diclofenac, EC, (VOLTAREN) 75 mg EC tablet Take 75 mg by mouth two times a day as needed. cyproheptadine (PERIACTIN) 4 mg tablet Take 4 mg by mouth twice daily. naproxen (NAPROSYN) 500 mg tablet Take 500 mg by mouth twice daily as needed. hydrOXYzine HCl (ATARAX) 10 mg tablet take 1 to 2 tablets by mouth three times a day if needed No current facility-administered medications for this visit. Surgical: PAST SURGICAL HISTORY PAST SURGICAL HISTORY Procedure Laterality Date CHOLECYSTECTOMY HX HYSTERECTOMY HX ORTHOPEDIC SURGERY HX hammertoe repair ORTHOPEDICS SURGERY HX lt ankle x3 OTHER SURGICAL HISTORY (PLEASE SPECIFY) HX c-sec TONSILLECTOMY HX PHYSICAL EXAM: The patient is alert and oriented x 3 and in no apparent acute distress. Patient presents in the cast ambulating nonweightbearing left foot with a clean dry intact BK fiberglass cast and dressings using a knee rollator. Upon removal: NEUROVASCULAR: There is minimal edema and erythema over the surgical site. Patient thinks reduced sensation of the distribution of the sural nerve and intermediate dorsal continuous nerve DERMATOLOGIC: The incision is well.. ORTHO/MUSCULOSKELETAL: As above Radiographs: 3 views of of the left foot reveal satisfactory alignment healing with intact fixation ASSESSMENT: Satisfactory postop progress left foot status post 12 weeks appropriate discharge TREATMENT TODAY: Scheduled postop visit left foot Discussed results of clinical and radiographic examination with the patient in detail along treatment options. I will see the patient back as needed. Patient chose to discontinue the longer Aircast CAM Walker boot and wear her regular shoe at this time. SIGNATURE: Beatrice Cabrera DPM Medical intake sheet from August 07, 2024 , was updated by patient, reviewed, and was made part of the patient's chart. Beatrice Cabrera DPM [facility] 08-07-2024 History of Present illness Narrative PRIMARY SERVICE: [facility] SUBJECTIVE: Patient is seen today for a scheduled postop visit 12 weeks status post ORIF of her left foot fifth metatarsal tuberosity fracture without complaints of numbness along the incision and some discomfort with adducting the foot. Medical: PAST MEDICAL HISTORY PAST MEDICAL HISTORY Diagnosis Date Anxiety Migraine Psychiatric disorder bi-polar ALLERGIES: ALLERGIES ALLERGIES Allergen Reactions Latex Hives Acetaminophen Other: See Comments Increases liver enzymes Adhesive Tape (Leona* Rash Dilaudid [[employer]* Other: See Comments SPO2 drops MEDICATIONS: CURRENT MEDICATIONS Current Outpatient Medications Medication Sig oxyCODONE IR (ROXICODONE) 5 mg immediate release tablet Take 1 tablet by mouth every 6 hours as needed for pain for up to 7 days. aspirin 325 mg tablet Take 1 tablet by mouth once daily. diclofenac, EC, (VOLTAREN) 75 mg EC tablet Take 75 mg by mouth two times a day as needed. cyproheptadine (PERIACTIN) 4 mg tablet Take 4 mg by mouth twice daily. naproxen (NAPROSYN) 500 mg tablet Take 500 mg by mouth twice daily as needed. hydrOXYzine HCl (ATARAX) 10 mg tablet take 1 to 2 tablets by mouth three times a day if needed No current facility-administered medications for this visit. Surgical: PAST SURGICAL HISTORY PAST SURGICAL HISTORY Procedure Laterality Date CHOLECYSTECTOMY HX HYSTERECTOMY HX ORTHOPEDIC SURGERY HX hammertoe repair ORTHOPEDICS SURGERY HX lt ankle x3 OTHER SURGICAL HISTORY (PLEASE SPECIFY) HX c-sec TONSILLECTOMY HX PHYSICAL EXAM: The patient is alert and oriented x 3 and in no apparent acute distress. Patient presents in the cast ambulating nonweightbearing left foot with a clean dry intact BK fiberglass cast and dressings using a knee rollator. Upon removal: NEUROVASCULAR: There is minimal edema and erythema over the surgical site. Patient thinks reduced sensation of the distribution of the sural nerve and intermediate dorsal continuous nerve DERMATOLOGIC: The incision is well.. ORTHO/MUSCULOSKELETAL: As above Radiographs: 3 views of of the left foot reveal satisfactory alignment healing with intact fixation ASSESSMENT: Satisfactory postop progress left foot status post 12 weeks appropriate discharge TREATMENT TODAY: Scheduled postop visit left foot Discussed results of clinical and radiographic examination with the patient in detail along treatment options. I will see the patient back as needed. Patient chose to discontinue the longer Aircast CAM Walker boot and wear her regular shoe at this time. SIGNATURE: Beatrice Cabrera DPM Medical intake sheet from August 07, 2024 , was updated by patient, reviewed, and was made part of the patient's chart. Beatrice Cabrera DPM documented in this encounter [facility] 08-07-2024 Note HNO ID: [id number] Author: EDITA OSWALD RT(R) Service: ? Author Type: Technologist Type: Progress Notes Filed: 08/07/2024 15:31 Note Text: Radiology Service Progress Note PATIENT NAME: Brittney Vernon DATE OF SERVICE: August 07, 2024 TIME: 3:31 PM PATIENT IDENTITY VERIFICATION COMPLETED USING TWO (2) IDENTIFIERS: Name and Date of confirmed by patient verbally. FALL SCREENING: Has the patient had 2 falls in the last year or 1 fall with injury or currently using an Ambulatory Assistive Device (Walker, Cane, Wheelchair, Crutches, etc.)? No PATIENT GENDER DATA: Female. status: : No status: NO. 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 Bearing PERIPHERAL IV DATA: Not applicable SIGNED BY: RT Shane(R) August 07, 2024 3:31 PM [facility] 08-07-2024 History of Present illness Narrative Radiology Service Progress Note PATIENT NAME: Brittney Vernon DATE OF SERVICE: August 07, 2024 TIME: 3:31 PM PATIENT IDENTITY VERIFICATION COMPLETED USING TWO (2) IDENTIFIERS: Name and Date of confirmed by patient verbally. FALL SCREENING: Has the patient had 2 falls in the last year or 1 fall with injury or currently using an Ambulatory Assistive Device (Walker, Cane, Wheelchair, Crutches, etc.)? No PATIENT GENDER DATA: Female. status: : No status: NO. 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 Bearing PERIPHERAL IV DATA: Not applicable SIGNED BY: RT Shane(R) August 07, 2024 3:31 PM documented in this encounter [facility] 07-11-2024 Note HNO ID: [id number] Author: ДМИТРИЙ KABA Cast Tech Service: ? Author Type: Senior Clinical Consultant Type: Progress Notes Filed: 07/11/2024 09:11 Note Text: Patient in today for scheduled appointment. Cast removed. Left leg cleansed with Cavilon. Examined by Dr. Cabrera. Fitted patient with a medium Tall Foam Walker for the left leg. Instructions on application, adjustments and care given. Will f/u as scheduled/prn. DEJAH Gibson [facility] 11-14-2024 History of Present illness Narrative Patient in today for scheduled appointment. Cast removed. Left leg cleansed with Cavilon. Examined by Dr. Cabrera. Fitted patient with a medium Tall Foam Walker for the left leg. Instructions on application, adjustments and care given. Will f/u as scheduled/prn. DEJAH Gibson documented in this encounter [facility] 07-11-2024 Note HNO ID: [id number] Author: DARIUSZ BARRON RT(R) Service: ? Author Type: Technologist Type: Progress Notes Filed: 07/11/2024 09:09 Note Text: Radiology Service Progress Note PATIENT NAME: Brittney Vernon DATE OF SERVICE: July 11, 2024 TIME: 9:08 AM PATIENT IDENTITY VERIFICATION COMPLETED USING TWO (2) IDENTIFIERS: Name and Date of confirmed by patient verbally. FALL SCREENING: Has the patient had 2 falls in the last year or 1 fall with injury or currently using an Ambulatory Assistive Device (Walker, Cane, Wheelchair, Crutches, etc.)? No PATIENT GENDER DATA: Female. status: : No status: NO. PATIENT RELEVANT IMPLANT DATA REVIEWED: Yes PATIENT PRESENTS WITH AN IMPLANTABLE OR ATTACHED TEAM OTR TRUCK DRIVER: No RADIOLOGY DEPARTMENT: General X-ray: Exam(s) Completed: Lower Extremity X-Ray(s): Foot, Left PERIPHERAL IV DATA: Not applicable SIGNED BY: RT Meaghan(R) July 11, 2024 9:08 AM [facility] 07-11-2024 History of Present illness Narrative Radiology Service Progress Note PATIENT NAME: Brittney Vernon DATE OF SERVICE: July 11, 2024 TIME: 9:08 AM PATIENT IDENTITY VERIFICATION COMPLETED USING TWO (2) IDENTIFIERS: Name and Date of confirmed by patient verbally. FALL SCREENING: Has the patient had 2 falls in the last year or 1 fall with injury or currently using an Ambulatory Assistive Device (Walker, Cane, Wheelchair, Crutches, etc.)? No PATIENT GENDER DATA: Female. status: : No status: NO. PATIENT RELEVANT IMPLANT DATA REVIEWED: Yes PATIENT PRESENTS WITH AN IMPLANTABLE OR ATTACHED TEAM OTR TRUCK DRIVER: No RADIOLOGY DEPARTMENT: General X-ray: Exam(s) Completed: Lower Extremity X-Ray(s): Foot, Left PERIPHERAL IV DATA: Not applicable SIGNED BY: ZAHRA Harding) July 11, 2024 9:08 AM documented in this encounter [facility] 07-11-2024 Note HNO ID: [id number] Author: DARIUSZ BARRON RT (R) Service: ? Author Type: Technologist Type: Progress Notes Filed: 07/11/2024 09:06 Note Text: Radiology Service Progress Note PATIENT NAME: Brittney Vernon DATE OF SERVICE: July 11, 2024 TIME: 9:05 AM PATIENT IDENTITY VERIFICATION COMPLETED USING TWO (2) IDENTIFIERS: Name and Date of confirmed by patient verbally. FALL SCREENING: Has the patient had 2 falls in the last year or 1 fall with injury or currently using an Ambulatory Assistive Device (Walker, Cane, Wheelchair, Crutches, etc.)? No PATIENT GENDER DATA: Female. status: : No status: NO. PATIENT RELEVANT IMPLANT DATA REVIEWED: Yes PATIENT PRESENTS WITH AN IMPLANTABLE OR ATTACHED TEAM OTR TRUCK DRIVER: No RADIOLOGY DEPARTMENT: General X-ray: Exam(s) Completed: Lower Extremity X-Ray(s): Foot, Left PERIPHERAL IV DATA: Not applicable SIGNED BY: ZAHRA Harding) July 11, 2024 9:05 AM [facility] 07-11-2024 History of Present illness Narrative Radiology Service Progress Note PATIENT NAME: Brittney Vernon DATE OF SERVICE: July 11, 2024 TIME: 9:05 AM PATIENT IDENTITY VERIFICATION COMPLETED USING TWO (2) IDENTIFIERS: Name and Date of confirmed by patient verbally. FALL SCREENING: Has the patient had 2 falls in the last year or 1 fall with injury or currently using an Ambulatory Assistive Device (Walker, Cane, Wheelchair, Crutches, etc.)? No PATIENT GENDER DATA: Female. status: : No status: NO. PATIENT RELEVANT IMPLANT DATA REVIEWED: Yes PATIENT PRESENTS WITH AN IMPLANTABLE OR ATTACHED TEAM OTR TRUCK DRIVER: No RADIOLOGY DEPARTMENT: General X-ray: Exam(s) Completed: Lower Extremity X-Ray(s): Foot, Left PERIPHERAL IV DATA: Not applicable SIGNED BY: RT Meaghan(R) July 11, 2024 9:05 AM documented in this encounter [facility] 07-11-2024 History of Present illness Narrative PRIMARY SERVICE: [facility] SUBJECTIVE: Patient is seen today for a scheduled postop visit 8 weeks status post ORIF of her left foot fifth metatarsal tuberosity fracture without complaints. Medical: PAST MEDICAL HISTORY PAST MEDICAL HISTORY Diagnosis Date Anxiety Migraine Psychiatric disorder bi-polar ALLERGIES: ALLERGIES ALLERGIES Allergen Reactions Latex Hives Acetaminophen Other: See Comments Increases liver enzymes Adhesive Tape (Leona* Rash Dilaudid [[employer]* Other: See Comments SPO2 drops MEDICATIONS: CURRENT MEDICATIONS Current Outpatient Medications Medication Sig oxyCODONE IR (ROXICODONE) 5 mg immediate release tablet Take 1 tablet by mouth every 6 hours as needed for pain for up to 7 days. aspirin 325 mg tablet Take 1 tablet by mouth once daily. diclofenac, EC, (VOLTAREN) 75 mg EC tablet Take 75 mg by mouth two times a day as needed. cyproheptadine (PERIACTIN) 4 mg tablet Take 4 mg by mouth twice daily. naproxen (NAPROSYN) 500 mg tablet Take 500 mg by mouth twice daily as needed. hydrOXYzine HCl (ATARAX) 10 mg tablet take 1 to 2 tablets by mouth three times a day if needed No current facility-administered medications for this visit. Surgical: PAST SURGICAL HISTORY PAST SURGICAL HISTORY Procedure Laterality Date CHOLECYSTECTOMY HX HYSTERECTOMY HX ORTHOPEDIC SURGERY HX hammertoe repair ORTHOPEDICS SURGERY HX lt ankle x3 OTHER SURGICAL HISTORY (PLEASE SPECIFY) HX c-sec TONSILLECTOMY HX PHYSICAL EXAM: The patient is alert and oriented x 3 and in no apparent acute distress. Patient presents in the cast ambulating nonweightbearing left foot with a clean dry intact BK fiberglass cast and dressings using a knee rollator. Upon removal: NEUROVASCULAR: There is minimal edema and erythema over the surgical site DERMATOLOGIC: The incision is well. ORTHO/MUSCULOSKELETAL: As above Radiographs: 3 views of of the left foot reveal satisfactory alignment healing with intact fixation ASSESSMENT: Satisfactory postop progress left foot status post 8 weeks appropriate to continue as is TREATMENT TODAY: Scheduled postop visit left foot Discussed results of clinical and radiographic examination with the patient in detail upon removal of the BK fiberglass cast and dressings. I will see the patient back in 3 weeks for reevaluation and tammy-ray. May begin progressive partial weightbearing program in the longer Aircast CAM Walker boot such as 25% for the first 3 to 4 days, 50% for the next 3 to 4 days days until full weightbearing within 2 weeks. She may then full ambulation for week . She may begin showering as of today. SIGNATURE: Beatrice Cabrera DPM documented in this encounter [facility] 07-11-2024 Note HNO ID: [id number] Author: BEATRICE CABRERA DPM Service: ? Author Type: Physician Type: Progress Notes Filed: 07/11/2024 09:16 Note Text: PRIMARY SERVICE: [facility] SUBJECTIVE: Patient is seen today for a scheduled postop visit 8 weeks status post ORIF of her left foot fifth metatarsal tuberosity fracture without complaints. Medical: PAST MEDICAL HISTORY PAST MEDICAL HISTORY Diagnosis Date Anxiety Migraine Psychiatric disorder bi-polar ALLERGIES: ALLERGIES ALLERGIES Allergen Reactions Latex Hives Acetaminophen Other: See Comments Increases liver enzymes Adhesive Tape (Leona* Rash Dilaudid [[employer]* Other: See Comments SPO2 drops MEDICATIONS: CURRENT MEDICATIONS Current Outpatient Medications Medication Sig oxyCODONE IR (ROXICODONE) 5 mg immediate release tablet Take 1 tablet by mouth every 6 hours as needed for pain for up to 7 days. aspirin 325 mg tablet Take 1 tablet by mouth once daily. diclofenac, EC, (VOLTAREN) 75 mg EC tablet Take 75 mg by mouth two times a day as needed. cyproheptadine (PERIACTIN) 4 mg tablet Take 4 mg by mouth twice daily. naproxen (NAPROSYN) 500 mg tablet Take 500 mg by mouth twice daily as needed. hydrOXYzine HCl (ATARAX) 10 mg tablet take 1 to 2 tablets by mouth three times a day if needed No current facility-administered medications for this visit. Surgical: PAST SURGICAL HISTORY PAST SURGICAL HISTORY Procedure Laterality Date CHOLECYSTECTOMY HX HYSTERECTOMY HX ORTHOPEDIC SURGERY HX hammertoe repair ORTHOPEDICS SURGERY HX lt ankle x3 OTHER SURGICAL HISTORY (PLEASE SPECIFY) HX c-sec TONSILLECTOMY HX PHYSICAL EXAM: The patient is alert and oriented x 3 and in no apparent acute distress. Patient presents in the cast ambulating nonweightbearing left foot with a clean dry intact BK fiberglass cast and dressings using a knee rollator. Upon removal: NEUROVASCULAR: There is minimal edema and erythema over the surgical site DERMATOLOGIC: The incision is well. ORTHO/MUSCULOSKELETAL: As above Radiographs: 3 views of of the left foot reveal satisfactory alignment healing with intact fixation ASSESSMENT: Satisfactory postop progress left foot status post 8 weeks appropriate to continue as is TREATMENT TODAY: Scheduled postop visit left foot Discussed results of clinical and radiographic examination with the patient in detail upon removal of the BK fiberglass cast and dressings. I will see the patient back in 3 weeks for reevaluation and tammy-ray. May begin progressive partial weightbearing program in the longer Aircast CAM Walker boot such as 25% for the first 3 to 4 days, 50% for the next 3 to 4 days days until full weightbearing within 2 weeks. She may then full ambulation for week . She may begin showering as of today. SIGNATURE: Beatrice Cabrera DPM [facility] 06-26-2024 Note HNO ID: [id number] Author: ДМИТРИЙ KABA Cast Tech Service: ? Author Type: Senior Clinical Consultant Type: Progress Notes Filed: 06/26/2024 09:21 Note Text: Patient in today for scheduled appointment. Cast removed. Left leg cleansed with Cavilon. Examined by Dr. Cabrera. Applied A Short Leg Nonweightbearing Cast to the left leg. Instructions on cast care given. Will f/u as scheduled/prn. DEJAH Gibson [facility] 06-26-2024 History of Present illness Narrative Patient in today for scheduled appointment. Cast removed. Left leg cleansed with Cavilon. Examined by Dr. Cabrera. Applied A Short Leg Nonweightbearing Cast to the left leg. Instructions on cast care given. Will f/u as scheduled/prn. DEJAH Gibson documented in this encounter [facility] 06-26-2024 Note HNO ID: [id number] Author: ALEAH CLARK RT(R) Service: ? Author Type: Technologist Type: Progress Notes Filed: 06/26/2024 09:04 Note Text: Radiology Service Progress Note PATIENT NAME: Brittney Vernon DATE OF SERVICE: June 26, 2024 TIME: 9:04 AM PATIENT IDENTITY VERIFICATION COMPLETED USING TWO (2) IDENTIFIERS: Name and Date of confirmed by patient verbally. FALL SCREENING: Has the patient had 2 falls in the last year or 1 fall with injury or currently using an Ambulatory Assistive Device (Walker, Cane, Wheelchair, Crutches, etc.)? No PATIENT GENDER DATA: Female. status: : No status: NO. 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 Bearing PERIPHERAL IV DATA: Not applicable SIGNED BY: ZAHRA Tate) June 26, 2024 9:04 AM [facility] 06-26-2024 History of Present illness Narrative Radiology Service Progress Note PATIENT NAME: Brittney Vernon DATE OF SERVICE: June 26, 2024 TIME: 9:04 AM PATIENT IDENTITY VERIFICATION COMPLETED USING TWO (2) IDENTIFIERS: Name and Date of confirmed by patient verbally. FALL SCREENING: Has the patient had 2 falls in the last year or 1 fall with injury or currently using an Ambulatory Assistive Device (Walker, Cane, Wheelchair, Crutches, etc.)? No PATIENT GENDER DATA: Female. status: : No status: NO. 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 Bearing PERIPHERAL IV DATA: Not applicable SIGNED BY: ZAHRA Tate) June 26, 2024 9:04 AM documented in this encounter [facility] 06-26-2024 Note HNO ID: [id number] Author: BEATRICE CABRERA DPM Service: ? Author Type: Physician Type: Progress Notes Filed: 06/26/2024 09:10 Note Text: PRIMARY SERVICE: [facility] SUBJECTIVE: Patient is seen today for a scheduled postop visit 6 weeks status post ORIF of her left foot fifth metatarsal tuberosity fracture without complaints. She does not want another cast and would like to return to work Medical: PAST MEDICAL HISTORY PAST MEDICAL HISTORY Diagnosis Date Anxiety Migraine Psychiatric disorder bi-polar ALLERGIES: ALLERGIES ALLERGIES Allergen Reactions Latex Hives Acetaminophen Other: See Comments Increases liver enzymes Adhesive Tape (Leona* Rash Dilaudid [[employer]* Other: See Comments SPO2 drops MEDICATIONS: CURRENT MEDICATIONS Current Outpatient Medications Medication Sig oxyCODONE IR (ROXICODONE) 5 mg immediate release tablet Take 1 tablet by mouth every 6 hours as needed for pain for up to 7 days. aspirin 325 mg tablet Take 1 tablet by mouth once daily. diclofenac, EC, (VOLTAREN) 75 mg EC tablet Take 75 mg by mouth two times a day as needed. cyproheptadine (PERIACTIN) 4 mg tablet Take 4 mg by mouth twice daily. naproxen (NAPROSYN) 500 mg tablet Take 500 mg by mouth twice daily as needed. hydrOXYzine HCl (ATARAX) 10 mg tablet take 1 to 2 tablets by mouth three times a day if needed No current facility-administered medications for this visit. Surgical: PAST SURGICAL HISTORY PAST SURGICAL HISTORY Procedure Laterality Date CHOLECYSTECTOMY HX HYSTERECTOMY HX ORTHOPEDIC SURGERY HX hammertoe repair ORTHOPEDICS SURGERY HX lt ankle x3 OTHER SURGICAL HISTORY (PLEASE SPECIFY) HX c-sec TONSILLECTOMY HX PHYSICAL EXAM: The patient is alert and oriented x 3 and in no apparent acute distress. Patient presents in the cast ambulating nonweightbearing left foot with a clean dry intact BK fiberglass cast and dressings using a knee rollator. Upon removal: NEUROVASCULAR: There is minimal edema and erythema over the surgical site DERMATOLOGIC: The incision is well. ORTHO/MUSCULOSKELETAL: As above Radiographs: 3 views of of the left foot reveal satisfactory alignment healing with intact fixation ASSESSMENT: Satisfactory postop progress left foot status post 6 weeks appropriate to continue as is TREATMENT TODAY: Second postop visit left foot Discussed results of clinical and radiographic examination with the patient in detail upon removal of the BK fiberglass cast and dressings. Painted incision with Betadine reapplied a bulky dry sterile dressing 4 x 4's Kerlix followed by well-padded BK fiberglass nonweightbearing cast on left lower extremity in neutral position. I will see the patient back in 2 weeks for reevaluation and tammy-ray. Continue strict nonweightbearing until further advised. 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 SIGNATURE: Beatrice Cabrera DPM [facility] 06-26-2024 History of Present illness Narrative PRIMARY SERVICE: [facility] SUBJECTIVE: Patient is seen today for a scheduled postop visit 6 weeks status post ORIF of her left foot fifth metatarsal tuberosity fracture without complaints. She does not want another cast and would like to return to work Medical: PAST MEDICAL HISTORY PAST MEDICAL HISTORY Diagnosis Date Anxiety Migraine Psychiatric disorder bi-polar ALLERGIES: ALLERGIES ALLERGIES Allergen Reactions Latex Hives Acetaminophen Other: See Comments Increases liver enzymes Adhesive Tape (Leona* Rash Dilaudid [[employer]* Other: See Comments SPO2 drops MEDICATIONS: CURRENT MEDICATIONS Current Outpatient Medications Medication Sig oxyCODONE IR (ROXICODONE) 5 mg immediate release tablet Take 1 tablet by mouth every 6 hours as needed for pain for up to 7 days. aspirin 325 mg tablet Take 1 tablet by mouth once daily. diclofenac, EC, (VOLTAREN) 75 mg EC tablet Take 75 mg by mouth two times a day as needed. cyproheptadine (PERIACTIN) 4 mg tablet Take 4 mg by mouth twice daily. naproxen (NAPROSYN) 500 mg tablet Take 500 mg by mouth twice daily as needed. hydrOXYzine HCl (ATARAX) 10 mg tablet take 1 to 2 tablets by mouth three times a day if needed No current facility-administered medications for this visit. Surgical: PAST SURGICAL HISTORY PAST SURGICAL HISTORY Procedure Laterality Date CHOLECYSTECTOMY HX HYSTERECTOMY HX ORTHOPEDIC SURGERY HX hammertoe repair ORTHOPEDICS SURGERY HX lt ankle x3 OTHER SURGICAL HISTORY (PLEASE SPECIFY) HX c-sec TONSILLECTOMY HX PHYSICAL EXAM: The patient is alert and oriented x 3 and in no apparent acute distress. Patient presents in the cast ambulating nonweightbearing left foot with a clean dry intact BK fiberglass cast and dressings using a knee rollator. Upon removal: NEUROVASCULAR: There is minimal edema and erythema over the surgical site DERMATOLOGIC: The incision is well. ORTHO/MUSCULOSKELETAL: As above Radiographs: 3 views of of the left foot reveal satisfactory alignment healing with intact fixation ASSESSMENT: Satisfactory postop progress left foot status post 6 weeks appropriate to continue as is TREATMENT TODAY: Second postop visit left foot Discussed results of clinical and radiographic examination with the patient in detail upon removal of the BK fiberglass cast and dressings. Painted incision with Betadine reapplied a bulky dry sterile dressing 4 x 4's Kerlix followed by well-padded BK fiberglass nonweightbearing cast on left lower extremity in neutral position. I will see the patient back in 2 weeks for reevaluation and tammy-ray. Continue strict nonweightbearing until further advised. 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 SIGNATURE: Beatrice Cabrera DPM documented in this encounter [facility] 06-05-2024 Note HNO ID: [id number] Author: ДМИТРИЙ KABA Cast Tech Service: ? Author Type: Senior Clinical Consultant Type: Progress Notes Filed: 06/05/2024 10:30 Note Text: Patient in today for scheduled appointment. Patient state her cast got saturated yesterday and when she went to [facility] they refused to remove. Cast removed. Left leg cleansed with bart-cledidier. Examined by Dr. Cabrera. Applied A Short Leg Nonweightbearing Cast to the left leg. Instructions on cast care given. Will f/u as scheduled/prn. Дмитрий Kaba, DEJAH [facility] 06-05-2024 History of Present illness Narrative Patient in today for scheduled appointment. Patient state her cast got saturated yesterday and when she went to [facility] they refused to remove. Cast removed. Left leg cleansed with sea-clens. Examined by Dr. Cabrera. Applied A Short Leg Nonweightbearing Cast to the left leg. Instructions on cast care given. Will f/u as scheduled/prn. DEJAH Gibson documented in this encounter [facility] 06-05-2024 Note HNO ID: [id number] Author: FLORINA CONTE RT(R) Service: ? Author Type: Technologist Type: Progress Notes Filed: 06/05/2024 10:08 Note Text: Radiology Service Progress Note PATIENT NAME: Brittney Vernon DATE OF SERVICE: June 05, 2024 TIME: 10:08 AM PATIENT IDENTITY VERIFICATION COMPLETED USING TWO (2) IDENTIFIERS: Name and Date of confirmed by patient verbally. FALL SCREENING: Has the patient had 2 falls in the last year or 1 fall with injury or currently using an Ambulatory Assistive Device (Walker, Cane, Wheelchair, Crutches, etc.)? No PATIENT GENDER DATA: Female. status: : No status: NO. 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 Author Type: Physician Type: Progress Notes Filed: 06/05/2024 10:22 Note Text: PRIMARY SERVICE: [facility] Pod[facility] SUBJECTIVE: Patient is seen today for a scheduled postop visit 3 weeks status post ORIF of her left foot fifth metatarsal tuberosity fracture without complaints. Medical: PAST MEDICAL HISTORY PAST MEDICAL HISTORY Diagnosis Date Anxiety Migraine Psychiatric disorder bi-polar ALLERGIES: ALLERGIES ALLERGIES Allergen Reactions Latex Hives Acetaminophen Other: See Comments Increases liver enzymes Adhesive Tape (Leona* Rash Dilaudid [Hydromorp* Other: See Comments SPO2 drops MEDICATIONS: CURRENT MEDICATIONS Current Outpatient Medications Medication Sig oxyCODONE IR (ROXICODONE) 5 mg immediate release tablet Take 1 tablet by mouth every 6 hours as needed for pain for up to 7 days. aspirin 325 mg tablet Take 1 tablet by mouth once daily. diclofenac, EC, (VOLTAREN) 75 mg EC tablet Take 75 mg by mouth two times a day as needed. cyproheptadine (PERIACTIN) 4 mg tablet Take 4 mg by mouth twice daily. naproxen (NAPROSYN) 500 mg tablet Take 500 mg by mouth twice daily as needed. hydrOXYzine HCl (ATARAX) 10 mg tablet take 1 to 2 tablets by mouth three times a day if needed No current facility-administered medications for this visit. Surgical: PAST SURGICAL HISTORY PAST SURGICAL HISTORY Procedure Laterality Date CHOLECYSTECTOMY HX HYSTERECTOMY HX ORTHOPEDIC SURGERY HX hammertoe repair ORTHOPEDICS SURGERY HX lt ankle x3 OTHER SURGICAL HISTORY (PLEASE SPECIFY) HX c-sec TONSILLECTOMY HX PHYSICAL EXAM: The patient is alert and oriented x 3 and in no apparent acute distress. Patient presents in the cast ambulating nonweightbearing left foot with a clean dry intact BK fiberglass cast and dressings. Upon removal: NEUROVASCULAR: There is slight edema and erythema over the surgical site DERMATOLOGIC: The incision is well coapted with intact sutures with no appreciable signs of active drainage bleeding purulence or cellulitis ORTHO/MUSCULOSKELETAL: As above Radiographs: 3 views of of the left foot reveal satisfactory alignment healing with intact fixation ASSESSMENT: Satisfactory postop progress left foot status post 9 days appropriate to continue as is TREATMENT TODAY: Second postop visit left foot Discussed results of clinical and radiographic examination with the patient in detail upon removal of the BK fiberglass cast and dressings. Painted incision with Betadine reapplied a bulky dry sterile dressing 4 x 4's Kerlix followed by well-padded BK fiberglass nonweightbearing cast on left lower extremity in neutral position. I will see the patient back in 3 weeks for reevaluation and tammy-ray. Continue strict nonweightbearing until further advised C9 requested by patient for knee rollator SIGNATURE: Beatrice Cabrera DPM [facility] 06-05-2024 History of Present illness Narrative PRIMARY SERVICE: [facility] Podiatry SUBJECTIVE: Patient is seen today for a scheduled postop visit 3 weeks status post ORIF of her left foot fifth metatarsal tuberosity fracture without complaints. Medical: PAST MEDICAL HISTORY PAST MEDICAL HISTORY Diagnosis Date Anxiety Migraine Psychiatric disorder bi-polar ALLERGIES: ALLERGIES ALLERGIES Allergen Reactions Latex Hives Acetaminophen Other: See Comments Increases liver enzymes Adhesive Tape (Leona* Rash Dilaudid [Hydromorp* Other: See Comments SPO2 drops MEDICATIONS: CURRENT MEDICATIONS Current Outpatient Medications Medication Sig oxyCODONE IR (ROXICODONE) 5 mg immediate release tablet Take 1 tablet by mouth every 6 hours as needed for pain for up to 7 days. aspirin 325 mg tablet Take 1 tablet by mouth once daily. diclofenac, EC, (VOLTAREN) 75 mg EC tablet Take 75 mg by mouth two times a day as needed. cyproheptadine (PERIACTIN) 4 mg tablet Take 4 mg by mouth twice daily. naproxen (NAPROSYN) 500 mg tablet Take 500 mg by mouth twice daily as needed. hydrOXYzine HCl (ATARAX) 10 mg tablet take 1 to 2 tablets by mouth three times a day if needed No current facility-administered medications for this visit. Surgical: PAST SURGICAL HISTORY PAST SURGICAL HISTORY Procedure Laterality Date CHOLECYSTECTOMY HX HYSTERECTOMY HX ORTHOPEDIC SURGERY HX hammertoe repair ORTHOPEDICS SURGERY HX lt ankle x3 OTHER SURGICAL HISTORY (PLEASE SPECIFY) HX c-sec TONSILLECTOMY HX PHYSICAL EXAM: The patient is alert and oriented x 3 and in no apparent acute distress. Patient presents in the cast ambulating nonweightbearing left foot with a clean dry intact BK fiberglass cast and dressings. Upon removal: NEUROVASCULAR: There is slight edema and erythema over the surgical site DERMATOLOGIC: The incision is well coapted with intact sutures with no appreciable signs of active drainage bleeding purulence or cellulitis ORTHO/MUSCULOSKELETAL: As above Radiographs: 3 views of of the left foot reveal satisfactory alignment healing with intact fixation ASSESSMENT: Satisfactory postop progress left foot status post 9 days appropriate to continue as is TREATMENT TODAY: Second postop visit left foot Discussed results of clinical and radiographic examination with the patient in detail upon removal of the BK fiberglass cast and dressings. Painted incision with Betadine reapplied a bulky dry sterile dressing 4 x 4's Kerlix followed by well-padded BK fiberglass nonweightbearing cast on left lower extremity in neutral position. I will see the patient back in 3 weeks for reevaluation and tammy-ray. Continue strict nonweightbearing until further advised C9 requested by patient for knee rollator SIGNATURE: Beatrice Cabrera DPM documented in this encounter [facility] 05-22-2024 Note HNO ID: [id number] Author: ДМИТРИЙ KABA Cast Tech Service: ? Author Type: Senior Clinical Consultant Type: Progress Notes Filed: 05/22/2024 10:59 Note Text: Patient in today for scheduled appointment. Splint removed. Examined by Dr. Cabrera. Applied A Short Leg Nonweightbearing Cast to the left leg. Instructions on cast care given. Will f/u as scheduled/prn. DEJAH Gibson [facility] 05-22-2024 History of Present illness Narrative Patient in today for scheduled appointment. Splint removed. Examined by Dr. Cabrera. Applied A Short Leg Nonweightbearing Cast to the left leg. Instructions on cast care given. Will f/u as scheduled/prn. DEJAH Gibson documented in this encounter [facility] 05-22-2024 Note HNO ID: [id number] Author: EDITA OSWALD RT(R) Service: ? Author Type: Technologist Type: Progress Notes Filed: 05/22/2024 10:37 Note Text: Radiology Service Progress Note PATIENT NAME: Brittney Vernon DATE OF SERVICE: May 22, 2024 TIME: 10:36 AM PATIENT IDENTITY VERIFICATION COMPLETED USING TWO (2) IDENTIFIERS: Name and Date of confirmed by patient verbally. FALL SCREENING: Has the patient had 2 falls in the last year or 1 fall with injury or currently using an Ambulatory Assistive Device (Walker, Cane, Wheelchair, Crutches, etc.)? No PATIENT GENDER DATA: Female. status: : No status: NO. 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 Author Type: Physician Type: Progress Notes Filed: 05/22/2024 10:44 Note Text: PRIMARY SERVICE: [facility] Pod[facility] SUBJECTIVE: Patient seen today for for scheduled postop visit 9 days status post ORIF of her left foot fifth metatarsal tuberosity fracture without complaints. Medical: PAST MEDICAL HISTORY Diagnosis Date Anxiety Migraine Psychiatric disorder bi-polar ALLERGIES: ALLERGIES Allergen Reactions Latex Hives Acetaminophen Other: See Comments Increases liver enzymes Adhesive Tape (Leona* Rash Dilaudid [Hydromorp* Other: See Comments SPO2 drops MEDICATIONS: Current Outpatient Medications Medication Sig oxyCODONE IR (ROXICODONE) 5 mg immediate release tablet Take 1 tablet by mouth every 6 hours as needed for pain for up to 7 days. aspirin 325 mg tablet Take 1 tablet by mouth once daily. diclofenac, EC, (VOLTAREN) 75 mg EC tablet Take 75 mg by mouth two times a day as needed. cyproheptadine (PERIACTIN) 4 mg tablet Take 4 mg by mouth twice daily. naproxen (NAPROSYN) 500 mg tablet Take 500 mg by mouth twice daily as needed. hydrOXYzine HCl (ATARAX) 10 mg tablet take 1 to 2 tablets by mouth three times a day if needed No current facility-administered medications for this visit. Surgical: PAST SURGICAL HISTORY Procedure Laterality Date CHOLECYSTECTOMY HX HYSTERECTOMY HX ORTHOPEDIC SURGERY HX hammertoe repair ORTHOPEDICS SURGERY HX lt ankle x3 OTHER SURGICAL HISTORY (PLEASE SPECIFY) HX c-sec TONSILLECTOMY HX PHYSICAL EXAM: The patient is alert and oriented x 3 and in no apparent acute distress. Patient presents in the cast ambulating nonweightbearing left foot with a clean dry intact posterior splint and dressings. Upon removal: NEUROVASCULAR: There is slight edema and erythema over the surgical site DERMATOLOGIC: The incision is well coapted with intact sutures with no appreciable signs of active drainage bleeding purulence or cellulitis ORTHO/MUSCULOSKELETAL: As above ASSESSMENT: Satisfactory postop progress left foot status post 9 days appropriate to continue as is TREATMENT TODAY: First postop visit left foot Discussed results of clinical examination with the patient in detail upon removal of the posterior splint and dressings. Painted incision with Betadine reapplied a bulky dry sterile dressing 4 x 4's Kerlix followed by well-padded BK fiberglass nonweightbearing cast on left lower extremity in neutral position. I will see the patient back in 2 weeks for reevaluation and tammy-ray. Continue strict nonweightbearing until further advised SIGNATURE: Beatrice Cabrera DPM DATE of SERVICE: 05/22/2024 TIME of SERVICE: 10:42 AM [facility] 05-22-2024 History of Present illness Narrative Images from the original note were not included. PRIMARY SERVICE: [facility] Pod[facility] SUBJECTIVE: Patient seen today for for scheduled postop visit 9 days status post ORIF of her left foot fifth metatarsal tuberosity fracture without complaints. Medical: PAST MEDICAL HISTORY Diagnosis Date Anxiety Migraine Psychiatric disorder bi-polar ALLERGIES: ALLERGIES Allergen Reactions Latex Hives Acetaminophen Other: See Comments Increases liver enzymes Adhesive Tape (Leona* Rash Dilaudid [Hydromorp* Other: See Comments SPO2 drops MEDICATIONS: Current Outpatient Medications Medication Sig oxyCODONE IR (ROXICODONE) 5 mg immediate release tablet Take 1 tablet by mouth every 6 hours as needed for pain for up to 7 days. aspirin 325 mg tablet Take 1 tablet by mouth once daily. diclofenac, EC, (VOLTAREN) 75 mg EC tablet Take 75 mg by mouth two times a day as needed. cyproheptadine (PERIACTIN) 4 mg tablet Take 4 mg by mouth twice daily. naproxen (NAPROSYN) 500 mg tablet Take 500 mg by mouth twice daily as needed. hydrOXYzine HCl (ATARAX) 10 mg tablet take 1 to 2 tablets by mouth three times a day if needed No current facility-administered medications for this visit. Surgical: PAST SURGICAL HISTORY Procedure Laterality Date CHOLECYSTECTOMY HX HYSTERECTOMY HX ORTHOPEDIC SURGERY HX hammertoe repair ORTHOPEDICS SURGERY HX lt ankle x3 OTHER SURGICAL HISTORY (PLEASE SPECIFY) HX c-sec TONSILLECTOMY HX PHYSICAL EXAM: The patient is alert and oriented x 3 and in no apparent acute distress. Patient presents in the cast ambulating nonweightbearing left foot with a clean dry intact posterior splint and dressings. Upon removal: NEUROVASCULAR: There is slight edema and erythema over the surgical site DERMATOLOGIC: The incision is well coapted with intact sutures with no appreciable signs of active drainage bleeding purulence or cellulitis ORTHO/MUSCULOSKELETAL: As above ASSESSMENT: Satisfactory postop progress left foot status post 9 days appropriate to continue as is TREATMENT TODAY: First postop visit left foot Discussed results of clinical examination with the patient in detail upon removal of the posterior splint and dressings. Painted incision with Betadine reapplied a bulky dry sterile dressing 4 x 4's Kerlix followed by well-padded BK fiberglass nonweightbearing cast on left lower extremity in neutral position. I will see the patient back in 2 weeks for reevaluation and tammy-ray. Continue strict nonweightbearing until further advised SIGNATURE: Beatrice Cabrera DPM DATE of SERVICE: 05/22/2024 TIME of SERVICE: 10:42 AM documented in this encounter [facility] 05-22-2024 History of Present illness Narrative Radiology Service Progress Note PATIENT NAME: Brittney Vernon DATE OF SERVICE: May 22, 2024 TIME: 10:36 AM PATIENT IDENTITY VERIFICATION COMPLETED USING TWO (2) IDENTIFIERS: Name and Date of confirmed by patient verbally. FALL SCREENING: Has the patient had 2 falls in the last year or 1 fall with injury or currently using an Ambulatory Assistive Device (Walker, Cane, Wheelchair, Crutches, etc.)? No PATIENT GENDER DATA: Female. status: : No status: NO. 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 It is usually caused by problems with the nerves that control the bladder. The brain sends signals through the spinal cord to the muscles in the bladder that start and stop urine flow. With neurogenic bladder, the nerves and muscles do not work together the way they should. This condition may make the bladder overactive, meaning you have trouble holding urine. In other cases, it may make the bladder underactive. This means that you have trouble passing urine. What are the causes? This condition may be caused by nerve damage or a condition that disrupts the signals from your brain to your bladder. Many things can cause these nerve problems, including: A disease that affects the nervous system, such as: ?Alzheimer's disease. ?Cerebral palsy. ?Multiple sclerosis. ?Diabetes. ?Parkinson's disease. Damage to your brain or spinal cord. This can come from: ?Trauma. ?Tumors. ?Infection. ?Surgery. ?Alcohol abuse. ?Stroke. ?A congenital disability that affects the spinal cord. What increases the risk? You are more likely to develop this condition if you have nerve damage or a nerve disorder. What are the signs or symptoms? Signs and symptoms of this condition include: Leaking or gushing urine (incontinence). A sudden, strong urge to pass urine (urgency). Frequent urination during the day and night. Being unable to empty your bladder completely (urinary retention). Frequent urinary tract infections. How is this diagnosed? This condition may be diagnosed based on: Your symptoms and medical history. A physical exam. Records from a bladder diary. You may be asked to keep a record or log of your bladder symptoms and the times that you urinate. You may also have tests, such as: A urine test to check for infection. A bladder scan after you urinate to see how much urine is left in your bladder. Tests to measure your urine flow and see how well the flow is controlled (urodynamic tests). A procedure that uses a small device with a camera to look through your urethra into your bladder (cystoscopy). A health care provider who specializes in the urinary tract (urologist) may do this test. Imaging tests of your brain or spine, such as MRI or CT scan. How is this treated? Treatment for this condition depends on the cause and the symptoms that you have. Work closely with your health care provider to find the treatments that will improve your quality of life. Treatment options include: Learning ways to control when you urinate, such as: ?Urinating at scheduled times. ?Training yourself to delay urination. ?Exercises to strengthen the muscles that control urine flow (Kegel exercises). ?Avoiding foods or drinks that make your symptoms worse. Taking medicines to: ?Stimulate an underactive bladder. ?Relax an overactive bladder. ?Treat a urinary tract infection. Learning how to use a thin tube (catheter) to empty your bladder. A catheter is a hollow tube that you pass through your urethra. Procedures to stimulate the nerves that control your bladder. Surgery, if other treatments do not help. Follow these instructions at home: Lifestyle Keep a bladder diary to find out which foods, liquids, or activities make your symptoms worse. Use your bladder diary to schedule bathroom trips. If you are away from home, plan to be near a bathroom when your schedule says you will need one. Limit beverages that stimulate urination. These include soda, coffee, and tea. After urinating, wait a few minutes and try again. Make sure you urinate just before you leave the house and just before you go to bed. Kegel exercises Do Kegel exercises to strengthen the muscles that control the passing of urine. These muscles are the ones you use to try to hold urine when you need to urinate. To do Kegel exercises: 1.Squeeze your pelvic floor muscles tight, as if you are trying to stop the flow of urine. You should feel a tight lift in your rectal area. If you are female, you should also feel a tightness in your vaginal area. Keep your stomach, buttocks, and legs relaxed. 2.Hold the muscles tight for 5 10 seconds. 3.Relax your muscles for the same amount of time. 4.Repeat 10 times. Repeat this exercise 3 times a day or as many times as told by your health care provider. General instructions Take [id number] and prescription medicines only as told by your health care provider. Keep all follow-up visits. This is important. Contact a health care provider if: You are having a hard time controlling your symptoms. Your symptoms are getting worse. You have signs of a urinary tract infection. These may include: ?A burning feeling when you urinate. ?Fever or chills. ?Cloudy or bloody urine. Get help right away if: You cannot pass urine. Summary Neurogenic bladder is a bladder control disorder caused by problems with the nerves that control the bladder. This condition may make the bladder overactive or underactive. This condition may be caused by nerve damage or a condition that disrupts the signals from your brain to your bladder. Treatment depends on the cause of your neurogenic bladder and the symptoms that you have. Work closely with your health care provider to find the treatments that will improve your quality of life. This information is not intended to replace advice given to you by your health care provider. Make sure you discuss any questions you have with your health care provider. Document Revised: 04/29/2021 Document Reviewed: 04/29/2021 Watch Over Me Patient Education 2023 [employer]. Follow Up Care 05/16/2023 13:47:31 With:KIAN RODRIGUEZ, Jimmy Hannah, URL Address: [facility] [employer] [place] [address] [place] [phone] When: Unknown [facility] 05-20-2024 Note Patient Education Urology Neurogenic Bladder Neurogenic bladder is a bladder control disorder. It is usually caused by problems with the nerves that control the bladder. The brain sends signals through the spinal cord to the muscles in the bladder that start and stop urine flow. With neurogenic bladder, the nerves and muscles do not work together the way they should. This condition may make the bladder overactive, meaning you have trouble holding urine. In other cases, it may make the bladder underactive. This means that you have trouble passing urine. What are the causes? This condition may be caused by nerve damage or a condition that disrupts the signals from your brain to your bladder. Many things can cause these nerve problems, including: ? A disease that affects the nervous system, such as: ? Alzheimer's disease. ? Cerebral palsy. ? Multiple sclerosis. ? Diabetes. ? Parkinson's disease. ? Damage to your brain or spinal cord. This can come from: ? Trauma. ? Tumors. ? Infection. ? Surgery. ? Alcohol abuse. ? Stroke. ? A congenital disability that affects the spinal cord. What increases the risk? You are more likely to develop this condition if you have nerve damage or a nerve disorder. What are the signs or symptoms? Signs and symptoms of this condition include: ? Leaking or gushing urine (incontinence). ? A sudden, strong urge to pass urine (urgency). ? Frequent urination during the day and night. ? Being unable to empty your bladder completely (urinary retention). ? Frequent urinary tract infections. How is this diagnosed? This condition may be diagnosed based on: ? Your symptoms and medical history. ? A physical exam. ? Records from a bladder diary. You may be asked to keep a record or log of your bladder symptoms and the times that you urinate. You may also have tests, such as: ? A urine test to check for infection. ? A bladder scan after you urinate to see how much urine is left in your bladder. ? Tests to measure your urine flow and see how well the flow is controlled (urodynamic tests). ? A procedure that uses a small device with a camera to look through your urethra into your bladder (cystoscopy). A health care provider who specializes in the urinary tract (urologist) may do this test. ? Imaging tests of your brain or spine, such as MRI or CT scan. How is this treated? Treatment for this condition depends on the cause and the symptoms that you have. Work closely with your health care provider to find the treatments that will improve your quality of life. Treatment options include: ? Learning ways to control when you urinate, such as: ? Urinating at scheduled times. ? Training yourself to delay urination. ? Exercises to strengthen the muscles that control urine flow (Kegel exercises). ? Avoiding foods or drinks that make your symptoms worse. ? Taking medicines to: ? Stimulate an underactive bladder. ? Relax an overactive bladder. ? Treat a urinary tract infection. ? Learning how to use a thin tube (catheter) to empty your bladder. A catheter is a hollow tube that you pass through your urethra. ? Procedures to stimulate the nerves that control your bladder. ? Surgery, if other treatments do not help. Follow these instructions at home: Lifestyle ? Keep a bladder diary to find out which foods, liquids, or activities make your symptoms worse. ? Use your bladder diary to schedule bathroom trips. If you are away from home, plan to be near a bathroom when your schedule says you will need one. ? Limit beverages that stimulate urination. These include soda, coffee, and tea. ? After urinating, wait a few minutes and try again. ? Make sure you urinate just before you leave the house and just before you go to bed. Kegel exercises Do Kegel exercises to strengthen the muscles that control the passing of urine. These muscles are the ones you use to try to hold urine when you need to urinate. To do Kegel exercises: 1. Squeeze your pelvic floor muscles tight, as if you are trying to stop the flow of urine. You should feel a tight lift in your rectal area. If you are female, you should also feel a tightness in your vaginal area. Keep your stomach, buttocks, and legs relaxed. 2. Hold the muscles tight for 5?10 seconds. 3. Relax your muscles for the same amount of time. 4. Repeat 10 times. Repeat this exercise 3 times a day or as many times as told by your health care provider. General instructions ? Take [id number] and prescription medicines only as told by your health care provider. ? Keep all follow-up visits. This is important. Contact a health care provider if: ? You are having a hard time controlling your symptoms. ? Your symptoms are getting worse. ? You have signs of a urinary tract infection. These may include: ? A burning feeling when you urinate. ? Fever or chills. ? Clou (more content not included)... [facility] 05-15-2024 Telephone encounter Note Spoke with patient and advised that Dr. Cabrera would call in a different medication. [facility] 05-15-2024 Miscellaneous Notes Spoke with patient and advised that Dr. Cabrera would call in a different medication. Patient is calling stating she sent two [employer] messages this morning at 8:58 and 9:20 am. She is having a lot of pain and the medications that were prescribed are not helping and also causing stomach issues. Patient calling in to office. Verified by name and . Patient had left foot surgery yesterday with Dr. Cabrera. She states that her pain is severe today, even after taking pain medication. Rates pain 10/10. Speaking in clear, complete, and controlled sentences. States remaining non weight bearing with use of walker and bedside commode. She denies fever or current chills. Admits to chills last night, but resolved. Icing and elevating as advised. States pain medication does cause her to feel nauseated - taking antiemetic as prescribed. Asking for further recommendations regarding pain medication - as current plan is not helping pain. Discussed red flag symptoms to monitor for and when to call back to office or seek emergent care. Called patient's dad Emmie at [phone] to check on postop progress. Received voicemail. Left message that I called. Advised to call if any questions or problems between now and her first scheduled postop visit on May 22, 2024. Beatrice Cabrera DPM documented in this encounter [facility] 05-15-2024 Telephone encounter Note Patient is calling stating she sent two [employer] messages this morning at 8:58 and 9:20 am. She is having a lot of pain and the medications that were prescribed are not helping and also causing stomach issues. [facility] 05-14-2024 Telephone encounter Note Patient calling in to office. Verified by name and . Patient had left foot surgery yesterday with Dr. Cabrera. She states that her pain is severe today, even after taking pain medication. Rates pain 10/10. Speaking in clear, complete, and controlled sentences. States remaining non weight bearing with use of walker and bedside commode. She denies fever or current chills. Admits to chills last night, but resolved. Icing and elevating as advised. States pain medication does cause her to feel nauseated - taking antiemetic as prescribed. Asking for further recommendations regarding pain medication - as current plan is not helping pain. Discussed red flag symptoms to monitor for and when to call back to office or seek emergent care. [facility] 05-13-2024 Telephone encounter Note Called patient's dad Emmie at [phone] to check on postop progress. Received voicemail. Left message that I called. Advised to call if any questions or problems between now and her first scheduled postop visit on May 22, 2024. Beatrice Cabrera DPM [facility] Work Phone: 05-13-2024 Note HNO ID: [id number] Author: ROSALINDA HART APRN.SALOON KEEPER Service: Anesthesiology Author Type: Nurse Preventive Maintenance Engineer Type: Anesthesia Procedure Notes Filed: 05/13/2024 10:35 Note Text: ANESTHESIOLOGY PROCEDURE NOTE Airway General Information Procedure Start Time/Medication Administration: 05/13/2024 10:21 AM Procedure End Time: 05/13/2024 10:35 AM Patient location during procedure: OR Staffing SALOON KEEPER: Rosalinda Hart APRN.SALOON KEEPER Performed by: SALOON KEEPER Indications and Patient Condition Indications for airway management: anesthesia Preoxygenated: yes anesthesia circuit Patient position: sniffing Method: asleep Difficult Mask: No Final Airway Details Final airway type: supraglottic airway Number of attempts at approach: 1 Final Supraglottic Airway: IGEL Size 5 Seal Adequate: yes Airway not difficult SIGNATURE: Rosalinda Hart APRN.SALOON KEEPER PATIENT NAME: Brittney Vernon DATE: May 13, 2024 TIME: 10:35 AM CSN: [id number] [facility] 04-30-2024 Instructions Hazel Billingsley APRN.POSITIVE PRINTER OPERATOR - 04/30/2024 1:17 PM EDT Images from the original note were not included. [facility] PATIENT PREOPERATIVE INSTRUCTIONS Beatrice Cabrera,* has scheduled you for your procedure at this surgery center: [facility]: [phone] --[address] [facility] [facility] [address] [facility] [address] [address]. Arrival Time for Surgery: - The Surgery Center or hospital where you are having surgery will call the afternoon before surgery (or Monday for Monday surgery) with a scheduled arrival time. - If you have not heard by 4 pm, please contact the surgery center above. Please be aware that emergency situations arise, which may delay or change your surgical time. If this happens, we will notify you as soon as possible and regret any inconvenience. Please read below carefully for your personalized instructions. Dietary Restrictions: - No solid food after midnight. - You may have 12 ounces of clear liquids (water, clear juices such as apple juice or gatorade, carbonated beverages, clear tea, black coffee, jello) until 2 hours before scheduled arrival at facility. - Do not drink any alcohol after midnight the night before your surgery. - No Milk/Dairy - No Pulp Juices Medications: - If you are prescribed inhalers for breathing, continue using them. Unless instructed differently below, stay on all of your medications until your surgery. Approved medications to take the morning of surgery with a sip of water: NONE You may not take Semaglutide or Tirzepatide within 7 days of your surgery. If you start any new medications after today's visit, please contact the surgeon's office. Blood Thinning Medications: - Stop NSAIDS (Ibuprofen, Advil, Aleve, Motrin, Celebrex, Mobic, etc.) 7 days before surgery, as directed by your surgeon. - Stop Aspirin 7 days before surgery, as directed by your surgeon. - Stop Vitamin E, ALL multi-vitamins, herbals and dietary supplements 14 days before surgery. - You may take Tylenol (Acetaminophen) or any of your pain medications that do not contain aspirin or NSAIDS as needed. Important Reminders: - If you use CPAP/BIPAP and will be staying overnight, bring the machine with you to the surgery center. - Candy, mints, and tobacco products are NOT permitted the morning of surgery. - Hearing aids and glasses may be worn the morning of surgery. - NO jewelry, body piercings, makeup, hairpins or contacts are to be worn the day of surgery. - You may wear your partials/dentures, but you may be asked to remove them prior to you're procedure If you develop symptoms such as a fever, cold, or flu, or have other changes to your health within TWO DAYS of scheduled surgery or the morning of surgery, please contact the surgery center above. Personal Belongings: -Please have photo ID and insurance cards. -If you do not have a copy of advance directives on file with us, please bring a copy with you on the day of surgery. - Leave ALL valuables and money at home or with family members. For Outpatient Procedures: - YOU MUST HAVE A RESPONSIBLE SHOW CARD LETTERER TAKE YOU HOME. A MARKET ANALYST OR OWNER/OPERATOR CANNOT BE MADE A RESPONSIBLE SHOW CARD LETTERER. - We recommend that a responsible person stays with you overnight to take care of you. - You cannot stay in a hotel alone after outpatient surgery. You will not be permitted to have your surgery, if you do not have someone to take care of you. If you already have an Advance Directive, please fax a copy to [phone] or email to for it to be added to your chart. If you do not have an Advance Directive, you can find the appropriate form and more information at [email or web address]. We recommend that you complete the Advance Directive form found on the website and bring it with you the day of your surgery. It can be witnessed and scanned into your chart that day. Hazel Billingsley APRN.POSITIVE PRINTER OPERATOR documented in this encounter [facility] 04-30-2024 History and physical note HISTORY AND PHYSICAL EXAMINATION SERVICE DATE: 04/30/2024 SERVICE TIME: 1:03 PM PRIMARY CARE PHYSICIAN: Nupur Mcmahan MD REASON FOR VISIT: Brittney Vernon is a 38 year old female who is scheduled for Left - ORIF METATARSAL at the request of Dr. Beatrice Cabrera for consultation. My final recommendation will be communicated back to the requesting physician by way of shared medical record or letter. Assessment Smoker Assessment: Current 1/2 ppd smoker Obstructive sleep apnea syndrome in adult Assessment: NON Compliant with CPAP Paroxysmal supraventricular tachycardia (HCC) Assessment: Untreated, states that the medications bottomed out her BP States she is occasionally dizzy Hypertension Assessment: Followed by PCP Last 5 Encounter BP Readings: Date: BP: 04/30/2024 138/84 04/28/2020 155/103 01/24/2013 110/70 10/23/2012 125/84 07/18/2012 125/74 GERD (gastroesophageal reflux disease) Assessment: Well controlled with PPI Bipolar disorder (HCC) Assessment: Not currently medicated Obesity, morbid Assessment: Body mass index is 42.74 kg/m . Alvarado Activity Status Index: METS: Walk indoors, such as around the house (1.75 METs) Do light work around the house, such as dusting or washing dishes (2.70 METs) Take care of self; that is eating, dressing, bathing, using the toilet (2.75 METs) Climb a flight of stairs or walk up a hill (5.50 METs) DASI Score: 12.7 Patient denies any chest pain or undue shortness of breath with the above physical activity. Clinical Frailty Scale: 3. Well, with treated comorbid disease STOP-Bang Score: BMI greater than 35 kg/m^2 Denies snoring loudly Denies feeling tired, fatigued, or sleepy during the daytime Has not been observed to stop breathing or choking/gasping during sleep Denies having high blood pressure Patient 50 years old or younger Does not have a large neck Non-male patient STOP-Bang Score: 1 ANESTHESIA FINDINGS: Intubation History: No history of difficult intubation Significant Anesthesia Considerations: none Airway History: No history of difficult airway I - PHYSICAL EVALUATION AIRWAY Patient intubated: No. Tracheostomy tube not present Mallampati: III. TM distance: >3 FB. Neck ROM: limited extension. Mouth opening: adequate. Short neck: no. Thick neck: yes Scott present: no Lip Bite Test: II Microretrognathia/Micronagthia/R ecessed Chin: No DENTAL Dental findings: poor dentition. II - ANESTHESIA PLAN Beta Fariba Monitoring Plan Post Procedure Analgesic Plan Prepared for surgery: This patient is optimally prepared for surgery. CONSULTS: Anesthesia Consult airway exam Airway evaluated per Dr. 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 The patient states the pain is interfering with daily activities and sleep. Conservative measures have been ineffective. Patient has opted to proceed with above reccommended surgery and is here today for preanesthesia consultation. PAST MEDICAL HISTORY No date: Anxiety No date: Migraine No date: Psychiatric disorder Comment: bi-polar PAST SURGICAL HISTORY No date: CHOLECYSTECTOMY HX No date: HYSTERECTOMY HX No date: ORTHOPEDIC SURGERY HX Comment: hammertoe repair No date: ORTHOPEDICS SURGERY HX Comment: lt ankle x3 No date: OTHER SURGICAL HISTORY (PLEASE SPECIFY) HX Comment: c-sec No date: TONSILLECTOMY HX History reviewed. No pertinent family history. SOCIAL HISTORY: Social History Tobacco Use Smoking status: Every Day Current packs/day: 0.50 Average packs/day: 0.5 packs/day for 22.7 years (11.3 ttl pk-yrs) Types: Cigarettes Start date: 2001 Smokeless tobacco: Never Vaping Use Vaping status: Never Used Substance Use Topics Alcohol use: Not Currently Drug use: Never Prior to Admission medications as of 04/30/24 1317 Medication Sig Last Dose Taking diclofenac, EC, (VOLTAREN) 75 mg EC tablet Take 75 mg by mouth two times a day as needed. Yes cyproheptadine (PERIACTIN) 4 mg tablet Take 4 mg by mouth twice daily. Yes naproxen (NAPROSYN) 500 mg tablet Take 500 mg by mouth twice daily as needed. Yes hydrOXYzine HCl (ATARAX) 10 mg tablet take 1 to 2 tablets by mouth three times a day if needed Yes No medication comments found. ALLERGIES Allergen Reactions Latex Hives Acetaminophen Other: See Comments Increases liver enzymes Adhesive Tape (Leona* Rash Dilaudid [Hydromorp* Other: See Comments SPO2 drops Covid Immunization Dates Overdue - Covid-19 Vaccine ( season) Overdue since 04/28/2024 12/20/2021 Imm Admin: COVID-19 vaccine ([employer]) 05/06/2021 Imm Admin: COVID-19 vaccine ([employer]) REVIEW OF SYSTEMS: PAIN ASSESSMENT: Pain Pain Level: 8 Pain Location: Foot-Left Description: Aching, Burning, Sharp Duration Amount of Time: 2 Duration Units: Years Frequency: Continuous Intervention/Comfort measure: Declined General: No weight loss, malaise or fevers. Neuro: No history of TIA's, stroke, COMPUTER PROGRAMMER ANALYST tumor, impaired sensorium, hemiplegia, paraplegia or quadraplegia. No neurological symptoms or problems. Respiratory: No history of current cough or dyspnea, or pneumonia in the past 6 weeks. No history of respiratory/pulmonary symptoms or problems. + Smoker Cardiovascular: Negative for Recent HI, Angina, CAD, Chest Pain, CHF, PVD, Valvular Heart Disease, DVT/PE + PSVT GI: No history of GI symptoms or problems. No history of esophageal varices, recent ascites, or ETOH greater than 2 drinks per day. 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 : Denies, No LMP recorded. Patient has had a hysterectomy. Endocrine: No history of diabetes. Has not taken steroids within the past 30 days. No history of endocrinological symptoms or problems. Hematology: No history of bleeding or clotting disorder. Pt is not taking anti-coagulation or platelet medications. No history of hematological symptoms or problems. Oncology: No history of CA metastasis, chemo within 30 days, or radiotherapy within 90 days. Has not lost 10% of body wt in 6 months. No history of oncological symptoms or problems. Psych: Bipolar disorder Musculoskeletal: Negative for joint pain or swelling, back pain or muscle pain. Skin: Negative for lesions, rash and itching. Objective PHYSICAL EXAM: VITALS: BP 138/84 Pulse 79 Temp (Src) 98.8 (Oral) Resp 16 Ht 5' 11 (1.80m) Wt 306 lb 7 oz (139.0kg) SpO2 100% BMI 42.76 kg/(m^2). General: Alert and oriented, No acute distress, Morbidly obese Skin: Normal color, no rash, no lesions. HEENT: EOM, pupils equal, round and reactive. Cardiovascular: Normal S1 & S2, no rubs, murmurs or gallops. No JVD. Pulse regular. Lungs: Normal breath sounds, no wheezes or crackles. Abdomen: Soft, non-tender, no rigidity. Extremities: No deformity, no edema or tenderness, no joint swelling or clubbing. Neurological: Normal cognition and motor skills. Pulses: Carotid and radial pulses normal +2. Diagnostic tests reviewed for today's visit: Hemoglobin A1C (%) Date Value 07/18/2012 5.5 12/09/2009 5.6 Instructions Given to Patient: Instructions located in the after visit summary. Patient given verbal and written preop instructions and voices comprehension and compliance. SIGNATURE: Hazel Billingsley APRN.CNP PATIENT NAME: Brittney Vernon DATE: 04/30/2024 TIME: 1:47 PM [facility] 04-30-2024 History and physical note HISTORY AND PHYSICAL EXAMINATION SERVICE DATE: 04/30/2024 SERVICE TIME: 1:03 PM PRIMARY CARE PHYSICIAN: Nupur Mcmahan MD REASON FOR VISIT: Brittney Vernon is a 38 year old female who is scheduled for Left - ORIF METATARSAL at the request of Dr. Beatrice Cabrera for consultation. My final recommendation will be communicated back to the requesting physician by way of shared medical record or letter. Assessment Smoker Assessment: Current 1/2 ppd smoker Obstructive sleep apnea syndrome in adult Assessment: NON Compliant with CPAP Paroxysmal supraventricular tachycardia (HCC) Assessment: Untreated, states that the medications bottomed out her BP States she is occasionally dizzy Hypertension Assessment: Followed by PCP Last 5 Encounter BP Readings: Date: BP: 04/30/2024 138/84 04/28/2020 155/103 01/24/2013 110/70 10/23/2012 125/84 07/18/2012 125/74 GERD (gastroesophageal reflux disease) Assessment: Well controlled with PPI Bipolar disorder (HCC) Assessment: Not currently medicated Obesity, morbid Assessment: Body mass index is 42.74 kg/m . Alvarado Activity Status Index: METS: Walk indoors, such as around the house (1.75 METs) Do light work around the house, such as dusting or washing dishes (2.70 METs) Take care of self; that is eating, dressing, bathing, using the toilet (2.75 METs) Climb a flight of stairs or walk up a hill (5.50 METs) DASI Score: 12.7 Patient denies any chest pain or undue shortness of breath with the above physical activity. Clinical Frailty Scale: 3. Well, with treated comorbid disease STOP-Bang Score: BMI greater than 35 kg/m^2 Denies snoring loudly Denies feeling tired, fatigued, or sleepy during the daytime Has not been observed to stop breathing or choking/gasping during sleep Denies having high blood pressure Patient 50 years old or younger Does not have a large neck Non-male patient STOP-Bang Score: 1 ANESTHESIA FINDINGS: Intubation History: No history of difficult intubation Significant Anesthesia Considerations: none Airway History: No history of difficult airway I - PHYSICAL EVALUATION AIRWAY Patient intubated: No. Tracheostomy tube not present Mallampati: III. TM distance: >3 FB. Neck ROM: limited extension. Mouth opening: adequate. Short neck: no. Thick neck: yes Scott present: no Lip Bite Test: II Microretrognathia/Micronagthia/R ecessed Chin: No DENTAL Dental findings: poor dentition. II - ANESTHESIA PLAN Beta Fariba Monitoring Plan Post Procedure Analgesic Plan Prepared for surgery: This patient is optimally prepared for surgery. CONSULTS: Anesthesia Consult airway exam Airway evaluated per Dr. 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 The patient states the pain is interfering with daily activities and sleep. Conservative measures have been ineffective. Patient has opted to proceed with above reccommended surgery and is here today for preanesthesia consultation. PAST MEDICAL HISTORY No date: Anxiety No date: Migraine No date: Psychiatric disorder Comment: bi-polar PAST SURGICAL HISTORY No date: CHOLECYSTECTOMY HX No date: HYSTERECTOMY HX No date: ORTHOPEDIC SURGERY HX Comment: hammertoe repair No date: ORTHOPEDICS SURGERY HX Comment: lt ankle x3 No date: OTHER SURGICAL HISTORY (PLEASE SPECIFY) HX Comment: c-sec No date: TONSILLECTOMY HX History reviewed. No pertinent family history. SOCIAL HISTORY: Social History Tobacco Use Smoking status: Every Day Current packs/day: 0.50 Average packs/day: 0.5 packs/day for 22.7 years (11.3 ttl pk-yrs) Types: Cigarettes Start date: 2001 Smokeless tobacco: Never Vaping Use Vaping status: Never Used Substance Use Topics Alcohol use: Not Currently Drug use: Never Prior to Admission medications as of 04/30/24 1317 Medication Sig Last Dose Taking diclofenac, EC, (VOLTAREN) 75 mg EC tablet Take 75 mg by mouth two times a day as needed. Yes cyproheptadine (PERIACTIN) 4 mg tablet Take 4 mg by mouth twice daily. Yes naproxen (NAPROSYN) 500 mg tablet Take 500 mg by mouth twice daily as needed. Yes hydrOXYzine HCl (ATARAX) 10 mg tablet take 1 to 2 tablets by mouth three times a day if needed Yes No medication comments found. ALLERGIES Allergen Reactions Latex Hives Acetaminophen Other: See Comments Increases liver enzymes Adhesive Tape (Leona* Rash Dilaudid [[employer]* Other: See Comments SPO2 drops Covid Immunization Dates Overdue - Covid-19 Vaccine () Overdue since 04/28/2024 12/20/2021 Imm Admin: COVID-19 vaccine ([employer]) 05/06/2021 Imm Admin: COVID-19 vaccine ([employer]) REVIEW OF SYSTEMS: PAIN ASSESSMENT: Pain Pain Level: 8 Pain Location: Foot-Left Description: Aching, Burning, Sharp Duration Amount of Time: 2 Duration Units: Years Frequency: Continuous Intervention/Comfort measure: Declined General: No weight loss, malaise or fevers. Neuro: No history of TIA's, stroke, COMPUTER PROGRAMMER ANALYST tumor, impaired sensorium, hemiplegia, paraplegia or quadraplegia. No neurological symptoms or problems. Respiratory: No history of current cough or dyspnea, or pneumonia in the past 6 weeks. No history of respiratory/pulmonary symptoms or problems. + Smoker Cardiovascular: Negative for Recent HI, Angina, CAD, Chest Pain, CHF, PVD, Valvular Heart Disease, DVT/PE + PSVT GI: No history of GI symptoms or problems. No history of esophageal varices, recent ascites, or ETOH greater than 2 drinks per day. 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 : Denies, No LMP recorded. Patient has had a hysterectomy. Endocrine: No history of diabetes. Has not taken steroids within the past 30 days. No history of endocrinological symptoms or problems. Hematology: No history of bleeding or clotting disorder. Pt is not taking anti-coagulation or platelet medications. No history of hematological symptoms or problems. Oncology: No history of CA metastasis, chemo within 30 days, or radiotherapy within 90 days. Has not lost 10% of body wt in 6 months. No history of oncological symptoms or problems. Psych: Bipolar disorder Musculoskeletal: Negative for joint pain or swelling, back pain or muscle pain. Skin: Negative for lesions, rash and itching. Objective PHYSICAL EXAM: VITALS: BP 138/84 Pulse 79 Temp (Src) 98.8 (Oral) Resp 16 Ht 5' 11 (1.80m) Wt 306 lb 7 oz (139.0kg) SpO2 100% BMI 42.76 kg/(m^2). General: Alert and oriented, No acute distress, Morbidly obese Skin: Normal color, no rash, no lesions. HEENT: EOM, pupils equal, round and reactive. Cardiovascular: Normal S1 & S2, no rubs, murmurs or gallops. No JVD. Pulse regular. Lungs: Normal breath sounds, no wheezes or crackles. Abdomen: Soft, non-tender, no rigidity. Extremities: No deformity, no edema or tenderness, no joint swelling or clubbing. Neurological: Normal cognition and motor skills. Pulses: Carotid and radial pulses normal +2. Diagnostic tests reviewed for today's visit: Hemoglobin A1C (%) Date Value 07/18/2012 5.5 12/09/2009 5.6 Instructions Given to Patient: Instructions located in the after visit summary. Patient given verbal and written preop instructions and voices comprehension and compliance. SIGNATURE: Hazel Billingsley APRN.CNP PATIENT NAME: Brittney Vernon DATE: 04/30/2024 TIME: 1:47 PM documented in this encounter [facility] 03-29-2024 Note HNO ID: [id number] Author: FABIANO PAIGE, DO Service: ? Author Type: Physician Type: Progress Notes Filed: 03/29/2024 08:56 Note Text: [facility] Office Visit Documentation Note [facility] Sports Medicine Orthopaedic and Rheumatologic [place] HISTORY OF PRESENT ILLNESS (HPI) CHIEF COMPLAINT / REASON FOR VISIT SERVICE DATE: March 29, 2024 PCP: Nupur Mcmahan MD Brittney Vernon is a 38 year old female who presents today for a new evaluation of following complaint: Patient presents with: Left Knee - New Right Knee - New HISTORY OF PRESENT ILLNESS (HPI) PAIN EVALUATION 03/28/2024 1745 03/29/2024 0759 03/29/2024 0801 Pain Level: 10 6 9 10/10 at worst 10/10 at worst Pain Location: Knee-Left Knee-Right Knee-Left anterior and lateral Description: Sharp;Shooting;Sore;Stabbing/Not Incision;Stiffness;Tenderness;Ti ghtness Sharp Sharp Duration Amount of Time: -- 4 2 Duration Units: Months Years Years Frequency: Continuous Continuous Continuous Intervention/Comfort measure: Medication;Massage -- -- surgery 08/01/2020, CSI and gel without releif CSI and gel without relief with the presenting complaint of New of the Left Knee and New of the Right Knee Brief overview: This is a 38-year-old female who is currently not working due to increased pain. Activity level-low Pain tolerance-she has to take both ibuprofen or naproxen and Voltaren for pain relief. She understands the risks but she has been taking anyhow. She has global knee pain with left being worse than the right. She has had physical therapy, viscosupplementation, cortisone injection and nothing is made it worse. Aggravating Factors Does anything make it worse?: walking all activities Brittney reports a current pain level of 9 (10/10 at worst) (Knee-Left). She describes the pain as Sharp. The pain is Continuous, and has lasted for 2 Years. Interventions tried include (CSI and gel without relief). Most recent knee imaging was completed on 03/29/2024 (XR KNEE GENERAL 4V AP BOTH/PA BOTH/LAT/MERC BILATERAL) . Attached is imaging for the order. PREVIOUS TREATMENTS: Treatments so far have included medication (Naproxen, Narcotic medication, and Volateren). REVIEW OF SYSTEMS ROS: Neurologic: Any numbness or tingling? No Endocrine: Any diagnosis of diabetes? No ALLERGIES ALLERGIES Allergen Reactions Latex Hives Acetaminophen Other: See Comments Increases liver enzymes Dilaudid [Hydromorp* Other: See Comments SPO2 drops PAST MEDICAL HISTORY PAST MEDICAL HISTORY No date: Anxiety No date: Migraine No date: Psychiatric disorder Comment: bi-polar PHYSICAL EXAMINATION Body Habitus: well nourished, no acute distress, and endomorphic Psych: normal Sensation: sensation to light touch is grossly normal bilaterally Skin: Color, texture, turgor normal. No rashes or lesions Swelling: no swelling noted Gait: Normal, the patient did not have trouble getting onto the exam table. ORTHO EXAM: Ortho Exam Patient has difficult time getting onto my examination table today. She stands with normal stance. She has moderate bilateral patellofemoral crepitance. No medial joint line pain on either knee. Hip range of motion in seated position is stable IMAGING/LABORATORY IMAGING: Final results and radiologist's interpretation, available in the [facility] health record. Images were reviewed with the patient/family members in the office today. My personal interpretation of the performed imaging is chronic degenerative changes. Last XR Knee - Impression Only XR KNEE GENERAL 4V AP BOTH/PA BOTH/LAT/MERC BILATERAL Exam End: 03/29/2024 7:38 AM (Final result) Impression: IMPRESSION: Minimal left knee degenerative change. Moderate right medial compartment osteoarthritis. ... ASSESSMENT / PLAN CLINICAL IMPRESSION / ASSESSMENT: CLINICAL IMPRESSION / ASSESSMENT: (M17.0) Primary osteoarthritis of both knees (primary encounter diagnosis) (M25.561, M25.562, G89.29) Chronic pain of both knees RECOMMENDATION / PLAN: Summary this is a 38-year-old female whose had chronic knee pain refractory to her surgery on the right knee for removing my cartilage . I have no history of this from another institution. She is here today for third opinion. I advised for her to consider MRIs of both knees and then understanding the following 1. She has been refractory to treatment for any intra-articular injection 2. She has tried physical therapy, but I suspect a continued attempt at weight loss and strength would be the #1 2 and 3 most important things to do 3. We can contemplate an ejections, but they have failed her to this point. Follow up: Encouraged her to follow-up with one of my surgical partners for at least a surgical opinion. If surgical opinion is not warranted at this time, we can certainly consider further treatment Films prior to visit: Written instructions (see patient instructions) and verbal hea (more content not included)... [facility] 03-29-2024 History of Present illness Narrative Images from the original note were not included. [facility] Office Visit Documentation Note [facility] Sports Medicine Orthopaedic and Rheumatologic [place] HISTORY OF PRESENT ILLNESS (HPI) CHIEF COMPLAINT / REASON FOR VISIT SERVICE DATE: March 29, 2024 PCP: Nupur Mcmahan MD Brittney Vernon is a 38 year old female who presents today for a new evaluation of following complaint: Patient presents with: Left Knee - New Right Knee - New HISTORY OF PRESENT ILLNESS (HPI) PAIN EVALUATION 03/28/2024 1745 03/29/2024 0759 03/29/2024 0801 Pain Level: 10 6 9 10/10 at worst 10/10 at worst Pain Location: Knee-Left Knee-Right Knee-Left anterior and lateral Description: Sharp;Shooting;Sore;Stabbing/Not Incision;Stiffness;Tenderness;Ti ghtness Sharp Sharp Duration Amount of Time: -- 4 2 Duration Units: Months Years Years Frequency: Continuous Continuous Continuous Intervention/Comfort measure: Medication;Massage -- -- surgery 08/01/2020, CSI and gel without releif CSI and gel without relief with the presenting complaint of New of the Left Knee and New of the Right Knee Brief overview: This is a 38-year-old female who is currently not working due to increased pain. Activity level-low Pain tolerance-she has to take both ibuprofen or naproxen and Voltaren for pain relief. She understands the risks but she has been taking anyhow. She has global knee pain with left being worse than the right. She has had physical therapy, viscosupplementation, cortisone injection and nothing is made it worse. Aggravating Factors Does anything make it worse?: walking all activities Brittney reports a current pain level of 9 (10/10 at worst) (Knee-Left). She describes the pain as Sharp. The pain is Continuous, and has lasted for 2 Years. Interventions tried include (CSI and gel without relief). Most recent knee imaging was completed on 03/29/2024 (XR KNEE GENERAL 4V AP BOTH/PA BOTH/LAT/MERC BILATERAL) . Attached is imaging for the order. PREVIOUS TREATMENTS: Treatments so far have included medication (Naproxen, Narcotic medication, and Volateren). REVIEW OF SYSTEMS ROS: Neurologic: Any numbness or tingling? No Endocrine: Any diagnosis of diabetes? No ALLERGIES ALLERGIES Allergen Reactions Latex Hives Acetaminophen Other: See Comments Increases liver enzymes Dilaudid [Hydromorp* Other: See Comments SPO2 drops PAST MEDICAL HISTORY PAST MEDICAL HISTORY No date: Anxiety No date: Migraine No date: Psychiatric disorder Comment: bi-polar PHYSICAL EXAMINATION Body Habitus: well nourished, no acute distress, and endomorphic Psych: normal Sensation: sensation to light touch is grossly normal bilaterally Skin: Color, texture, turgor normal. No rashes or lesions Swelling: no swelling noted Gait: Normal, the patient did not have trouble getting onto the exam table. ORTHO EXAM: Ortho Exam Patient has difficult time getting onto my examination table today. She stands with normal stance. She has moderate bilateral patellofemoral crepitance. No medial joint line pain on either knee. Hip range of motion in seated position is stable IMAGING/LABORATORY IMAGING: Final results and radiologist's interpretation, available in the [facility] health record. Images were reviewed with the patient/family members in the office today. My personal interpretation of the performed imaging is chronic degenerative changes. Last XR Knee - Impression Only XR KNEE GENERAL 4V AP BOTH/PA BOTH/LAT/MERC BILATERAL Exam End: 03/29/2024 7:38 AM (Final result) Impression: IMPRESSION: Minimal left knee degenerative change. Moderate right medial compartment osteoarthritis. ... ASSESSMENT / PLAN CLINICAL IMPRESSION / ASSESSMENT: CLINICAL IMPRESSION / ASSESSMENT: (M17.0) Primary osteoarthritis of both knees (primary encounter diagnosis) (M25.561, M25.562, G89.29) Chronic pain of both knees RECOMMENDATION / PLAN: Summary this is a 38-year-old female whose had chronic knee pain refractory to her surgery on the right knee for removing my cartilage . I have no history of this from another institution. She is here today for third opinion. I advised for her to consider MRIs of both knees and then understanding the following 1. She has been refractory to treatment for any intra-articular injection 2. She has tried physical therapy, but I suspect a continued attempt at weight loss and strength would be the #1 2 and 3 most important things to do 3. We can contemplate an ejections, but they have failed her to this point. Follow up: Encouraged her to follow-up with one of my surgical partners for at least a surgical opinion. If surgical opinion is not warranted at this time, we can certainly consider further treatment Films prior to visit: Written instructions (see patient instructions) and verbal health education given to patient. Patient verbalizes understanding and agrees with the treatment plan. Fabiano Paige D.O. [facility] Orthopaedic and Rheumatologic Photographic Process Worker, [facility] Program Team Physician, [facility] [employer] Consulting Physician, [place] Denise Ochoa, Stone Trimmer [phone] Medical Decision Making documented in this encounter [facility] 03-29-2024 History of Present illness Narrative Radiology Service Progress Note PATIENT NAME: Brittney Vernon DATE OF SERVICE: March 29, 2024 TIME: 7:34 AM PATIENT IDENTITY VERIFICATION COMPLETED USING TWO (2) IDENTIFIERS: Name and Date of confirmed by patient verbally. FALL SCREENING: Has the patient had 2 falls in the last year or 1 fall with injury or currently using an Ambulatory Assistive Device (Walker, Cane, Wheelchair, Crutches, etc.)? No PATIENT GENDER DATA: Female. status: : No status: NO. 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 Bearing PERIPHERAL IV DATA: Not applicable SIGNED BY: RT Ramona(Rachel) March 29, 2024 7:34 AM documented in this encounter [facility] 03-29-2024 Note HNO ID: [id number] Author: TATYANA SHAH RT(R) Service: Radiology Author Type: Technologist Type: Progress Notes Filed: 03/29/2024 07:34 Note Text: Radiology Service Progress Note PATIENT NAME: Brittney Vernon DATE OF SERVICE: March 29, 2024 TIME: 7:34 AM PATIENT IDENTITY VERIFICATION COMPLETED USING TWO (2) IDENTIFIERS: Name and Date of confirmed by patient verbally. FALL SCREENING: Has the patient had 2 falls in the last year or 1 fall with injury or currently using an Ambulatory Assistive Device (Walker, Cane, Wheelchair, Crutches, etc.)? No PATIENT GENDER DATA: Female. status: : No status: NO. 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 Bearing PERIPHERAL IV DATA: Not applicable SIGNED BY: Tatyana Shah, RT(R) March 29, 2024 7:34 AM [facility] 02-19-2024 Telephone encounter Note Summary: Error VOID- completed in ERROR [facility] 02-19-2024 Miscellaneous Notes Summary: Error VOID- completed in ERROR documented in this encounter [facility] 02-08-[address] Cabrera / Katarina, A call from Kelin was wrongly placed in my voicemail, so I am passing it along to you. This patient is scheduled for surgery with you on 05/13/24. Please call Gillian Whitlock at [phone]. She is trying to not only get this surgery authorized, but all of this patient's podiatry care. She has received two C-9 forms, one for the surgery and another for a bone growth stimulator, and she is trying to make sure that nothing gets denied, but needs to speak with you to ask a few questions in order for that not to happen. [facility] Work Phone: 02-08-[address] Cabrera / Katarina, A call from Kelin was wrongly placed in my voicemail, so I am passing it along to you. This patient is scheduled for surgery with you on 05/13/24. Please call Gillian with [facility] at [phone]. She is trying to not only get this surgery authorized, but all of this patient's podiatry care. She has received two C-9 forms, one for the surgery and another for a bone growth stimulator, and she is trying to make sure that nothing gets denied, but needs to speak with you to ask a few questions in order for that not to happen. documented in this encounter [facility] 01-17-2024 Telephone encounter Note Left voice message asking patient to call back to schedule surgery for her left foot with Dr. Cabrera. I provided my direct number in surgery scheduling [phone]. [facility] Work Phone: 01-17-2024 Miscellaneous Notes Left voice message asking patient to call back to schedule surgery for her left foot with Dr. Cabrera. I provided my direct number in surgery scheduling [phone]. documented in this encounter [facility] 01-12-2024 Note HNO ID: [id number] Author: BEATRICE CABRERA DPM Service: ? Author Type: Physician Type: Progress Notes Filed: 01/12/2024 15:03 Note Text: [facility] Department of Orthopedics [facility] Orthopedic Surgery Name: Brittney Vernon Date of Service: January 12, 2024 CC/HPI: This 38 year old very pleasant female patient presents to the clinic today with a chief complaint of a left foot metatarsal base fracture tuberosity type that has not healed for a year and a half. She has constant pain and a bump over there. She had right knee surgery and fell in the bathtub and injured her left foot on May 27, 2022. She is seen today since she is frustrated since she is able to walk without pain since the fracture occurred and she has seen other doctors but nothing definitive was really ever done. She is seen today to discuss the problem and treatment options along with her plan of care. She states she has pain with every step over fifth metatarsal base region of her left foot. PAST MEDICAL HISTORY Diagnosis Date Anxiety Migraine Psychiatric disorder bi-polar Current Outpatient Medications Medication Sig cyproheptadine (PERIACTIN) 4 mg tablet Take 4 mg by mouth twice daily. naproxen (NAPROSYN) 500 mg tablet Take 500 mg by mouth twice daily as needed. hydrOXYzine HCl (ATARAX) 10 mg tablet take 1 to 2 tablets by mouth three times a day if needed PNV WITH CA,NO.71/IRON/FA ( VITAMIN 1+1 ORAL) Take by mouth. CALCIUM CARBONATE/VITAMIN D3 (CALCIUM 600 + D,3, ORAL) Take by mouth. Ascorbic Acid (VITAMIN C) 100 mg tablet Take 100 mg by mouth once daily. Vitamin G57-Qortkzz B1 5.5-12.5 mg-mcg/5 mL Liqd Take by mouth. citalopram (CELEXA) 20 mg tablet Take 20 mg by mouth once daily. cholecalciferol, Vitamin D3, 50,000 unit cap capsule Take 1 capsule by mouth once each week. lisinopril 10 mg tablet Take 10 mg by mouth once daily. No current facility-administered medications for this visit. ALLERGIES Allergen Reactions Latex Hives Acetaminophen Other: See Comments Increases liver enzymes Dilaudid [Hydromorp* Other: See Comments SPO2 drops PAST SURGICAL HISTORY Procedure Laterality Date CHOLECYSTECTOMY HX HYSTERECTOMY HX ORTHOPEDIC SURGERY HX hammertoe repair ORTHOPEDICS SURGERY HX lt ankle x3 OTHER SURGICAL HISTORY (PLEASE SPECIFY) HX c-sec TONSILLECTOMY HX No family history on file. Social History Tobacco Use Smoking status: Every Day Packs/day: .5 Types: Cigarettes Smokeless tobacco: Never Vaping Use Vaping Use: Never used Substance Use Topics Alcohol use: Not Currently Drug use: Never Physical Exam: Patient approximate 5 foot 11 and 297 pounds The patient is alert and oriented x 3 in no apparent acute distress. Vascular: Pedal pulses are palpable DP and PT left. CFT is less than 3 seconds digits 1-5 left. Skin temperature is warm to cool from anterior knees to toes left. Minimal varicosities left. Normal pedal hair growth left. There is no edema or erythema over the fifth metatarsal base region of the left foot this time Neuro: Light touch is intact to all quadrants of foot and ankle with no apparent sensory deficits left. Derm: Unremarkable as related chief complaint left Ortho: Muscle strength is +5/5 for all pedal groups left. Ankle joint, subtalar joint, 1st MPJ and lesser MPJ ROM's are full and without pain or crepitus left. 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 Radiographs 3 views left foot Discussed results of clinical and radiographic examination with the patient in detail along with treatment options. Recommend nonunion repair. Would have to break apart the fracture and the nonunion curette the devitalized tissue and utilize a hook plate with possible bone grafting along with an KAILEY bone growth stimulator. Advised can perform at the [facility] under general anesthesia in a lateral position. Nonweightbearing for indeterminate amount of time pending clinical radiographic findings along with an KAILEY bone growth stimulator. I will contact Lulú regarding thi. The patient wished to proceed. We will complete scheduling. All questions were answered. No guarantees were given as to results may be obtained. Advised the patient this is a difficult case to fix but I do feel it can be done. Beatrice Cabrera DPM [facility] 01-12-2024 History of Present illness Narrative [facility] Department of Orthopedics [facility] Orthopedic Surgery Name: Brittney Vernon Date of Service: January 12, 2024 CC/HPI: This 38 year old very pleasant female patient presents to the clinic today with a chief complaint of a left foot metatarsal base fracture tuberosity type that has not healed for a year and a half. She has constant pain and a bump over there. She had right knee surgery and fell in the bathtub and injured her left foot on May 27, 2022. She is seen today since she is frustrated since she is able to walk without pain since the fracture occurred and she has seen other doctors but nothing definitive was really ever done. She is seen today to discuss the problem and treatment options along with her plan of care. She states she has pain with every step over fifth metatarsal base region of her left foot. PAST MEDICAL HISTORY Diagnosis Date Anxiety Migraine Psychiatric disorder bi-polar Current Outpatient Medications Medication Sig cyproheptadine (PERIACTIN) 4 mg tablet Take 4 mg by mouth twice daily. naproxen (NAPROSYN) 500 mg tablet Take 500 mg by mouth twice daily as needed. hydrOXYzine HCl (ATARAX) 10 mg tablet take 1 to 2 tablets by mouth three times a day if needed PNV WITH CA,NO.71/IRON/FA ( VITAMIN 1+1 ORAL) Take by mouth. CALCIUM CARBONATE/VITAMIN D3 (CALCIUM 600 + D,3, ORAL) Take by mouth. Ascorbic Acid (VITAMIN C) 100 mg tablet Take 100 mg by mouth once daily. Vitamin G38-Gmvaxsr B1 5.5-12.5 mg-mcg/5 mL Liqd Take by mouth. citalopram (CELEXA) 20 mg tablet Take 20 mg by mouth once daily. cholecalciferol, Vitamin D3, 50,000 unit cap capsule Take 1 capsule by mouth once each week. lisinopril 10 mg tablet Take 10 mg by mouth once daily. No current facility-administered medications for this visit. ALLERGIES Allergen Reactions Latex Hives Acetaminophen Other: See Comments Increases liver enzymes Dilaudid [Hydromorp* Other: See Comments SPO2 drops PAST SURGICAL HISTORY Procedure Laterality Date CHOLECYSTECTOMY HX HYSTERECTOMY HX ORTHOPEDIC SURGERY HX hammertoe repair ORTHOPEDICS SURGERY HX lt ankle x3 OTHER SURGICAL HISTORY (PLEASE SPECIFY) HX c-sec TONSILLECTOMY HX No family history on file. Social History Tobacco Use Smoking status: Every Day Packs/day: .5 Types: Cigarettes Smokeless tobacco: Never Vaping Use Vaping Use: Never used Substance Use Topics Alcohol use: Not Currently Drug use: Never Physical Exam: Patient approximate 5 foot 11 and 297 pounds The patient is alert and oriented x 3 in no apparent acute distress. Vascular: Pedal pulses are palpable DP and PT left. CFT is less than 3 seconds digits 1-5 left. Skin temperature is warm to cool from anterior knees to toes left. Minimal varicosities left. Normal pedal hair growth left. There is no edema or erythema over the fifth metatarsal base region of the left foot this time Neuro: Light touch is intact to all quadrants of foot and ankle with no apparent sensory deficits left. Derm: Unremarkable as related chief complaint left Ortho: Muscle strength is +5/5 for all pedal groups left. Ankle joint, subtalar joint, 1st MPJ and lesser MPJ ROM's are full and without pain or crepitus left. 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 Radiographs 3 views left foot Discussed results of clinical and radiographic examination with the patient in detail along with treatment options. Recommend nonunion repair. Would have to break apart the fracture and the nonunion curette the devitalized tissue and utilize a hook plate with possible bone grafting along with an KAILEY bone growth stimulator. Advised can perform at the [facility] under general anesthesia in a lateral position. Nonweightbearing for indeterminate amount of time pending clinical radiographic findings along with an KAILEY bone growth stimulator. I will contact Lulú regarding thi. The patient wished to proceed. We will complete scheduling. All questions were answered. No guarantees were given as to results may be obtained. Advised the patient this is a difficult case to fix but I do feel it can be done. Beatrice Cabrera DPM documented in this encounter [facility] 01-12-2024 Note HNO ID: [id number] Author: ELISHA FRIEDMAN RT(R) Service: ? Author Type: Technologist Type: Progress Notes Filed: 01/12/2024 14:13 Note Text: Radiology Service Progress Note PATIENT NAME: Brittney Vernon DATE OF SERVICE: January 12, 2024 TIME: 2:12 PM PATIENT IDENTITY VERIFICATION COMPLETED USING TWO (2) IDENTIFIERS: Name and Date of confirmed by patient verbally. FALL SCREENING: Has the patient had 2 falls in the last year or 1 fall with injury or currently using an Ambulatory Assistive Device (Walker, Cane, Wheelchair, Crutches, etc.)? No PATIENT GENDER DATA: Female. 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 Bearing PERIPHERAL IV DATA: Not applicable SIGNED BY: RT Dada(R) January 12, 2024 2:12 PM [facility] 01-12-2024 History of Present illness Narrative Radiology Service Progress Note PATIENT NAME: Brittney Vernon DATE OF SERVICE: January 12, 2024 TIME: 2:12 PM PATIENT IDENTITY VERIFICATION COMPLETED USING TWO (2) IDENTIFIERS: Name and Date of confirmed by patient verbally. FALL SCREENING: Has the patient had 2 falls in the last year or 1 fall with injury or currently using an Ambulatory Assistive Device (Walker, Cane, Wheelchair, Crutches, etc.)? No PATIENT GENDER DATA: Female. 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 Bearing PERIPHERAL IV DATA: Not applicable SIGNED BY: RT Dada(R) January 12, 2024 2:12 PM documented in this encounter [facility] 12-01-2023 Evaluation note Authored December 01, 2023 9:22am Highest weight: 340.0 lbs. S he is down 36.2 lbs. Start weight: 327.2 lbs. She is down 23.4 lbs. today with a weight of 303.8lbs.she is up 3.8 lbs.since last vist on 10/20/2023. Starting Date: 02-07-2023. Metformin start date 02/07/2023. Victoza start date 07/10/2023. Victoza start weight 303 pounds. She is up 0.8lbs. today. She has not been a weight loss responder to Victoza. 1. Abnormal weight gain. She is built like her mom. She has had a long history of weight struggles. She notes her weight went up in 2006 further after having her son who I do not believe she has custody. She was also on Zyprexa olanzapine in the past with noted weight gain on the chart. She has no known family history of type 2 diabetes. 2. Obesity-significant improvement with following our program, taking 500 mg of metformin and 1.8 mg Victoza with now good control of appetite and eating much healthier [employer]. She is going to switch from Victoza to Trulicity if covered by her insurance, if not she will stay on Victoza for her type 2 diabetes although she has not been a weight loss responder. She is concentrating on getting adequate lean protein and adding more vegetables and whole fruits. 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 She should work closely with our crank hand. She does not want to consider bariatric surgery. She had a past diagnosis of type 2 diabetes before starting the program. She is trying not to skip meals or have a diet mentality. She understands that not eating is not the answer. She does like vegetables, whole fruits and lean proteins. She should continue to follow the plate method. She is on Medicaid, so at this point Zepbound, Wegovy and Ozempic not covered. She will continue metformin 500 mg daily for diabetic prevention and PCOS. I would try to avoid phentermine with her history of untreated bipolar disorder and history of palpitations. She does have migraines so we could consider consider Topamax which could also be a mood stabilizer if it did not worsen her depression. She is on no bipolar medications and has no psychiatric prescriber. Her mood remains good. She does get counseling for her bipolar type II disorder with our mental health department. In the past, she tried a generic version of Contrave in the past for her weight and had side effects, but we could not consider Wellbutrin without her being on a mood stabilizer. We have had a long discussion about weight loss surgery for which she would be a good candidate and it is covered by her Medicaid insurance. She should continue to treat with long-term lifestyle changes of improved nutrition, increased exercise and activity, stress reduction, adequate sleep and behavioral modification versus short-term dieting. Behavioral: The patient's previous eating habits prior to starting our program poor. Before starting the program the biggest reasons for weight struggles include unhealthy diet, unhealthy snack, late night snacking, skip breakfast, skip lunch,depression, stress eating, lack of exercise, work stress, poor sleep, boredom eater. Exercise before starting the program: yes, walking. She has bipolar 2 disorder with a previous history of some suicidal ideation and attempt has had a few psychiatric admissions to our hospital. She is now off her bipolar medications and is followed by her PCP and a counselor through [facility]. She denies any recent significant depression issues. Her PHQ-9 was 8 with starting the program. She currently lives with a friend. Before starting the program, she did not eat breakfast or lunch and then would often eat dinner at home and then may wake up at midnight and snack. She works as an [employer] during the day. She was able to lose weight 5 years ago with just walking 1 or 2 miles a day and not eating much . She cannot be she status post hysterectomy. She denies any current alcohol, drug or marijuana use. 3. History of diabetes-she notes that she has a definite past history of type 2 diabetes. She is on metformin 500 mg a day. Her current A1c is 5.3 with normal FBS/fasting insulin level of 40. Continue GLP-1 agonist. Primary treatment is weight loss and lifestyle treatment. 4. Mixed hyperlipidemia-should be improving with now eating much healthier. She will continue to try to treat with decreasing the simple sweets, added sugars, refined starches, and bad/added fats, increasing activity and exercise and continued long-term weight loss. 5. History of bipolar disorder type II with multiple hospitalizations and past history of suicide attempts but doing well at this time with a PHQ-9 of 8 with starting the program on no bipolar medications. She is seeing her PCP Dr. Mcmahan but not a psychiatric prescriber. She does get regular counseling with [facility]. 6. Tobacco dependency-currently smokes about 1 pack/day. She has been referred for smoking cessation in the past. We will help her when she is ready. 7. History of palpitations-she notes she been worked up for this in the past and was seen when she was in the hospital for psychiatric admission for atypical chest pain and palpitations. She has no known serious heart issues. She had an echo in the past results unknown. 8. Remote history of increased blood pressure-she notes her blood pressure tends to run low now. 9. History of frequent migraines-avoid triggers. 10. Mild obstructive sleep apnea by home testing with significant hypoxemia now seeing sleep medicine and on CPAP. Stressed compliance. Recommend sleep study/evaluation. Also treat with healthy lifestyle changes and weight loss. She feels she does get to bed early. Stressed good sleep hygiene. 11. Arthritis of the knees-severe requiring and regular injections. She should continue to treat with healthy lifestyle changes and weight loss. Recommend her exercise program. 12. Metabolic syndrome-treat with long-term healthy lifestyle changes, behavioral changes, healthy nutritional changes, increased activity and exercise and achieve long-term weight loss. Follow up with me in 6 weeks. New labs needed: Up-to-date. Continue regular lab work with her PCP. Monitor A1c every 6 months again approximately 06/01/[address] [facility] Work Phone: 1([phone]) 181-652302-23-2024 Evaluation note* Author Colleen Juárez [facility] Authored December 01, 2023 8:54 am Highest weight: 340.0 lbs. S he is down 36.2 lbs. Start weight: 327.2 lbs. She is down 23.4 lbs. today with a weight of 303.8lbs.she is up 3.8 lbs.since last vist on 10/20/2023. Starting Date: 02-07-2023. Metformin start date 02/07/2023. Victoza start date 07/10/2023. Victoza start weight 303 pounds. She is up 0.8lbs. today. 1. Abnormal weight gain. She is built like her mom. She has had a long history of weight struggles. She notes her weight went up in 2007 further after having her son who I do not believe she has custody. She was also on Zyprexa olanzapine in the past with noted weight gain on the chart. She has no known family history of type 2 diabetes. 2. Obesity-significant improvement with following our program, taking 500 mg of metformin and 1.8 mg Victoza with now good control of appetite and eating much healthier [employer]. She is concentrating on getting adequate lean protein but also must add some vegetables and whole fruits. She should work closely with our crank hand. She does not want to consider bariatric surgery. She had a past diagnosis of type 2 diabetes before starting the program. She is trying not to skip meals or have a diet mentality. She understands that not eating is not the answer. She does like vegetables, whole fruits and lean proteins. She should continue to follow the plate method. She is on Medicaid, so at this point Zepbound, Wegovy and Ozempic not covered. She will continue metformin 500 mg daily for diabetic prevention and PCOS. I would try to avoid phentermine with her history of untreated bipolar disorder and history of palpitations. She does have migraines so we could consider consider Topamax which could also be a mood stabilizer if it did not worsen her depression. She is on no bipolar medications and has no psychiatric prescriber. Her mood remains good. She does get counseling for her bipolar type II disorder with our mental health department. In the past, she tried a generic version of Contrave in the past for her weight and had side effects, but we could not consider Wellbutrin without her being on a mood stabilizer. We have had a long discussion about weight loss surgery for which she would be a good candidate and it is covered by her Medicaid insurance. She should continue to treat with long-term lifestyle changes of improved nutrition, increased exercise and activity, stress reduction, adequate sleep and behavioral modification versus short-term dieting. Behavioral: The patient's previous eating habits prior to starting our program poor. Before starting the program the biggest reasons for weight struggles include unhealthy diet, unhealthy snack, late night snacking, skip breakfast, skip lunch,depression, stress eating, lack of exercise, work stress, poor sleep, boredom eater. Exercise before starting the program: yes, walking. She has bipolar 2 disorder with a previous history of some suicidal ideation and attempt has had a few psychiatric admissions to our hospital. She is now off her bipolar medications and is followed by her PCP and a counselor through [facility]. She denies any recent significant depression issues. Her PHQ-9 was 8 with starting the program. She currently lives with a friend. Before starting the program, she did not eat breakfast or lunch and then would often eat dinner at home and then may wake up at midnight and snack. She works as an [employer] during the day. She was able to lose weight 5 years ago with just walking 1 or 2 miles a day and not eating much . She cannot be she status post hysterectomy. She denies any current alcohol, drug or marijuana use. 3. History of diabetes-she notes that she has a definite past history of type 2 diabetes. She is on metformin 500 mg a day. Her current A1c is 5.5 with normal FBS/fasting insulin level of 40. Continue GLP-1 agonist. Primary treatment is weight loss and lifestyle treatment. 4. Mixed hyperlipidemia-should be improving with now eating much healthier. She will continue to try to treat with decreasing the simple sweets, added sugars, refined starches, and bad/added fats, increasing activity and exercise and continued long-term weight loss. 5. History of bipolar disorder type II with multiple hospitalizations and past history of suicide attempts but doing well at this time with a PHQ-9 of 8 with starting the program on no bipolar medications. She is seeing her PCP Dr. Mcmahan but not a psychiatric prescriber. She does get regular counseling with [facility]. 6. Tobacco dependency-currently smokes about 1 pack/day. She has been referred for smoking cessation in the past. We will help her when she is ready. 7. History of palpitations-she notes she been worked up for this in the past and was seen when she was in the hospital for psychiatric admission for atypical chest pain and palpitations. She has no known serious heart issues. She had an echo in the past results unknown. 8. Remote history of increased blood pressure-she notes her blood pressure tends to run low now. 9. History of frequent migraines-avoid triggers. 10. Mild obstructive sleep apnea by home testing with significant hypoxemia now seeing sleep medicine and on CPAP. Stressed compliance. Recommend sleep study/evaluation. Also treat with healthy lifestyle changes and weight loss. She feels she does get to bed early. Stressed good sleep hygiene. 11. Arthritis of the knees-severe requiring and regular injections. She should continue to treat with healthy lifestyle changes and weight loss. Recommend her exercise program. 12. Metabolic syndrome-treat with long-term healthy lifestyle changes, behavioral changes, healthy nutritional changes, increased activity and exercise and achieve long-term weight loss. Follow up with me in 6 weeks. New labs needed: Up-to-date. Continue regular lab work with her PCP. Author Dyana Barraza [facility] Authored October 20, 2023 9:42am Highest weight: 340.0 lbs. S he is down 40.0 lbs. Start weight: 327.2 lbs. She is down 27.2 lbs. today with a weight of 300.0 lbs.she is down 2.0 lbs.since last vist on 08/29/2023. Starting Date: 02-07-2023. Metformin start date 02/07/2023. Victoza start date 07/10/2023. Victoza start weight 303 pounds. She is down 2.0 lbs. today. 1. Abnormal weight gain. She is built like her mom. She has had a long history of weight struggles. She notes her weight went up in 2006 further after having her son who I do not believe she has custody. She was also on Zyprexa olanzapine in the past with noted weight gain on the chart. She has no known family history of type 2 diabetes. 2. Obesity-significant improvement with following our program, taking 500 mg of metformin and 1.8 mg Victoza with now good control of appetite and eating much healthier [employer]. She is concentrating on getting adequate lean protein but also must add some vegetables and whole fruits. She should work closely with our crank hand. She does not want to consider bariatric surgery. She had a past diagnosis of type 2 diabetes before starting the program. She is trying not to skip meals or have a diet mentality. She understands that not eating is not the answer. She does like vegetables, whole fruits and lean proteins. She should continue to follow the plate method. She is on Medicaid, so at this point Zepbound, Wegovy and Ozempic not covered. She will continue metformin 500 mg daily for diabetic prevention and PCOS. I would try to avoid phentermine with her history of untreated bipolar disorder and history of palpitations. She does have migraines so we could consider consider Topamax which could also be a mood stabilizer if it did not worsen her depression. She is on no bipolar medications and has no psychiatric prescriber. Her mood remains good. She does get counseling for her bipolar type II disorder with our mental health department. In the past, she tried a generic version of Contrave in the past for her weight and had side effects, but we could not consider Wellbutrin without her being on a mood stabilizer. We have had a long discussion about weight loss surgery for which she would be a good candidate and it is covered by her Medicaid insurance. She should continue to treat with long-term lifestyle changes of improved nutrition, increased exercise and activity, stress reduction, adequate sleep and behavioral modification versus short-term dieting. Behavioral: The patient's previous eating habits prior to starting our program poor. Before starting the program the biggest reasons for weight struggles include unhealthy diet, unhealthy snack, late night snacking, skip breakfast, skip lunch,depression, stress eating, lack of exercise, work stress, poor sleep, boredom eater. Exercise before starting the program: yes, walking. She has bipolar 2 disorder with a previous history of some suicidal ideation and attempt has had a few psychiatric admissions to our hospital. She is now off her bipolar medications and is followed by her PCP and a counselor through [facility]. She denies any recent significant depression issues. Her PHQ-9 was 8 with starting the program. She currently lives with a friend. Before starting the program, she did not eat breakfast or lunch and then would often eat dinner at home and then may wake up at midnight and snack. She works as an [employer] during the day. She was able to lose weight 5 years ago with just walking 1 or 2 miles a day and not eating much . She cannot be she status post hysterectomy. She denies any current alcohol, drug or marijuana use. 3. History of diabetes-she notes that she has a definite past history of type 2 diabetes. She is on metformin 500 mg a day. Her current A1c is 5.5 with normal FBS/fasting insulin level of 40. Continue GLP-1 agonist. Primary treatment is weight loss and lifestyle treatment. 4. Mixed hyperlipidemia-should be improving with now eating much healthier. She will continue to try to treat with decreasing the simple sweets, added sugars, refined starches, and bad/added fats, increasing activity and exercise and continued long-term weight loss. 5. History of bipolar disorder type II with multiple hospitalizations and past history of suicide attempts but doing well at this time with a PHQ-9 of 8 with starting the program on no bipolar medications. She is seeing her PCP Dr. Mcmahan but not a psychiatric prescriber. She does get regular counseling with [facility]. 6. Tobacco dependency-currently smokes about 1 pack/day. She has been referred for smoking cessation in the past. We will help her when she is ready. 7. History of palpitations-she notes she been worked up for this in the past and was seen when she was in the hospital for psychiatric admission for atypical chest pain and palpitations. She has no known serious heart issues. She had an echo in the past results unknown. 8. Remote history of increased blood pressure-she notes her blood pressure tends to run low now. 9. History of frequent migraines-avoid triggers. 10. Mild obstructive sleep apnea by home testing with significant hypoxemia now seeing sleep medicine and on CPAP. Stressed compliance. Recommend sleep study/evaluation. Also treat with healthy lifestyle changes and weight loss. She feels she does get to bed early. Stressed good sleep hygiene. 11. Arthritis of the knees-severe requiring and regular injections. She should continue to treat with healthy lifestyle changes and weight loss. Recommend her exercise program. 12. Metabolic syndrome-treat with long-term healthy lifestyle changes, behavioral changes, healthy nutritional changes, increased activity and exercise and achieve long-term weight loss. Follow up with me in 6 weeks. New labs needed: Up-to-date. Continue regular lab work with her PCP. [facility] Work Phone: 1(651) 473-965502-21-2024 NotePatient is approved for a second opinion with Dr. Emmie Ro per C9 auth in file. The auth is valid from 10/19/23 to 11/17/23. Please send referral and notify patient.[facility]02-12-2024 NoteOrthopedic Surgery Subjective Chief complaint: Chief Complaint Patient presents with Left Foot - Follow-up [facility] 10/09/23 Patient returns today for follow-up of her left foot pain secondary to fifth metatarsal base fracture over 1 year ago which was shown to be a nonunion on CT. Patient states that she continues to have daily foot pain which is unchanged from previous examinations.. Pain is worse when she is weightbearing. Patient states that she does not wear tennis shoes anymore because is too painful to put on. She denies numbness or tingling. She denies fever/chills, nausea/vomiting or other constitutional symptoms at this time. 06/19/23 Brittney Vernon is a 38 y.o. year old female returning for CT follow up of the left foot. 04/10/23 Patient presenting for evaluation of left foot pain after work-related injury. Patient reports that she sustained left foot fifth metatarsal base fracture 10 months ago, but it has not yet healed. She continues to have pain in this area that is unchanged from the time of injury. She is able to ambulate, but with a limp. She cannot wear tennis shoes because of the intense pain. She denies numbness, tingling, muscle weakness. Previous Treatments: Vitamin D, naproxen, Voltaren Patient History Past Surgical History: Procedure Laterality Date ANKLE FRACTURE SURGERY 2009 SECTION, CLASSIC GALLBLADDER SURGERY HYSTEROTOMY KNEE ARTHROPLASTY 2019 NASAL SEPTUM SURGERY TOE SURGERY hammer Past Medical History: Diagnosis Date Arthritis Paniagua's cyst Fracture of ankle 2009 Hammer toe 2019 History of knee surgery Tear of meniscus of knee 2019- right knee Objective General: BMI 40.45 No acute distress, comfortable Respiratory: Unlabored breathing with normal rate, no cough Cardiovascular: Warm well perfused extremities Psych: Appropriate mood behavior Evaluation of left foot / ankle: - No gross deformity or malalignment -Minimal TTP of base of fifth metatarsal - 5/5 TA/GS/PTT/PB and EHL - Normal ankle / subtalar ROM, pain with resisted eversion - Normal 1st MTP and lesser MTPs ROM - No lesser toe deformities - No callus - Skin intact - No ankle laxity with -ve anterior drawer and talar tilt tests - SILT in DPN, SPN, sural and saphenous nerve distributions - 2+ DP pulse with brisk capillary refill Imaging: Standing left foot X-rays taken today 10/09/23, 3 views were reviewed: These redemonstrate previous fracture of the base of the fifth metatarsal in zone 1. There is some interval changes with some more healing (compared to last X-rays from 04/19) Imaging was reviewed and interpreted by me, and findings were reviewed with the patient. Assessment/Plan Brittney Vernon is a 38 y.o. year old female left foot fifth metatarsal base fracture (Zone 1) - Work related injury BMI 40.45 Today's X-rays were reviewed We once again discussed clinical and imaging findings with patient. We discussed nonoperative versus operative management of this fracture nonunion. We once again discussed that given the size of the fragment, we discussed that screw fixation may be difficult and would not recommend surgery at this time. Patient would like a 2nd opinion -We will have the patient see Dr. Ro for a second opinion The patient understands and agrees to the management plan, and all patient questions have been answered to her satisfaction. Closed displaced fracture of fifth metatarsal bone of left foot with nonunion, subsequent encounter Mino Donahue MD Orthopaedic Surgery PGY-2 10/09/23 By using the attestations below, the signing clinician agrees that I have read and verify that the documentation has been personally reviewed by me and ensure that the documentation accurately reflects the encounter. GC: I personally saw this patient on the day of the encounter, performed the mills portion(s) of the service and participated in the management and confirm the resident's documentation. Please note there may be an additional personal documentation from me. Richa Collier MD Orthopedic Surgery, Education Site Manager [facility] 10/09/23[facility]01-02-[facility]24 Evaluation note* Encounter Date Diagnosis Assessment Notes Treatment Notes Treatment Clinical Notes Aug, BMI 40.0-44.9, adult (ICD-10 - Z68.41) Aug, Type 2 diabetes mellitus with unspecified complications (ICD-10 - E11.8) Aug, PCOS (polycystic ovarian syndrome) (ICD-10 - E28.2) Aug, Mixed hyperlipidemia (ICD-10 - E78.2) Aug, Bipolar affective disorder (ICD-10 - F31.9) Aug, Knee osteoarthritis (ICD-10 - M17.9) Aug, Tobacco abuse (ICD-1 0 - Z72.0) Aug, Migraine (ICD-10 - G43.909) Aug, Metabolic syndrome X (ICD-10 - E88.81) Aug, Palpitations (ICD-10 - R00.2) Aug, Medication monitorin harper encounter (ICD-10 - Z51.81) [employer] Other 01-02-2024 Evaluation note* Author Dyana Barraza [facility] Authored October 20, 2023 8:42am Highest weight: 340.0 lbs. S he is down 40.0 lbs. Start weight: 327.2 lbs. She is down 27.2 lbs. today with a weight of 300.0 lbs.she is down 2.0 lbs.since last vist on 08/29/2023. Starting Date: 02-07-2023. Metformin start date 02/07/2023. Victoza start date 07/10/2023. Victoza start weight 303 pounds. She is down 2.0 lbs. today. 1. Abnormal weight gain. She is built like her mom. She has had a long history of weight struggles. She notes her weight went up in 2006 further after having her son who I do not believe she has custody. She was also on Zyprexa olanzapine in the past with noted weight gain on the chart. She has no known family history of type 2 diabetes. 2. Obesity-significant improvement with following our program, taking 500 mg of metformin and 1.8 mg Victoza with now good control of appetite and eating much healthier [employer]. She is concentrating on getting adequate lean protein but also must add some vegetables and whole fruits. She should work closely with our crank hand. She does not want to consider bariatric surgery. She had a past diagnosis of type 2 diabetes before starting the program. She is trying not to skip meals or have a diet mentality. She understands that not eating is not the answer. She does like vegetables, whole fruits and lean proteins. She should continue to follow the plate method. She is on Medicaid, so at this point Zepbound, Wegovy and Ozempic not covered. She will continue metformin 500 mg daily for diabetic prevention and PCOS. I would try to avoid phentermine with her history of untreated bipolar disorder and history of palpitations. She does have migraines so we could consider consider Topamax which could also be a mood stabilizer if it did not worsen her depression. She is on no bipolar medications and has no psychiatric prescriber. Her mood remains good. She does get counseling for her bipolar type II disorder with our mental health department. In the past, she tried a generic version of Contrave in the past for her weight and had side effects, but we could not consider Wellbutrin without her being on a mood stabilizer. We have had a long discussion about weight loss surgery for which she would be a good candidate and it is covered by her Medicaid insurance. She should continue to treat with long-term lifestyle changes of improved nutrition, increased exercise and activity, stress reduction, adequate sleep and behavioral modification versus short-term dieting. Behavioral: The patient's previous eating habits prior to starting our program poor. Before starting the program the biggest reasons for weight struggles include unhealthy diet, unhealthy snack, late night snacking, skip breakfast, skip lunch,depression, stress eating, lack of exercise, work stress, poor sleep, boredom eater. Exercise before starting the program: yes, walking. She has bipolar 2 disorder with a previous history of some suicidal ideation and attempt has had a few psychiatric admissions to our hospital. She is now off her bipolar medications and is followed by her PCP and a counselor through [facility] mental health. She denies any recent significant depression issues. Her PHQ-9 was 8 with starting the program. She currently lives with a friend. Before starting the program, she did not eat breakfast or lunch and then would often eat dinner at home and then may wake up at midnight and snack. She works as an [employer] during the day. She was able to lose weight 5 years ago with just walking 1 or 2 miles a day and not eating much . She cannot be she status post hysterectomy. She denies any current alcohol, drug or marijuana use. 3. History of diabetes-she notes that she has a definite past history of type 2 diabetes. She is on metformin 500 mg a day. Her current A1c is 5.5 with normal FBS/fasting insulin level of 40. Continue GLP-1 agonist. Primary treatment is weight loss and lifestyle treatment. 4. Mixed hyperlipidemia-should be improving with now eating much healthier. She will continue to try to treat with decreasing the simple sweets, added sugars, refined starches, and bad/added fats, increasing activity and exercise and continued long-term weight loss. 5. History of bipolar disorder type II with multiple hospitalizations and past history of suicide attempts but doing well at this time with a PHQ-9 of 8 with starting the program on no bipolar medications. She is seeing her PCP Dr. Mcmahan but not a psychiatric prescriber. She does get regular counseling with [facility]. 6. Tobacco dependency-currently smokes about 1 pack/day. She has been referred for smoking cessation in the past. We will help her when she is ready. 7. History of palpitations-she notes she been worked up for this in the past and was seen when she was in the hospital for psychiatric admission for atypical chest pain and palpitations. She has no known serious heart issues. She had an echo in the past results unknown. 8. Remote history of increased blood pressure-she notes her blood pressure tends to run low now. 9. History of frequent migraines-avoid triggers. 10. Mild obstructive sleep apnea by home testing with significant hypoxemia now seeing sleep medicine and on CPAP. Stressed compliance. Recommend sleep study/evaluation. Also treat with healthy lifestyle changes and weight loss. She feels she does get to bed early. Stressed good sleep hygiene. 11. Arthritis of the knees-severe requiring and regular injections. She should continue to treat with healthy lifestyle changes and weight loss. Recommend her exercise program. 12. Metabolic syndrome-treat with long-term healthy lifestyle changes, behavioral changes, healthy nutritional changes, increased activity and exercise and achieve long-term weight loss. Follow up with me in 6 weeks. New labs needed: Up-to-date. Continue regular lab work with her PCP. [facility] Work Phone: [phone]) 428-875511-13-2023 Evaluation note* Encounter Date Diagnosis Assessment Notes Treatment Notes Treatment Clinical Notes Jun, BMI 40.0-44.9, adult (ICD-10 - Z68.41) 13 Jun, 2023 Type 2 diabetes mellitus with unspecified complications (ICD-10 - E11.8) Jun, PCOS (polycystic ovarian syndrome) (ICD-10 - E28.2) Jun, Mixed hyperlipidemia (ICD-10 - E78.2) 13 Jun, 2023 Bipolar affective disorder (ICD-10 - F31.9) Jun, Knee osteoarthritis (ICD-10 - M17.9) Jun, Tobacco abuse (ICD-1 0 - Z72.0) 13 Jun, 2023 Migraine (ICD-10 - G43.909) Jun, Metabolic syndrome X (ICD-10 - E88.81) Jun, Palpitations (ICD-10 - R00.2) Jun, Medication monitorin g encounter (ICD-10 - Z51.81) [employer] Other 10-27-2023 Note06/23/23 Mora is seen in follow-up today for both of her knees. She reports her left knee she getting in bed in 1 week ago felt a pop and she is with pain under the patella. Additionally she reports of pain to the lateral aspect of her right knee that radiates up the lateral hip. 01/03/23 MRI left knee follow up 37-year-old female seen in follow-up today. She continues to have pain to her left knee. She denies any locking or catching. She reports the corticosteroid injection relief was short-lived. Pain is aggravated with any type of activity. Previous MRI of her knee showed a bone edema to the lateral femoral condyle. 10/12/22 Seen in follow up today with continued left knee pain despite PT and Voltaren, as well as rest. She also notes her left foot continues to bother her. Review of systems denies any fever chills or constitutional symptoms Physical exam General no apparent distress in the sitting position HEENT normocephalic atraumatic Neck trachea midline Coordination intact Skin intact Gait ambulates with no assistive devices Mood affect appropriate Lungs no dyspnea noted Exam of left knee shows the skin to be intact. Patient is with tenderness with patellofemoral grind testing and patellar mobilization. Range of motion 0 to 110 degrees. No ligamentous instability. Neurovascular intact Exam of right knee shows skin intact, tender palpation over the right lateral femoral condyle. Discomfort over the iliotibial band. MRI right knee 01/20/22 report states small lateral meniscal tear, and degenerative changes Left knee X-rays obtained and reviewed today are negative for acute bony abnormality she had an MRI completed on 07/01/22 which showed bone edema lateral femoral condyle with associated strain of lateral collateral ligament, posterior lateral complex and grade III chondromalacia of the patella MRI dated 12/22/22 the bone edema to the lateral femoral condyle has resolved current findings include 1. Patellofemoral and medial compartment osteoarthritis as described. 2. Small joint effusion. Small loose body in the medial gutter. 3. Heterogeneous signal without a discrete tear of the proximal fibular collateral ligament, compatible with prior injury. The ligaments of the knee are intact. 4. No discrete meniscal tear identified. Plan At this stage we will submit a C9 for the patient undergo physical therapy bilateral knee. Prescription for Medrol Dosepak followed by NSAIDs. Return to clinic in follow-up in 6 weeks to check progress.[facility] 06-19-2023 Evaluation note* Encounter Date Diagnosis Assessment Notes Treatment Notes Treatment Clinical Notes May, Obstructive sleep apnea (ICD-10 - G47.33) Discussed the diagnosis of obstructive sleep apnea, the importance of weight loss which is being accomplished now under the care of Dr. Barraza, states that she has lost 30 pounds already and continuing to work with him on that. Controlling obstructive sleep apnea is important especially in light of the severity of her hypoxia associated with that and automated CPAP is recommended. Once stable and using CPAP regularly we can consider nocturnal oximetry testing to ensure improvement in her oxygenation is well. Encouraged to work on smoking cessation as well [employer] Other 10-23-2023 NoteOrthopedic Surgery Subjective Chief complaint: Chief Complaint Patient presents with Left Foot - Follow-up CT results 06/19/23 Brittney Vernon is a 37 y.o. year old female returning for CT follow up of the right foot. 04/10/23 Patient presenting for evaluation of right foot pain after work-related injury. Patient reports that she sustained left foot fifth metatarsal base fracture 10 months ago, but it has not yet healed. She continues to have pain in this area that is unchanged from the time of injury. She is able to ambulate, but with a limp. She cannot wear tennis shoes because of the intense pain. She denies numbness, tingling, muscle weakness. Previous Treatments: Vitamin D, naproxen, Voltaren Patient History Past Surgical History: Procedure Laterality Date ANKLE FRACTURE SURGERY 2009 SECTION, CLASSIC GALLBLADDER SURGERY HYSTEROTOMY KNEE ARTHROPLASTY 2019 NASAL SEPTUM SURGERY TOE SURGERY hammer Past Medical History: Diagnosis Date Arthritis Paniagua's cyst Fracture of ankle 2009 Hammer toe 2019 History of knee surgery Tear of meniscus of knee 2019- right knee Objective General: Body mass index is 40.45 kg/m???. No acute distress, comfortable Respiratory: Unlabored breathing with normal rate, no cough Cardiovascular: Warm well perfused extremities Psych: Appropriate mood behavior Evaluation of left foot / ankle: - No gross deformity or malalignment - TTP of base of fifth metatarsal - 5/5 TA/GS/PTT/PB and EHL - Normal ankle / subtalar ROM, pain with resisted eversion - Normal 1st MTP and lesser MTPs ROM - No lesser toe deformities - No callus - Skin intact - No ankle laxity with -ve anterior drawer and talar tilt tests - SILT in DPN, SPN, sural and saphenous nerve distributions - 2+ DP pulse with brisk capillary refill Imaging: Most recent Radiographs left foot obtained on 03/28/2023 demonstrate nonunion of fifth base metatarsal fracture (Zone 1) CT Right foot obtained 05/24/23 shows the nonunion Imaging was reviewed and interpreted by me, and findings were reviewed with the patient. Assessment/Plan Brittney Vernon is a 37 y.o. year old female left foot nonunion of fifth metatarsal base fracture (Zone 1) - Work related injury BMI 40.45 CT reviewed We discussed clinical and imaging findings with patient. We discussed nonoperative versus operative management of this fracture nonunion. Given the size of the fragment, we discussed that screw fixation may be difficult. Plan: - Submit C9 for custom inserts with lateral heel wedge to offload lateral column - follow up 3 months The patient understands and agrees to the management plan, and all patient questions have been answered to her satisfaction. Closed displaced fracture of fifth metatarsal bone of left foot with nonunion, subsequent encounter Richa Collier MD Orthopedic Surgery, Education Site Manager [facility] 06/19/23[facility]10-02-2023 Evaluation note* Encounter Date Diagnosis Assessment Notes Treatment Notes Treatment Clinical Notes May, PCOS (polycystic ovarian syndrome) (ICD-10 - E28.2) May, BMI 40.0-44.9, adult (ICD-10 - Z68.41) May, Prediabetes (ICD-10 - R73.03) May, Mixed hyperlipidemia (ICD-10 - E78.2) May, Bipolar affective disorder (ICD-10 - F31.9) May, Knee osteoarthritis (ICD-10 - M17.9) May, Tobacco abuse (ICD-1 0 - Z72.0) May, Migraine (ICD-10 - G43.909) May, Metabolic syndrome X (ICD-10 - E88.81) May, Palpitations (ICD-10 - R00.2) May, Medication monitorin g encounter (ICD-10 - Z51.81) [employer] Other 09-19-2023 Hospital Discharge instructions Patient Education 05/16/2023 13:45:55 Neurogenic Bladder Neurogenic Bladder Neurogenic bladder is a bladder control disorder. It is usually caused by problems with the nerves that control the bladder. The brain sends signals through the spinal cord to the muscles in the bladder that start and stop urine flow. With neurogenic bladder, the nerves and muscles do not work together the way they should. This condition may make the bladder overactive, meaning you have trouble holding urine. In other cases, it may make the bladder underactive. This means that you have trouble passing urine. What are the causes? This condition may be caused by nerve damage or a condition that disrupts the signals from your brain to your bladder. Many things can cause these nerve problems, including: A disease that affects the nervous system, such as: ?Alzheimer's disease. ?Cerebral palsy. ?Multiple sclerosis. ?Diabetes. ?Parkinson's disease. Damage to your brain or spinal cord. This can come from: ?Trauma. ?Tumors. ?Infection. ?Surgery. ?Alcohol abuse. ?Stroke. ?A congenital disability that affects the spinal cord. What increases the risk? You are more likely to develop this condition if you have nerve damage or a nerve disorder. What are the signs or symptoms? Signs and symptoms of this condition include: Leaking or gushing urine (incontinence). A sudden, strong urge to pass urine (urgency). Frequent urination during the day and night. Being unable to empty your bladder completely (urinary retention). Frequent urinary tract infections. How is this diagnosed? This condition may be diagnosed based on: Your symptoms and medical history. A physical exam. Records from a bladder diary. You may be asked to keep a record or log of your bladder symptoms andthe times that you urinate. You may also have tests, such as: A urine test to check for infection. A bladder scan after you urinate to see how much urine is left in your bladder. Tests to measure your urine flow and see how well the flow is controlled (urodynamic tests). A procedure that uses a small device with a camera to look through your urethra into your bladder (cystoscopy). A health care provider who specializes in the urinary tract (urologist) may do this test. Imaging tests of your brain or spine, such as MRI or CT scan. How is this treated? Treatment for this condition depends on the cause and the symptoms that you have. Work closely withyour health care provider to find the treatments that will improve your quality of life. Treatment options include: Learning ways to control when you urinate, such as: ?Urinating at scheduled times. ?Training yourself to delay urination. ?Exercises to strengthen the muscles that control urine flow (Kegel exercises). ?Avoiding foods or drinks that make your symptoms worse. Taking medicines to: ?Stimulate an underactive bladder. ?Relax an overactive bladder. ?Treat a urinary tract infection. Learning how to use a thin tube (catheter) to empty your bladder. A catheter is a hollow tube that you pass through your urethra. Procedures to stimulate the nerves that control your bladder. Surgery, if other treatments do not help. Follow these instructions at home: Lifestyle Keep a bladder diary to find out which foods, liquids, or activities make your symptoms worse. Use your bladder diary to schedule bathroom trips. If you are away from home, plan to be near a bathroom when your schedule says you will need one. Limit beverages that stimulate urination. These include soda, coffee, and tea. After urinating, wait a few minutes and try again. Make sure you urinate just before you leave the house and just before you go to bed. Kegel exercises Do Kegel exercises to strengthen the muscles that control the passing of urine. These muscles are the ones you use to try to hold urine when you need to urinate. To do Kegel exercises: 1.Squeeze your pelvic floor muscles tight, as if you are trying to stop the flow of urine. You should feel a tight lift in your rectal area. If you are female, you should also feel a tightness in your vaginal area. Keep your stomach, buttocks, and legs relaxed. 2.Hold the muscles tight for 5 10 seconds. 3.Relax your muscles for the same amount of time. 4.Repeat 10 times. Repeat this exercise 3 times a day or as many times as told by your health care provider. General instructions Take vbom-fib-eheplcl and prescription medicines only as told by your health care provider. Keep all follow-up visits. This is important. Contact a health care provider if: You are having a hard time controlling your symptoms. Your symptoms are getting worse. You have signs of a urinary tract infection. These may include: ?A burning feeling when you urinate. ?Fever or chills. ?Cloudy or bloody urine. Get help right away if: You cannot pass urine. Summary Neurogenic bladder is a bladder control disorder caused by problems with the nerves that control the bladder. This condition may make the bladder overactive or underactive. This condition may be caused by nerve damage or a condition that disrupts the signals from your brain to your bladder. Treatment depends on the cause of your neurogenic bladder and the symptoms that you have. Work closely with your health care provider to find the treatments that will improve your quality of life. This information is not intended to replace advice given to you by your health care provider. Make sure you discuss any questions you have with your health care provider. Document Revised: 04/29/2021 Document Reviewed: 04/29/2021 [employer] Patient Education 2022 [employer]. Follow Up Care 03/29/2022 10:13:17 With:KIAN RODRIGUEZ, Jimmy Hannah, URL Address: [address] [place] [address]- When: Unknown [facility] [phone] NoteOrthopedic Surgery Subjective Chief complaint: Chief Complaint Patient presents with Left Foot - Pain, New Patient 04/10/23 Brittney Vernon is a 37 y.o. year old female presenting for evaluation of right foot pain after work-related injury. Patient reports that she sustained left foot fifth metatarsal base fracture 10 months ago, but it has not yet healed. She continues to have pain in this area that is unchanged from the time of injury. She is able to ambulate, but with a limp. She cannot wear tennis shoes because of the intense pain. She denies numbness, tingling, muscle weakness. Previous Treatments: Vitamin D, naproxen, Voltaren Patient History Past Surgical History: Procedure Laterality Date ANKLE FRACTURE SURGERY 2009 SECTION, CLASSIC GALLBLADDER SURGERY HYSTEROTOMY KNEE ARTHROPLASTY 2019 NASAL SEPTUM SURGERY TOE SURGERY hammer Past Medical History: Diagnosis Date Arthritis Paniagua's cyst Fracture of ankle 2009 Hammer toe 2019 History of knee surgery Tear of meniscus of knee 2019- right knee Objective General: Body mass index is 40.45 kg/m???. No acute distress, comfortable Respiratory: Unlabored breathing with normal rate, no cough Cardiovascular: Warm well perfused extremities Psych: Appropriate mood behavior Evaluation of left foot / ankle: - No gross deformity or malalignment - TTP of base of fifth metatarsal - 5/5 TA/GS/PTT/PB and EHL - Normal ankle / subtalar ROM, pain with resisted eversion - Normal 1st MTP and lesser MTPs ROM - No lesser toe deformities - No callus - Skin intact - No ankle laxity with -ve anterior drawer and talar tilt tests - SILT in DPN, SPN, sural and saphenous nerve distributions - 2+ DP pulse with brisk capillary refill Imaging: Most recent Radiographs left foot obtained on 03/28/2023 demonstrate nonunion of fifth base metatarsal fracture (Zone 1) Imaging was reviewed and interpreted by me, and findings were reviewed with the patient. Assessment/Plan Brittney Vernon is a 37 y.o. year old female with Closed displaced fracture of fifth metatarsal bone of left foot with nonunion, subsequent encounter - Work related injury BMI 40.45 We discussed clinical and imaging findings with patient. We discussed nonoperative versus operative management of this fracture nonunion. Given the size of the fragment, we discussed that screw fixation may be difficult. To further assess this fragment, we would like to obtain a CT scan of the left foot. Plan: - Submit C9 for CT scan left foot - Return to clinic after CT completed to review the CT and discuss further management - PT The patient understands and agrees to the management plan, and all patient questions have been answered to her satisfaction. Perry Ro MD Orthopaedic Surgery, PGY-1 By using the attestations below, the signing clinician agrees that I have read and verify that the documentation has been personally reviewed by me and ensure that the documentation accurately reflects the encounter. GC: I personally saw this patient on the day of the encounter, performed the mills portion(s) of the service and participated in the management and confirm the resident's documentation. Please note there may be an additional personal documentation from me. Richa Collier MD Orthopedic Surgery, Education Site Manager [facility] 04/10/23[facility] NotePatient ID: Brittney Vernon is a 37 y.o. female. Large Joint: L knee on 04/10/2023 2:33 PM Indications: pain Details: 21 G needle, medial approach 5ml zilretta injection left knee joint Procedure, treatment alternatives, risks and benefits explained, specific risks discussed. Consent was given by the patient. Immediately prior to procedure a time out was called to verify the correct patient, procedure, equipment, support services rep and site/side marked as required. Patient was prepped and draped in the usual sterile fashion.[facility]08-08-2023 Evaluation note* Encounter Date Diagnosis Assessment Notes Treatment Notes Treatment Clinical Notes Mar, Obesity, unspecified classification, unspecified obesity type, unspecified whether serious comorbidity present (ICD-10 - E66.9) Mar, BMI 40.0-44.9, adult (ICD-10 - Z68.41) Mar, Other Summary of Visi t: (A) Presentation of Plate Method discussed (B) Sample meal ideas reviewed (C) exercise recommendations reviewed Patient set the following goals: - patient set personal goal using given handout. [employer] Other 08-03-2023 NoteNot seen[facility]06-13-2023 Evaluation note* Encounter Date Diagnosis Assessment Notes Treatment Notes Treatment Clinical Notes Jan, Abnormal weight gain (ICD-10 - R63.5) Jan, PCOS (polycystic ovarian syndrome) (ICD-10 - E28.2) Jan, Prediabetes (ICD-10 - R73.03) Jan, Mixed hyperlipidemia (ICD-10 - E78.2) Jan, Bipolar affective disorder (ICD-10 - F31.9) Jan, Knee osteoarthritis (ICD-10 - M17.9) Jan, Tobacco abuse (ICD-1 0 - Z72.0) Jan, Migraine (ICD-10 - G43.909) Jan, Metabolic syndrome X (ICD-10 - E88.81) Jan, Palpitations (ICD-10 - R00.2) [employer] Other 05-09-2023 Note01/03/23 MRI left knee follow up 37-year-old female seen in follow-up today. She continues to have pain to her left knee. She denies any locking or catching. She reports the corticosteroid injection relief was short-lived. Pain is aggravated with any type of activity. Previous MRI of her knee showed a bone edema to the lateral femoral condyle. 10/12/22 Seen in follow up today with continued left knee pain despite PT and Voltaren, as well as rest. She also notes her left foot continues to bother her. Review of systems denies any fever chills or constitutional symptoms Physical exam HEENT normocephalic atraumatic neck trachea midline coordination intact skin intact gait ambulates with no assistive devices mood affect appropriate lungs no dyspnea noted Exam of left knee shows the skin to be intact she has tenderness to palpation over the lateral femoral condyle and joint line. She has no discomfort with LCL Range of motion 0 to 110 degrees Exam of right knee shows skin intact, ttp medial and lateral joint line MRI right knee 01/20/22 report states small lateral meniscal tear, and degenerative changes Left knee X-rays obtained and reviewed today are negative for acute bony abnormality she had an MRI completed on 07/01/22 which showed bone edema lateral femoral condyle with associated strain of lateral collateral ligament, posterior lateral complex and grade III chondromalacia of the patella Vitamin D level 10/21/22 27.2 MRI dated 12/22/22 the bone edema to the lateral femoral condyle has resolved current findings include 1. Patellofemoral and medial compartment osteoarthritis as described. 2. Small joint effusion. Small loose body in the medial gutter. 3. Heterogeneous signal without a discrete tear of the proximal fibular collateral ligament, compatible with prior injury. The ligaments of the knee are intact. 4. No discrete meniscal tear identified. Impression contusion of left knee after a fall At this stage we will submit a C9 for a left knee Zilretta injection. Patient will continue with her current work restrictions. When she follows up in a few weeks for the injection we will obtain x-rays of her left foot 3 views[facility]03-20-2023 Note11/14/22 Here today in follow up of MRI left knee, relief short lived , pain continues to left knee. Also complains of right knee pain and popping 10/12/22 Seen in follow up today with continued left knee pain despite PT and Voltaren, as well as rest. She also notes her left foot continues to bother her. Review of systems denies any fever chills or constitutional symptoms Physical exam HEENT normocephalic atraumatic neck trachea midline coordination intact skin intact gait ambulates with no assistive devices mood affect appropriate lungs no dyspnea noted Exam of left knee shows the skin to be intact she has tenderness to palpation over the lateral femoral condyle and joint line. She has no discomfort with LCL Range of motion 0 to 110 degrees Exam of right knee shows skin intact, ttp medial and lateral joint line MRI right knee 01/20/22 report states small lateral meniscal tear, and degenerative changes Left knee X-rays obtained and reviewed today are negative for acute bony abnormality she had an MRI completed on 07/01/22 which showed bone edema lateral femoral condyle with associated strain of lateral collateral ligament, posterior lateral complex and grade III chondromalacia of the patella Vitamin D level 10/21/22 27.2 Impression contusion of left knee after a fall C9 for MRI left knee as pain to left knee continues despite conservative treatment including CSI , medications, and PT. C9 for Durolane right knee Smoking cessation. F/U after MRI left knee and obtain new xrays left foot 3 views. Continue current restrictions until 01/26/23. F/U after MRI.[facility]01-11-2023 Hospital Discharge instructions Patient Education 09/07/2022 16:09:44 Neurogenic Bladder Neurogenic Bladder Neurogenic bladder is a bladder control disorder. It is usually caused by problems with the nerves that control the bladder. Your brain sends signals through your spinal cord to the muscles in your bladder that start and stop urine flow. If you have neurogenic bladder, the nerves and muscles do notwork together the way they should. This condition may make the bladder overactive, meaning you have trouble holding urine. In other cases, it may make the bladder underactive, meaning you have trouble passing urine. What are the causes? This condition may be caused by any kind of nerve damage or condition that disrupts the signals from your brain to your bladder. Many things can cause these nerve problems, including: A disease that affects the nervous system, such as: ?Alzheimer disease. ?Cerebral palsy. ?Multiple sclerosis. ?Diabetes. ?Parkinson disease. Damage to your brain or spinal cord. This can come from: ?Trauma. ?Tumors. ?Infection. ?Surgery. ?Alcohol abuse. ?Stroke. ?A congenital disability that affects the spinal cord. What increases the risk? You are more likely to develop this condition if you have nerve damage or a nerve disorder. What are the signs or symptoms? Signs and symptoms of this condition include: Leaking or gushing urine (incontinence). A sudden, strong urge to pass urine (urgency). Frequent urination during the day and night. Being unable to empty your bladder completely (urinary retention). Frequent urinary tract infections. How is this diagnosed? This condition may be diagnosed based on: Your symptoms and medical history. A physical exam. Results of a bladder diary. You may be asked to keep a record of your bladder symptoms and the times that you urinate. You may also have tests, such as: A urine test to check for infection. A bladder scan after you urinate to see how much urine is left in your bladder. Tests to measure your urine flow and see how well the flow is controlled (urodynamic tests). A procedure that uses a small device with a camera to look through your urethra into your bladder (cystoscopy). A health care provider who specializes in the urinary tract (urologist) may do this test. Imaging tests of your brain or spine, such as MRI or CT. How is this treated? Treatment for this condition depends on the cause and the symptoms that you have. Work closely withyour health care provider to find the treatments that will improve your quality of life. Treatment options include: Learning ways to control when you urinate, such as: ?Urinating at scheduled times. ?Training yourself to delay urination. ?Doing exercises to strengthen the muscles that control urine flow (Kegel exercises). ?Avoiding foods or drinks that make your symptoms worse. Taking medicines to: ?Stimulate an underactive bladder. ?Relax an overactive bladder. ?Treat a urinary tract infection. Learning how to use a thin tube (catheter) to empty your bladder. A catheter is a hollow tube that you pass through your urethra. Procedures to stimulate the nerves that control your bladder. Surgery, if other treatments do not help. Follow these instructions at home: Lifestyle Keep a bladder diary to find out which foods, liquids, or activities make your symptoms worse. Use your bladder diary to schedule bathroom trips. If you are away from home, plan to be near a bathroom when your schedule says you will need one. Limit your drinking of beverages that stimulate urination. These include soda, coffee, and tea. After urinating, wait a few minutes and try again (double voiding). Make sure you urinate just before you leave the house and just before you go to bed. Kegel exercises Do Kegel exercises to strengthen the muscles that control the passing of urine. These muscles are the ones you use to try to hold urine when you need to urinate. To do Kegel exercises: 1.Squeeze your pelvic floor muscles tight, as if you are trying to stop the flow of urine. You should feel a tight lift in your rectal area. If you are female, you should also feel a tightness in your vaginal area. Keep your stomach, buttocks, and legs relaxed. 2.Hold the muscles tight for 5 10 seconds. 3.Relax your muscles for the same amount of time. 4.Repeat 10 times. Repeat this exercise 3 times a day or as many times as told by your health care provider. General instructions Take [id number] and prescription medicines only as told by your health care provider. Keep all follow-up visits as told by your health care provider. This is important. Contact a health care provider if: You are having a hard time controlling your symptoms. Your symptoms are getting worse. You have signs of a urinary tract infection. These may include: ?A burning feeling when you urinate. ?Chills. ?Fever. Get help right away if: You cannot pass urine. Summary Neurogenic bladder is a bladder control disorder caused by problems with the nerves that control the bladder. This condition may make the bladder overactive or underactive. This condition may be caused by any kind of nerve damage or condition that disrupts the signals from your brain to your bladder. Treatment depends on the cause of your neurogenic bladder and the symptoms that you have. Work closely with your health care provider to find the treatments that will improve your quality of life. This information is not intended to replace advice given to you by your health care provider. Make sure you discuss any questions you have with your health care provider. Document Released: 02/25/2008 Document Revised: 08/27/2018 Document Reviewed: 08/27/2018 [employer] Patient Education 2019 [employer]. Follow Up Care 08/01/2022 10:29:58 With:KIAN RODRIGUEZ, Jimmy Hannah, URL Address: [facility] [employer] [address] [place] [address]- When: Unknown [facility] 10-26-2022 NotePROCEDURE: XR FOOT LT MIN 3 VIEWS HISTORY: Foot pain ; acute lateral left foot pain since falling 3 weeks ago COMPARISON: XR foot left 04/01/2020 FINDINGS: BONES:Nondisplaced transverse fracture through base of fifth metatarsal. Remote resection of the heads of the fourth and fifth proximal phalanx. SOFT TISSUES:No visible soft tissue swelling. EFFUSION:None visible. OTHER: Negative. IMPRESSION: 1. Acute nondisplaced fracture at base of fifth metatarsal with intra-articular extension. No callus formation at this time. Electronically authenticated by: ROMINA LOWE Date: 2022-06-22 21:49[facility]08[facility] Hospital Discharge instructions Patient Education 03/29/2022 10:05:50 Infection Prevention in the Home Infection Prevention in the Home If you have an infection, may have been exposed to an infection, or are taking care of someone who has an infection, it is important to know how to keep the infection from spreading. Follow your health care provider's instructions and use these guidelines to help stop the spread of infection. How infections are spread In order for an infection to spread, the following must be present: A germ. This may be a virus, bacteria, fungus, or parasite. A place for the germ to live. This may be: ?On or in a person, animal, plant, or food. ?In soil or water. ?On surfaces, such as a door handle. A person or animal who can develop a disease if the germ enters the body (host). The host does not have resistance to the germ. A way for the germ to enter the host. This may occur by: ?Direct contact with an infected person or animal. This can happen through shaking hands or hugging. Some germs can also travel through the air and spread to others. This can happen when an infected person coughs or sneezes on or near other people. ?Indirect contact. This occurs when the germ enters the host through contact with an infected object. Examples include: ?Eating or drinking food or water that has the germ (is contaminated). ?Touching a contaminated surface with your hands, and then touching your face, eyes, nose, or mouth. Supplies needed: Soap. Alcohol-based hand metallic yarn slitting machine operator. Standard cleaning products. Disinfectants, such as bleach. Reusable cleaning cloths, sponges, or paper towels. Disposable or reusable utility gloves. How to prevent infection from spreading There are several things that you can do to help prevent infection from spreading. Take these general actions Everyone should take the following actions to prevent the spread of infection: Wash your hands often with soap and water for at least 20 seconds. If soap and water are not available, use alcohol-based hand metallic yarn slitting machine operator. Avoid touching your face, mouth, nose, or eyes. Cough or sneeze into a tissue, sleeve, or elbow instead of into your hand or into the air. ?If you cough or sneeze into a tissue, throw it away immediately and wash your hands. Keep your bathroom clean Provide soap. Change towels and washcloths frequently. Change toothbrushes often and store them separately in a clean, dry place. Clean and disinfect all surfaces, including the toilet, floor, tub, shower, and sink. Do not share personal items, such as razors, toothbrushes, deodorant, batista, brushes, towels, and washcloths. Maintain hygiene in the kitchen Wash your hands before and after preparing food and before you eat. Clean the inside of your refrigerator each week. Keep your refrigerator set at 40 F (4 C) or less, and set your freezer at 0 F ( 18 C) or less. Keep work surfaces clean. Disinfect them regularly. Wash your dishes in hot, soapy water. Air-dry your dishes or use a mophead sewer. Do not share dishes or eating utensils. Handle food safely Store food carefully. Refrigerate leftovers promptly in covered containers. Throw out stale or spoiled food. Thaw foods in the refrigerator or microwave, not at room temperature. Serve foods at the proper temperature. Do not eat raw meat. Make sure it is cooked to the appropriate temperature. Cook eggs until they are firm. Wash fruits and vegetables under running water. Use separate cutting boards, plates, and utensils for raw foods and cooked foods. Use a clean spoon each time you sample food while cooking. Do laundry the right way Wear gloves if laundry is visibly soiled. Do not shake soiled laundry. Doing that may send germs into the air. Wash laundry in hot water. If you cannot wash the laundry right away, place it in a plastic bag and wash it as soon as possible. Be careful around animals and pets Wash your hands before and after touching animals. If you have a pet, ensure that your pet stays clean. Do not let people with weak immune systems touch bird droppings, fish tank water, or a litter box. ?If you have a pet cage or litter box, be sure to clean it every day. If you are sick, stay away from animals and have someone else care for them if possible. How to clean and disinfect objects and surfaces Precautions Some disinfectants work for certain germs and not others. Read the volunteer specialist's instructions or read online resources to determine if the product you are using will work for the germ you are tryingto remove. If you choose to use bleach, use it safely. Never mix it with other cleaning products, especially those that contain ammonia. This mixture can create a dangerous gas that may be deadly. Keep proper movement of fresh air in your home (ventilation). Pour used mop water down the utility sink or toilet. Do not pour this water down the kitchen sink. Objects and surfaces If surfaces are visibly soiled, clean them first with soap and water before disinfecting. Disinfect surfaces that are frequently touched every day. This may include: ?Counters. ?Tables. ?Doorknobs. ?Sinks and faucets. ?Electronics, such as: ?Phones. ?Remote controls. ?Keyboards. ?Computers and tablets. Cleaning supplies Some cleaning supplies can breed germs. Take good care of them to prevent germs from spreading. To do this: Soak toilet brushes, mops, and sponges in bleach and water for 5 minutes after each use, or according to volunteer specialist's instructions. Wash reusable cleaning cloths and sanitize sponges after each use. Throw away disposable gloves after one use. Replace reusable utility gloves if they are cracked or torn or if they start to peel. Additional actions if you are sick If you live with other people: Avoid close contact with those around you. Stay at least 3 ft (1 m) away from others, if possible. Use a separate bathroom, if possible. If possible, sleep in a separate bedroom or in a separate bed to prevent infecting other household members. ?Change bedroom linens each week or whenever they are soiled. Have everyone in the household wash hands often with soap and water. If soap and water are not available, use alcohol-based hand metallic yarn slitting machine operator. In general: Stay home except to get medical care. Call ahead before visiting your health care provider. Ask others to get groceries and household supplies and to refill prescriptions for you. Avoid public areas. Try not to take public transportation. If you can, wear a mask if you need to go out of the house, or if you are in close contact with someone who is not sick. Avoid visitors until you have completely recovered, or until you have no signs and symptoms of infection. Avoid preparing food or providing care for others. If you must prepare food or provide care for others, wear a mask and wash your hands before and after doing these things. Where to find more information Centers for Disease Control and Prevention: www.cdc.gov/nonpharmaceutical-interventions/index.html World Health Organization (WHO): www.who.int/infection-prevention/about/en/ Association for Professionals in Infection Control and Epidemiology: professionals.site.apic.org/mebgsegs-aj-faln/vtd-qhhzzcaljk-alpnspd/home/ Summary It is important to know how to keep the infection from spreading. Make sure everyone in your household washes their hands often with soap and water. Disinfect surfaces that are frequently touched every day. If you are sick, stay home except to get medical care. This information is not intended to replace advice given to you by your health care provider. Make sure you discuss any questions you have with your health care provider. Document Released: 05/23/2009 Document Revised: 12/10/2019 Document Reviewed: 11/08/2019 [employer] Patient Education 2020 [employer]. Follow Up Care 09/21/2021 08:56:59 With:Jimmy STOCK MD, URL Address: [address] [place], [place] [id number]- When:1 year [facility] Evaluation + Plan note Future Appointments Appointment Date:03/29/2022 09:30:00 AM Scheduled Provider:Jimmy STOCK MD Location:[facility] [place] Appointment Type:URO Office Visit [facility] [place] Evaluation + Plan note Future Appointments Appointment Date:04/04/2023 09:30:00 AM Scheduled Provider:Jimmy STOCK MD Location:[facility] Appointment Type:URO Office Visit [facility] Evaluation + Plan note Future Appointments Appointment Date:05/20/2024 10:15:00 AM Scheduled Provider:Jimmy STOCK MD [facility] Office Visit [facility] [place] Evaluation + Plan note Future Appointments Appointment Date:05/19/2025 10:15:00 AM Scheduled Provider:Jimmy STOCK MD Location:[facility] Appointment Type:URO Office Visit [facility] Evaluation noteNo assessment information available [facility] Diagnosis Onset Date Resolution Status Chondromalacia patellae, left knee acute Other tear of lateral menisc us, current injury, right knee, initial encounter acute 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, subsequent encounter Delayed union of metatarsal fracture, [facility] Primary osteoarthritis of both knees- Primary Primary localized osteoarthrosis, lower leg Chronic pain of both knees 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, subsequent encounter Delayed union of metatarsal fracture, left [facility] this [facility] Diagnosis Acute pain of left knee 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, subsequent encounter Delayed union of metatarsal fracture, left [facility] Diagnosis Pre-op evaluation- Primary Preoperative examination, unspecified Smoker Tobacco use disorder Obstructive sleep apnea syndrome in adult Obstructive sleep apnea (adult) (pediatric) Paroxysmal supraventricular tachycardia (HCC) Paroxysmal supraventricular tachycardia Primary hypertension Unspecified essential hypertension Gastroesophageal reflux disease, unspecified whether esophagitis present Bipolar affective disorder, remission status unspecified (HCC) Obesity, morbid (HCC) Morbid obesity 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, subsequent encounter Delayed union of metatarsal fracture, left * Assessment & Plan Note - Hazel Billingsley APRN.CNP - 04/30/2024 1:46 PM EDT Associated Problem(s): Obesity, morbid (HCC) Assessment: Body mass index is 42.74 kg/m . * Assessment & Plan Note - Hazel Billingsley APRN.CNP - 04/30/2024 1:46 PM EDT Associated Problem(s): Bipolar disorder (HCC) Assessment: Not currently medicated * Assessment & Plan Note - Hazel Billingsley APRN.CNP - 04/30/2024 1:46 PM EDT Associated Problem(s): GERD (gastroesophageal reflux disease) Assessment: Well controlled with PPI * Assessment & Plan Note - Hazel Billingsley APRN.CNP - 04/30/2024 1:45 PM EDT Associated Problem(s): Hypertension Assessment: Followed by PCP Last 5 Encounter BP Readings: Date: BP: 04/30/2024 138/84 04/28/2020 155/103 01/24/2013 110/70 10/23/2012 125/84 07/18/2012 125/74 * Assessment & Plan Note - Hazel Billingsley APRN.CNP - 04/30/2024 1:45 PM EDT Associated Problem(s): Paroxysmal supraventricular tachycardia (HCC) Assessment: Untreated, states that the medications bottomed out her BP States she is occasionallydizzy * Assessment & Plan Note - Hazel Billingsley APRN.CNP - 04/30/2024 1:44 PM EDT Associated Problem(s): Obstructive sleep apnea syndrome in adult Assessment: NON Compliant with CPAP * Assessment & Plan Note - Hazel Billingsley APRN.CNP - 04/30/2024 1:44 PM EDT Associated Problem(s): Smoker Assessment: Current 1/2 ppd sm[facility] Pain in left foot Pain in limb Pre-op evaluation- Primary Preoperative examination, unspecified Smoker Tobacco use disorder Obstructive sleep apnea syndrome in adult Obstructive sleep apnea (adult) (pediatric) Paroxysmal supraventricular tachycardia (HCC) Paroxysmal supraventricular tachycardia Primary hypertension Unspecified essential hypertension Gastroesophageal reflux disease, unspecified whether esophagitis present Bipolar affective disorder, remission status unspecified (HCC) Obesity, morbid (HCC) Morbid obesity 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, subsequent encounter Delayed union of metatarsal fracture, left documented in this encounter [facility] [place] note* Diagnosis Pain- Primary Generalized pain Displaced fracture of fifth metatarsal bone, left foot, initial encounter for closed fracture Pre-op evaluation- Primary Preoperative examination, unspecified Smoker Tobacco use disorder Obstructive sleep apnea syndrome in adult Obstructive sleep apnea (adult) (pediatric) Paroxysmal supraventricular tachycardia (HCC) Paroxysmal supraventricular tachycardia Primary hypertension Unspecified essential hypertension Gastroesophageal reflux disease, unspecified whether esophagitis present Bipolar affective disorder, remission status unspecified (HCC) Obesity, morbid (HCC) Morbid obesity 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, subsequent encounter- Primary documented in this encounter [facility] [place] note* Diagnosis Pre-op evaluation- Primary Preoperative examination, unspecified Smoker Tobacco use disorder Obstructive sleep apnea syndrome in adult Obstructive sleep apnea (adult) (pediatric) Paroxysmal supraventricular tachycardia (HCC) Paroxysmal supraventricular tachycardia Primary hypertension Unspecified essential hypertension Gastroesophageal reflux disease, unspecified whether esophagitis present Bipolar affective disorder, remission status unspecified (HCC) Obesity, morbid (HCC) Morbid obesity 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, subsequent encounter- Primary documented in this encounter [facility] [place] note* Diagnosis Pre-op evaluation- Primary Preoperative examination, unspecified Smoker Tobacco use disorder Obstructive sleep apnea syndrome in adult Obstructive sleep apnea (adult) (pediatric) Paroxysmal supraventricular tachycardia (HCC) Paroxysmal supraventricular tachycardia Primary hypertension Unspecified essential hypertension Gastroesophageal reflux disease, unspecified whether esophagitis present Bipolar affective disorder, remission status unspecified (HCC) Obesity, morbid (HCC) Morbid obesity 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, subsequent encounter- Primary documented in this encounter [facility] [place] note* Diagnosis Pre-op evaluation- Primary Preoperative examination, unspecified Smoker Tobacco use disorder Obstructive sleep apnea syndrome in adult Obstructive sleep apnea (adult) (pediatric) Paroxysmal supraventricular tachycardia (HCC) Paroxysmal supraventricular tachycardia Primary hypertension Unspecified essential hypertension Gastroesophageal reflux disease, unspecified whether esophagitis present Bipolar affective disorder, remission status unspecified (HCC) Obesity, morbid (HCC) Morbid obesity 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, subsequent encounter documented in this encounter [facility] [place] note* Diagnosis Pre-op evaluation- Primary Preoperative examination, unspecified Smoker Tobacco use disorder Obstructive sleep apnea syndrome in adult Obstructive sleep apnea (adult) (pediatric) Paroxysmal supraventricular tachycardia (HCC) Paroxysmal supraventricular tachycardia Primary hypertension Unspecified essential hypertension Gastroesophageal reflux disease, unspecified whether esophagitis present Bipolar affective disorder, remission status unspecified (HCC) Obesity, morbid (HCC) Morbid obesity 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, subsequent encounter- Primary documented in this encounter [facility] [place] note* Diagnosis Pre-op evaluation- Primary Preoperative examination, unspecified Smoker Tobacco use disorder Obstructive sleep apnea syndrome in adult Obstructive sleep apnea (adult) (pediatric) Paroxysmal supraventricular tachycardia (HCC) Paroxysmal supraventricular tachycardia Primary hypertension Unspecified essential hypertension Gastroesophageal reflux disease, unspecified whether esophagitis present Bipolar affective disorder, remission status unspecified (HCC) Obesity, morbid (HCC) Morbid obesity 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, subsequent encounter- Primary 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, subsequent encounter documented in this encounter [facility] [place] note* Diagnosis Pre-op evaluation- Primary Preoperative examination, unspecified Smoker Tobacco use disorder Obstructive sleep apnea syndrome in adult Obstructive sleep apnea (adult) (pediatric) Paroxysmal supraventricular tachycardia (HCC) Paroxysmal supraventricular tachycardia Primary hypertension Unspecified essential hypertension Gastroesophageal reflux disease, unspecified whether esophagitis present Bipolar affective disorder, remission status unspecified (HCC) Obesity, morbid (HCC) Morbid obesity 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, subsequent encounter documented in this encounter [facility] [place] note* Diagnosis Pre-op evaluation- Primary Preoperative examination, unspecified Smoker Tobacco use disorder Obstructive sleep apnea syndrome in adult Obstructive sleep apnea (adult) (pediatric) Paroxysmal supraventricular tachycardia (HCC) Paroxysmal supraventricular tachycardia Primary hypertension Unspecified essential hypertension Gastroesophageal reflux disease, unspecified whether esophagitis present Bipolar affective disorder, remission status unspecified (HCC) Obesity, morbid (HCC) Morbid obesity 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, subsequent encounter- Primary 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, subsequent encounter documented in this encounter [facility] [place] note* Diagnosis Pre-op evaluation- Primary Preoperative examination, unspecified Smoker Tobacco use disorder Obstructive sleep apnea syndrome in adult Obstructive sleep apnea (adult) (pediatric) Paroxysmal supraventricular tachycardia (HCC) Paroxysmal supraventricular tachycardia Primary hypertension Unspecified essential hypertension Gastroesophageal reflux disease, unspecified whether esophagitis present Bipolar affective disorder, remission status unspecified (HCC) Obesity, morbid (HCC) Morbid obesity 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, subsequent encounter documented in this encounter [facility] [place] note* Diagnosis Pre-op evaluation- Primary Preoperative examination, unspecified Smoker Tobacco use disorder Obstructive sleep apnea syndrome in adult Obstructive sleep apnea (adult) (pediatric) Paroxysmal supraventricular tachycardia (HCC) Paroxysmal supraventricular tachycardia Primary hypertension Unspecified essential hypertension Gastroesophageal reflux disease, unspecified whether esophagitis present Bipolar affective disorder, remission status unspecified (HCC) Obesity, morbid (HCC) Morbid obesity 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, subsequent encounter- Primary documented in this encounter [facility] [place] note* Diagnosis Pre-op evaluation- Primary Preoperative examination, unspecified Smoker Tobacco use disorder Obstructive sleep apnea syndrome in adult Obstructive sleep apnea (adult) (pediatric) Paroxysmal supraventricular tachycardia (HCC) Paroxysmal supraventricular tachycardia Primary hypertension Unspecified essential hypertension Gastroesophageal reflux disease, unspecified whether esophagitis present Bipolar affective disorder, remission status unspecified (HCC) Obesity, morbid (HCC) Morbid obesity 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, subsequent encounter- Primary Delayed union of metatarsal fracture, left documented in this encounter [facility] [place] note* Diagnosis Pre-op evaluation- Primary Preoperative examination, unspecified Smoker Tobacco use disorder Obstructive sleep apnea syndrome in adult Obstructive sleep apnea (adult) (pediatric) Paroxysmal supraventricular tachycardia (HCC) Paroxysmal supraventricular tachycardia Primary hypertension Unspecified essential hypertension Gastroesophageal reflux disease, unspecified whether esophagitis present Bipolar affective disorder, remission status unspecified (HCC) Obesity, morbid (HCC) Morbid obesity Post-operative state Other postprocedural status documented in this encounter [facility] [place] note* Diagnosis Pre-op evaluation- Primary Preoperative examination, unspecified Smoker Tobacco use disorder Obstructive sleep apnea syndrome in adult Obstructive sleep apnea (adult) (pediatric) Paroxysmal supraventricular tachycardia (HCC) Paroxysmal supraventricular tachycardia Primary hypertension Unspecified essential hypertension Gastroesophageal reflux disease, unspecified whether esophagitis present Bipolar affective disorder, remission status unspecified (HCC) Obesity, morbid (HCC) Morbid obesity Post-operative state- Primary Other postprocedural status Post-operative state Other postprocedural status documented in this encounter [facility] [place] note* Diagnosis Pre-op evaluation- Primary Preoperative examination, unspecified Smoker Tobacco use disorder Obstructive sleep apnea syndrome in adult Obstructive sleep apnea (adult) (pediatric) Paroxysmal supraventricular tachycardia (HCC) Paroxysmal supraventricular tachycardia Primary hypertension Unspecified essential hypertension Gastroesophageal reflux disease, unspecified whether esophagitis present Bipolar affective disorder, remission status unspecified (HCC) Obesity, morbid (HCC) Morbid obesity 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, subsequent encounter- Primary [facility] Diagnosis Well woman exam with routine gynecological exam Routine gynecological examination [facility] - [facility]orted* Type Description Date Medical History Migraines Medical History Allergies {year round} Medical History ADHD Medical History Polycystic Ovarian Syndrome Medical History Diabetes type 2 Medical History Arthritis of knee Medical History Bipolar disorder Medical History Depression Medical History high cholesterol/triglcerides Surgical History CHOLECYSTECTOMY Surgical History C- SECTION Surgical History D& C Surgical History total hysterectomy Surgical History Deviated septum repair Surgical History tonsillectomy Surgical History ankle surgeries left x 3 Surgical History meniscus repair right knee Surgical History hammertoe repair left foot Hospitalization History see above [employer] Other Hospital course Narrative No data available for this section [facility] Discharge instructions No data available for this section [facility] Discharge instructions Additional Instructions -Use Jesus wrap to help with swelling, always wrap starting farthest away from your heart then upwards towards your heart, do not wrap too tightly as it can decrease circulation. Loosen or remove the wrap if you develop worsening pain, swelling below the wrap, numbness or inability to move -Use Ice to help with swelling. -Use Tylenol and ibuprofen or Tylenol and naproxen to help with pain and swelling -Use the crutches as needed but attempt to still put some weight on it -If your pain is not improving by next week you should [facility]charge instructions Additional Instructions Wear the Jesus wrap wrist splint as needed for discomfort Rest ice elevate Ibuprofen or the other anti-inflammatories you have at home for discomfort Follow-[facility] with [facility] Discharge instructions Additional Instructions Continue current meds Return if symptoms are worse[facility] [place] [facility] Discharge instructions Additional Instructions Rest as needed Increase oral fluids May take mgzo-rls-egoplxg medication for any headache Follow-up with your family doctor Return to the ER for worsening headache especially with high fever visual changes vomiting or any other [facility] [place] [facility] Discharge instructions Additional Instructions Rest ice elevate as needed for pain and swelling Wear the knee immobilizer for comfort support stability when you are walking For severe pain 1 oxycodone every 6 hours Otherwise take ibuprofen naproxen Follow-up with your orthopedic surgeon in [place] Return to the ER for worsening pain unable to bear weight fever or any other concerns[facility] Discharge instructions Additional Instructions Keep your appointment with surgeon tomorrow for cast [facility] Progress note No data available for this section [facility]ud[facility] Reason for referral (narrative)* Diagnostic Procedure Only (Routine) - Closed Specialty Diagnoses / Procedures Referred By Contac t Referred To Contact XR IMAGING Diagnoses Pain in left foot Procedures XR FOOT GENERAL 3V AP/LAT/OBL LEFT RADEX FOOT COMPLETE MINIMUM 3 VIEWS Beatrice Cabrera, ZIYAD [address] [place] [address] [place] [address] Referral ID Status Reason Start Date Expiration Date V isits Requested Visits Authorized [id number] Closed Auto-Generate d Referral 01/11/2024 01/12/2024 [address] [facility] for referral (narrative)* Diagnostic Procedure Only (Routine) - Closed Specialty Diagnoses / Procedures Referred By Contac t Referred To Contact XR IMAGING Diagnoses Acute pain of left knee Procedures XR KNEE GENERAL 4V AP BOTH/PA BOTH/LAT/MERC BILATERAL RADIOLOGIC EXAM KNEE COMPLETE 4/MORE VIEWS Arnoldo King, DO [address] [place] [address] [place] [address] Referral ID Status Reason Start Date Expiration Date V isits Requested Visits Authorized [id number] Closed Auto-Generate d Referral 01/30/2024 02/28/2025 [address] [facility] for referral (narrative)* Diagnostic Procedure Only (Routine) - Closed Specialty Diagnoses / Procedures Referred By Contac t Referred To Contact XR IMAGING Diagnoses Pain in left foot Procedures XR FOOT GENERAL 3V AP/LAT/OBL LEFT RADEX FOOT COMPLETE MINIMUM 3 VIEWS Beatrice Cabrera DPM [address] [place] [address] [place] [address] Referral ID Status Reason Start Date Expiration Date V isits Requested Visits Authorized [id number] Closed Auto-Generate d Referral 01/11/2024 01/12/2024 [address] [facility] for referral (narrative)* Diagnostic Procedure Only (Routine) - Closed Specialty Diagnoses / Procedures Referred By Contac t Referred To Contact XR IMAGING Diagnoses Pain Procedures XR KNEE GENERAL 4V AP BOTH/PA BOTH/LAT/MERC BILATERAL RADIOLOGIC EXAM KNEE COMPLETE 4/[place] [address] [place] [address] [place] [address] Referral ID Status Reason Start Date Expiration Date V isits Requested Visits Authorized [id number] Closed Auto-Generate d Referral 03/28/2024 04/27/2025 [address] [facility] for referral (narrative)* Diagnostic Procedure Only (Routine) - Pending Review Specialty Diagnoses / Procedures Referred By Contac t Referred To Contact XR IMAGING Diagnoses 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, subsequent encounter Procedures XR FOOT GENERAL 3V AP/LAT/OBL LEFT RADEX FOOT COMPLETE MINIMUM 3 VIEWS Beatrice Cabrera DPM [address] [place] [address] [place] [address] Referral ID Status Reason Start Date Expiration Date Visits Requested Visits Authorized [id number] Pending Review Auto-Generat ed Referral 4 07/26/2025 1 1 * Diagnostic Procedure Only (Routine) - New Request Specialty Diagnoses / Procedures Referred By Contac t Referred To Contact XR IMAGING Diagnoses 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, subsequent encounter Procedures XR FOOT GENERAL 3V AP/LAT/OBL LEFT RADEX FOOT COMPLETE MINIMUM 3 VIEWS Beatrice Cabrera DPM [address] [place] [address] [place] [address] Referral ID Status Reason Start Date Expiration Date Visits Requested Visits Authorized [id number] New Request Auto-Generat ed Referral 4 07/12/2025 [address] [facility] for referral (narrative)* Diagnostic Procedure Only (Routine) - Pending Review Specialty Diagnoses / Procedures Referred By Contac t Referred To Contact XR IMAGING Diagnoses 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, subsequent encounter Procedures XR FOOT GENERAL 3V AP/LAT/OBL LEFT RADEX FOOT COMPLETE MINIMUM 3 VIEWS Beatrice Cabrera DPM [address] [place] [address] [place] [address] Referral ID Status Reason Start Date Expiration Date Visits Requested Visits Authorized [id number] Pending Review Auto-Generat ed Referral 4 07/26/2025 [address] [facility] for visit Narrative* Diagnostic Procedure Only (Routine) - Closed Specialty Diagnoses / Procedures Referred By Contac t Referred To Contact XR IMAGING Diagnoses Pain in left foot Procedures XR FOOT GENERAL 3V AP/LAT/OBL LEFT RADEX FOOT COMPLETE MINIMUM 3 VIEWS Beatrice Cabrera DPM [address] [place] [address] [place] [address] Referral ID Status Reason Start Date Expiration Date V isits Requested Visits Authorized [id number] Closed Auto-Generate d Referral 01/11/2024 01/12/2024 1 1 [facility] Diagnostic Procedure Only (Routine) - Pending Review Specialty Diagnoses / Procedures Referred By Contac t Referred To Contact XR IMAGING Diagnoses 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, subsequent encounter Procedures XR FOOT GENERAL 3V AP/LAT/OBL LEFT RADEX FOOT COMPLETE MINIMUM 3 VIEWS Beatrice Cabrera, DPM [address] [place] [address] [place] [address] Referral ID Status Reason Start Date Expiration Date Visits Requested Visits Authorized [id number] Pending Review Auto-Generat ed Referral 07/26/2025 1 1 [facility] Summary Purpose Family History Relationship Condition Age at Onset Recorded Date/T adrian Not Specified No pertinent family history Unknown Relationship Condition Age at Onset Recorded Date/T adrian Not Specified No pertinent family history Unknown father Hypertension Unknown Not Specified Hypertension Unknown sister Diabetes mellitus Unknown Relationship Condition Age at Onset Recorded Date/T adrian Not Specified No pertinent family history Unknown father Hypertension Unknown mother Hypertension Unknown sister Diabetes mellitus Unknown Advance Directives Advance Directive Response Recorded Date/ Time Advance Directives No June 12, 2017 12:36pm Advance Directive Response Recorded Date/ Time Advance Directives No June 12, 2017 1:36pm Chief Complaint and Reason for Visit Chief Complaint Rt knee injury- [facility] [employer] lac on finger Chief Complaint Rt knee injury- [facility] [employer] Chief Complaint low abd pain Chief Complaint z115.9-Antigen migraine Chief Complaint fall, left side knee pain Chief Complaint fall, left side knee pain Rt Hand Injury Chief Complaint Rt Hand Injury N/V abd pain Chief Complaint Rt Hand Injury N/V abd pain Left Knee Pain Chief Complaint Obesity Hives all over Chief Complaint Obesity Hives all over rash Chief Complaint Obesity Hives all over rash fall Chief Complaint Hives all over rash fall Obesity r06.83 r40.0 r63.5 Chief Complaint Hives all over rash fall Obesity r06.83 r40.0 r63.5 headache Chief Complaint Hives all over rash fall Obesity r06.83 r40.0 r63.5 headache blurry vision , headche Chief Complaint Hives all over rash fall Obesity r06.83 r40.0 r63.5 headache blurry vision , headche R06.83 R40.0 R63.5 Chief Complaint Hives all over rash fall Obesity r06.83 r40.0 r63.5 headache blurry vision , headche R06.83 R40.0 R63.5 Chest Pain Chief Complaint [facility] 2nd Op, Bilat kn ee pain DOI 04/28/20 Bilateral knee pain Reason for Visit Chondromalacia king lae, left knee Other tear of lateral meniscus, current injury, right knee, initial encounter Chief Complaint r06.83 r40.0 r63.5 headache blurry vision , headche R06.83 R40.0 R63.5 Chest Pain Obesity headache w vision issues Chief Complaint BH r06.83 r40.0 r63.5 headache blurry vision , headche R06.83 R40.0 R63.5 Chest Pain Obesity headache w vision issues R73.03 Z51.81 Chief Complaint Chest Pain Wmn F/U BH headache w vision issues R73.03 Z51.81 Wmn F/U Obesity headache,lightheaded headache Chief Complaint headache w vision is sues R73.03 Z51.81 Wmn F/U Obesity headache,lightheaded headache WMN F/UP Reason for Visit BMI 40.0-44.9, adult Mixed hyperlipidemia Obstructive sleep apnea of adult Osteoarthritis of knee Type 2 diabetes mellitus Chief Complaint headache,lightheaded headache BH WMN F/UP Reason for Visit BMI 40.0-44.9, adult Mixed hyperlipidemia Obstructive sleep apnea of adult Osteoarthritis of knee Type 2 diabetes mellitus BMI 40.0-44.9, adult Mixed hyperlipidemia Obstructive sleep apnea of adult Osteoarthritis of knee Type 2 diabetes mellitus Chief Complaint BH Reason for Visit BMI 40.0-44.9, adult Mixed hyperlipidemia Obstructive sleep apnea of adult Osteoarthritis of knee Type 2 diabetes mellitus Chief Complaint BH L knee injury due to fall Chief Complaint L knee injury due to fall BH cast from surgery is wet Assessments No Assessments Information AvailableNo Assessments Information Available Reason for Referral Specialty Diagnoses / Procedures Referred By Contac t Referred To Contact [facility] Diagnoses 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, subsequent encounter Procedures CONSULT TO PHYSICAL THERAPY PHYSICAL THERAPY EVALUATION HIGH COMPLEX 45 MINS Beatrice Cabrera, DPM [address] [place] [address] [facility] [place] [address] [place] [address] Referral ID Status Reason Start Date Expiration Date Visits Requested Visits Authorized [id number] Pending Review Auto-Generat ed Referral 08/07/2025 1 1 Specialty Diagnoses / Procedures Referred By Contac t Referred To Contact XR IMAGING Diagnoses 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, subsequent encounter Procedures XR FOOT GENERAL 3V AP/LAT/OBL LEFT RADEX FOOT COMPLETE MINIMUM 3 VIEWS Beatrice Cabrera, DPM [address] [place] [address] [place] [address] Referral ID Status Reason Start Date Expiration Date V isits Requested Visits Authorized [id number] Closed Auto-Generate d Referral 08/07/2024 09/04/2025 1 1 Specialty Diagnoses / Procedures Referred By Contac t Referred To Contact XR IMAGING Diagnoses Post-operative state Procedures XR FOOT GENERAL 3V AP/LAT/OBL LEFT RADEX FOOT COMPLETE MINIMUM 3 VIEWS Beatrice Cabrera, DPM [address] [place] [address] [place] [address] Referral ID Status Reason Start Date Expiration Date V isits Requested Visits Authorized [id number] Closed Auto-Generate d Referral 07/11/2024 07/11/2024 1 1 Specialty Diagnoses / Procedures Referred By Contac t Referred To Contact XR IMAGING Diagnoses 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, subsequent encounter Procedures XR FOOT GENERAL 3V AP/LAT/OBL LEFT RADEX FOOT COMPLETE MINIMUM 3 VIEWS Beatrice Cabrera, DPM [address] [place] [address] [place] [address] Referral ID Status Reason Start Date Expiration Date V isits Requested Visits Authorized [id number] Closed Auto-Generate d Referral 05/22/2024 05/22/2024 1 1 Specialty Diagnoses / Procedures Referred By Contac t Referred To Contact MR IMAGING Diagnoses Chronic pain of both knees Procedures MRI KNEE WO IVCON RIGHT MRI ANY JT LOWER EXTREM W/O CONTRAST Fabiano Shepard, [address] [place] [address] [place] [address] Referral ID Status Reason Start Date Expiration Date Visits Requested Visits Authorized [id number] New Request Auto-Generat ed Referral 03/29/2024 04/28/2025 1 1 Specialty Diagnoses / Procedures Referred By Katey plaza Referred To Contact MR IMAGING Diagnoses Chronic pain of both knees Procedures MRI KNEE WO IVCON LEFT MRI ANY JT LOWER EXTREM W/O CONTRAST Fabiano Shepard, [address] [place] [address] [place] [address] Referral ID Status Reason Start Date Expiration Date Visits Requested Visits Authorized [id number] New Request Auto-Generat ed Referral 03/29/2024 04/28/2025 1 1 Reason Refertral for sleep study, has daytime fatigue, snores, and a Epiworth score of 12 Diagnosis 1 Daytime sleepiness ( R40.0) Diagnosis 2 Snores (R06.83) Diagnosis 3 Abnormal weight gain (R63.5) Referral Organization [facility] Referring Provider First Name Dyana Referring Provider Last Name Madi Referring Provider Specialty Internal Me dicine Referred Organization [facility] Referred Address [address] [place] [address] Referred Provider Specialty Sleep Medici ne Referral Priority Routine Additional Source Comments INFORMATION SOURCE (unrecogn ized section and content) DATE CREATED AUTHOR 02/16/2018 [facility] DATE CREATED AUTHOR AUTHOR'S ORGANIZ ATION 06/04/2018 [facility] DATE CREATED AUTHOR AUTHOR'S ORGANIZ ATION 06/05/2018 [facility] DATE CREATED AUTHOR AUTHOR'S ORGANIZ ATION 08/24/2018 [facility] DATE CREATED AUTHOR AUTHOR'S ORGANIZ ATION 04/29/2020 [facility] DATE CREATED AUTHOR AUTHOR'S ORGANIZ ATION 08/15/2021 [facility] DATE CREATED AUTHOR AUTHOR'S ORGANIZ ATION 01/06/2023 [facility] DATE CREATED AUTHOR AUTHOR'S ORGANIZ ATION 08/29/2023 [facility] DATE CREATED AUTHOR AUTHOR'S ORGANIZ ATION 2023 [facility] DATE CREATED AUTHOR AUTHOR'S ORGANIZ ATION 10/25/2023 [facility] DATE CREATED AUTHOR AUTHOR'S ORGANIZ ATION 07/14/2024 [facility] DATE CREATED AUTHOR AUTHOR'S ORGANIZ ATION 08/10/2024 [facility] DATE CREATED AUTHOR AUTHOR'S ORGANIZ ATION 08/14/2024 [facility] Goals (unrecognized section and content) Goals may be documented in a n alternate sectionGoals may be documented in an alternate section No data available for this section No data available for this sectionGoals may be documented in an alternate sectionGoals may be documented in an alternate section No data available for this sectionGoals may be documented in an alternate sectionGoals may be documented in an alternate sectionNo InformationNo InformationGoals may be documented in an alternate sectionGoals may be documented in an alternate section No data available for this sectionGoals may be documented in an alternate sectionNo InformationGoals may be documented in an alternate sectionGoals may be documented in an alternate sectionGoals may be documented in an alternate sectionGoals may be documented in an alternate sectionNo InformationGoals may be documented in an alternate sectionNo InformationGoals may be documented in an alternate sectionGoals may be documented in an alternate sectionGoals may be documented in an alternate sectionGoals may be documented in an alternate sectionNo InformationGoals may be documented in an alternate sectionGoals may be documented in an alternate sectionGoals may be documented in an alternate sectionGoals may be documented in an alternate sectionGoals may be documented in an alternate section No data available for this sectionGoals may be documented in an alternate section Care Teams (unrecognized sec tion and content) Team Status: Active Member Role Status Dates Nupur Mcmahan MD Primary Care Provider Active Team Status: Inactive Member Role Status Dates Nupur Mcmahan MD Primary Care Provider Active Start: March 27, 2024 End: March 27, 2024 ANGEL Anderson- Emergency Provider Active Start: March 27, 2024 End: March 27, 2024 Team Status: Active Member Role Status Dates Nupur Mcmahan MD Primary Care Provider Active Start: May 29, 2024 Shahbaz Cornelius MD Attending Provider Active Start: May 29, 2024 Team Status: Inactive Member Role Status Demarco Mcmahan MD Primary Care Provider Active Start: June 04, 2024 End: June 04, 2024 Dante Bone APRN Emergency Provider Active Start: June 04, 2024 End: June 04, 2024 Team Status: Active Member Role Status Demarco Mcmahan MD Primary Care Provider Active Start: March 19, 2024 Shahbaz Cornelius MD Attending Provider Active Start: March 19, 2024 Team Status: Inactive Member Role Status Demarco Mcmahan MD Primary Care Provider Active Start: July 02, 2023 End: July 02, 2023 Lamont Cifeuntes DO RES Active Start : July 02, 2023 End: July 02, 2023 Emmie Cannon Jr, MD Emergency Provider Active Start: July 02, 2023 End: July 02, 2023 Team Status: Inactive Member Role Status Demarco Barraza MD Attending Provider Active Start: July 10, 2023 End: July 10, 2023 Team Status: Active Member Role Status Demarco Mcmahan MD Primary Care Provider Active Start: July 18, 2023 Shahbaz Cornelius MD Attending Provider Active Start: July 18, 2023 Team Status: Inactive Member Role Status Demarco Mcmahan MD Primary Care Provider Active Start: August 21, 2023 End: August 21, 2023 Any Truong MD Emergency Provider Active St art: August 21, 2023 End: August 21, 2023 Team Status: Inactive Member Role Status Demarco Mcmahan MD Primary Care Provider Active Start: August 22, 2023 End: August 22, 2023 Dyana Barraza MD Attending Provider Active Start: August 22, 2023 End: August 22, 2023 Team Status: Inactive Member Role Status Dmearco Barraza MD Attending Provider Active Start: August 29, 2023 End: August 29, 2023 Team Status: Active Member Role Status Demarco Mcmahan MD Primary Care Provider Active Start: August 29, 2023 Dyana Barraza MD Attending Provider Active Start: August 29, 2023 Team Status: Inactive Member Role Status Demarco Mcmahan MD Primary Care Provider Active Start: September 22, 2023 End: September 23, 2023 Anthony Thomas DO Emergency Provider Active Start: September 22, 2023 End: September 23, 2023 Team Status: Inactive Member Role Status Demarco Mcmahan MD Primary Care Provider Active Start: September 24, 2023 End: September 24, 2023 Mary Schaeffer [facility] Emergency Provider Active Start: September 24, 2023 End: September 24, 2023 Team Status: Active Member Role Status Demarco Mcmahan MD Primary Care Provider Active Dyana Barraza MD Attending Provider Active Team Status: Inactive Member Role Status Demarco Mcmahan MD Primary Care Provider Active Dante Bone APRN Emergency Provider Active Team Status: Inactive Member Role Status Demarco Mcmahan MD Primary Care Provider Active Seema Tai APRN Emergency Provider Active Team Status: Inactive Member Role Status Demarco Mcmahan MD Primary Care Provider Active Kaz Valderrama MD Attending Provider Active Team Status: Inactive Member Role Status Demarco Mcmahan MD Primary Care Provider Active Oscar Narayan DO Emergency Provider Active Team Status: Inactive Member Role Status Demarco Mcmahan MD Primary Care Provider Active Mary Schaeffer [facility] Emergency Provider Active Team Status: Inactive Member Role Status Demarco Mcmahan MD Primary Care Provider Active Paolo Beck DO Emergency Provider Active Team Status: Inactive Member Role Status Demarco Mcmahan MD Primary Care Provider Active Branden Fenton Attending Provider Active Team Status: Inactive Member Role Status Demarco Mcmahan MD Primary Care Provider Active Eugenio Newton PA-C Emergency Provider Active Team Status: Inactive Member Role Status Demarco Mcmahan MD Primary Care Provider Active Dyana Barraza MD Attending Provider Active Team Status: Inactive Member Role Status Demarco Mcmahan MD Primary Care Provider Active Dyana Barraza MD Referring Provider Active Libertad Kumari MD Attending Provider Active Team Status: Inactive Member Role Status Demarco Mcmahan MD Primary Care Provider Active Rm Valdes MD Emergency Provider Active Team Status: Inactive Member Role Status Demarco Mcmahan MD Primary Care Provider Active Adis Martinez DO Emergency Provider Active Team Status: Inactive Member Role Status Dates Nupur Mcmahan MD Primary Care Provider Active Libertad Kumari MD Attending Provider Active Team Status: Inactive Member Role Status Dates Nupur Mcmahan MD Primary Care Provider Active Lamont Cifuentes DO RES Active Emmie Cannon Jr, MD Emergency Provider Active Team Status: Active Member Role Status Dates No PCP Primary Care Provider Active Team Status: Inactive Member Role Status Dates Beatrice Shafer MD Attending Provider Active Team Status: Active Member Role Status Dates Beatrice Shafer MD Attending Provider Active No PCP Primary Care Provider Active Team Status: Inactive Member Role Status Dates Beatrice Shafer MD Attending Provider Active No PCP Primary Care Provider Active Team Status: Inactive Member Role Status Dates Nupur Mcmahan MD Primary Care Provider Active Any Truong MD Emergency Provider Active Team Status: Active Member Role Status Dates Nupur Mcmahan MD Primary Care Provider Active Shahbaz Cornelius MD Attending Provider Active Team Status: Inactive Member Role Status Dates Nupur Mcmahan MD Primary Care Provider Active Start: October 20, 2023 End: October 20, 2023 Dyana Barraza MD Attending Provider Active Start: October 20, 2023 End: October 20, 2023 Team Status: Active Member Role Status Dates Nupur Mcmahan MD Primary Care Provider Active Start: September 25, 2023 Shahbaz Cornelius MD Attending Provider Active Start: September 25, 2023 Team Status: Inactive Member Role Status Dates Nupur Mcmahan MD Primary Care Provider Active Start: December 01, 2023 End: December 01, 2023 Dyana Barraza MD Attending Provider Active Start: December 01, 2023 End: December 01, 2023 Analysis Reporting Developer Relationship Specialty Start Date End Date Nupur Mcmahan MD [address] [place] [address] PCP - General 11/11/04 Analysis Reporting Developer Relationship Specialty Start Date End Date Nupur Mcmahan MD [address] [place] [address] PCP - General 11/11/04 Analysis Reporting Developer Relationship Specialty Start Date End Date Nupur Mcmahan MD [address] [place] [address] PCP - General 11/11/04 Analysis Reporting Developer Relationship Specialty Start Date End Date Nupur Mcmahan MD [address] [place] [address] PCP - General 11/11/04 Team Status: Active Member Role Status Dates Nupur Mcmahan MD Primary Care Provider Active Start: January 24, 2024 Shahbaz Cornelius MD Attending Provider Active Start: January 24, 2024 Analysis Reporting Developer Relationship Specialty Start Date End Date Nupur Mcmahan MD [address] [place] [address] PCP - General 11/11/04 Analysis Reporting Developer Relationship Specialty Start Date End Date Nupur Mcmahan MD [address] [place] [address] PCP - General 11/11/04 Analysis Reporting Developer Relationship Specialty Start Date End Date Nupur Mcmahan MD [address] [place] [address] PCP - General 11/11/04 Analysis Reporting Developer Relationship Specialty Start Date End Date Nupur Mcmahan MD [address] [place] [address] PCP - General 11/11/04 Analysis Reporting Developer Relationship Specialty Start Date End Date Nupur Mcmahan MD [address] [place] [address] PCP - General 11/11/04 Analysis Reporting Developer Relationship Specialty Start Date End Date Nupur Mcmahan MD [address] [place] [address] PCP - General 11/11/04 Analysis Reporting Developer Relationship Specialty Start Date End Date Nupur Mcmahan MD [address] [place] [address] PCP - General 11/11/04 Analysis Reporting Developer Relationship Specialty Start Date End Date Nupur Mcmahan MD [address] [place] [address] PCP - General 11/11/04 Analysis Reporting Developer Relationship Specialty Start Date End Date Nupur Mcmahan MD [address] [place] [address] PCP - General 11/11/04 Analysis Reporting Developer Relationship Specialty Start Date End Date Nupur Mcmahan MD [address] [place] [address] PCP - General 11/11/04 Analysis Reporting Developer Relationship Specialty Start Date End Date Nupur Mcmahan MD [address] [place] [address] PCP - General 11/11/04 Analysis Reporting Developer Relationship Specialty Start Date End Date Nupur Mcmahan MD [address] [place] [address] PCP - General 11/11/04 Analysis Reporting Developer Relationship Specialty Start Date End Date Nupur Mcmahan MD [address] [place] [address] PCP - General 11/11/04 Analysis Reporting Developer Relationship Specialty Start Date End Date Nupur Mcmahan MD [address] [place] [address] PCP - General 11/11/04 Analysis Reporting Developer Relationship Specialty Start Date End Date Nupur Mcmahan MD [address] [place] [address] PCP - General 11/11/04 Analysis Reporting Developer Relationship Specialty Start Date End Date Nupur Mcmahan MD [address] [place] [address] PCP - General 11/11/04 Analysis Reporting Developer Relationship Specialty Start Date End Date Nupur Mcmahan MD [address] [place] [address] PCP - General 11/11/04 Analysis Reporting Developer Relationship Specialty Start Date End Date Nupur Mcmahan MD [address] [place] [address] PCP - General 11/11/04 Analysis Reporting Developer Relationship Specialty Start Date End Date Nupur Mcmahan MD [address] [place] [address] PCP - General 11/11/04 Analysis Reporting Developer Relationship Specialty Start Date End Date Nupur Mcmahan MD [address] [place] [address] PCP - General 11/11/04 Analysis Reporting Developer Relationship Specialty Start Date End Date Nupur Mcmahan MD [address] [place] [address] PCP - General 11/11/04 Analysis Reporting Developer Relationship Specialty Start Date End Date Nupur Mcmahan MD [address] [place] [address] PCP - General Family Medicine 01/31/23 Analysis Reporting Developer Relationship Specialty Start Date End Date Nupur Mcmahan MD [address] [place] [address] PCP - General Family Medicine 01/31/23 REASON FOR VISIT (unrecogniz ed section and content) Reason Comments New Fracture Specialty Diagnoses / Procedures Referred By Contact Referred To Contact Podiatry / ORTHOPAEDIC SURGERY Diagnoses left foot, right and left knee outside xray and MRI Procedures REFERRAL TO [facility] THOMAS NEW FRACTURE Self Beatrice Cabrera, DPM [address] [place] [address] Referral ID Status Reason Start Date Expiration Date V isits Requested Visits Authorized [id number] Closed Patient Cleared - Admin/Chairm an/Director advise to proceed or did not respond 01/12/2024 01/12/2024 1 1 Reason Comments Radiology XR Reason Comments Surgical Followup Reason Comments FMLA Paperwork Reason Comments New Specialty Diagnoses / Procedures Referred By Contac t Referred To Contact Orthopedics / ORTHOPAEDIC SURGERY Diagnoses Bi-lateral knee pain Procedures [place] [address] [place] [address] Referral ID Status Reason Start Date Expiration Date V isits Requested Visits Authorized [id number] Open Patient Cleared - Admin/Chairm an/Director advise to proceed or did not respond 03/29/2024 05/28/2024 1 1 Reason Comments Radiology XR Specialty Diagnoses / Procedures Referred By Contac t Referred To Contact XR IMAGING Diagnoses Acute pain of left knee Procedures XR KNEE GENERAL 4V AP BOTH/PA BOTH/LAT/MERC BILATERAL RADIOLOGIC EXAM KNEE COMPLETE 4/MORE VIEWS Arnoldo King, DO [address] [place] [address] [place] [address] Referral ID Status Reason Start Date Expiration Date V isits Requested Visits Authorized [id number] Closed Auto-Generate d Referral 01/30/2024 02/28/2025 1 1 Reason Comments Pre-Op Visit Specialty Diagnoses / Procedures Referred By Contact Referred To Contact Anesthesiology / ANESTHESIOLOGY Diagnoses PACC left foot, SX 05/13/24 Procedures COMPLETE PACC Beatrice Cabrera, OKSANAM [address] [place] [address] 2, [facility] [place] [address] [place] [address] Referral ID Status Reason Start Date Expiration Date Visits Re quested Visits Authorized [id number] Closed 04/30/2024 04/30/2024 1 1 Reason Comments Patient Update Surgical Followup Specialty Diagnoses / Procedures Referred By Contact Referred To Contact Podiatry / ORTHOPAEDIC SURGERY Diagnoses Post op left foot, SX 05/13/24 Procedures POST OP Self Beatrice Cabrera DPM [address] [place] [address] Referral ID Status Reason Start Date Expiration Date Visits Re quested Visits Authorized [id number] Closed 05/22/2024 05/22/2024 1 1 Specialty Diagnoses / Procedures Referred By Contac t Referred To Contact XR IMAGING Diagnoses 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, subsequent encounter Procedures XR FOOT GENERAL 3V AP/LAT/OBL LEFT RADEX FOOT COMPLETE MINIMUM 3 VIEWS Beatrice Cabrera DPM [address] [place] [address] [place] [address] Referral ID Status Reason Start Date Expiration Date V isits Requested Visits Authorized [id number] Closed Auto-Generate d Referral 05/22/2024 05/22/2024 1 1 Specialty Diagnoses / Procedures Referred By Contac t Referred To Contact ORTHOPAEDIC SURGERY Diagnoses Foot pain Procedures FOLLOW-UP E-ASSESSMENT Beatrice Cabrera, ZIYAD [address] [place] [address] [facility] [address] [address] Referral ID Status Reason Start Date Expiration Date Visits Re quested Visits Authorized [id number] Closed 06/05/2024 06/05/2024 1 1 Specialty Diagnoses / Procedures Referred By Contac t Referred To Contact ORTHOPAEDIC SURGERY Diagnoses Left foot pain Procedures FOLLOW-UP E-ASSESSMENT Beatrice Cabrera, DPM [address] [place] [address] [facility] [place] [address] [place] [address] Referral ID Status Reason Start Date Expiration Date Visits Re quested Visits Authorized [id number] Closed 06/05/2024 06/05/2024 1 1 Referral ID Status Reason Start Date Expiration Date V isits Requested Visits Authorized [id number] Closed Auto-Generate d Referral 06/05/2024 06/05/2024 1 1 Specialty Diagnoses / Procedures Referred By Contact Referred To Contact Podiatry / ORTHOPAEDIC SURGERY Diagnoses Postop Left foot Procedures POST OP Beatrice Cabrera DPM [address] [place] [address] Beatrice Cabrera DPM [address] [place] [address] Referral ID Status Reason Start Date Expiration Date Visits Re quested Visits Authorized [id number] Closed 06/26/2024 06/26/2024 1 1 Specialty Diagnoses / Procedures Referred By Contac t Referred To Contact Orthopedics / ORTHOPAEDIC SURGERY Diagnoses Postop left foot Procedures THOMAS CAST Pcp, No, [employer] Breanna, Cast Tech [address] [place] [address] Referral ID Status Reason Start Date Expiration Date Visits Re quested Visits Authorized [id number] Closed 06/26/2024 06/26/2024 1 1 Specialty Diagnoses / Procedures Referred By Contact Referred To Contact Orthopedics / ORTHOPAEDIC SURGERY Diagnoses cast change / post op Procedures THOMAS CAST Beatrice Cabrera DPM [address] [place] [address] Breanna, Cast Tech [address] [place] [address] Referral ID Status Reason Start Date Expiration Date Visits Re quested Visits Authorized [id number] Closed 07/11/2024 07/11/2024 1 1 Reason Comments Established Patient Post Op Specialty Diagnoses / Procedures Referred By Contact Referred To Contact Podiatry / ORTHOPAEDIC SURGERY Diagnoses 2 week follow up left foot/ post op Procedures POST OP Self Beatrice Cabrera DPM [address] [place] [address] Referral ID Status Reason Start Date Expiration Date Visits Re quested Visits Authorized [id number] Closed 07/11/2024 07/11/2024 1 1 Specialty Diagnoses / Procedures Referred By Contac t Referred To Contact XR IMAGING Diagnoses Post-operative state Procedures XR FOOT GENERAL 3V AP/LAT/OBL LEFT RADEX FOOT COMPLETE MINIMUM 3 VIEWS Beatrice Cabrera DPM [address] [place] [address] [place] [address] Referral ID Status Reason Start Date Expiration Date V isits Requested Visits Authorized [id number] Closed Auto-Generate d Referral 07/11/2024 07/11/2024 1 1 Reason Comments Post Op Specialty Diagnoses / Procedures Referred By Contact Referred To Contact Podiatry / ORTHOPAEDIC SURGERY Diagnoses 3 week follow up left foot pain Procedures THOMAS EST PODI Nupur Mcmahan MD [address] [place] [address] Beatrice Cabrera DPM [address] [place] [address] Referral ID Status Reason Start Date Expiration Date Visits Re quested Visits Authorized [id number] Closed 08/07/2024 11/05/2024 1 1 Reason Comments Well Women Visit Source Comments (unrecognize d section and content) In the event this informatio n is protected by the Federal Confidentiality of Alcohol and Drug Abuse Patient Records regulations: The Federal rules restrict any use of the information to criminally investigate or prosecute any alcohol or drug abuse patient.[facility] the event this information is protected by the Federal Confidentiality of Alcohol and Drug Abuse Patient Records regulations: The Federal rules restrict any use of the information to criminally investigate or prosecute any alcohol or drug abuse patient.[facility] the event this information is protected by the Federal Confidentiality of Alcohol and Drug Abuse Patient Records regulations: The Federal rules restrict any use of the information to criminally investigate or prosecute any alcohol or drug abuse patient.[facility] the event this information is protected by the Federal Confidentiality of Alcohol and Drug Abuse Patient Records regulations: The Federal rules restrict any use of the information to criminally investigate or prosecute any alcohol or drug abuse patient.[facility] the event this information is protected by the Federal Confidentiality of Alcohol and Drug Abuse Patient Records regulations: The Federal rules restrict any use of the information to criminally investigate or prosecute any alcohol or drug abuse patient.[facility] the event this information is protected by the Federal Confidentiality of Alcohol and Drug Abuse Patient Records regulations: The Federal rules restrict any use of the information to criminally investigate or prosecute any alcohol or drug abuse patient.[facility] the event this information is protected by the Federal Confidentiality of Alcohol and Drug Abuse Patient Records regulations: The Federal rules restrict any use of the information to criminally investigate or prosecute any alcohol or drug abuse patient.[facility] the event this information is protected by the Federal Confidentiality of Alcohol and Drug Abuse Patient Records regulations: The Federal rules restrict any use of the information to criminally investigate or prosecute any alcohol or drug abuse patient.[facility] [facility]In the event this information is protected by the Federal Confidentiality of Alcohol and Drug Abuse Patient Records regulations: The Federal rules restrict any use of the information to criminally investigate or prosecute any alcohol or drug abuse patient.[facility] the event this information is protected by the Federal Confidentiality of Alcohol and Drug Abuse Patient Records regulations: The Federal rules restrict any use of the information to criminally investigate or prosecute any alcohol or drug abuse patient.[facility]In the event this information is protected by the Federal Confidentiality of Alcohol and Drug Abuse Patient Records regulations: The Federal rules restrict any use of the information to criminally investigate or prosecute any alcohol or drug abuse patient.[facility]In the event this information is protected by the Federal Confidentiality of Alcohol and Drug Abuse Patient Records regulations: The Federal rules restrict any use of the information to criminally investigate or prosecute any alcohol or drug abuse patient.[facility]In the event this information is protected by the Federal Confidentiality of Alcohol and Drug Abuse Patient Records regulations: The Federal rules restrict any use of the information to criminally investigate or prosecute any alcohol or drug abuse patient.[facility]In the event this information is protected by the Federal Confidentiality of Alcohol and Drug Abuse Patient Records regulations: The Federal rules restrict any use of the information to criminally investigate or prosecute any alcohol or drug abuse patient.[facility]In the event this information is protected by the Federal Confidentiality of Alcohol and Drug Abuse Patient Records regulations: The Federal rules restrict any use of the information to criminally investigate or prosecute any alcohol or drug abuse patient.[facility]In the event this information is protected by the Federal Confidentiality of Alcohol and Drug Abuse Patient Records regulations: The Federal rules restrict any use of the information to criminally investigate or prosecute any alcohol or drug abuse patient.[facility]In the event this information is protected by the Federal Confidentiality of Alcohol and Drug Abuse Patient Records regulations: The Federal rules restrict any use of the information to criminally investigate or prosecute any alcohol or drug abuse patient.[facility]In the event this information is protected by the Federal Confidentiality of Alcohol and Drug Abuse Patient Records regulations: The Federal rules restrict any use of the information to criminally investigate or prosecute any alcohol or drug abuse patient.[facility]In the event this information is protected by the Federal Confidentiality of Alcohol and Drug Abuse Patient Records regulations: The Federal rules restrict any use of the information to criminally investigate or prosecute any alcohol or drug abuse patient.[facility]In the event this information is protected by the Federal Confidentiality of Alcohol and Drug Abuse Patient Records regulations: The Federal rules restrict any use of the information to criminally investigate or prosecute any alcohol or drug abuse patient.[facility]In the event this information is protected by the Federal Confidentiality of Alcohol and Drug Abuse Patient Records regulations: The Federal rules restrict any use of the information to criminally investigate or prosecute any alcohol or drug abuse patient.[facility]In the event this information is protected by the Federal Confidentiality of Alcohol and Drug Abuse Patient Records regulations: The Federal rules restrict any use of the information to criminally investigate or prosecute any alcohol or drug abuse patient.[facility]In the event this information is protected by the Federal Confidentiality of Alcohol and Drug Abuse Patient Records regulations: The Federal rules restrict any use of the information to criminally investigate or prosecute any alcohol or drug abuse patient.[facility]In the event this information is protected by the Federal Confidentiality of Alcohol and Drug Abuse Patient Records regulations: The Federal rules restrict any use of the information to criminally investigate or prosecute any alcohol or drug abuse patient.[facility]In the event this information is protected by the Federal Confidentiality of Alcohol and Drug Abuse Patient Records regulations: The Federal rules restrict any use of the information to criminally investigate or prosecute any alcohol or drug abuse patient.[facility]In the event this information is protected by the Federal Confidentiality of Alcohol and Drug Abuse Patient Records regulations: The Federal rules restrict any use of the information to criminally investigate or prosecute any alcohol or drug abuse patient.[facility]In the event this information is protected by the Federal Confidentiality of Alcohol and Drug Abuse Patient Records regulations: The Federal rules restrict any use of the information to criminally investigate or prosecute any alcohol or drug abuse patient.[facility]In the event this information is protected by the Federal Confidentiality of Alcohol and Drug Abuse Patient Records regulations: The Federal rules restrict any use of the information to criminally investigate or prosecute any alcohol or drug abuse patient.[facility]In the event this information is protected by the Federal Confidentiality of Alcohol and Drug Abuse Patient Records regulations: The Federal rules restrict any use of the information to criminally investigate or prosecute any alcohol or drug abuse patient.[facility]In the event this information is protected by the Federal Confidentiality of Alcohol and Drug Abuse Patient Records regulations: The Federal rules restrict any use of the information to criminally investigate or prosecute any alcohol or drug abuse patient.[facility]In the event this information is protected by the Federal Confidentiality of Alcohol and Drug Abuse Patient Records regulations: The Federal rules restrict any use of the information to criminally investigate or prosecute any alcohol or drug abuse patient.[facility]In the event this information is protected by the Federal Confidentiality of Alcohol and Drug Abuse Patient Records regulations: The Federal rules restrict any use of the information to criminally investigate or prosecute any alcohol or drug abuse patient.[facility] HospitalIn the event this information is protected by the Federal Confidentiality of Alcohol and Drug Abuse Patient Records regulations: The Federal rules restrict any use of the information to criminally investigate or prosecute any alcohol or drug abuse patient.[facility] FOR RECORDS PERTAINING TO PATIENTS WHO ARE OR HAVE BEEN ENROLLED IN A CHEMICAL DEPENDENCY/SUBSTANCEABUSE PROGRAM, SOME INFORMATION MAY BE OMITTED. This clinical summary was aggregated from multiple sources. Caution should be exercised in using it in the provision of clinical care. This summary normalizes information from multiple sources, and as a consequence, information in this document may materially change the coding, format and clinical context of patient data. In addition, data may be omitted in some cases. CLINICAL DECISIONS SHOULD BE BASED ON THE PRIMARY CLINICAL RECORDS. [facility] [employer] [facility]. provides no warranty or guarantee of the accuracy or completeness of information in this document.
== END 2024-09-10 19:42 | disposition home or self-care (01) ==
LOC: LAB 19:41
PROVIDERS: PCP Family Medicine; Visit Provider Obstetrics & Gynecology
DX: Z01.419 Encounter for gynecological examination (general) (routine) without abnormal findings (principal)
CPT/HCPCS: 87624; 88175

== ENCOUNTER 2024-10-09 14:30 | Outpatient (OUT) | payer OTHER, SELFPAY ==
[2024-10-10 05:09] LABS: HIV Ab/p24 Ag Screen Non Reactive (Non Reactive)
[2024-10-10 06:10] LABS: HBsAg Screen Negative (Negative)
[2024-10-10 10:07] LABS: Rapid Plasma Reagin, Quant Non Reactive titer (NonRea<1:1)
== END 2024-10-09 14:31 | disposition home or self-care (01) ==
LOC: LAB 14:30
PROVIDERS: PCP Family Medicine; Visit Provider Obstetrics & Gynecology
DX: Z20.2 Contact with and (suspected) exposure to infections with a predominantly sexual mode of transmission (principal)
CPT/HCPCS: 36415; 86592; 87340; 87389

== ENCOUNTER 2024-10-09 14:32 | Outpatient (OUT) | payer OTHER, SELFPAY | END 2024-10-09 14:33 | disposition home or self-care (01) | LOC: CARD 14:32 | PROVIDERS: PCP Family Medicine; Visit Provider Family Medicine | DX: R00.2 Palpitations (principal); Z20.2 Contact with and (suspected) exposure to infections with a predominantly sexual mode of transmission | CPT/HCPCS: 36415; 86592; 87340; 87389; 93246 ==